=== PATIENT | male | born 1950 | race Caucasian/White ===

== ENCOUNTER → 2017-01-01 | Outpatient (CLI) | payer OTHER ==
[~2017-01-01] MED LIST: ASPEC325; ESZO1TAB16; GABA-113; INDO75CA; PEPCID COMPLETE
== END | disposition home or self-care (01) ==
LOC: C.RDSM 11:52
PROVIDERS: ATTEND Physical Medicine & Rehabilitation Sports Medicine
DX: M25.562 Pain in left knee (principal)

== ENCOUNTER → 2017-08-28 | Outpatient (CLI) | payer OTHER ==
--- NOTE | 2017-08-28 14:52 | DIAGNOSTIC IMAGING REPORT ---
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 There is no evidence for bowel obstruction. No abnormal abdominal calcifications are seen. IMPRESSION: Normal study. No change from the prior exam The above report was generated using voice recognition software. It may contain grammatical, syntax or spelling errors. Electronically signed by: Finn Salas M.D. 08/28/2017 2:51 PM Dictated Date/Time: 08/28/2017 2:50 PM
== END | disposition home or self-care (01) ==
LOC: C.RAD 14:20
PROVIDERS: ATTEND Urology
DX: N20.0 Calculus of kidney (principal)

== ENCOUNTER 2021-08-04 11:16 | Inpatient (IN) ==
[2021-08-04] MEDS ORDERED: SODIUM CHLORIDE 0.9% 1000ML 500 ML IV ONE (11:33)
--- NOTE | 2021-08-04 11:51 | Emergency Department Note ---
History of Present Illness General Chief complaint: Testicular Pain Stated complaint: BLOOD IN URINE,SWOLLEN TESTICLE,FEVER Time Seen by Provider: 08/04/21 11:24 History of Present Illness Provider Complaint: + testicle pain, + testicle swelling and + dysuria Onset (ago): day(s) 2 Duration: + constant Severity: severe Maximum Pain Intensity: 9 Current Pain Intensity: 9 Quality: + burning Relieved By: + none Exacerbated By: + urination Context: no new medication, no recent surgery, no trauma, no new sexual partner, no lifting, no indwelling catheter or no known STD exposure Associated symptoms: + fever/chills (Ulhb609.5); no chest pain, no headaches, no loss of appetite, no malaise, no nausea/vomiting, no rash, no seizure, no shortness of breath or no syncope Other Symptoms: + blood in urine and + dysuria; no discharge, no mass, no urinary retention or no incontinence Treatments Prior to Arrival: + NSAID Home Medications Medication Instructions Recorded Confirmed Type cholecalciferol (vitamin D3) 25 25 mcg PO DAILY 12/08/19 08/04/21 History mcg (1,000 unit) tablet hydroxychloroquine 200 mg tablet 200 mg PO DAILY 12/08/19 08/04/21 History lisinopril 10 mg tablet 20 mg PO DAILY 12/08/19 08/04/21 History multivitamin 1 tab PO DAILY 12/08/19 08/04/21 History rosuvastatin 20 mg tablet 20 mg PO QPM 12/08/19 08/04/21 History donepezil 5 mg tablet 5 mg PO DAILY 12/06/20 08/04/21 History gabapentin 300 mg capsule 300 mg PO BID cap 12/06/20 08/04/21 History krill oil 500 mg capsule 500 mg PO DAILY 12/06/20 08/04/21 History omeprazole 20 mg capsule,delayed 20 mg PO DAILY 12/06/20 08/04/21 History release aspirin 81 mg tablet,delayed 81 mg PO DAILY 08/04/21 08/04/21 History release (Aspirin Low Dose) doxycycline hyclate 100 mg capsule 100 mg PO DAILY 08/04/21 08/04/21 History Allergies Allergy/AdvReac Type Severity Reaction Status Date / Time Sulfa (Sulfonamide Allergy Unknown RASH;HIVES; Unverified 08/04/21 12:49 Antibiotics) SWELLING meloxicam [From Mobic] Allergy Verified 08/04/21 12:49 naproxen [From Aleve] Allergy Verified 08/04/21 12:49 Past Med/Surg History Medical History (Updated 08/04/21 @ 13:21 by Delbert Gallegos) Arthritis Cardiac disorder Heart attack High blood pressure Hyperlipidemia Kidney stones No pertinent family history Surgical History H/O foot surgery H/O heart surgery History of bladder surgery Social History Smoking Status: Never smoker marital status: Feels Safe at Home: Yes Review of Systems A total of 10 systems reviewed and were otherwise negative Physical Exam Vital Signs: Vital Signs - 24 hr 08/04/21 11:18 Temperature 37.4 C Temperature Source Temporal Artery Sc an Pulse Rate 83 Respiratory Rate 18 Respiratory Effort / Characteristics Non-Labored Respiratory Depth Normal Blood Pressure 146/76 H Blood Pressure Marta n 99 Pulse Oximetry 100 Oxygen Delivery Me thod Room Air Sepsis Recent Feve r Within 48 Hours No Sepsis New/Unexpla ined Change in Men ashanti Status No Sepsis Action Take n by Nursing No Action Required Physical Exam: Physical Exam GENERAL: He is oriented to person, place, and time. He appears well-developed and well-nourished. He does not appear distressed. HENT: Exam performed. - Head: Normocephalic and atraumatic. - Right Ear: External ear normal. No mastoid tenderness. - Left Ear: External ear normal. No mastoid tenderness. - Mouth/Throat: The oropharynx is clear and moist. No trismus in the jaw. No dental abscesses or uvula swelling. No oropharyngeal exudate or tonsillar abscesses. EYES: Conjunctivae and EOM are normal. Pupils are equal, round, and reactive to light. Right eye exhibits no discharge. Left eye exhibits no discharge. No scleral icterus. NECK: Normal range of motion. Neck supple. No JVD present. No spinous process tenderness present. No carotid bruit present. No rigidity. No tracheal deviation and normal range of motion present. No Brudzinski's sign and no Kernig's sign noted. CV: Normal rate, regular rhythm, normal heart sounds and intact distal pulses. There is no peripheral edema. Palpable radial pulses bue. PULM/CHEST: Effort normal and breath sounds normal. No respiratory distress. No stridor. He has no wheezes. He has no rales. - Chest Wall: He exhibits no tenderness. ABD: The abdomen is soft. Bowel sounds are normal. He has no distension. No mass is present. There is no tenderness. There is no rebound, no guarding, no Kaur's sign and no tenderness at McBurney's point. Rovsig negative. : Pain on palpation of left testicle. Pain on palpation of the epididymis. Cremasteric reflex present bilaterally. MUSC/SKEL: Normal range of motion. There is no peripheral edema, tenderness or deformity. LYMPH: No cervical adenopathy. NEURO: He is alert and oriented to person, place, and time. He has normal strength. No cranial nerve deficit or sensory deficit. Coordination and gait normal. GCS eye subscore is 4. GCS verbal subscore is 5. GCS motor subscore is 6. Cerebellar tests wnl. SKIN: Skin is warm and dry. He is not diaphoretic. PSYCH: He has a normal mood and affect. Behavior is normal. Judgment and thought content normal. Course Course 1124: The patient was evaluated in room B10. A complete history and physical exam was performed Cardiac monitoring: An order was placed for continuous cardiac monitoring. The monitor shows a rate of 80 with sinus rhythm 1255: Vital signs stable. Labs show leukocytosis of 26. Ultrasound shows epididymoorchitis. CT of the abdomen shows no infected stone. Patient will be [facility] with IV Cipro [facility] patient. Medical Decision Making Laboratory Data Result diagrams: 08/04/21 11:41 08/04/21 11:41 Lab Results 08/04/21 08/04/21 08/04/21 Range/Units 11:41 11:41 11:41 WBC 26.35 H (4.8-10.8) K/uL RBC 4.55 L (4.7-6.1) M/uL Hgb 16.0 (14.0-18.0) g/dL Hct 45.4 (42-52) % MCV 99.8 (80-100) fL MCH 35.2 H (25-34) pg MCHC 35.2 (32-36) g/dL RDW Std Deviation 48.5 H (36.4-46.3) fL RDW Coeff of Mitesh 13.5 (11.5-14.5) % Plt Count 231 (130-400) K/uL MPV 10.4 (7.4-10.4) fL Immature Gran % (Auto) 0.4 % Neut % (Auto) 86.6 % Lymph % (Auto) 6.0 % Angelina % (Auto) 6.8 % Eos % (Auto) 0.0 % Baso % (Auto) 0.2 % Neut # (Auto) 22.83 H (1.4-6.5) K/uL Lymph # (Auto) 1.58 (1.2-3.4) K/uL Angelina # (Auto) 1.78 H (0.11-0.59) K/uL Eos # (Auto) 0.01 (0-0.5) K/uL Baso # (Auto) 0.04 (0-0.2) K/uL Immature Gran # (Auto) 0.11 H (0.00-0.02) K/uL Sodium 136 (136-145) mmol/L Potassium 3.7 (3.5-5.1) mmol/L Chloride 101 (98-107) mmol/L Carbon Dioxide 24 (21-32) mmol/L Anion Gap 11 (3-11) BUN 19 (6-23) mg/dl Creatinine 1.03 (0.6-1.4) mg/dl Est Cr Clr Drug Dosing 73.8 ml/min Est GFR ( Amer) 85.5 ml/min Est GFR (Non-Af Amer) 73.8 ml/min BUN/Creatinine Ratio 18.4 (10-20) Glucose 105 H (70-99(Fasting)) mg/dl Calcium 10.0 (8.5-10.1) mg/dl Urine Color [place] Urine Appearance Cloudy A (Clear) Urine pH 5.5 (4.5-7.5) Ur Specific [place] 1.026 (1.000-1.030) Urine Protein 1+ H (Negative) Urine Glucose (UA) Negative (Negative) Urine Ketones Trace H (Negative) Urine Blood 3+ H (Negative) Urine Nitrite Positive A (Negative) Urine Bilirubin 1+ H (Negative) Urine Urobilinogen Negative (Negative) Ur Leukocyte Esterase 2+ H (Negative) Urine WBC (Auto) >30 H (0-5) /hpf Urine RBC (Auto) >30 H (0-4) /hpf U Hyaline Cast (Auto) 1-5 (0-5) /lpf U Epithel Cells (Auto) 0-5 (0-5) /lpf Urine Bacteria (Auto) Negative (Negative) Imaging Data Radiologist's Impression: Abdomen/Pelvis CT 08/04/21 11:33 CT abd pelvis wo con CLINICAL HISTORY: hematuria fever TECHNIQUE: Helical axial images of the abdomen and pelvis were obtained. Automated dose lowering techniques and/or adjustment according to patient size were utilized for this exam. This exam was performed without intravenous contrast. COMPARISON: None available at the time of this dictation. FINDINGS: Lower chest: No acute abnormality Liver: Hepatic steatosis is noted. Gallbladder and biliary tree: No calcified gallstones. Normal caliber wall. No intra- or extrahepatic biliary ductal dilation. Pancreas: Unremarkable, no focal lesions. Spleen: Unremarkable. Adrenals: Unremarkable. Kidneys and ureters: Nonobstructive nephrolithiasis is seen. Bladder: Somewhat under distended but unremarkable. Reproductive organs: Prostatomegaly is seen. Bowel: Diverticulosis is seen without evidence of diverticulitis. Lymph nodes Retroperitoneal: Unremarkable. Mesenteric: Unremarkable. Pelvic: Unremarkable. Peritoneum: Normal. Vessels: Atherosclerotic calcifications are seen. Abdominal wall: Unremarkable. Bones: Degenerative changes in the visualized spine. Left total hip arthroplasty is seen. IMPRESSION: 1. No acute abnormalities and in particular no evidence of urothelial mass within the limits of this noncontrast study. 2. Hepatic steatosis. ACT 112: Negative or not required by law. Electronically signed by: Jun Santoyo M.D. 08/04/2021 12:33 PM Scrotum Ultrasound 08/04/21 11:33 US scrotum/testicle CLINICAL HISTORY: L testicle pain fever hematuria TECHNIQUE: Real-time sonographic images of the scrotal contents were obtained. Comparison: None available at the time of this dictation. FINDINGS: The right testicle measures 4.6 x 2.2 x 2.9 cm. The left testicle measures 3.6 x 2.6 x 1.[address]es are uniform in echogenicity bilaterally, there is subtly increased flow on the left. No focal intratesticular lesions are identified. The left epididymis is heterogeneous with increased flow, particularly in the tail. Small bilateral hydroceles, septated on the left. No varicoceles were seen. IMPRESSION: Increased vascularity in the left epididymis and testis compatible with epididymoorchitis. Small bilateral hydroceles. ACT 112: Negative or not required by law. Electronically signed by: Jun Santoyo M.D. 08/04/2021 12:38 PM MDM Narrative Vital signs stable. Labs show leukocytosis of 26. Ultrasound shows epididymoorchitis. CT of the abdomen shows no infected stone. Patient will be treated with IV Cipro [facility] patient. Impression & Plan Acute epididymo-orchitis Discharge Plan Visit Data Chief Complaint: Testicular Pain Stated Complaint: BLOOD IN URINE,SWOLLEN TESTICLE,FEVER ED Provider: Delbert Gallegos Discharge Problem: Acute epididymo-orchitis Patient Disposition: Admitted As Inpatient Forms Stand Alone Forms: [facility] Prescriptions Prescriptions: No Action omeprazole 20 mg capsule,delayed release(DR/EC) 20 mg PO DAILY RF: 0 donepezil 5 mg tablet 5 mg PO DAILY RF: 0 krill oil 500 mg capsule 500 mg PO DAILY RF: 0 cholecalciferol (vitamin D3) 25 mcg (1,000 unit) tablet 25 mcg PO DAILY RF: 0 rosuvastatin 20 mg tablet 20 mg PO QPM RF: 0 hydroxychloroquine 200 mg tablet 200 mg PO DAILY RF: 0 lisinopril 10 mg tablet 20 mg PO DAILY RF: 0 multivitamin Tablet 1 tab PO DAILY RF: 0 gabapentin 300 mg capsule 300 mg PO BID RF: 0 doxycycline hyclate 100 mg capsule 100 mg PO DAILY RF: 0 aspirin [Aspirin Low Dose] 81 mg Tablet,Delayed Release (Dr/Ec) 81 mg PO DAILY RF: 0 Referrals Referrals: Tootie Boswell, [Primary Care Provider] -
[2021-08-04 11:57] LABS: Hematocrit (blood only) 45.4 % (42-52); Mean Corpuscular Hemoglobin 35.2 pg (25-34); Mean Corpuscular Hgb Conc 35.2 g/dL (32-36); Mean Corpuscular Volume 99.8 fL (80-100); Mean Platelet Volume 10.4 fL (7.4-10.4); Platelet Count 231 K/uL (130-400); RDW Coefficient of Variation 13.5 % (11.5-14.5); RDW Standard Deviation 48.5 fL (36.4-46.3); Red Blood Count 4.55 M/uL (4.7-6.1); White Blood Count 26.35 K/uL (4.8-10.8)
[2021-08-04 12:14] LABS: Appearance Urine Cloudy (Clear); BUN Creatinine Ratio 18.4 (10-20); Bacteria Urine Automated Negative (Negative); Bilirubin Urine 1+ (Negative); Blood Urine 3+ (Negative); Color Urine Orange; Creatinine Clr Calc Pharmacy 73.8 ml/min; Epithelial Cell Urine Auto 0-5 /lpf (0-5); Est GFR (African American) 85.5 ml/min; Est GFR (Non-African American) 73.8 ml/min; Glucose Urine UA Negative (Negative); Ketones Urine Trace (Negative); Leukocyte Esterase Urine 2+ (Negative); Nitrite Urine Positive (Negative); Potassium 3.7 mmol/L (3.5-5.1); Protein Urine 1+ (Negative); RBC Urine Automated >30 /hpf (0-4); Specific Gravity Urine 1.026 (1.000-1.030); Urobilinogen Urine Negative (Negative); WBC Urine Automated >30 /hpf (0-5); pH Urine 5.5 (4.5-7.5)
[2021-08-04 12:17] LABS: Basophils # (auto) 0.04 K/uL (0-0.2); Basophils % (auto) 0.2 %; Eosinophils # (auto) 0.01 K/uL (0-0.5); Immature Granulocytes # (auto) 0.11 K/uL (0.00-0.02); Immature Granulocytes % (auto) 0.4 %; Lymphocytes # (auto) 1.58 K/uL (1.2-3.4); Monocytes # (auto) 1.78 K/uL (0.11-0.59); Monocytes % (auto) 6.8 %; Neutrophils # (auto) 22.83 K/uL (1.4-6.5); Neutrophils % (auto) 86.6 %
--- NOTE | 2021-08-04 12:35 | CT Scan Report ---
CT abd pelvis wo con CLINICAL HISTORY: hematuria fever TECHNIQUE: Helical axial images of the abdomen and pelvis were obtained. Automated dose lowering tech niques and/or adjustment according to patient size were utilized for this exam. This exam was perfor med without intravenous contrast. COMPARISON: None available at the time of this dictation. FINDINGS: Lower chest: No acute abnormality Liver: Hepatic steatosis is noted. Gallbladder and biliary tree: No calcified gallstones. Normal caliber wall. No intra- or extrahepatic biliary ductal dilation. Pancreas: Unremarkable, no focal lesions. Spleen: Unremarkable. Adrenals: Unremarkable. Kidneys and ureters: Nonobstructive nephrolithiasis is seen. Bladder: Somewhat under distended but unremarkable. Reproductive organs: Prostatomegaly is seen. Bowel: Diverticulosis is seen without evidence of diverticulitis. Lymph nodes Retroperitoneal: Unremarkable. Mesenteric: Unremarkable. Pelvic: Unremarkable. Peritoneum: Normal. Vessels: Atherosclerotic calcifications are seen. Abdominal wall: Unremarkable. Bones: Degenerative changes in the visualized spine. Left total hip arthroplasty is seen. IMPRESSION: 1. No acute abnormalities and in particular no evidence of urothelial mass within the limits of this noncontrast study. 2. Hepatic steatosis. ACT 112: Negative or not required by law. Electronically signed by: Jun Santoyo M.D. 08/04/2021 12:33 PM
--- NOTE | 2021-08-04 12:39 | Ultrasound Report ---
US scrotum/testicle CLINICAL HISTORY: L testicle pain fever hematuria TECHNIQUE: Real-time sonographic images of the scrotal contents were obtained. Comparison: None available at the time of this dictation. FINDINGS: The right testicle measures 4.6 x 2.2 x 2.9 cm. The left testicle measures 3.6 x 2.6 x 1.[address]es are uniform in echogenicity bilaterally, there is subtly increased flow on the left. No focal in tratesticular lesions are identified. The left epididymis is heterogeneous with increased flow, parti cularly in the tail. Small bilateral hydroceles, septated on the left. No varicoceles were seen. IMPRESSION: Increased vascularity in the left epididymis and testis compatible with epididymoorchitis. Small bila teral hydroceles. ACT 112: Negative or not required by law. Electronically signed by: Jun Santoyo M.D. 08/04/2021 12:38 PM
[2021-08-04] MEDS ORDERED: CIPROFLOXACIN / D5W 400 MG/200 ML BAG IV STA (12:45)
--- NOTE | 2021-08-04 12:56 | History & Physical Report ---
Date of Service August 04, 2021 Assessment & Plan (1) Orchitis: Plan: Patient was given ciprofloxacin in emergency department this will be continued his urine culture will also be evaluated for further direction on antibiotic care Per review of up-to-date quinolones are appropriate therapy in patients who are not at risk for sexually transmitted diseases a 10-day course would be recommended (2) Coronary artery disease: Plan: Patient continues on aspirin 81, lisinopril 10, and Crestor (3) GERD (gastroesophageal reflux disease): Plan: Patient has a history of GERD he will be continued on his proton pump inhibitor (4) Rheumatoid arthritis: Plan: pt typically takes plaquenil for prevention and gabapentin long standing for pain (5) DVT prophylaxis: Plan: Pt is a full code pt takes aricept for memory loss History of Present Illness Primary Care Provider: Tootie Boswell, Patient presents with a 1 day history of testicular pain burning sensation also dysuria he has a temperature at home of 100.5 Fahrenheit white cell count of 26 thousand given the degree of leukocytosis throughout the patient be admitted for antibiotic therapy. Patient denies any other complaints. He had an ultrasound which did not show testicular torsion and a CAT scan of his abdomen pelvis which did not show any other urogenital issues. Pt did fall on ice two weeks ago, had some groin pain but no bruising, pt has no penile discharge but does have large red swollen testicle Allergies Allergy/AdvReac Type Severity Reaction Status Date / Time Sulfa (Sulfonamide Allergy Unknown RASH;HIVES; Unverified 08/04/21 12:49 Antibiotics) SWELLING meloxicam [From Mobic] Allergy Verified 08/04/21 12:49 naproxen [From Aleve] Allergy Verified 08/04/21 12:49 Home Medications Medication Instructions Recorded Confirmed Type cholecalciferol (vitamin D3) 25 25 mcg PO DAILY 12/08/19 08/04/21 History mcg (1,000 unit) tablet hydroxychloroquine 200 mg tablet 200 mg PO DAILY 12/08/19 08/04/21 History lisinopril 10 mg tablet 20 mg PO DAILY 12/08/19 08/04/21 History multivitamin 1 tab PO DAILY 12/08/19 08/04/21 History rosuvastatin 20 mg tablet 20 mg PO QPM 12/08/19 08/04/21 History donepezil 5 mg tablet 5 mg PO DAILY 12/06/20 08/04/21 History gabapentin 300 mg capsule 300 mg PO BID cap 12/06/20 08/04/21 History krill oil 500 mg capsule 500 mg PO DAILY 12/06/20 08/04/21 History omeprazole 20 mg capsule,delayed 20 mg PO DAILY 12/06/20 08/04/21 History release aspirin 81 mg tablet,delayed 81 mg PO DAILY 08/04/21 08/04/21 History release (Aspirin Low Dose) doxycycline hyclate 100 mg capsule 100 mg PO DAILY 08/04/21 08/04/21 History Past Med/Surg History Medical History (Updated 08/04/21 @ 13:14 by rEick Robbins MD) Arthritis Cardiac disorder Heart attack High blood pressure Hyperlipidemia Kidney stones No pertinent family history Surgical History H/O foot surgery H/O heart surgery History of bladder surgery Social History Smoking Status: Never smoker marital status: Feels Safe at Home: Yes Review of Systems Review of Systems: Mild distress and fatigue no headache, no visual changes no speech or swallowing issues no chest pain, pressure or palpitations no shortness of breath, cough or wheezes no abdominal pain, nausea or vomiting, diarrhea or constipation has dysuria, discolored reddened urine but no incontinence no new focal joint pain or swelling, does have RA no back pain, CVA tenderness or radicular pain no bruising, bleeding or rashes no focal signs of weakness or numbness or altered sensation no complaints of anxiety or depression.. Physical Exam Physical Exam: The patient appeared well nourished and normally developed. Vital signs as documented. Head exam is normocephalic atraumatic Neck is without JVD, thyromegaly, or carotid bruits. Lungs are clear to auscultation, no focal loss of breath sounds Cardiac exam, Rhythm is regular.. No murmurs, rubs or gallops. Abdominal exam reveals normal bowel sounds, soft non tender, no masses exam show he is circumcised, left testile is two to three times bigger than the right. tender to touch, scrotum is reddened Extremities are nonedematous and both pedal pulses are present, some enlarged hand joints Neurologic exam is alert and oriented, no focal loss of strength or sensation Skin is without bruises or rashes Psychologically is without concerns for anxiety or depression.. Results & Data Results & Data ([facility]) Vital Signs (Past 12 Hours) Vital Signs Temp Pulse Resp BP Pulse Ox 08/04/21 11:18 99.3 F 83 18 146/76 H 100 Diagnostic Findings Abdomen/Pelvis CT 08/04/21 11:33 CT abd pelvis wo con IMPRESSION: 1. No acute abnormalities and in particular no evidence of urothelial mass within the limits of this noncontrast study. 2. Hepatic steatosis. Scrotum Ultrasound 08/04/21 11:33 US scrotum/testicle The right testicle measures 4.6 x 2.2 x 2.9 cm. The left testicle measures 3.6 x 2.6 x 1.3 cm. The testes are uniform in echogenicity bilaterally, there is subtly increased flow on the left. No focal intratesticular lesions are identified. The left epididymis is heterogeneous with increased flow, particularly in the tail. Small bilateral hydroceles, septated on the left. No varicoceles were seen. IMPRESSION: Increased vascularity in the left epididymis and testis compatible with epididymoorchitis. Small bilateral hydroceles. PG Care Time/CCT Total # of Minutes Spent Total Time Spent with Patient: Total time spent is greater than 50% in coordination of care (as documented) at patient's floor/unit and/or counseling patient: Coding Level of Care Code 78160 Initial Inpt Care Lvl 2 Diagnoses Orchitis N45.2 Coronary artery disease I25.10 DVT prophylaxis Z29.9 GERD (gastroesophageal reflux disease) K21.9 Rheumatoid arthritis M06.9
[2021-08-04] MEDS ORDERED: ACETAMINOPHEN 325 MG TAB PO PRN (13:13)
[2021-08-04] MEDS ORDERED: MoRPHine SULFATE 2 MG/ML CARP IV PRN (13:13)
--- NOTE | 2021-08-04 13:42 | Communication Note ---
Date of Service: August 04, 2021 Pt was initially seen by [facility] group. However pt is part of [facility] group therefore transferred to [facility] hospitalist team. Pt is a 70 y/o M with hx of CAD s/p CABG, HTN, HLD, RA on hydroxychloroquine, L Spinal Stenosis, Dementia, BPH, GERD, JEROMY on CPAP (setting of 4) presented to the ER with 1 days hx of dysuria, L testicular swelling, pain and erythema. Dx with Epididymitis. PE: : swollen L testicle, TTP and diffuse skin erythema A/P: Epididymitis: - no sign of torsion on imaging -c/w Cipro 400mg IV BID --- can transition to oral meds on discharge --- UCx pending - recommend outpt urology follow up after discharge Dr. Vasquez
[2021-08-04] MEDS ORDERED: ONDANSETRON INJ 2 MG/ML 2 ML VIAL IV PRN (14:32)
[2021-08-04] MEDS ORDERED: ALUMINUM/MAGNESIUM SUSP 30 ML UDC PO PRN (14:32)
[2021-08-04] MEDS ORDERED: SODIUM CHLORIDE 0.9% 1000ML 1,000 ML IV SCH (15:00)
[2021-08-04] MEDS ORDERED: PHENAZOPYRIDINE HCL 200 MG TAB PO ONE (15:00)
[2021-08-04] MEDS: oxyCODONE HCL IR 5 MG TAB (IMMEDIATE RELEASE) PO PRN (19:10)
[2021-08-04] MEDS: ROSUVASTATIN CALCIUM 20 MG TAB PO SCH (21:15)
[2021-08-04] MEDS: GABAPENTIN 300 MG CAP PO SCH (21:15)
[2021-08-04] MEDS: CIPROFLOXACIN / D5W 400 MG/200 ML BAG IV SCH (23:55)
[2021-08-05] MEDS: ACETAMINOPHEN 500 MG TAB PO PRN ×3 (00:47→17:24)
[2021-08-05] MEDS: PANTOprazole 40 MG TAB PO SCH (08:41)
[2021-08-05] MEDS: CHOLECALCIFEROL 1,000 UNITS 25 MCG TAB PO SCH (08:41)
[2021-08-05] MEDS: GABAPENTIN 300 MG CAP PO SCH ×2 (08:41→20:09)
[2021-08-05] MEDS: DONEPEZIL HCL 5 MG TAB PO SCH (08:41)
[2021-08-05] MEDS: ASPIRIN 81 MG ECTAB PO SCH (08:41)
[2021-08-05] MEDS: lisinopril 20 MG TAB PO SCH (08:42)
[2021-08-05] MEDS: MULTIVITAMIN TAB PO SCH (08:42)
[2021-08-05 08:48] LABS: BUN Creatinine Ratio 16.8 (10-20); Calcium 8.5 mg/dl (8.5-10.1); Creatinine Clr Calc Pharmacy 75.3 ml/min; Est GFR (African American) 87.6 ml/min; Est GFR (Non-African American) 75.5 ml/min; Potassium 3.4 mmol/L (3.5-5.1)
[2021-08-05 09:08] LABS: Hematocrit (blood only) 39.7 % (42-52); Hemoglobin 13.8 g/dL (14.0-18.0); Mean Corpuscular Hemoglobin 34.8 pg (25-34); Mean Corpuscular Hgb Conc 34.8 g/dL (32-36); Mean Corpuscular Volume 100.3 fL (80-100); Mean Platelet Volume 10.6 fL (7.4-10.4); Platelet Count 205 K/uL (130-400); RDW Coefficient of Variation 13.7 % (11.5-14.5); RDW Standard Deviation 49.9 fL (36.4-46.3); Red Blood Count 3.96 M/uL (4.7-6.1); White Blood Count 15.63 K/uL (4.8-10.8)
[2021-08-05] MEDS: oxyCODONE HCL IR 5 MG TAB (IMMEDIATE RELEASE) PO PRN ×2 (10:38→17:22)
[2021-08-05] MEDS: CIPROFLOXACIN / D5W 400 MG/200 ML BAG IV SCH ×2 (11:06→23:07)
--- NOTE | 2021-08-05 11:26 | Hospitalist Progress Note ---
Date of Service August 05, 2021 Assessment & Plan (1) Acute epididymo-orchitis: (2) GERD (gastroesophageal reflux disease): (3) Hypokalemia: (4) Hyponatremia: (5) Essential hypertension: Plan: 70-year-old male with medical history as above presented ED 3/ with 1 day of testicular pain with dysuria. He fell on ice 2 weeks ago, had some groin pain but no bruising, open wound or discharge. In the ED, he was found to have acute epididymoorchitis with significant leukocytosis, now improving on IV ciprofloxacin 1. Acute left epididymoorchitis with scrotal cellulitis- US testes with epididymoorchitis without torsion, UA reviewed, urine culture pending. Patient is not sick or septic. Improving on IV ciprofloxacin D1/-14, continue for now, will tailor based on culture results. Pain and tenderness improving. Follow-up with urology as outpatient. 2. 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 GERD-stable, continue PPI 4. Hypokalemia- K 3.4. repleted. Recheck in a.m. 5. Hyponatremia-mild, recheck in a.m. 6. Essential hypertension- stable, continue lisinopril DVT prophyalxis: sc lovenox Disposition: Contact: Family updated over the phone Admission and Anticipated Discharge Date Admission Date: August 04, 2021 Subjective Seen and examined at bedside. Feeling better. Pain is improved. Denies any fever, chills, nausea or vomiting. Physical Exam Physical Exam: General: Lying comfortably in bed, not in distress, on room air HEENT: EOMI, HARSHIL, MMM Chest: Clear breath sounds bilaterally, no wheezes or crackles CVS: Regular rate and rhythm, normal heart sounds, no murmur Abdomen: Soft, non tender, not distended, normal bowel sounds Neuro: Awake, alert, orientedx3, conversing well, non focal Genitourinary: Scrotal cellulitis with tenderness and erythema Extremities: No cyanosis, clubbing or edema Results & Data Results & Data ([facility]) Vital Signs (Past 12 Hours) Vital Signs Temp Pulse Pulse Resp BP Pulse Ox 08/05/21 07:45 37.3 C 65 16 134/80 94 08/05/21 02:21 341 H 20 94 08/05/21 01:59 37.4 C 80 18 121/69 93 08/05/21 00:44 37.7 C H 84 18 139/70 93 Laboratory Results Short CBC 08/04/21 08/05/21 Range/Units 11:41 07:46 WBC 26.35 H 15.63 H D (4.8-10.8) K/uL Hgb 16.0 13.8 L (14.0-18.0) g/dL Hct 45.4 39.7 L (42-52) % Plt Count 231 205 (130-400) K/uL BMP 08/04/21 08/05/21 11:41 07:46 Sodium 136 132 L Potassium 3.7 3.4 L Chloride 101 102 Carbon Dioxide 24 24 BUN 19 17 Creatinine 1.03 1.01 Glucose 105 H 97 Calcium 10.0 8.5 Urine 08/04/21 Range/Units 11:41 Urine Color [place] Urine Appearance Cloudy A (Clear) Urine pH 5.5 (4.5-7.5) Ur Specific [place] 1.026 (1.000-1.030) Urine Protein 1+ H (Negative) Urine Glucose (UA) Negative (Negative) Medications Administered Current Inpatient Medications Acetaminophen (Acetaminophen 500 Mg Tab) 1,000 mg PO Q8H PRN PRN Reason: pain/fever Stop: 09/03/21 22:49 Last Admin: 08/05/21 00:47 Dose: 1,000 mg Documented by: Al Hydrox/Mg Hydrox/Simethicone (Aluminum/Magnesium Susp 30 Ml Udc) 30 ml PO Q6H PRN PRN Reason: Dyspepsia Stop: 09/03/21 14:31 Aspirin (Aspirin 81 Mg Ectab) 81 mg PO DAILY KEVIN Stop: 09/04/21 08:59 Last Admin: 08/05/21 08:41 Dose: 81 mg Documented by: Donepezil HCl (Donepezil Hcl 5 Mg Tab) 5 mg PO DAILY KEVIN Stop: 09/04/21 08:59 Last Admin: 08/05/21 08:41 Dose: 5 mg Documented by: Gabapentin (Gabapentin 300 Mg Cap) 300 mg PO BID KEVIN Stop: 09/03/21 20:59 Last Admin: 08/05/21 08:41 Dose: 300 mg Documented by: Ciprofloxacin (Cipro / D5w) 400 mg in 200 mls @ 100 mls/hr IV Q12H [facility]; Protocol Stop: 08/15/21 00:00 Last Admin: 08/05/21 11:06 Dose: 100 mls/hr Documented by: Lisinopril (Lisinopril 20 Mg Tab) 20 mg PO DAILY [facility] Stop: 09/04/21 08:59 Last Admin: 08/05/21 08:42 Dose: 20 mg Documented by: Morphine Sulfate (Morphine Sulfate 2 Mg/Ml Carp) 2 mg IV Q4 PRN PRN Reason: Pain Scale: 2,3,4,5,6 Stop: 08/18/21 13:12 Multivitamins (Multivitamin Tab) 1 tab PO QAM [facility] Stop: 09/04/21 08:59 Last Admin: 08/05/21 08:42 Dose: 1 tab Documented by: Ondansetron HCl (Ondansetron Inj 2 Mg/Ml 2 Ml Vial) 4 mg IV Q6H PRN PRN Reason: Nausea Stop: 09/03/21 14:31 Oxycodone HCl (Oxycodone Hcl Ir 5 Mg Tab (Immediate Release)) 10 mg PO Q6H PRN PRN Reason: Moderate Pain 4-6/10 Stop: 08/18/21 13:12 Last Admin: 08/05/21 10:38 Dose: 10 mg Documented by: Pantoprazole Sodium (Pantoprazole 40 Mg Tab) 40 mg PO DAILY [facility] Stop: 09/04/21 08:59 Last Admin: 08/05/21 08:41 Dose: 40 mg Documented by: Rosuvastatin Calcium (Rosuvastatin Calcium 20 Mg Tab) 20 mg PO QPM [facility] Stop: 09/03/21 20:59 Last Admin: 08/04/21 21:15 Dose: 20 mg Documented by: Vitamin D (Cholecalciferol 1,000 Units 25 Mcg Tab) 1,000 units PO DAILY [facility] Stop: 09/04/21 08:59 Last Admin: 08/05/21 08:41 Dose: 1,000 units Documented by:
[2021-08-05] MEDS ORDERED: POTASSIUM CHLORIDE CRTAB 20 MEQ TABCR PO ONE (11:45)
[2021-08-05] MEDS: ROSUVASTATIN CALCIUM 20 MG TAB PO SCH (20:09)
[2021-08-06] MEDS: ACETAMINOPHEN 500 MG TAB PO PRN (06:10)
[2021-08-06 06:44] LABS: Basophils # (auto) 0.01 K/uL (0-0.2); Basophils % (auto) 0.1 %; Eosinophils # (auto) 0.07 K/uL (0-0.5); Eosinophils % (auto) 0.7 %; Hematocrit (blood only) 40.9 % (42-52); Hemoglobin 13.9 g/dL (14.0-18.0); Immature Granulocytes # (auto) 0.03 K/uL (0.00-0.02); Immature Granulocytes % (auto) 0.3 %; Lymphocytes # (auto) 1.39 K/uL (1.2-3.4); Lymphocytes % (auto) 13.2 %; Mean Corpuscular Hemoglobin 33.8 pg (25-34); Mean Corpuscular Volume 99.5 fL (80-100); Mean Platelet Volume 10.6 fL (7.4-10.4); Monocytes # (auto) 0.82 K/uL (0.11-0.59); Monocytes % (auto) 7.8 %; Neutrophils # (auto) 8.21 K/uL (1.4-6.5); Neutrophils % (auto) 77.9 %; Platelet Count 203 K/uL (130-400); RDW Coefficient of Variation 13.1 % (11.5-14.5); RDW Standard Deviation 47.9 fL (36.4-46.3); Red Blood Count 4.11 M/uL (4.7-6.1); White Blood Count 10.53 K/uL (4.8-10.8)
[2021-08-06 06:55] LABS: BUN Creatinine Ratio 16.7 (10-20); Calcium 8.7 mg/dl (8.5-10.1); Creatinine Clr Calc Pharmacy 79.2 ml/min; Est GFR (African American) 93.1 ml/min; Est GFR (Non-African American) 80.3 ml/min; Potassium 3.5 mmol/L (3.5-5.1)
[2021-08-06] MEDS: lisinopril 20 MG TAB PO SCH (08:44)
[2021-08-06] MEDS: CHOLECALCIFEROL 1,000 UNITS 25 MCG TAB PO SCH (08:44)
[2021-08-06] MEDS: DONEPEZIL HCL 5 MG TAB PO SCH (08:44)
[2021-08-06] MEDS: MULTIVITAMIN TAB PO SCH (08:44)
[2021-08-06] MEDS: ASPIRIN 81 MG ECTAB PO SCH (08:44)
[2021-08-06] MEDS: PANTOprazole 40 MG TAB PO SCH (08:44)
[2021-08-06] MEDS: GABAPENTIN 300 MG CAP PO SCH (08:44)
[2021-08-06] MEDS: CIPROFLOXACIN / D5W 400 MG/200 ML BAG IV SCH (09:37)
--- NOTE | 2021-08-06 11:10 | Discharge Summary ---
Date of Service August 06, 2021 Admission HPI Per Admitting Provider Patient presents with a 1 day history of testicular pain burning sensation also dysuria he has a temperature at home of 100.5 Fahrenheit white cell count of 26 thousand given the degree of leukocytosis throughout the patient be admitted for antibiotic therapy. Patient denies any other complaints. He had an ultrasound which did not show testicular torsion and a CAT scan of his abdomen pelvis which did not show any other urogenital issues. Pt did fall on ice two weeks ago, had some groin pain but no bruising, pt has no penile discharge but does have large red swollen testicle Admission Exam Per Admitting Provider The patient appeared well nourished and normally developed. Vital signs as documented. Head exam is normocephalic atraumatic Neck is without JVD, thyromegaly, or carotid bruits. Lungs are clear to auscultation, no focal loss of breath sounds Cardiac exam, Rhythm is regular.. No murmurs, rubs or gallops. Abdominal exam reveals normal bowel sounds, soft non tender, no masses exam show he is circumcised, left testile is two to three times bigger than the right. tender to touch, scrotum is reddened Extremities are nonedematous and both pedal pulses are present, some enlarged hand joints Neurologic exam is alert and oriented, no focal loss of strength or sensation Skin is without bruises or rashes Psychologically is without concerns for anxiety or depression. Principal Diagnosis Acute epididymoorchitis Discharge Exam General: Sitting in chair eating breakfast, comfortable, not in distress, on room air HEENT: EOMI, HARSHIL, MMM Chest: Clear breath sounds bilaterally, no wheezes or crackles CVS: Regular rate and rhythm, normal heart sounds, no murmur Abdomen: Soft, non tender, not distended, normal bowel sounds Neuro: Awake, alert, orientedx3, conversing well, non focal Genitourinary: Scrotal cellulitis with edema, tenderness and erythema improving Extremities: No cyanosis, clubbing or edema Discharge Data Allergies Allergy/AdvReac Type Severity Reaction Status Date / Time Sulfa (Sulfonamide Allergy Unknown RASH;HIVES; Unverified 08/04/21 12:49 Antibiotics) SWELLING meloxicam [From Mobic] Allergy Verified 08/04/21 12:49 naproxen [From Aleve] Allergy Verified 08/04/21 12:49 Consultations 08/04/21 12:45 ED Decision to Admit Stat Ordered Studies 08/04/21 11:33 CT abd pelvis wo con Stat US scrotum/testicle Stat Hospital Course (1) Acute epididymo-orchitis: (2) GERD (gastroesophageal reflux disease): (3) Hypokalemia: (4) Hyponatremia: (5) Essential hypertension: 1. Acute left epididymoorchitis with scrotal cellulitis- US testes with epididymoorchitis without torsion, UA reviewed, urine culture negative. CT A/P with no acute abnormalities. Patient is not sick or septic. He is improving on IV ciprofloxacin D2, leucocytosis normalized. Pain, swelling and erythema improving. Will change to po levaquin 500 mg daily for 10 days. Follow up with uro and PCP as outpatient. 2. CAD-stable, no chest pain, continue POURER aspirin, statin 3. GERD-stable, continue PPI 4. Hypokalemia- Resolved 5. Hyponatremia- Resolved 6. Essential hypertension- stable, continue lisinopril Total Time Total Time Spent Total Time Spent (In Minutes): 36 Discharge Plan Discharge Items Patient Disposition: Home - Self-Care Reason For Visit: EPIDIDYMITIS/ORCHITIS Discharge Diagnosis: Acute eipididymoorchitis Activity: Resume your previous activity Non-emergency contact: Primary Care Provider and Urologist Call non-emergency contact if: you have any medication questions, your symptoms worsen, your pain is not controlled, you have a fever, your wound has increased redness and your wound has increased drainage Follow-up/Referrals: Tootie Boswell DO [Primary Care Provider] - (Date & Time 08/09/2021 1:40 PM Provider Madie Luna DO Department Family [facility] ) Diet: Regular Addtl Attending Provider Instructions: Continue the antibiotic levaquin once daily for 10 days starting tonight Follow up with the family doctor and urology as soon as possible Pending Studies at Discharge: No Stand-Alone Forms: My Schematic Labs, Smoking Cessation Medications and DC Order Prescriptions: New levofloxacin 500 mg tablet 500 mg PO DAILY 10 Days Qty: 10 RF: 0 Continued omeprazole 20 mg capsule,delayed release(DR/EC) 20 mg PO DAILY RF: 0 donepezil 5 mg tablet 5 mg PO DAILY RF: 0 krill oil 500 mg capsule 500 mg PO DAILY RF: 0 cholecalciferol (vitamin D3) 25 mcg (1,000 unit) tablet 25 mcg PO DAILY RF: 0 rosuvastatin 20 mg tablet 20 mg PO QPM RF: 0 hydroxychloroquine 200 mg tablet 200 mg PO DAILY RF: 0 lisinopril 10 mg tablet 20 mg PO DAILY RF: 0 multivitamin Tablet 1 tab PO DAILY RF: 0 gabapentin 300 mg capsule 300 mg PO BID RF: 0 aspirin [Aspirin Low Dose] 81 mg Tablet,Delayed Release (Dr/Ec) 81 mg PO DAILY RF: 0 Discontinued doxycycline hyclate 100 mg capsule 100 mg PO DAILY RF: 0 Discharge Orders: Discharge Order (Routine); Ordered 08/06/21 Ordered By: Harlan Dumas Admission Data Admit Date/Time: 08/04/21 13:01 Attending Provider: Harlan Dumas Admit Provider: Erick Robbins Primary Care Provider: Tootie Boswell Other Providers: Erick Robbins ; Naomi Carter
[2021-08-06] MEDS: oxyCODONE HCL IR 5 MG TAB (IMMEDIATE RELEASE) PO PRN (11:13)
== END 2021-08-06 12:56 | disposition home or self-care (01) | DRG 728 ==
LOC: ED 11:16 → 3W 13:01 → SUATTDRO 13:01 → 3W 14:11

== ENCOUNTER 2024-01-06 13:01 | Inpatient (IN) ==
--- NOTE | 2024-01-06 13:33 | Emergency Department Note ---
Impression & Plan Spinal stenosis ADMIT ED Provider Note HPI: History obtained from patient. The patient is a 73-year-old gentleman who presents the emergency department with chief complaint of lower extremity weakness. Patient states that his symptoms started after a fall 3 weeks ago. He states he was on vacation and he fell onto his right side. Patient states that when he was on his way down from the fall he twisted his back acutely to land onto his side instead of his face. Patient states he had some pain in his back and some difficulty walking since then. Patient states at times he gets some numbness and weakness in his legs from the knees down. ROS: - Per HPI Differential Diagnosis: Lumbar compression fracture, spinal stenosis, herniated lumbar disc, cauda equina syndrome, amongst other potential pathologies. *Outpatient medications and allergy history reviewed. 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 Lab work shows no leukocytosis, hemoglobin is normal, platelet count is normal, CMP does not show any evidence of any critical findings. CT imaging of the lumbar spine was obtained that does show evidence of multiple transverse process fractures from T12-L2, also degenerative changes and spinal stenosis. Patient states he has had issues with ambulatory dysfunction at home, he does not feel that he is able to go home safely to wait a month for follow-up with spinal surgery. I did therefore discuss the patient's presentation with orthopedic/spinal surgery, Dr. Lo, and he recommends obtaining MRI imaging of the lumbar spine and admission to the hospital for PT/OT consultation and he is happy to consult on the patient's case while he is here as he does state upon review of the patient's CT imaging that his spinal stenosis is severe and may require surgical intervention. I discussed inpatient admission with the patient and his at the bedside, patient states this would be his preference. I did then order MRI imaging of the lumbar spine, I discussed the patient's presentation with the on-call hospitalist, Dr. Gore, and the patient was admitted for further management and orthopedic/spinal consultation. Consultants/Discussions held with other healthcare providers: -Hospitalist, Dr. Gore -Orthopedic/spinal surgery, Dr. Lo Disposition discussion held by myself with: -Patient and patient's at the bedside Diagnosis: 1. Lower extremity weakness, acute 2. Ambulatory dysfunction, acute 3. Transverse process fractions of the thoracic and lumbar spine (T12-L2), acute, left-sided 4. Spinal stenosis, chronic Disposition: Admission Finn Cornejo DO Emergency Medicine Past Med/Surg History Problem List (Updated 01/06/24 @ 15:03 by Finn Cornejo DO) Spinal stenosis (Acute) Essential hypertension Acute epididymo-orchitis (Acute) Rheumatoid arthritis GERD (gastroesophageal reflux disease) Coronary artery disease Orchitis Kidney stones BPH without urinary obstruction Arthritis Medical History (Updated 01/06/24 @ 15:03 by Finn Cornejo DO) No pertinent family history Heart attack Hyperlipidemia High blood pressure Cardiac disorder Surgical History H/O heart surgery H/O foot surgery History of bladder surgery Social History Smoking Status: Never smoker Hx Alcohol Use: Yes Alcohol type: beer, wine and hard liquor Hx Substance Use: No Preferred Language: Japanese Communication Ability: Effective 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 Beliefs That Will Affect Care: None marital status: Current Living Situation: Spouse Feels Safe at Home: Yes Assistive Devices: None Allergies Allergies Allergy/AdvReac Type Severity Reaction Status Date / Time Sulfa (Sulfonamide Allergy Unknown RASH;HIVES; Unverified 01/08/23 09:41 Antibiotics) SWELLING meloxicam [From Mobic] Allergy Verified 01/08/23 09:41 naproxen [From Aleve] Allergy Verified 01/08/23 09:41 Home Meds Home Medications Medication Instructions Recorded Confirmed cholecalciferol (vitamin D3) 25 25 mcg PO DAILY 12/08/19 01/08/23 mcg (1,000 unit) tablet hydroxychloroquine 200 mg tablet 200 mg PO DAILY 12/08/19 01/08/23 lisinopril 10 mg tablet 20 mg PO DAILY 12/08/19 01/08/23 multivitamin 1 tab PO DAILY 12/08/19 01/08/23 rosuvastatin 20 mg tablet 20 mg PO QPM 12/08/19 01/08/23 donepezil 5 mg tablet 5 mg PO DAILY 12/06/20 01/08/23 gabapentin 300 mg capsule 300 mg PO BID 12/06/20 01/08/23 krill oil 500 mg capsule 500 mg PO DAILY 12/06/20 01/08/23 omeprazole 20 mg capsule,delayed 20 mg PO DAILY 12/06/20 01/08/23 release aspirin 81 mg tablet,delayed 81 mg PO DAILY 08/04/21 01/08/23 release (Maya Low Dose Aspirin) Previous Rx's Medication Instructions Recorded sildenafil 100 mg tablet 100 mg PO DAILY PRN sexual 01/08/23 activity #10 tabs tamsulosin 0.4 mg capsule 0.4 mg PO DAILY #90 caps 01/08/23 Results & Data (ED) Vital Signs Vital Signs - 24 hr 01/06/24 13:05 01/06/24 13:16 01/06/24 13:16 Temperature 36.6 C 36.9 C Temperature Source Temporal Artery Scan Oral Pulse Rate 73 Pulse Rate [Right Finger] 68 Pulse Rate from SpO2 Sensor Pulse Rhythm Regular Pulse Rhythm [Right Finger] Regular Pulse Strength [Bilateral Femoral] Pulse Strength [Right Finger] Normal Respiratory Rate 18 20 Respiratory Effort / Characteristics Non-Labored Non-Labored Spontaneous Respiratory Depth Normal Normal Respiratory Pattern Regular Blood Pressure 189/98 H Blood Pressure [Left Arm] 178/90 H Blood Pressure Mean 128 Blood Pressure Mean [Left Arm] 119 Blood Pressure Position Sitting Blood Pressure Position [Left Arm] Lying Pulse Oximetry 98 95 96 Oxygen Delivery Method Room Air Room Air Room Air Sepsis Recent Fever Within 48 Hours No Sepsis New/Unexplained Change in Mental Status No Sepsis Action Taken by Nursing No Action Required 01/06/24 13:16 01/06/24 13:16 01/06/24 13:29 Temperature 36.9 C 36.9 C Temperature Source Oral Pulse Rate 66 66 Pulse Rate [Right Finger] 66 Pulse Rate from SpO2 Sensor Pulse Rhythm Regular Pulse Rhythm [Right Finger] Regular Pulse Strength [Bilateral Femoral] Normal Pulse Strength [Right Finger] Normal Respiratory Rate 20 20 20 Respiratory Effort / Characteristics Non-Labored Spontaneous Respiratory Depth Normal Respiratory Pattern Regular Blood Pressure 178/90 H Blood Pressure [Left Arm] 178/90 H Blood Pressure Mean Blood Pressure Mean [Left Arm] 119 Blood Pressure Position Blood Pressure Position [Left Arm] Lying Pulse Oximetry 96 96 96 Oxygen Delivery Method Room Air Room Air Room Air Sepsis Recent Fever Within 48 Hours Sepsis New/Unexplained Change in Mental Status Sepsis Action Taken by Nursing 01/06/24 13:54 01/06/24 14:09 01/06/24 14:12 Temperature Temperature Source Pulse Rate 62 61 62 Pulse Rate [Right Finger] Pulse Rate from SpO2 Sensor 62 62 62 Pulse Rhythm Pulse Rhythm [Right Finger] Pulse Strength [Bilateral Femoral] Pulse Strength [Right Finger] Respiratory Rate 20 18 19 Respiratory Effort / Characteristics Respiratory Depth Respiratory Pattern Blood Pressure Blood Pressure [Left Arm] Blood Pressure Mean Blood Pressure Mean [Left Arm] Blood Pressure Position Blood Pressure Position [Left Arm] Pulse Oximetry 91 90 90 Oxygen Delivery Method Sepsis Recent Fever Within 48 Hours Sepsis New/Unexplained Change in Mental Status Sepsis Action Taken by Nursing 01/06/24 14:15 01/06/24 14:21 Temperature Temperature Source Pulse Rate 64 60 Pulse Rate [Right Finger] Pulse Rate from SpO2 Sensor 60 Pulse Rhythm Pulse Rhythm [Right Finger] Pulse Strength [Bilateral Femoral] Pulse Strength [Right Finger] Respiratory Rate 20 Respiratory Effort / Characteristics Respiratory Depth Respiratory Pattern Blood Pressure Blood Pressure [Left Arm] Blood Pressure Mean Blood Pressure Mean [Left Arm] Blood Pressure Position Blood Pressure Position [Left Arm] Pulse Oximetry 91 Oxygen Delivery Method Sepsis Recent Fever Within 48 Hours Sepsis New/Unexplained Change in Mental Status Sepsis Action Taken by Nursing Laboratory Data 01/06/24 13:15 01/06/24 13:15 Lab Results 01/06/24 Range/Units 13:15 WBC 8.19 (4.8-10.8) K/ul RBC 4.88 (4.70-6.10) M/uL Hgb 16.2 (14.0-18.0) g/dl Hct 47.0 (42.0-52.0) % MCV 96.3 (80.0-100.0) fL MCH 33.2 (25.0-34.0) pg MCHC 34.5 (32.0-36.0) g/dL RDW Std Deviation 44.6 (36.4-46.3) fL RDW Coeff of Mitesh 12.7 (11.5-14.5) % Plt Count 246 (130-400) K/uL MPV 10.5 (9.4-12.4) fL Immature Gran % (Auto) 0.5 % Neut % (Auto) 67.0 % Lymph % (Auto) 22.8 % [place] % (Auto) 7.7 % Eos % (Auto) 1.1 % Baso % (Auto) 0.9 % Neut # (Auto) 5.49 (1.40-6.50) K/uL Lymph # (Auto) 1.87 (1.20-3.40) K/uL [place] # (Auto) 0.63 H (0.11-0.59) K/uL Eos # (Auto) 0.09 (0.00-0.50) K/uL Baso # (Auto) 0.07 (0.00-0.20) K/uL Immature Gran # (Auto) 0.04 (0.01-0.20) K/uL Sodium 139 (136-145) mmol/L Potassium 3.9 (3.5-5.1) mmol/L Chloride 104 (98-107) mmol/L Carbon Dioxide 28 (21-32) mmol/L Anion Gap 7 (3-11) BUN 17 (6-23) mg/dl Creatinine 0.83 (0.6-1.4) mg/dl Est Cr Clr Drug Dosing 88.2 ml/min Est GFR ( Amer) 101.9 ml/min Est GFR (Non-Af Amer) 87.9 ml/min BUN/Creatinine Ratio 20.5 H (10-20) Glucose 104 H (70-99(Fasting)) mg/dl Calcium 9.9 (8.6-10.3) mg/dl Total Bilirubin 1.5 H (0.2-1.0) mg/dl AST 22 (13-39) U/L ALT 25 (7-52) U/L Alkaline Phosphatase 76 (34-104) U/L Total Protein 7.4 (6.0-8.3) gm/dl Albumin 4.7 (3.4-5.0) gm/dl Globulin 2.7 (2.5-4.0) gm/dl Albumin/Globulin Ratio 1.7 (0.9-2) Lipase 22 (11-82) U/L Administered Medications Discontinued Medications Methylprednisolone (Methylprednisolone 125 Mg/2 Ml Vial) 60 mg IV NOW STA Stop: 01/06/24 13:27 Last Admin: 01/06/24 13:39 Dose: 60 mg Documented By: CAW Imaging Data Radiologist's Impression: Lumbar Spine CT 01/06/24 13:[address] WITHOUT CONTRAST CLINICAL HISTORY: Back pain following recent fall. COMPARISON STUDY: CT of the abdomen and pelvis August 04, 2021. TECHNIQUE: Axial images of the lumbar spine were obtained without intravenous contrast. Sagittal and coronal reconstructions were viewed. Automated exposure control was utilized for the study. A dose lowering technique was utilized adhering to the principles of ALARA. FINDINGS: For purposes of numbering on this exam, the L5-S1 disc space is assigned to axial image 308 of [id number]. There is mild leftward curvature of the lumbar spine. There are acute nondisplaced fractures of the left transverse processes of T12, L1 and L2. No additional acute fractures within the lumbar spine are present. There is fusion of the L3 and L4 vertebra. Severe facet arthrosis is noted at multiple levels. The central canal and neural foramen are suboptimally assessed given CT technique. Central canal stenosis is most pronounced at the L4-L5 level. IMPRESSION: 1. Acute nondisplaced fractures of the left transverse processes of T12, L1 and L2. 2. Severe multilevel degenerative changes within the lumbar spine. ACT 112: Negative or not required by law. Electronically signed by: Donaldo Ruiz M.D. 01/06/2024 2:08 PM Discharge Plan Visit Data Chief Complaint: Trauma Stated Complaint: WEAKNESS, LEGS GO NUMB ED Provider: Finn Cornejo Discharge Problem: Spinal stenosis Forms Stand Alone Forms: My [employer] Prescriptions Prescriptions: No Action omeprazole 20 mg capsule,delayed release(DR/EC) 20 mg PO DAILY donepezil 5 mg tablet 5 mg PO DAILY krill oil 500 mg capsule 500 mg PO DAILY tamsulosin 0.4 mg capsule 0.4 mg PO DAILY Qty: 90 3RF sildenafil 100 mg tablet 100 mg PO DAILY PRN (Reason: sexual activity) Qty: 10 11RF Rx Instructions: administer 30 minutes to 4 hours before activity cholecalciferol (vitamin D3) 25 mcg (1,000 unit) tablet 25 mcg PO DAILY rosuvastatin 20 mg tablet 20 mg PO QPM hydroxychloroquine 200 mg tablet 200 mg PO DAILY lisinopril 10 mg tablet 20 mg PO DAILY multivitamin Tablet 1 tab PO DAILY gabapentin 300 mg capsule 300 mg PO BID aspirin [Maya Low Dose Aspirin] 81 mg Tablet,Delayed Release (Dr/Ec) 81 mg PO DAILY Referrals Referrals: Tootie Boswell DO [Outside Practitioners] - Discharge Problem: Spinal stenosis Qualifiers: Spinal region: lumbar Neurogenic claudication status: unspecified Qualified Code(s): M48.061 - Spinal stenosis, lumbar region without neurogenic claudication
[2024-01-06] MEDS: methylPREDNISolone 125 MG/2 ML VIAL IV STA (13:39)
[2024-01-06 13:58] LABS: Basophils # (auto) 0.07 K/uL (0.00-0.20); Basophils % (auto) 0.9 %; Eosinophils # (auto) 0.09 K/uL (0.00-0.50); Eosinophils % (auto) 1.1 %; Hemoglobin 16.2 g/dl (14.0-18.0); Immature Granulocytes # (auto) 0.04 K/uL (0.01-0.20); Immature Granulocytes % (auto) 0.5 %; Lymphocytes # (auto) 1.87 K/uL (1.20-3.40); Lymphocytes % (auto) 22.8 %; Mean Corpuscular Hemoglobin 33.2 pg (25.0-34.0); Mean Corpuscular Hgb Conc 34.5 g/dL (32.0-36.0); Mean Corpuscular Volume 96.3 fL (80.0-100.0); Mean Platelet Volume 10.5 fL (9.4-12.4); Monocytes # (auto) 0.63 K/uL (0.11-0.59); Monocytes % (auto) 7.7 %; Neutrophils # (auto) 5.49 K/uL (1.40-6.50); Platelet Count 246 K/uL (130-400); RDW Coefficient of Variation 12.7 % (11.5-14.5); RDW Standard Deviation 44.6 fL (36.4-46.3); Red Blood Count 4.88 M/uL (4.70-6.10); White Blood Count 8.19 K/ul (4.8-10.8)
--- NOTE | 2024-01-06 14:10 | CT Scan Report ---
LUMBAR SPINE CT WITHOUT CONTRAST CLINICAL HISTORY: Back pain following recent fall. COMPARISON STUDY: CT of the abdomen and pelvis August 04, 2021. TECHNIQUE: Axial images of the lumbar spine were obtained without intravenous contrast. Sagittal and coronal reconstructions were viewed. Automated exposure control was utilized for the study. A dose l owering technique was utilized adhering to the principles of ALARA. FINDINGS: For purposes of numbering on this exam, the L5-S1 disc space is assigned to axial image 308 of 389. There is mild leftward curvature of the lumbar spine. There are acute nondisplaced fractures of the left transverse processes of T12, L1 and L2. No additional acute fractures within the lumbar spine are present. There is fusion of the L3 and L4 vertebra. Severe facet arthrosis is noted at mult iple levels. The central canal and neural foramen are suboptimally assessed given CT technique. Centr al canal stenosis is most pronounced at the L4-L5 level. IMPRESSION: 1. Acute nondisplaced fractures of the left transverse processes of T12, L1 and L2. 2. Severe multilevel degenerative changes within the lumbar spine. ACT 112: Negative or not required by law. Electronically signed by: Donaldo Ruiz M.D. 01/06/2024 2:08 PM
[2024-01-06 14:14] LABS: Albumin Globulin Ratio 1.7 (0.9-2); Albumin Level 4.7 gm/dl (3.4-5.0); BUN Creatinine Ratio 20.5 (10-20); Bilirubin,Total 1.5 mg/dl (0.2-1.0); Calcium 9.9 mg/dl (8.6-10.3); Creatinine Clr Calc Pharmacy 88.2 ml/min; Est GFR (African American) 101.9 ml/min; Est GFR (Non-African American) 87.9 ml/min; Globulin 2.7 gm/dl (2.5-4.0); Potassium 3.9 mmol/L (3.5-5.1); Total Protein 7.4 gm/dl (6.0-8.3)
[2024-01-06 15:12] LABS: Appearance Urine Clear (Clear); Bilirubin Urine Negative (Negative); Blood Urine Negative (Negative); Color Urine Yellow; Glucose Urine UA Negative (Negative); Ketones Urine Negative (Negative); Leukocyte Esterase Urine Negative (Negative); Nitrite Urine Negative (Negative); Protein Urine Negative (Negative); Specific Gravity Urine 1.009 (1.000-1.030); Urobilinogen Urine Negative (Negative)
--- NOTE | 2024-01-06 15:26 | History & Physical Report ---
Date of Service January 06, 2024 Assessment & Plan (1) Spinal stenosis: Plan: Assessment: 1. Acute transverse process fractures of T12, L1 and L2 with left-sided. Orthopedic spine surgery consulted. 2. Spinal stenosis. Spine surgery consulted. MRI ordered and pending. 3. Coronary artery disease status post CABG x 3 vessels 2007. The patient does follow with outpatient cardiology. 4. Hypertension. 5. Dyslipidemia. 6. Obstructive sleep apnea. He does wear CPAP at home. He did not bring his machine with him working to get it here for this hospital stay therefore inpatient CPAP has been ordered. 7. Obesity. 8. Lower extremity paresthesias and weakness as described above. Again with a history of spinal stenosis spine surgery consulted. 9. Mild hyper bilirubinemia by lab today. 1.5. Will recheck in the morning. Plan: As described above. MRI. Consult orthopedic spine surgery. Falls precautions. Await further input pending further studies. Please refer to orders for further planning. History of Present Illness Chief Complaint: Lower extremity weakness, falls x 4, back pain Primary Care Provider: Que Foreman PA-C This is a pleasant 74-year-old male who had a mechanical fall at [employer] while golfing back on December 15, 2023. Since then he has been having some low back pain. The week he came home he had an additional fall. He saw his outpatient primary care physician who ordered x-rays and subsequently referred to Dr. Lo orthopedic spine surgery. Their appointment for outpatient evaluation by orthopedic spine surgery February 04. Yesterday the patient had an additional mechanical fall. He has been having numbness from his knees distally as well as increasing lower extremity weakness. This morning he had a additional mechanical fall at which time prompted a trip to the ER for further evaluation and treatment. In the emergency department the patient underwent CAT scanning which identified an acute left-sided T12, L1 and L2 transverse process fracture. In addition the patient has pretty significant spinal stenosis by CAT scan imaging. Consultation was obtained with orthopedic spine surgery Dr. Lo by the ER provider who is recommending MRI and inpatient admission and consultation for possible surgical decompression pending MRI imaging. Allergies Allergy/AdvReac Type Severity Reaction Status Date / Time Sulfa (Sulfonamide Allergy Intermediate RASH;HIVES; Verified 01/06/24 15:07 Antibiotics) SWELLING meloxicam [From Mobic] Allergy Unknown CAN'T Verified 01/06/24 15:07 REMEMBER naproxen [From Aleve] Allergy Unknown CAN'T Verified 01/06/24 15:07 REMEMBER Home Medications Medication Instructions Recorded Confirmed Type cholecalciferol (vitamin D3) 25 25 mcg PO DAILY 12/08/19 01/06/24 History mcg (1,000 unit) tablet hydroxychloroquine 200 mg tablet 200 mg PO DAILY 12/08/19 01/06/24 History multivitamin 1 tab PO DAILY 12/08/19 01/06/24 History rosuvastatin 20 mg tablet 20 mg PO QPM 12/08/19 01/06/24 History krill oil 500 mg capsule 500 mg PO DAILY 12/06/20 01/06/24 History omeprazole 20 mg capsule,delayed 20 mg PO DAILY 12/06/20 01/06/24 History release aspirin 81 mg tablet,delayed 81 mg PO DAILY 08/04/21 01/06/24 History release ([facility] Low Dose Aspirin) sildenafil 100 mg tablet 100 mg PO DAILY PRN sexual 01/08/23 01/06/24 Rx activity #10 tabs tamsulosin 0.4 mg capsule 0.4 mg PO DAILY #90 caps 01/08/23 01/06/24 Rx citalopram 20 mg tablet 20 mg PO DAILY 01/06/24 01/06/24 History cyclobenzaprine 10 mg tablet 10 mg PO BID PRN MUSCLE SPASMS 01/06/24 01/06/24 History gabapentin 600 mg tablet 600 mg PO BID 01/06/24 01/06/24 History indomethacin 25 mg capsule 25 mg PO BID 01/06/24 01/06/24 History lisinopril 40 mg tablet 40 mg PO DAILY 01/06/24 01/06/24 History memantine 10 mg tablet 10 mg PO BID 01/06/24 01/06/24 History Past Med/Surg History Problem List (Updated 01/06/24 @ 15:03 by Finn Cornejo DO) Spinal stenosis (Acute) Essential hypertension Acute epididymo-orchitis (Acute) Rheumatoid arthritis GERD (gastroesophageal reflux disease) Coronary artery disease Orchitis Kidney stones BPH without urinary obstruction Arthritis Medical History (Updated 01/06/24 @ 15:03 by Finn Cornejo DO) No pertinent family history Heart attack Hyperlipidemia High blood pressure Cardiac disorder Surgical History H/O heart surgery H/O foot surgery History of bladder surgery Social History Smoking Status: Never smoker Hx Alcohol Use: Yes Alcohol type: beer, wine and hard liquor Hx Substance Use: No Preferred Language: [place] Communication Ability: Effective Tool Crib Clerk Required: No Beliefs That Will Affect Care: None marital status: Current Living Situation: Spouse Feels Safe at Home: Yes Assistive Devices: None Review of Systems Review of Systems: A 10 point review of system was obtained and unless otherwise stated here or in history of present illness are negative and noncontributory to chief complaint. Physical Exam Physical Exam: In General: In general pleasant 73-year-old male who is alert and oriented x 3 at the time of my exam he is accompanied by his at 54 years at the time of my examination. HEENT: Normocephalic atraumatic pupils are equal round and reactive to light bilaterally. No scleral icterus no conjunctival injection external auditory canals are patent septum is in the midline nose is without discharge oral mucosa is pink and moist without lesion. NECK: Supple no rigidity no lymphadenopathy no thyromegaly no carotid bruits no JVD no masses. HEART: Regular rate and rhythm I do not appreciate any ectopy or rub. No murmur. Sternotomy scar noted LUNGS: Clear to auscultation bilaterally and anteriorly with no evidence of adventitious sounds/wheezes rales or rhonchi. ABDOMEN: Soft nontender, no rebound, no peritoneal signs, positive bowel sounds, no appreciable organomegaly. EXTREMITIES: Intact, no peripheral cyanosis, clubbing or edema. No pathologic reflexes, strength is 5 out of 5 in his upper extremities x 2. Lower extremities he does have some bilateral weakness with great his strength is 4 to 4+ out of 5 in his lower extremities. I did not try to ambulate the patient for my exam as he is pending MRI. NEUROLOGICAL: Other than described above, cranial nerves II through XII are grossly intact with no focal deficit elicited upon examination. No tremor. The patient does have decreased sensation to fine pinprick of the lower extremities bilaterally compared to the upper extremities. Results & Data Results & Data Vital Signs (Past 12 Hours) Vital Signs Temp Pulse Pulse Resp BP BP Pulse Ox 01/06/24 15:03 63 22 170/94 H 94 01/06/24 15:00 63 22 170/94 H 94 01/06/24 14:21 60 20 91 01/06/24 14:15 64 01/06/24 14:12 62 19 90 01/06/24 14:09 61 18 90 01/06/24 13:54 62 20 91 01/06/24 13:29 66 20 96 01/06/24 13:16 36.9 C 66 20 178/90 H 96 01/06/24 13:16 36.9 C 66 20 178/90 H 96 01/06/24 13:16 36.9 C 68 20 178/90 H 96 01/06/24 13:16 95 01/06/24 13:05 36.6 C 73 18 189/98 H 98 O2 Del Method 01/06/24 15:03 Room Air 01/06/24 15:00 Room Air 01/06/24 14:21 01/06/24 14:15 01/06/24 14:12 01/06/24 14:09 01/06/24 13:54 01/06/24 13:29 Room Air 01/06/24 13:16 Room Air 01/06/24 13:16 Room Air 01/06/24 13:16 Room Air 01/06/24 13:16 Room Air 01/06/24 13:05 Room Air Code Status & VTE Plan Code Status Full code: I personally discussed with patient at the bedside. VTE Prophylaxis Plan VTE Prophylaxis will be ordered: Yes PG Care Time/CCT Total # of Minutes Spent Total Time Spent with Patient: Total time spent is greater than 50% in coordination of care (as documented) at patient's floor/unit and/or counseling patient: Coding Level of Care Code 28451 INT INP/OBS CARE 2/55MIN Diagnoses Spinal stenosis M48.061 Neurogenic claudication status: unspecified Spinal region: lumbar (1) Spinal stenosis Neurogenic claudication status: unspecified Spinal region: lumbar Qualified Code(s): M48.061 - Spinal stenosis, lumbar region without neurogenic claudication
--- NOTE | 2024-01-06 16:08 | Magnetic Resonance Report ---
MR lumbar spine wo con CLINICAL HISTORY: LE numbness/weakness, spinal stenosis TECHNIQUE: Multiplanar sequences through the lumbar spine were obtained, without intravenous contrast . Comparison: Comparison is made to CT lumbar spine 01/06/2024 FINDINGS: Fusion of L3-L4 is seen. L1-L2: No significant abnormality. L2-L3: No significant abnormality. L3-L4: Mild bilateral facet arthropathy results in mild bilateral neural foraminal stenosis. L4-L5: Broad-based posterior disc bulge is seen with moderate to severe canal stenosis, AP diameter o f 5 mm, and severe bilateral neuroforaminal stenosis. L5-S1: Facet arthropathy and broad base posterior disc bulge results in moderate canal stenosis , AP diameter 6 mm, and severe bilateral neuroforaminal stenosis. The spinal ligaments are intact, without evidence of disruption or abnormal signal intensity. The spi nal cord is normal in signal intensity and there is no evidence of cord contusion. There is no eviden ce of an extradural, intradural, extramedullary or intramedullary lesion. Visualized soft tissues are normal. IMPRESSION: 1. Multilevel degenerative changes with up to moderate to severe canal stenosis, AP diameter 5 mm, a nd severe bilateral neuroforaminal stenosis. 2. Transverse process fractures are better seen on CT performed same day. ACT 112: Negative or not required by law. Electronically signed by: Jun Santoyo M.D. 01/06/2024 4:07 PM
[2024-01-06] MEDS: hydrALAZINE HCL 20 MG/ML VIAL IV PRN (18:20)
--- OUTSIDE RECORDS SUMMARY | 2024-01-06 20:10 | External Medical Summary | Summary of Care ---
Author Name Unknown Organization [facility] [address] [facility] [address] Phone [phone] Care Team Providers Care Agricultural Extension Agent Name Role Phone Que Foreman PA-C Primary Care Provide r Reason for Referral * Evaluate & Treat - Unlimited Visits (Within 30 days (routine)) - Pending Review Specialty Diagnoses / Procedures Referred By Khris t Referred To Contact Neuro/Ortho Surgery - Spine. / Neurological Surgery Diagnoses Congenital postural scoliosis Herniated lumbar intervertebral disc Spinal stenosis of lumbar region without neurogenic claudication Chronic bilateral low back pain with left-sided sciatica Acute left-sided low back pain with left-sided sciatica Clarisa Cormier PA-C [address] [place] [address] Referral ID Status Reason Start Date Expiration Date Visits Requested Visits Authorized [id number] Pending Review Specialty Services Required 12/26/[phone] Question Answer Referral Priority Within 30 days (routine) Where should this appointment be scheduled? External [facility] Select spine region: Back - Thoracic/Lumbar Do you have any recent complete loss of bladder or bowel function? No Reason for Visit * Reason Onset Date Comments Test Results Imaging Study 12/26/2023 Appointment 12/26/2023 Spine Surg Encounter Details Date Type Department Care Team (Late st Contact Info) Description 12/26/2023 Telephone Family Practice [address] [place] [address] Clarisa Cormier PA-C [address] [place] [id number] Test Results Imaging Study; Appointment (S... Allergies Active Allergy Reactions Criticality Noted Date Comments Latex Rash Low 09/08/2017 Meloxicam Neuro complications (Please comment) 08/05/2016 Naproxen-Esomeprazole Mg Other (Please comment) 02/21/2017 blisters Other reaction(s): Other See Comments blisters Other reaction(s): Other (Please comment) blisters Sulfa Antibiotics Hives 05/24/2020 Sertraline 08/03/2021 Sweating, dizziness, depression documented as of this encounter (statuses as of 12/26/2023) Medications Medication Sig Dispensed Refills Start Date End Date Status Krill Oil 1000 MG Oral Capsule Take 1 Capsule by mouth. Active Aspirin Buf([id number]-JoQ ) 81 MG Oral Tablet Take 81 mg by mouth. Active Cholecalciferol 25 MCG (1000 UT) Oral Tablet Take 1 Tablet by mouth. Active Hydroxychloroquine Sulfate 200 MG Oral Tablet (PLAQUENIL) Take 1 Tablet by mouth. Active Multi-Vitamin Oral Tablet Take 1 Tablet by mouth. Active Omeprazole 20 MG Oral Capsule Delayed Release (PriLOSEC) Take 1 Capsule by mouth. Active Tamsulosin HCl 0.4 MG Oral Capsule (Flomax) Take 1 Capsule by mouth in the morning. Active Rosuvastatin Calcium 20 MG Oral Tablet (Crestor)Indications: Dyslipidemia, goal LDL below 70,Hypertension goal BP (blood pressure) < 140/90,Sleep apnea, unspecified type Take 1 Tablet by mouth every night at bedtime. 90 Tablet 3 06/30/2023 Active Sildenafil Citrate 100 MG Oral Tablet 1 Tablet. 01/08/2023 Active Memantine HCl 10 MG Oral Tablet (Namenda)Indications: Amnestic MCI (mild cognitive impairment with memory loss) Take 1 Tablet by mouth in the morning and 1 Tablet before bedtime. Do not start before August 09, 2023. 180 Tablet 3 08/09/2023 Active Citalopram Hydrobromide 20 MG Oral Tablet (CeleXA) Take 1 Tablet by mouth in the morning. 90 Tablet 3 10/23/2023 Active Indomethacin 25 MG Oral Capsule (Indocin) Take 1 Capsule by mouth daily. Active Lisinopril 40 MG Oral TabletIndications:Hyp ertension goal BP (blood pressure) < 140/90 Take 1 Tablet by mouth in the morning. 90 Tablet 3 11/14/2023 Active Gabapentin 600 MG Oral Tablet (Neurontin) Take 1 Tablet by mouth in the morning and 1 Tablet before bedtime. 90 Tablet 5 12/22/2023 Active Cyclobenzaprine HCl 10 MG Oral Tablet (Flexeril) Take 1 Tablet by mouth 2 times a day as needed for Muscle spasms. 20 Tablet 1 12/22/2023 Active documented as of this encounter (statuses as of 12/26/2023) Active Problems Problem Noted Date Diagnosed Date Acute pain of left shoulder 12/22/2023 Coronary artery disease invo lving qagan tayagungin coronary artery of qagan tayagungin heart without angina pectoris 05/24/2020 Overview: Catheterization was mostly good with a small non stentable blockage of 60% in 1 artery. Multiple thyroid nodules 05/24/2020 Overview: 02/24/23:He had followed up with Dr. Soto, otolaryngology, for history of multiple thyroid nodules. He had a fine-needle biopsy in August of 2019. Everything was negative. Recommendation is to have an ultrasound in 3-5 years and he had an ultrasound done that demonstrated diffuse multinodular goiter no definitive follow-up is required. This was completed in July 2022. Hypertension goal BP (blood pressure) < 140/90 1 07/25/2019 Dyslipidemia, goal LDL below 70 05/24/2020 Obesity, Class I, BMI 30.0-34.9 (see actual BMI) 05/24/2020 Gastroesophageal reflux dise ase with esophagitis without hemorrhage 05/24/2020 Rheumatoid arthritis involvi ng multiple sites with positive rheumatoid factor 05/24/2020 History of 2019 novel coronavirus disease (COVID -19) 05/24/2020 Overview: April 29, 2020 Age-related cataract of left eye 05/24/2020 Overview: Removed April 20, 2020 Latex allergy 09/08/2017 Chronic pain of left knee 04/28/2017 Congenital postural scoliosis 2014 Herniated lumbar intervertebral disc 2014 Spinal stenosis of lumbar region 2014 Neoplasm of uncertain behavior of skin 2 Sleep apnea 12/27/2011 documented as of this encounter (statuses as of 12/26/2023) Resolved Problems Problem Noted Date Diagnosed Date Resolved Date History of 2018 novel duckworth virus disease (COVID-19) 08/03/2021 02/11/2022 Overview: April 2020 Dementia without behavioral disturbance 06/13/2021 07/11/2023 Special screening 05/24/2020 05/24/2020 Screening PSA (prostate specific antigen) 05/24/2020 05/24/2020 Memory problem 05/24/2020 02/11/2022 Trigger middle finger of right hand 05/24/2020 02/11/2022 Overview: Repaired surgically April 26, 2020 documented as of this encounter (statuses as of 12/26/2023) Immunizations Name Administration Dates Next Due COVID-19 mRNA, LNP-s, No Pre serve, 2-Dose Series (Pfizer) 11/08/2021,04/09/2021,08/22/2020,07/27 COVID-19, MRNA-LNP, 23-24, P F, 50 MCG/0.5 mL, 12 YRS AND ABOVE, IM (MODERNA-Spikevax) 09/29/2023 Covid-19, Mrna, Lnp-s, Pf, B ivalent, 30 Mcg, IM, 12 yrs and above (Pfizer) 02/21/2022 Covid-19, Mrna, Lnp-s, Pf, B ivalent, 50 Mcg, IM, 12 yrs and above (Moderna) 03/12/2023 Pneumococcal Conjugate Vacc, 13 Valent (Prevnar) 04/07/2017 Pneumococcal Polysaccharide PPV23 (Pneumovax) 03/22/2019,12/07/2014 RSV Vac., Recomb, Adjuvant, PF,0.5 Ml (Arexvy) 03/12/2023 Seasonal Influenza Virus Vac cine, Unspecified Formulation 03/03/2020,03/22/2019,02/13/2018,04/07,04/04/2016,06/13/2015,01/20/2014 ,02/15/2013,02/11/2012,04/09/2011,09/2009 Seasonal Influenza, Quadriva lent Hd (Fluzone Hd) 02/24/2023,02/11/2022,02/27/2021 Seasonal Influenza, Quadriva lent Hd, 65+ Yrs 03/03/2020 TDAP (age 10 and older)(Boostrix) 11/08/2021 TDAP, Age 7 and older, IM (Adacel) 08/13/2011 Varicella Zoster Vaccine (Adult) 02/16/2013 Zoster Vaccine Recombinant (Shingrix) 09/02/2018 documented as of this encounter Social History Tobacco Use Types Packs/Day Years Used Date Smoking Tobacco: Former Smokeless Tobacco: Never Comments:in high school Alcohol Use Standard Drinks/Week Comments Not Currently 0 (1 standard drink = 0.6 oz pur e alcohol) Utilities Answer Date Recorded Do you have trouble paying y our heating, water, or electric bill? (Adult - for ages 18 years and over) Not on file 11/18/2023 Is your family able to pay t he heat, water, or electric bill? (Household - for ages 0-17 years) Not on file 11/18/2023 Does your family have access to good internet? (Household - for ages 0-17 years) Not on file 11/18/2023 Social Connections Answer Date Recorded How often do you feel lonely or isolated from those around you? (Adult - for ages 18 years and over) Not on file 11/18/2023 Sex and Gender Information Value Date Recorded Sex Assigned at Not on file Gender Identity Not on file Sexual Orientation Not on file Job Start Date Occupation Industry Not on file Not on file Not on file documented as of this encounter Miscellaneous Notes * Addendum Note - Clarisa Cormier PA-C - 12/26/2023 11:28 AM EDTAddended by: CLARISA CORMIER on: 12/26/2023 11:28 AM Modules accepted: Orders * Telephone Encounter - Clarisa Cormier PA-C - 12/26/2023 11:28 AM EDT Referral order signed. * Addendum Note - Tahira Tripathi LPN - 12/26/2023 11:26 AM EDTAddended by: TAHIRA TRIPATHI I on: 12/26/2023 11:26 AM Modules accepted: Orders * Telephone Encounter - Tahira Tripathi LPN - 12/26/2023 11:22 AM EDT Called and went over with pt, and he states that he is still having some significant discomfort anddifficulty with walking. He would like a referral to spine specialty if you would agree. He would like to be set up with [facility] in [place]. His other ortho providers have been through there. Referral pended, please sign if appropriate. Thank you ! * Telephone Encounter - Clarisa Cormier PA-C - 12/26/2023 6:56 AM EDT Please advise that xray results were reviewed and lumbosacral spine xray reveals presence of degenerative disc disease as expected. The xray of his shoulder was normal. No changes to medical management at this time. documented in this encounter Plan of Treatment Upcoming Encounters Date Type Department Care Team (Late st Contact Info) Description 01/02/2024 9:00 AM EDT Office Visit Neurology Kev Moreno [place] [address] [facility] [place] [address] [facility] Roy [facility]NP [address] [facility] [address] 02/09/2024 1:00 PM EDT Office Visit Family Practice [address] [place] [address] Que Foreman PA-C [address] [place] [address] Scheduled Referrals Name Type Priority Associated Diagnoses Orde r Schedule SPINE SURGERY REFERRAL OP Referral Within 30 days (routine) Congenital postural scoliosis Herniated lumbar intervertebral disc Spinal stenosis of lumbar region without neurogenic claudication Chronic bilateral low back pain with left-sided sciatica Acute left-sided low back pain with left-sided sciatica Ordered: 12/26/2023 Health Maintenance Due Date Last Done Comments Depression Screening 1962 Cologuard 10/20/1996 Sigmoidoscopy 10/20/1996 Zoster Vaccines (2 of 2) 10/28/2018 09/02/2018, 01/31 Fecal Occult Blood Test 07/15/2020 07/15/2019 COVID-19 Vaccine ( season) 2023 09/29/2023, 03/12/2023, 03/12/2023, Additional history exists Influenza Vaccine (FLU shot) (#1) 2024 02/24/2023, 02/11/2022, 02/27/2021, Additional history exists GFR 11/11/2024 11/12/2023, 09/30, 07/11/2023, Additional history exists Albumin/Creatinine Ratio 02/25/2026 023, 07/17/2022, 02/11/2022 Colonoscopy 09/29/2029 09/30/2019, 09/30/2019 Colorectal Cancer Screening 09/29/2029 DTaP,Tdap,and Td Vaccines (3 - Td or Tdap) 11/09/2031 11/08/2021, 08/13/2011 Pneumococcal Vaccine: 65+ Years Completed 03/22/2019, 04/07/2017, 12/07/2014 AAA Screening Completed 07/04/2020 HPV (Gardasil) Vaccine Aged Out No lo nger eligible based on patient's age to complete this topic Hepatitis B Vaccine Aged Out No longe r eligible based on patient's age to complete this topic MENINGOCOCCAL (MENACTRA/MENVEO) Aged Out No longer eligible based on patient's age to complete this topic documented as of this encounter Medical Devices Not on filedocumented as of this encounter Visit Diagnoses Diagnosis Acute left-sided low back pain with left-sided sciatica- Primary 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
--- OUTSIDE RECORDS SUMMARY | 2024-01-06 20:10 | External Medical Summary | Summary of Care ---
Author Name Unknown Organization [facility] Address [address] [place] [address] Phone [phone] Care Team Providers Care Supervisor Cook House Name Role Phone Que Foreman PA-C Primary Care Provide r Reason for Visit * Reason Comments Follow Up Encounter Details Date Type Department Care Team (Latest Contact Info) Description 01/02/2024 9:00 AM EDT Office Visit Neurology [facility] [address] [place] [address] Kiki Roy CRNP [address] [place] [address] Amnestic MCI (mild cognitive impairment with memory loss)*; Lumbar back pain with radiculopathy affecting lower extremity Allergies Active Allergy Reactions Criticality Noted Date Comments Latex Rash Low 09/08/2017 Meloxicam Neuro complications (Please comment) 08/05/2016 Naproxen-Esomeprazole Mg Other (Please comment) 02/21/2017 blisters Other reaction(s): Other See Comments blisters Other reaction(s): Other (Please comment) blisters Sulfa Antibiotics Hives 05/24/2020 Sertraline 08/03/2021 Sweating, dizziness, depression documented as of this encounter (statuses as of 01/02/2024) Medications Medication Sig Dispensed Refills Start Date End Date Status Krill Oil 1000 MG Oral Capsule Take 1 Capsule by mouth. Active Aspirin Buf(SuRhkf-LxYxta-EjG ) 81 MG Oral Tablet Take 81 [...] as of this encounter (statuses as of 01/02/2024) Active Problems Problem Noted Date Diagnosed Date Acute pain of left shoulder 12/22/2023 Coronary artery disease invo lving duckwater coronary artery of duckwater heart without angina pectoris 05/24/2020 Overview: Catheterization [...] as of this encounter (statuses as of 01/02/2024) Resolved Problems Problem Noted Date Diagnosed Date Resolved Date History of 2019 novel duckworth virus disease (COVID-19) 08/03/2021 02/11/2022 Overview: April 2020 Dementia without behavioral disturbance 06/13/2021 07/11/2023 Special screening 05/24/2020 05/24/2020 Screening PSA (prostate specific antigen) 05/24/2020 05/24/2020 Memory problem 05/24/2020 02/11/2022 Trigger middle finger of right hand 05/24/2020 02/11/2022 Overview: Repaired surgically April 26, 2020 documented as of this encounter (statuses as of 01/02/2024) Immunizations Name Administration Dates Next Due COVID-19 [...] on file documented as of this encounter Last Filed Vital Signs Vital Sign Reading Time Taken Comments Blood Pressure 160/92 01/02/2024 8:57 AM EDT Pulse 86 01/02/2024 8:57 AM EDT Temperature 37 C (98.6 F) 01/02/2024 8:57 AM EDT Respiratory Rate 18 01/02/2024 8:57 AM EDT Oxygen Saturation 96% 01/02/2024 8:57 AM EDT Inhaled Oxygen Concentration - - Weight 98.9 kg (218 lb) 01/02/2024 8:57 AM EDT Height - - Body Mass Index 35.19 12/22/2023 8:35 AM EDT documented in this encounter Progress Notes * Kiki Roy CRNP - 01/02/2024 8:58 AM EDT Images from the original note were not included. [facility] Memory and Cognition Program Return Visit Patient: Toby Christie Visit date: 01/02/24 I last saw patient 07/18/2023 He is accompanied by his Rosalva . HISTORY OF PRESENT ILLNESS Mr. Toby Christie is a 72 year old right-handed male with 14 years of education herefor follow-up of MCI. PMH thyroid nodules, HLD, JEROMY compliant CPAP, CAD (s/ptriple bypass), HTN, GERD, scoliosis, cataract left eye, lumbar spinal stenosis. Last seen by Dr. James on 12/28/2021. Appears he was previously on donepezil 5 mg daily, which is no longer on his medication list. Reported at appointment with Dr. James that he was having trouble with STM decline that started in 2020. Forgetful of conversations, sometimes within minutes. ADLs intact. IADLs unclear: his always managed cooking housekeeping and keeping track calendaris occasionally forgets medications. Patient had neuropsych testing with Dr. 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 Pt demonstrated difficulty with learning/memory across verbal and non-verbal tasks, pattern of which raises concern for an emerging storage deficit. Based on pts advanced age, clinical history (gradual onset of memory difficulty), and performance on memory testing, etiology of pts current cognitive difficulty is suspicious for underlying Alzheimers disease pathology. Other features of the clinical picture include mildly elevated anxiety and depression, chronic pain, JEROMY (though treated with CPAP), and history of COVID-19 infection. Pt also has several cerebrovascular risk factors (HTN, CAD, JEROYM, dyslipidemia, elevated BMI) which put him at greater risk for cognitive dysfunction and recent neuroimaging revealed mild chronic white matter changes and global volume loss Per Dr. James's mild cognitive impairment, localizing mostly to parietal lobes with rapid forgetting letter fluency. He has multiple cardiovascular risk factors factors. He is at risk for developing dementia, both vascular and Alzheimer's. Other contributing factors to his cognitive impairment include history of COVID-19 2 years ago, mood disorder and possible emerging sleep disorder. He is compliant with CPAP use. MRI brain 01/12/2022 per my review showed Moderate cerebral atrophy, mostly frontal and medial temporal lobes with mild periventricular T2 hyperintensities consistent with chronic small vessel disease Medications significant for: Citalopram 20 mg daily (unsure of dosing) Cyclobenzaprine 10 mg HS PRN (this was just prescribed last week by PCP due to acute rib pain afterfall. He's only been taking it for the last week). Rosuvastatin 20 mg daily ASA 81 mg daily Cetirizine 10 mg daily Gabapentin 300 mg BID Previous Cognitive Testin07/18/2023 MoCA 12/28/2021 MoCA My plan from the last visit was: Plan Amnestic MCI (mild cognitive impairment with memory loss) Start memantine as ordered Try to stop use of cyclobenzaprine as soon as rib pain has improved as this medication is cognitively impairing Discussed lecanemab infusions. Patient and spouse states they would like to think about this Avoid cognitive impairing medications, such as benzodiazepines, antihistamines, anticholinergic (e.g.e paroxetine), muscle relaxants, medications used for bladder spasm such as oxybutynin Encouraged cognitively stimulating activities like reading, socialization and puzzles. - Memantine HCl 5 MG Oral Tablet (Namenda); Take by mouth 1 tab daily week 1, 1 tab twice daily week 2, 2 tabs in am & 1 tab in pm week 3, then 10 mg twice daily thereafter. - Memantine HCl 10 MG Oral Tablet (Namenda); Take 1 Tablet by mouth in the morning and 1 Tablet before bedtime. Do not start before August 09, 2023. Unsteady gait - PHYSICAL THERAPY REFERRAL OP Interval history: Taking memantine 10 mg BID and tolerating it well. Did do physical therapy after last appointment and was discharged because he did well. Was on vacation 3 weeks ago and he fell. Caught his toe on threshold and fell forward. States that he fell forward and landed on right knee and right shoulder. Since then he's had trouble walking, worsening low back pain and numbness into his legs, L>R. Now having more trouble walking due to thepain and left leg weakness and using a walker. Seen by PCP who ordered lumbar spine x-ray which showed progressive DDD, but no fracture. Sees Dr. Tiwari at [facility] for his chronic back pain and receives back injections. Yudy to schedule an appointment to see him for the worsening back pain. . Having numbness into bilateral legs and feet that has been chronic, but this has worsened since hisrecent fall. Prior to falling her was golfing 5 days as week. Had MRI of his lumbar spine on 11/24/2023 (prior to his fall). I do not have images of MRI to review, but radiologist interpretation showed: ED visits or hospitalizations? No New diagnosis? No Medication changes? Gabapentin increased to 600 mg BID, indomethacin 25 mg daily for back pain and started on cyclobenzaprine 10 mg BID PRN for back pain. Falls? Yes, see above. ADL and IADLs: FUNCTIONAL ASSESSMENT: From patient From caregiver/family Comments Janki iADLs Using the Telephone intact intact Shopping intact intact Food preparation intact intact Housekeeping Never did Never did Laundry Never did Never did Transportation intact intact Medication management impaired impaired Finances intact intact Cruz ADLs: Bathing intact intact Dressing intact intact Toileting intact intact Transferring (bed to chair) intact intact Continence intact intact Feeding intact intact Keeping track of calendars/appointments impaired impaired Cognition: trouble with STM. Rapid forgetting. +misplacing things Appetite and weight: good, snacks a lot Exercise: was golfing 5 days a week until recent fall and now having difficulty walking due to backpain and leg numbness. Has to ambulate with a walker. Sleep: No trouble falling or staying asleep. Compliant with cpap. Feels well rested. Takes naps during the day during the winter, but doesn't nap during the summer because he is out playing golf every day. Naps for maybe 30 minutes a day. +dream enactment +vivid dreams +RLS Mood: good. Denies depression. States he does have some anxiety about money, though he knows he doesn't really have a reason to worry about it. Psychiatric and behavior symptoms: Hallucinations: no Delusions: no Paranoia: no OBJECTIVE Medical history, surgical history, social history, allergies and medications updated . Past Medical History: Diagnosis Date Age-related cataract of left eye 05/24/2020 Removed April 20, 2020 Coronary artery disease involving duckwater coronary artery of duckwater heart without angina pectoris 05/24/2020 Catheterization was mostly good with a small non stentable blockage of 60% in 1 artery. COVID-19 virus infection 05/24/2020 April 29, 2020 Dyslipidemia, goal LDL below 70 05/24/2020 Gastroesophageal reflux disease with esophagitis without hemorrhage 05/24/2020 Hypertension goal BP (blood pressure) < 140/90 05/24/2020 Memory problem 05/24/2020 Multiple thyroid nodules 05/24/2020 Obesity, Class I, BMI 30.0-34.9 (see actual BMI) 05/24/2020 Rheumatoid arthritis (HCC) 05/24/2020 Trigger middle finger of right hand 05/24/2020 Repaired surgically April 26, 2020 Past Surgical History: Procedure Laterality Date CARPAL TUNNEL SURGERY Right 2020 CORONARY ARTERIES BYPASS, THREE 2007 MD TENDON SHEATH INCISION Left 2019 Dr. Kuhn for trigger finger. TOTAL HIP REPLACEMENT & PROSTHESIS Left 2018 [place] Social History Socioeconomic History Marital status: Spouse name: Not on file Number of children: Not on file Years of education: Not on file Highest education level: Not on file Occupational History Not on file Tobacco Use Smoking status: Former Smokeless tobacco: Never Tobacco comments: in high school Substance and Sexual Activity Alcohol use: Not Currently Drug use: Not Currently Sexual activity: Not on file Other Topics Concern Not on file Social History Narrative Not on file Social Determinants of Health Financial Resource Strain: Not on file Food Insecurity: Not on file Transportation Needs: Not on file Social Connections: Unknown (11/18/2023) Social Connections How often do you feel lonely or isolated from those around you? (Adult - for ages 18 years and over): Not on file Housing Stability: Not on file Family History Problem Relation Name Age of Onset No Known Problems Daughter Heart Disorder Mother Diabetes Mother No Known Problems Father Estranged. No history information Kidney cancer Brother Review of patient's allergies indicates: Allergen Reactions Meloxicam Neuro complications (Please comment) Naproxen-Esomeprazole Mg Other (Please comment) blisters Other reaction(s): Other See Comments blisters Other reaction(s): Other (Please comment) blisters Sulfa Antibiotics Hives Zoloft [Sertraline] Sweating, dizziness, depression Latex Rash Current Outpatient Medications Medication Sig Dispense Refill Aspirin Buf(ZeIlbf-EzCmyc-OcV) 81 MG Oral Tablet Take 81 mg by mouth. Cholecalciferol 25 MCG (1000 UT) Oral Tablet Take 1 Tablet by mouth. Citalopram Hydrobromide 20 MG Oral Tablet (CeleXA) Take 1 Tablet by mouth in the morning. 90 Tablet3 Cyclobenzaprine HCl 10 MG Oral Tablet (Flexeril) Take 1 Tablet by mouth 2 times a day as needed forMuscle spasms. 20 Tablet 1 Gabapentin 600 MG Oral Tablet (Neurontin) Take 1 Tablet by mouth in the morning and 1 Tablet beforebedtime. 90 Tablet 5 Hydroxychloroquine Sulfate 200 MG Oral Tablet (PLAQUENIL) Take 1 Tablet by mouth. Indomethacin 25 MG Oral Capsule (Indocin) Take 1 Capsule by mouth daily. Krill Oil 1000 MG Oral Capsule Take 1 Capsule by mouth. Lisinopril 40 MG Oral Tablet Take 1 Tablet by mouth in the morning. 90 Tablet 3 Memantine HCl 10 MG Oral Tablet (Namenda) Take 1 Tablet by mouth in the morning and 1 Tablet beforebedtime. Do not start before August 09, 2023. 180 Tablet 3 Multi-Vitamin Oral Tablet Take 1 Tablet by mouth. Omeprazole 20 MG Oral Capsule Delayed Release (PriLOSEC) Take 1 Capsule by mouth. Rosuvastatin Calcium 20 MG Oral Tablet (Crestor) Take 1 Tablet by mouth every night at bedtime. 90 Tablet 3 Sildenafil Citrate 100 MG Oral Tablet 1 Tablet. Tamsulosin HCl 0.4 MG Oral Capsule (Flomax) Take 1 Capsule by mouth in the morning. No current facility-administered medications for this visit. LABS: Results for orders placed or performed in visit on 07/11/23 CBC Result Value Ref Range WBC 6.23 4.00 - 10.80 K/uL RBC 4.61 4.50 - 5.25 M/uL HGB 15.8 14.0 - 16.8 g/dL HCT 47.0 40.0 - 48.4 % MCV 102.0 82.0 - 99.5 fL MCH 34.3 27.0 - 34.0 pg MCHC 33.6 32.0 - 36.0 g/dL RDW 13.1 11.5 - 15.5 % PLT 254 140 - 400 K/uL MPV 10.8 6.6 - 11.1 fL nRBCs 0 <=0 /100 WBCs Results for orders placed or performed in visit on 02/11/22 BASIC METABOLIC PANEL Result Value Ref Range BUN 17 6 - 20 mg/dL Creatinine 1.0 0.6 - 1.2 mg/dL Estimated Glomerular Filtration Rate 79 >=60 mL/min Sodium 140 135 - 146 mmol/L Potassium 4.3 3.5 - 5.1 mmol/L Chloride 102 98 - 107 mmol/L CO2 26 22 - 32 mmol/L Anion Gap 12 7 - 15 mmol/L Glucose 93 70 - 120 mg/dL Calcium 9.8 8.4 - 10.2 mg/dL Results for orders placed or performed in visit on 03/17/97 LIPOPROTEINS Result Value Ref Range HOURS FASTING 14 hours Triglycerides 369 (H) 60 - 290 mg/dL Cholesterol 194 160 - 200 mg/dL HDL Cholesterol 27 (L) 35 - 60 mg/dL Cholesterol-HDL Ratio 7.2 LDL Cholesterol 93 0 - 130 mg/dL Results for orders placed or performed in visit on 02/25/23 LIPID PANEL WITH DIRECT LDL IF TG IS HIGH Result Value Ref Range Triglycerides 135 <=174 mg/dL Cholesterol 123 <200 mg/dL HDL Cholesterol 34 (L) >39 mg/dL Non-HDL Cholesterol 89 <=159 mg/dL LDL Cholesterol 62 <=129 mg/dL Lab Results Component Value Date/Time HEMOGLOBIN A1C - [facility] 5.5 02/25/2023 07:13 AM HEMOGLOBIN A1C - [facility] 5.2 07/17/2022 09:53 AM HEMOGLOBIN A1C - [facility] 5.3 12/28/2021 10:05 AM Lab Results Component Value Date/Time TSH - [facility] 0.65 07/11/2023 11:30 AM TSH - [facility] 0.74 02/25/2023 07:13 AM TSH - [facility] 0.83 08/02/2022 10:20 AM TSH - [facility] 0.41 06/22/2020 02:25 PM TSH - [facility] 0.12 (L) 05/25/2020 07:44 AM TSH - [facility] 0.97 03/17/1997 09:50 AM TSH - [facility]IDE LAB 0.483 11/12/2023 12:00 AM ANGÉLICA DIANDRA SCREEN Date Value Ref Range Status 05/25/2020 NEGATIVE Final Hepatitis C Antibody Date Value Ref Range Status 05/25/2020 NEGATIVE NEG Final No results found for: "LYME" No results found for: "RPR" No results found for: "FTA-ABS" No results found for: "VDRL" Results for orders placed or performed in visit on 08/02/22 VITAMIN B12 Result Value Ref Range Vitamin B12 443 232 - 1,245 pg/mL Results for orders placed or performed in visit on 08/02/22 FOLIC ACID Result Value Ref Range Folic Acid >20.0 >4.5 ng/mL No results found for: "FTNC14JDR2" No results found for: "[id number]" No results found for: "[id number]" 25-Hydroxy Vitamin D (ng/mL) Date Value 02/25/2023 46 07/17/2022 52 12/28/2021 62 Vitamin D Level Interpretation deficient: <20 ng/ml insufficient: 20-30 ng/ml normal: 31-100 ng/ml IMAGING STUDIES: See above under interval history PHYSICAL EXAM Vital signs: BP 160/92 (BP Site: Right Arm, BP Position: Sitting, BP Cuff Size: Regular) | Pulse 86| Temp 37 C (98.6 F) (Tympanic) | Resp 18 | Wt 98.9 kg (218 lb) | SpO2 96% | BMI 35.19 kg/m |BSA 2.15 m General: Well nourished. Appears as stated age. No acute distress. HEENT: normocephalic, atraumatic. Oral mucosa pink and moist. Neurologic exam Mental status: awake and alert Serafin Cognitive Assessment Scores: 01/02/24 (Version 8.2) 07/18/2023 (Version 8.1) Visual/executive (/5) 4 4 Naming (/3) 3 3 Digits (/2) 2 2 Letter A (/1) 1 1 Serial 7 (/3) 3 3 Repetition (/2) 2 2 Letter fluency (/1) 1 1 Abstraction (/2) 2 1 Delayed recall - spontaneous (/5) 0 0 - Category cue 3 2 - Multiple choice cue 2 2 Orientation (/6) 6 5 Total (/30)* 24 22 * +1 if education ? 12 years Cranial Nerves: CN II- pupils are equally round and reactive to light bilaterally. Visual field intact in all quadrants bilaterally. CN III, IV, - Extra-ocular Movements Intact,no nystagmus CN V - Facial sensation intact and equal bilaterally CN VII - no facial assymetry CN VIII - Intact to normal conversation CN IX, X: Dysarthria: None CN XI- shoulder shrug intact bilaterally CN XII: tongue midline Motor: Bulk was Normal. Tremor: No resting, action or postural tremor Rapid alternating movements: intact with finger tapping, open-close fists, forearm pronation-supination and foot tapping b/l. Tone was normal in RUE, LUE, RLE, and LLE. Strength in upper extremities Lower extremities: Right Left Right Left Shoulder abduction 5/5 5/5 Hip flexion 5/5 4/5 Arm flexion 5/5 5/5 Knee flexion 5/5 5/5 Arm extension 5/5 5/5 Knee extension 5/5 5/5 Finger extension 5/5 5/5 Ankle dorsiflexion 5/5 4/5 Finger abduction 5/5 5/5 Ankle plantar flexion 5/5 5/5 Sensation: sensation normal light touch bilateral upper and lower extremities Reflexes: Right Left Biceps 1+ 1+ Triceps 1+ 1+ Brachial radialis 1+ 1+ Patellar 2+ 2+ Achilles 1+ 1+ Coordination: Finger to Nose : intact bilaterally Gait: Rise from chair: intact unsteady gait slightly shuffling, ambulates with walker ASSESSMENT & PLAN Toby Christie is a 72 year old right-handed male with 14 years of education here forfollow-up of MCI. PMH thyroid nodules, HLD, JEROMY compliant CPAP, CAD (s/ptriple bypass), HTN, GERD, scoliosis, cataract left eye, lumbar spinal stenosis. There are no diagnoses linked to this encounter. Neuropsych testing 03/2022 showed amnestic MCI with concerns for underlying AD pathology. MRI of brain 01/12/2022 per my review showed Moderate cerebral atrophy, mostly frontal and medial temporal lobes with mild periventricular T2 hyperintensities consistent with chronic small vessel disease Repeat MoCa today with points lost for chair drawing and delayed recall (benefited from cueing). ADLs are all intact. IADLs impaired for medication and calendar management. 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 He's been doing well on memantine. Will continue this as ordered. He had a fall 3 weeks ago and since then worsening low back pain and bilateral leg numbness and weakness L>R. He was seen by PCP who ordered lumbar spine x-ray which showed Progressive DDD, but noevidence of fracture. He is planning to schedule an appointment with Dr. Tiwari at [facility] for further evaluation. Gabapentin dose was increased to help with his pain. Also taking cyclobenzaprine. Encouraged to follow-up with Dr. Tiwari for his back pain and leg weakness as soon as he can be seen. Discussed with patient cyclobenzaprine and how this medication is cognitively impairing. This was only prescribed by his PCP due to acute back pain after a fall. Advised to try to stop taking this medication as soon as he's able to and only take it sparingly when needed. Had brief discussion about Lecanemab with patient and spouse. State they would like to wait on thisdue to current back problems and would like to address his back problems first. Avoid cognitive impairing medications, such as benzodiazepines, antihistamines, anticholinergic (e.g.e paroxetine), muscle relaxants, medications used for bladder spasm such as oxybutynin Encouraged cognitively stimulating activities like reading, socialization and puzzles. Follow Up: Return in about 6 months (around 07/04/2024) for Clinic Visit. | For: Clinic Visit I spent a total of 60 minutes coordinating, documenting, and providing care for this patient excluding time spent in the performance of separately billed services or time spent by another provider/QHP. ALTAGRACIA De La Fuente Nurse Practitioner Neuro[facility] [place] 01/02/24 documented in this encounter Nursing Notes * Marisol Duffy LPN - 01/02/2024 8:54 AM EDT Patient verified identity by spelling of last name and date. Chief Complaint Patient presents with Follow Up documented in this encounter Plan of Treatment Upcoming Encounters Date Type Department Care Team (Late st Contact Info) Description 02/09/2024 1:00 PM EDT Office Visit [facility] [address] [place] [address] Que Foreman PA-C [address] [place] [address] 07/09/2024 9:00 AM EST Office Visit Neurology [facility] [address] [place] [address] Kiki Roy CRNP [address] [place] [address] Health Maintenance Due Date Last Done Comments [...] as of this encounter Visit Diagnoses Diagnosis Amnestic MCI (mild cognitive impairment with memory loss)- Primary Mild cognitive impairment, so stated Lumbar back pain with radiculopathy affecting lower extremity documented in this encounter Care Teams Supervisor Cook House Relationship Specialty Start Date End Date Que Foreman PA-C [address] [facility] [place] [address] PCP - General Physician Poker Manager 07/11/23 documented as of this encounter
--- OUTSIDE RECORDS SUMMARY | 2024-01-06 20:10 | External Medical Summary | Summary of Care ---
Author Name Unknown Organization [facility] Address [address] [facility] [address] Phone [phone] Care Team Providers Care Lubricating Specialist Name Role Phone Que Foreman PA-C Primary [...] pain with left-sided sciatica Clarisa Cormier PA-C [address] [place] [address] Referral ID Status Reason Start Date Expiration Date Visits Requested Visits Authorized [id number] Pending Review Specialty Services Required 12/26/2023 999 999 Question Answer Referral Priority Within 30 days (routine) Where should this appointment be scheduled? External - [facility] Select spine region: Back - Thoracic/Lumbar Do you have any recent complete loss of bladder or bowel function? No Reason for Visit * Reason Onset Date Comments Test Results Imaging Study 12/26/2023 Encounter Details Date Type Department Care Team (Late st Contact Info) Description 12/26/2023 Telephone Family Practice [address] [place] [address] Clarisa Cormier PA-C [address] [place] [address] Test Results Imaging Study Allergies Active Allergy Reactions Criticality Noted Date [...] Take 1 Capsule by mouth. Active Aspirin Buf(ClRstt-SoVnsa-GuX ) 81 MG Oral Tablet Take 81 [...] shoulder 12/22/2023 Coronary artery disease invo lving [place] coronary artery of [place] heart without angina pectoris 05/24/2020 Overview: Catheterization [...] Influenza Virus Vac cine, Unspecified Formulation 03/03/2020,03/22/2019,02/13/2018,04/07,04/04/2016,06/13/2015,01/20/2014 ,02/15/2013,02/11/2012,04/09/2011,10/0 09/2009 Seasonal Influenza, Quadriva lent Hd (Fluzone Hd) [...] be set up with [facility] in [place]. His other ortho providers have been through [...] 01/02/2024 9:00 AM EDT Office Visit [facility] [place] [address] [facility] [address] Kiki Roy CRNP [address] [facility] [address] 02/09/2024 1:00 PM EDT Office Visit Family Practice [address] [place] [address] Que Foreman PA-C [address] [facility] [place] [address] Scheduled Referrals Name Type Priority Associated Diagnoses [...] sciatica documented in this encounter Care Teams Lubricating Specialist Relationship Specialty Start Date End Date Que Foreman PA-C [address] [facility] [place] [address] PCP - General Physician Binding Cutter Synthetic Cloth 07/11/23 documented as of this encounter
--- OUTSIDE RECORDS SUMMARY | 2024-01-06 20:10 | External Medical Summary | Summary of Care ---
Author Name Unknown Organization [facility] Address [address] [facility] [address] Phone [phone] Care Team Providers Care Brick Setter Name Role Phone Que Foreman PA-C Primary [...] pain with left-sided sciatica Clarisa Cormier PA-C [address] [place] [address] Referral ID Status Reason Start Date Expiration Date Visits Requested Visits Authorized [id number] Pending Review Specialty Services Required 12/26/2023 999 [...] 12/26/2023 Telephone Family Practice [address] [place] [address] Clarisa Cormier PA-C [address] [place] [address] Test Results Imaging Study; Appointment (S... Allergies Active Allergy Reactions Criticality Noted Date Comments Latex Rash Low 09/08/2017 Meloxicam Neuro complications (Please comment) 08/05/2016 Naproxen-Esomeprazole Mg Other (Please comment) 02/21/2017 blisters Other reaction(s): Other See Comments blisters Other reaction(s): Other (Please comment) blisters Sulfa Antibiotics Hives 05/24/2020 Sertraline 08/03/2021 Sweating, dizziness, depression documented as of this encounter (statuses as of 01/01/2024) Medications Medication Sig Dispensed Refills Start Date End Date Status Krill Oil 1000 MG Oral Capsule Take 1 Capsule by mouth. Active Aspirin Buf(HgZwfg-OiYnmr-GeA ) 81 MG Oral Tablet Take 81 [...] as of this encounter (statuses as of 01/01/2024) Active Problems Problem Noted Date Diagnosed Date Acute pain of left shoulder 12/22/2023 Coronary artery disease invo lving [place] coronary artery of [place] heart without angina pectoris 05/24/2020 Overview: Catheterization [...] as of this encounter (statuses as of 01/01/2024) Resolved Problems Problem Noted Date Diagnosed Date [...] as of this encounter (statuses as of 01/01/2024) Immunizations Name Administration Dates Next Due COVID-19 [...] Influenza Virus Vac cine, Unspecified Formulation 03/03/2020,03/22/2019,02/13/2018,04/07,04/04/2016,06/13/2015,01/20/2014 ,02/15/2013,02/11/2012,04/09/2011,/09/2009 Seasonal Influenza, Quadriva lent Hd (Fluzone Hd) [...] as of this encounter Miscellaneous Notes * Telephone Encounter - Radha Sam OSA - 01/01/2024 3:05 PM EDT Patient Rosalva herbert stated 's office has not received fax with referral. Stated patient's feet is getting worst and want to get this taken care of as soon as possible Dr. Lo's office * Telephone Encounter - Kathy Durand OSA - 12/26/2023 1:20 PM EDT Spine surg-info faxed to [facility]Dr. Lo. They will contact pt directly with appt information. * Addendum Note - Clarisa Cormier PA-C - 12/26/2023 11:28 AM EDTAddended by: CLARISA CORMIER on: 12/26/2023 11:28 AM Modules accepted: Orders * Telephone Encounter - Clarisa Cormier PA-C - 12/26/2023 11:28 AM EDT Referral order signed. * Addendum Note - Tahira Delacruz LPN - 12/26/2023 11:26 AM EDTAddended by: TAHIRA DELACRUZ I on: 12/26/2023 11:26 AM Modules accepted: Orders * Telephone Encounter - Tahira Delacruz LPN - 12/26/2023 11:22 AM EDT Called and went over with pt, and he states that he is still having some significant discomfort anddifficulty with walking. He would like a referral to spine specialty if you would agree. He would like to be set up with [facility] in [place]. His other ortho providers have been through [...] 01/02/2024 9:00 AM EDT Office Visit Neu[facility] [place] [address] [facility] [address] Kiki Roy CRNP [address] [place] [address] 02/09/2024 1:00 PM EDT Office Visit Family Practice [place] [address] [place] [address] Que Foreman PA-C [address] [place] [address] Scheduled Referrals Name Type Priority Associated Diagnoses [...] sciatica documented in this encounter Care Teams Brick Setter Relationship Specialty Start Date End Date Que Foreman PA-C [address] [facility] [place] [address] PCP - General Physician Director Of Public Relations 07/11/23 documented as of this encounter
--- OUTSIDE RECORDS SUMMARY | 2024-01-06 20:10 | External Medical Summary | Summary of Care ---
Author Name Unknown Organization [facility] Address [address] [facility] [address] Phone [phone] Care Team Providers Care Pharmacy Grad Intern Name Role Phone Que Foreman PA-C Primary [...] pain with left-sided sciatica Clarisa Cormier PA-C [address] [place] [address] Referral ID Status Reason Start Date Expiration Date Visits Requested Visits Authorized [id number] Pending Review Specialty Services Required 12/26/2023 999 999 Question Answer Referral Priority Within 30 days (routine) Where should this appointment be scheduled? External - [facility] Select spine region: Back - Thoracic/Lumbar Do you have any recent complete loss of bladder or bowel function? No Reason for Visit * Reason Onset Date Comments Test Results Imaging Study 12/26/2023 Encounter Details Date Type Department Care Team (Late st Contact Info) Description 12/26/2023 Telephone Family Practice [address] [place] [address] Clarisa Cormier PA-C [address] [place] [address] Test Results Imaging Study Allergies Active Allergy [...] Take 1 Capsule by mouth. Active Aspirin Buf(QwEqkw-HlBbgg-GiQ ) 81 MG Oral Tablet Take 81 [...] shoulder 12/22/2023 Coronary artery disease invo lving [place] coronary artery of [place] heart without angina pectoris 05/24/2020 Overview: Catheterization [...] accepted: Orders * Telephone Encounter - Clarisa Cromier PA-C - 12/26/2023 11:28 AM EDT Referral [...] be set up with [facility] in [place]. His other ortho providers have been through [...] 01/02/2024 9:00 AM EDT Office Visit Neurology [facility] [place] [address] [facility] [address] Kiki Roy CRNP [address] [facility] [place] [address] 02/09/2024 1:00 PM EDT Office Visit Family Practice [address] [place] [address] Que Foreman PA-C [address] [facility] [place] [address] Scheduled Referrals Name Type Priority Associated Diagnoses [...] sciatica documented in this encounter Care Teams Pharmacy Grad Intern Relationship Specialty Start Date End Date Que Foreman PA-C [address] [facility] [place] [address] PCP - General Physician Plate Setter 07/11/23 documented as of this encounter
--- OUTSIDE RECORDS SUMMARY | 2024-01-06 20:10 | External Medical Summary | Summary of Care ---
Author Name Unknown Organization [facility] Address [address] [facility] [place] [address] Phone [phone] Care Team Providers Care Laborer Carpentry Dock Name Role Phone Que Foreman PA-C Primary Care Provide r Reason for Visit * Reason Onset Date Comments Test Results Imaging Study 12/26/2023 Encounter Details Date Type Department Care Team (Late st Contact Info) Description 12/26/2023 Telephone Family Practice [facility] [place] [address] [facility] [place] [address] Sergey Robledo PA-C [address] [facility] [place] [address] Test Results Imaging Study Allergies Active Allergy [...] Take 1 Capsule by mouth. Active Aspirin Buf(DvCnvp-EkZfyg-RrM ) 81 MG Oral Tablet Take 81 [...] shoulder 12/22/2023 Coronary artery disease invo lving [place] coronary artery of [place] heart without angina pectoris 05/24/2020 Overview: Catheterization [...] mRNA, LNP-s, No Pre serve, 2-Dose Series (SunPods) 11/08/2021,04/09/2021,08/22/2020,07/27 COVID-19, MRNA-LNP, 23-24, P F, 51 [...] encounter Miscellaneous Notes * Addendum Note - Tahira Tripathi LPN [...] be set up with [facility] in [place]. His other ortho providers have been through there. Referral pended, please sign if appropriate. Thank you ! * Telephone Encounter - Sergey Robledo PA-C - 12/26/2023 6:56 AM EDT Please [...] AM EDT Office Visit Neurology [facility] [place] [address] [place] [address] Kiki Roy CRNP [address] [facility] [address] 02/09/2024 1:00 PM EDT [place] [facility] [place] [address] [place] [address] Que Foreman PA-C [address] [place] [address] Health Maintenance Due Date Last Done Comments [...] sciatica documented in this encounter Care Teams Laborer Carpentry Dock Relationship Specialty Start Date End Date Que Foreman PA-C [address] [facility] [place] [address] PCP - General Physician Roll Press Operator 07/11/23 documented as of this encounter
--- OUTSIDE RECORDS SUMMARY | 2024-01-06 20:10 | External Medical Summary | Summary of Care ---
Author Name Unknown Organization [facility] Address [address] [facility] [place] [address] Phone [phone] Care Team Providers Care Physical Chemist Name Role Phone Que Foreman PA-C Primary Care Provide r Reason for Visit * Reason Comments Acute Encounter Details Date Type Department Care Team (Late st Contact Info) Description 12/22/2023 8:40 AM EDT Office Visit Family [facility] [address]ada Reveles [address] [place] [address] Sergey Robledo PA-C [address] [facility] [place] [address] Chronic bilateral low back pain with left-sided sciatica*; Acute pain of right shoulder Allergies Active Allergy Reactions Criticality Noted Date Comments Latex Rash Low 09/08/2017 Meloxicam Neuro complications (Please comment) 08/05/2016 Naproxen-Esomeprazole Mg Other (Please comment) 02/21/2017 blisters Other reaction(s): Other See Comments blisters Other reaction(s): Other (Please comment) blisters Sulfa Antibiotics Hives 05/24/2020 Sertraline 08/03/2021 Sweating, dizziness, depression documented as of this encounter (statuses as of 12/23/2023) Medications Medication Sig Dispensed Refills Start Date End Date Status Krill Oil 1000 MG Oral Capsule Take 1 Capsule by mouth. Active Aspirin Buf(CaCarb-MgCarb- MgO) 81 MG Oral Tablet Take 81 mg [...] Active Rosuvastatin Calcium 20 MG Oral Tablet (Crestor)Indicatio ns:Dyslipidemia, goal LDL below 70,Hypertension goal BP (blood pressure) < 140/90,Sleep apnea, unspecified type Take 1 Tablet by mouth every night at bedtime. 90 Tablet 3 06/30/2023 Active Sildenafil Citrate 100 MG Oral Tablet 1 Tablet. 01/08/2023 Active Memantine HCl 10 MG Oral Tablet (Namenda)Indicatio ns:Amnestic MCI (mild cognitive impairment with memory loss) [...] mouth daily. Active Lisinopril 40 MG Oral TabletIndications: Hypertension goal BP (blood pressure) < 140/90 Take [...] Muscle spasms. 20 Tablet 1 12/22/2023 Active Gabapentin 300 MG Oral Capsule (Neurontin) Take 1 Capsule by mouth in the morning and 1 Capsule before bedtime. 06/13/2021 12/22/2023 Discontinued (Medication/ Dose Changed) Cyclobenzaprine HCl 10 MG Oral Tablet (Flexeril)Indicati ons:Spinal stenosis of lumbar region without neurogenic claudication,Acute left-sided low back pain with left-sided sciatica Take 1 Tablet by mouth at bedtime as needed for Muscle spasms. 30 Tablet 2 11/14/2023 12/22/2023 Discontinued (Patient preference/d iscontinuati on) predniSONE 10 MG Oral Tablet (Deltasone)Indicat ions:Spinal stenosis of lumbar region without neurogenic claudication,Acute left-sided low back pain with left-sided sciatica Take 5 tabs for 2 days, 4 tabs for 2 days, 3 tabs for 2 days, 2 tabs for 2 days 1 tab for 2 days 30 Tablet 11/14/2023 12/22/2023 Discontinued (Patient preference/d iscontinuati on) documented as of this encounter (statuses as of 12/23/2023) Active Problems Problem Noted Date Diagnosed Date Acute pain of left shoulder 12/22/2023 Coronary artery disease invo lving [place] coronary artery of [place] heart without angina pectoris 05/24/2020 Overview: Catheterization [...] as of this encounter (statuses as of 12/23/2023) Resolved Problems Problem Noted Date Diagnosed Date [...] as of this encounter (statuses as of 12/23/2023) Immunizations Name Administration Dates Next Due COVID-19 [...] Date Smoking Tobacco: Former Smokeless Tobacco: Never Tobacco Cessation:Counseling Given: Not Answered Comments:in high school Alcohol Use Standard Drinks/Week [...] Sign Reading Time Taken Comments Blood Pressure 140/60 12/22/2023 8:35 AM EDT Pulse 72 12/22/2023 8:35 AM EDT Temperature 36.9 C (98.5 F) 12/22/2023 8:35 AM ED T Respiratory Rate 18 12/22/2023 8:35 AM EDT Oxygen Saturation - - Inhaled Oxygen Concentration - - Weight 97.5 kg (215 lb) 12/22/2023 8:35 AM EDT Height 167.6 cm (5' 6") 12/22/2023 8:35 AM EDT Body Mass Index 34.7 12/22/2023 8:35 AM EDT documented in this encounter Progress Notes * Sergey Robledo PA-C - 12/22/2023 9:04 AM EDT Images from the original note were not included. History of Present Illness Toby Christie is a 73 year old male that presents for Acute Patient is a 73 year old male who presents today for acute visit s/p fall. [place]. He subsequently landed on his right shoulder and lower back. He states that since that time, he has been feeling weaker than his baseline. He is also experiencing increase in numbness/tingling and electric shocklike pains down bilateral lower extremities. Hedenies loss of bowel/bladder control. He is also experiencing pain in the right shoulder with cracking/popping. No evidence of decreased ROM. He has significant history of DDD. Recent MRI reveals diffuse degenerative changes throughout the lumbosacral spine. He follows with pain management and has epidural steroid injections every 3-4 months. He was evaluated by neurosurgery in the past who stated that he could be a candidate for back surgery in the future if ADLs were affected and sx worsened. He is currently prescribed gabapentin, flexeril PRN, and indomethacin for pain management. Physical Exam Vitals: 12/22/23 0835 Temp: 36.9 C (98.5 F) Pulse: 72 Resp: 18 BP: 140/60 BMI: 34.72 Assessment and Plan Chronic bilateral low back pain with left-sided sciatica (Primary) - XR L SPINE AP AND LATERAL Acute pain of right shoulder Other orders - Gabapentin 600 MG Oral Tablet (Neurontin); Take 1 Tablet by mouth in the morning and 1 Tablet before bedtime. - Cyclobenzaprine HCl 10 MG Oral Tablet (Flexeril); Take 1 Tablet by mouth 2 times a day as needed for Muscle spasms. - XR SHOULDER, 2 OR MORE VIEWS Patient education given. Home exercises. Warm compresses. Will uptitrate gabapentin to 600mg twice daily. Increase flexeril to 10mg twice daily PRN muscle spams. Xray lumbosacral spine and right shoulder xrays to evaluate further. Handicapped ray form completed due to ambulatory dysfunction concerns. Keep previously scheduled appointment. Follow Up: Return for Keep previous appointment. | For: Keep previous appointment Wrap-Up Follow Up: Return for Keep previous appointment. | For: Keep previous appointment Time: I spent a total of 20-29 minutes (exact time 25 mins) on the date of service in preparation, delivery, and documentation of the care provided to Toby Christie excluding any time spent in the performance of separately billed services. documented in this encounter Nursing Notes * Eloise Nicole LPN - 12/22/2023 8:37 AM EDT Ground level fall 1 week ago. Poor balance now. Right shoulder, left lower back pain documented in this encounter Plan of Treatment Upcoming Encounters Date Type Department Care Team (Late st Contact Info) Description 01/02/2024 9:00 AM EDT Office Visit Neurology [facility] [address] [place] [address] Kiki Roy CRNP [address] [place] [address] 02/09/2024 1:00 PM EDT Office Visit Family Practice [address] [place] [address] Que Foreman PA-C [address] [place] [place] [address] Scheduled Orders Name Type Priority Associated Diagnoses Orde r Schedule XR SHOULDER, 2 OR MORE VIEWS Medical Imaging Routine Ordered: 024 XR L SPINE AP AND LATERAL Medical Imaging Routine Chronic bilateral low back pain with left-sided sciatica Ordered: 12/22/2023 Health Maintenance Due Date Last Done Comments [...] as of this encounter Visit Diagnoses Diagnosis Chronic bilateral low back pain with left-sided sciatica- Primary Acute pain of right shoulder documented in this encounter Care Teams Physical Chemist Relationship Specialty Start Date End Date Que Foreman PA-C [address] [facility] [place] [address] PCP - General Physician Copy Reader 07/11/23 documented as of this encounter
--- OUTSIDE RECORDS SUMMARY | 2024-01-06 20:10 | External Medical Summary | Summary of Care ---
Author Name Unknown Organization [facility] [address] [facility] [address] Phone [phone] Care Team Providers Care Lead Inspector Name Role Phone Que Foreman PA-C Primary [...] pain with left-sided sciatica Clarisa Cormier PA-C [address] [place] [address] Referral ID Status Reason Start Date Expiration Date Visits Requested Visits Authorized [id number] Pending Review Specialty Services Required 12/26/2023 999 [...] 12/26/2023 Telephone Family Practice [address] [place] [address] Clarisa Cormier PA-C [address] [place] [address] Test Results Imaging Study; Appointment (S... Allergies [...] Take 1 Capsule by mouth. Active Aspirin Buf(SuNplw-ZbPszp-CrN ) 81 MG Oral Tablet Take 81 [...] shoulder 12/22/2023 Coronary artery disease invo lving [place] coronary artery of [place] heart without angina pectoris 05/24/2020 Overview: Catheterization [...] be set up with [facility] in [place]. His other ortho providers have been through [...] 1:00 PM EDT Office Visit Family Practice [place] [address]ada [address]es [address] [place] [address] Que Foreman PA-C [address] [facility] [place] [address] 07/09/2024 9:00 AM EST Office Visit Neurology [facility] [address] [place] [address] Kiki Roy CRNP [address] [place] [address] Scheduled Referrals Name Type Priority Associated Diagnoses [...] sciatica documented in this encounter Care Teams Lead Inspector Relationship Specialty Start Date End Date Que Foreman PA-C [address] [facility] [place] [address] PCP - General Physician Bright Cutter 07/11/23 documented as of this encounter
--- OUTSIDE RECORDS SUMMARY | 2024-01-06 20:10 | External Medical Summary | Summary of Care ---
Author Name Unknown Organization [facility] Address [address] [facility] [address] Phone [phone] Care Team Providers Care Braddisher Name Role Phone Que Foreman PA-C Primary [...] pain with left-sided sciatica Clarisa Cormier PA-C [address] [place] [address] Referral ID Status Reason Start Date Expiration Date Visits Requested Visits Authorized [id number] Pending Review Specialty Services Required 12/26/2023 999 [...] 12/26/2023 Telephone Family Practice [address] [place] [address] Clarisa Cormier PA-C [address] [place] [address] Test Results Imaging Study; Appointment (S... Allergies [...] Take 1 Capsule by mouth. Active Aspirin Buf(QaNmta-UwWgpc-GmL ) 81 MG Oral Tablet Take 81 [...] shoulder 12/22/2023 Coronary artery disease invo lving [place] coronary artery of [place] heart without angina pectoris 05/24/2020 Overview: Catheterization [...] encounter Miscellaneous Notes * Telephone Encounter - Kendra Santacruz CCMA - 01/02/2024 9:52 AM EDT Re faxed the referral over to 's office at fax [phone]. * Telephone Encounter - Radha Sam OSA - 01/01/2024 3:05 PM EDT Patient Rosalva called stated 's office has not received fax with referral. Stated patient's feet is getting worst and want to get this taken care of as soon as possible Dr. Lo's office * Telephone Encounter - Kathy Durand OSA - 12/26/2023 1:20 PM EDT Spine surg-info faxed to [facility]/Dr. Lo. They will contact pt directly with [...] be set up with [facility] in [place]. His other ortho providers have been through [...] 1:00 PM EDT Office Visit Family Practice [place] Ghada Reveles [address] [place] [address] Que Foreman PA-C [address] [place] [address] 07/09/2024 9:00 AM EST Office Visit Neurology [facility] [address] [place] [address] Kiki Roy CRNP [address] [place] [address] Scheduled Referrals Name Type Priority Associated Diagnoses [...] Occult Blood Test 07/15/2020 07/15/2019 COVID-19 Vaccine (8 - 2023-24 season) 2023 09/29/2023, 03/12/2023, 03/12/2023, Additional history [...] sciatica documented in this encounter Care Teams Braddisher Relationship Specialty Start Date End Date Que Foreman PA-C [address] [facility] [place] [address] PCP - General Physician Assembler Show Motor 07/11/23 documented as of this encounter
--- OUTSIDE RECORDS SUMMARY | 2024-01-06 20:10 | External Medical Summary | Summary of Care ---
Author Name Unknown Organization [facility] Address [address] [address] Phone [phone] Care Team Providers Care Photograph Mounter Name Role Phone Que Foreman PA-C Primary Care Provide r Reason for Visit * Reason Onset Date Comments Test Results Imaging Study 12/26/2023 Encounter Details Date Type Department Care Team (Late st Contact Info) Description 12/26/2023 Telephone Family Practice [facility], [place] [address] [facility] [place] [address] Sergey Robledo PA-C [address] [facility] [place] [address] Test Results Imaging Study [...] Take 1 Capsule by mouth. Active Aspirin Buf(VqYryv-HrJhym-UxQ ) 81 MG Oral Tablet Take 81 [...] shoulder 12/22/2023 Coronary artery disease invo lving [place] coronary artery of [place] heart without angina pectoris 05/24/2020 Overview: Catheterization [...] mRNA, LNP-s, No Pre serve, 2-Dose Series ([employer]) 11/08/2021,04/09/2021,08/22/2020,07/27 COVID-19, MRNA-LNP, 23-24, P F, 51 [...] encounter Miscellaneous Notes * Telephone Encounter - Sergey Robledo PA-C [...] 01/02/2024 9:00 AM EDT Office Visit Neurology [facility] [address] [place] [address] Kiki Roy CRNP [address] [place] [address] 02/09/2024 1:00 PM EDT Office Visit Family Practice [address] [place] [address] [address] Que Foreman PA-C [address] [place] [address] Health Maintenance Due Date Last Done Comments [...] Not on filedocumented as of this encounter Care Teams Photograph Mounter Relationship Specialty Start Date End Date Que Foreman PA-C [address] [facility] [place] [address] PCP - General Physician Language And Literature Division Chair 07/11/23 documented as of this encounter
--- OUTSIDE RECORDS SUMMARY | 2024-01-06 20:10 | External Medical Summary | Summary of Care ---
Author Name Unknown Organization [facility] Address [address] [address] Phone [phone] Care Team Providers Care Telegraph Repeater Mechanic Name Role Phone Que Foreman PA-C Primary [...] pain with left-sided sciatica Clarisa Cormier PA-C [address] [place] [address] Referral ID Status Reason Start Date Expiration Date Visits Requested Visits Authorized [id number] Pending Review Specialty Services Required 12/26/2023 999 999 Question Answer Referral Priority Within 30 days (routine) Where should this appointment be scheduled? External - [facility] Select spine region: Back - Thoracic/Lumbar Do you have any recent complete loss of bladder or bowel function? No Reason for Visit * Reason Onset Date Comments Test Results Imaging Study 12/26/2023 Encounter Details Date Type Department Care Team (Late st Contact Info) Description 12/26/2023 Telephone Family Practice [address] [place] [address] Clarisa Cormier PA-C [address] [place] [address] Test Results Imaging Study Allergies Active Allergy [...] Take 1 Capsule by mouth. Active Aspirin Buf(DvBqwi-WbDhlf-SeJ ) 81 MG Oral Tablet Take 81 [...] shoulder 12/22/2023 Coronary artery disease invo lving [place] coronary artery of ruby heart without angina pectoris 05/24/2020 Overview: Catheterization [...] be set up with [facility] in [place]. His other ortho providers have been through [...] 01/02/2024 9:00 AM EDT Office Visit Neu[facility] [place] [facility] [address] [facility] [address] Kiki Roy CRNP [address] [facility] [address] 02/09/2024 1:00 PM EDT Office Visit Family Practice [address] [place] [address] Que Foreman PA-C [address] [facility] [place] [address] Scheduled Referrals Name Type Priority Associated Diagnoses [...] sciatica documented in this encounter Care Teams Telegraph Repeater Mechanic Relationship Specialty Start Date End Date Que Foreman PA-C [address] [facility] [place] [address] PCP - General Physician Tandem Mill Roller 07/11/23 documented as of this encounter
--- OUTSIDE RECORDS SUMMARY | 2024-01-06 20:10 | External Medical Summary | Summary of Care ---
Author Name Unknown Organization [facility] Address [address] [facility] [address] Phone [phone] Care Team Providers Care Commissioning Editor Name Role Phone Que Foreman PA-C Primary Care Provide r Reason for Visit * Reason Onset Date Comments Order Request 12/22/2023 Shoulder xray Encounter Details Date Type Department Care Team (Late st Contact Info) Description 12/22/2023 Telephone Family Practice [facility], [place] [address] [facility] [place] [address] Sergey Robledo PA-C [address] [facility] [place] [address] Order Request (Shoulder xray) Allergies Active Allergy Reactions Criticality Noted Date Comments Latex Rash Low 09/08/2017 Meloxicam Neuro complications (Please comment) 08/05/2016 Naproxen-Esomeprazole Mg Other (Please comment) 02/21/2017 blisters Other reaction(s): Other See Comments blisters Other reaction(s): Other (Please comment) blisters Sulfa Antibiotics Hives 05/24/2020 Sertraline 08/03/2021 Sweating, dizziness, depression documented as of this encounter (statuses as of 12/22/2023) Medications Medication Sig Dispensed Refills Start Date End Date Status Krill Oil 1000 MG Oral Capsule Take 1 Capsule by mouth. Active Aspirin Buf(GpWqla-CrUlxo-UnB ) 81 MG Oral Tablet Take 81 [...] as of this encounter (statuses as of 12/22/2023) Active Problems Problem Noted Date Diagnosed Date Acute pain of left shoulder 12/22/2023 Coronary artery disease invo lving [place] coronary artery of [place] heart without angina pectoris 05/24/2020 Overview: Catheterization [...] as of this encounter (statuses as of 12/22/2023) Resolved Problems Problem Noted Date Diagnosed Date [...] as of this encounter (statuses as of 12/22/2023) Immunizations Name Administration Dates Next Due COVID-19 [...] encounter Miscellaneous Notes * Telephone Encounter - Eloise Nicole LPN - 12/22/2023 9:43 AM EDT corrected * Telephone Encounter - Carol Linder OSA - 12/22/2023 9:32 AM EDT Pt is at [facility] for xray. R shoulder xray dx is for l shoulder pain. Please correct dx. documented in this encounter Plan of Treatment Upcoming Encounters Date Type Department Care Team (Late st Contact Info) Description 01/02/2024 9:00 AM EDT Office Visit Neurology [facility] [address] [facility] [place] [address] Kiki Roy CRNP [address] [place] [address] 02/09/2024 1:00 PM EDT Office Visit Family Practice [address] [place] [address] Que Foreman PA-C [address] [place] [address] Scheduled Orders Name Type Priority Associated Diagnoses Orde r Schedule XR SHOULDER, 2 OR MORE VIEWS Medical Imaging Routine Right shoulder pain Ordered: 12/22/2023 Health Maintenance Due Date Last [...] as of this encounter Visit Diagnoses Diagnosis Right shoulder pain- Primary Pain in joint, shoulder region documented in this encounter Care Teams Commissioning Editor Relationship Specialty Start Date End Date Que Foreman PA-C [address] [facility] [place] [address] PCP - General Physician Software Applications Specialist 07/11/23 documented as of this encounter
--- OUTSIDE RECORDS SUMMARY | 2024-01-06 20:10 | External Medical Summary | Summary of Care ---
Author Name Unknown Organization [facility] Address [address] [facility] [address] Phone [phone] Care Team Providers Care Tire Room Supervisor Name Role Phone Que Foreman PA-C Primary [...] pain with left-sided sciatica Clarisa Cormier PA-C [address] [place] [address] Referral ID Status Reason Start Date Expiration Date Visits Requested Visits Authorized [id number] Pending Review Specialty Services Required 12/26/2023 999 [...] 12/26/2023 Telephone Family Practice [address] [place] [address] Clarisa Cormier PA-C [address] [place] [address] Test Results Imaging Study; Appointment (S... Allergies [...] Take 1 Capsule by mouth. Active Aspirin Buf(PqVtck-PlAvmu-QvP ) 81 MG Oral Tablet Take 81 [...] shoulder 12/22/2023 Coronary artery disease invo lving [place] coronary artery of [place] heart without angina pectoris 05/24/2020 Overview: Catheterization [...] encounter Miscellaneous Notes * Telephone Encounter - Kathy Durand OSA [...] be set up with [facility] in [place]. His other ortho providers have been through [...] AM EDT Office Visit Neurology [facility] [place] 200 [place] [address] Kiki Roy CRNP [address] [place] [address] 02/09/2024 1:00 PM EDT Office Visit Family Practice [address] [place] [address] [place] [address] Que Foreman PA-C [address] [place] [address] Scheduled Referrals Name Type Priority Associated Diagnoses [...] sciatica documented in this encounter Care Teams Tire Room Supervisor Relationship Specialty Start Date End Date Que Foreman PA-C [address] [facility] [place] [address] PCP - General Physician Gear Machinist 07/11/23 documented as of this encounter
--- OUTSIDE RECORDS SUMMARY | 2024-01-06 20:10 | External Medical Summary | Summary of Care ---
Author Name Unknown Organization [facility] Address [address] [facility] [place] [address] Phone [phone] Care Team Providers Care Remelt Furnace Expediter Name Role Phone Que Foreman PA-C Primary Care Provide r Reason for Visit * Reason Comments Acute Encounter Details Date Type Department Care Team (Late st Contact Info) Description 12/22/2023 8:40 AM EDT Office Visit Family [facility] [address] [place] [address] Sergey Robledo PA-C [address] [facility] [place] [address] Chronic bilateral low [...] shoulder 12/22/2023 Coronary artery disease invo lving [place] coronary artery of [place] heart without angina pectoris 05/24/2020 Overview: Catheterization [...] 01/02/2024 9:00 AM EDT Office Visit Neurology [facility] [address] [place] [address] Kiki Roy CRNP [address] [place] [address] 02/09/2024 1:00 PM EDT Office Visit Family Practice [address] [place] [address] Que Foreman PA-C [address] [place] [address] [place] [address] Scheduled Orders Name Type Priority Associated Diagnoses [...] shoulder documented in this encounter Care Teams Remelt Furnace Expediter Relationship Specialty Start Date End Date Que Foreman PA-C [address] [facility] [place] [address] PCP - General Physician Adjustment Supervisor 07/11/23 documented as of this encounter
--- OUTSIDE RECORDS SUMMARY | 2024-01-06 20:11 | External Medical Summary | Summary of Care ---
Author Name Unknown Organization [facility] Address [address] [facility] [place] [address] Phone [phone] Care Team Providers Care Supervisor Roving Department Name Role Phone Que Foreman PA-C Primary Care Provide r Encounter Details Date Type Department Care Team (Late st Contact Info) Description 11/26/2023 Result Scan Unspecified Department <No scans attached> Allergies Active Allergy Reactions Criticality Noted Date Comments Latex Rash Low 09/08/2017 Meloxicam Neuro complications (Please comment) 08/05/2016 Naproxen-Esomeprazole Mg Other (Please comment) 02/21/2017 blisters Other reaction(s): Other See Comments blisters Other reaction(s): Other (Please comment) blisters Sulfa Antibiotics Hives 05/24/2020 Sertraline 08/03/2021 Sweating, dizziness, depression documented as of this encounter (statuses as of 12/03/2023) Medications Medication Sig Dispensed Refills Start Date End Date Status Krill Oil 1000 MG Oral Capsule Take 1 Capsule by mouth. Active Aspirin Buf(KuEsti-NlQmvt-WvE ) 81 MG Oral Tablet Take 81 mg by mouth. Active Cholecalciferol 25 MCG (1000 UT) Oral Tablet Take 1 Tablet by mouth. Active Hydroxychloroquine Sulfate 200 MG Oral Tablet (PLAQUENIL) Take 1 Tablet by mouth. Active Multi-Vitamin Oral Tablet Take 1 Tablet by mouth. Active Omeprazole 20 MG Oral Capsule Delayed Release (PriLOSEC) Take 1 Capsule by mouth. Active Gabapentin 300 MG Oral Capsule (Neurontin) Take 1 Capsule by mouth in the morning and 1 Capsule before bedtime. 06/13/2021 Active Tamsulosin HCl 0.4 MG Oral Capsule [...] Take 1 Capsule by mouth daily. Active Cyclobenzaprine HCl 10 MG Oral Tablet (Flexeril)Indications :Spinal stenosis of lumbar region without neurogenic claudication,Acute left-sided low back pain with left-sided sciatica Take 1 Tablet by mouth at bedtime as needed for Muscle spasms. 30 Tablet 2 11/14/2023 Active predniSONE 10 MG Oral Tablet (Deltasone)Indication s:Spinal stenosis of lumbar region without neurogenic claudication,Acute left-sided low back pain with left-sided sciatica Take 5 tabs for 2 days, 4 tabs for 2 days, 3 tabs for 2 days, 2 tabs for 2 days 1 tab for 2 days 30 Tablet 11/14/2023 Active Lisinopril 40 MG Oral TabletIndications:Hyp ertension goal BP (blood pressure) < 140/90 Take 1 Tablet by mouth in the morning. 90 Tablet 3 11/14/2023 Active documented as of this encounter (statuses as of 12/03/2023) Active Problems Problem Noted Date Diagnosed Date Coronary artery disease invo lving [place] coronary artery of [place] heart without angina pectoris 05/24/2020 Overview: Catheterization [...] as of this encounter (statuses as of 12/03/2023) Resolved Problems Problem Noted Date Diagnosed Date [...] as of this encounter (statuses as of 12/03/2023) Immunizations Name Administration Dates Next Due COVID-19 [...] on file documented as of this encounter Plan of Treatment Upcoming Encounters Date Type Department Care Team (Late st Contact Info) Description 01/02/2024 9:00 AM EDT Office Visit Neurology [facility] [address] [place] [address] Kiki Roy CRNP [address] [place] [address] 02/09/2024 1:00 PM EDT Office Visit Family Practice [place] [address] [place], [place] [address] Que Foreman PA-C [address] [place] [address] Health Maintenance Due Date Last Done Comments Depression Screening 1962 Cologuard 10/20/1996 Sigmoidoscopy 10/20/1996 Zoster Vaccines (2 of 2) 10/28/2018 09/02/2018, 01/31 Fecal Occult Blood Test 07/15/2020 07/15/2019 COVID-19 Vaccine ( season) 2023 09/29/2023, 03/12/2023, 03/12/2023, Additional history exists Influenza Vaccine (FLU shot) (#1) 2024 02/24/2023, 02/11/2022, 02/27/2021, Additional history exists GFR 11/11/2024 11/12/2023, 02/2024, 02/25/2023, Additional history exists Albumin/Creatinine Ratio 02/25/2026 023, [...] Not on filedocumented as of this encounter Procedures Procedure Name Priority Date/Time Associated Diagnosis Comments RADIOLOGY SCANNED RESULT 11/26/2023 documented in this encounter Results * RADIOLOGY SCANNED RESULT (11/26/2023) 11/26/2023 No Physician Data Unknown DIAGNOSTIC RAD IOLOGY SERVICES documented in this encounter Care Teams Supervisor Roving Department Relationship Specialty Start Date End Date Que Foreman PA-C [facility] [place] [address] PCP - General Physician Java Sdet 07/11/23 documented as of this encounter
--- OUTSIDE RECORDS SUMMARY | 2024-01-06 20:11 | External Medical Summary | Summary of Care ---
Author Name Unknown Organization [facility] Address [address] [facility] [address] Phone [phone] Care Team Providers Care Soliciting Freight Agent Name Role Phone Que Foreman PA-C Primary Care Provide r Encounter Details Date Type Department Care Team (Late st Contact Info) Description 07/13/2023 Telephone Family Practice [facility] [place] [address] [facility] [place] [address] Que Foreman PA-C [address] [facility] [place] [address] Allergies Active Allergy Reactions Criticality Noted Date Comments Latex Rash Low 09/08/2017 Meloxicam Neuro complications (Please comment) 08/05/2016 Naproxen-Esomeprazole Mg Other (Please comment) 02/21/2017 blisters Other reaction(s): Other See Comments blisters Other reaction(s): Other (Please comment) blisters Sulfa Antibiotics Hives 05/24/2020 Sertraline 08/03/2021 Sweating, dizziness, depression documented as of this encounter (statuses as of 07/21/2023) Medications Medication Sig Dispensed Refills Start Date End Date Status Krill Oil 1000 MG Oral Capsule Take 1 Capsule by mouth. 0 Active Aspirin Buf(CaCarb-MgCarb- MgO) 81 MG Oral Tablet Take 81 mg by mouth. 0 Active Cholecalciferol 25 MCG (1000 UT) Oral Tablet Take 1 Tablet by mouth. 0 Active Hydroxychloroquine Sulfate 200 MG Oral Tablet (PLAQUENIL) Take 1 Tablet by mouth. 0 Active Multi-Vitamin Oral Tablet Take 1 Tablet by mouth. 0 Active Omeprazole 20 MG Oral Capsule Delayed Release (PriLOSEC) Take 1 Capsule by mouth. 0 Active Gabapentin 300 MG Oral Capsule (Neurontin) Take 1 Capsule by mouth in the morning and 1 Capsule before bedtime. 0 06/13/2021 Active Tamsulosin HCl 0.4 MG Oral Capsule (Flomax) Take 1 Capsule by mouth in the morning. 0 Active Citalopram Hydrobromide 20 MG Oral Tablet (CeleXA) Take 1 Tablet by mouth in the morning. 90 Tablet 3 09/18/2022 Active Additional Information Patient taking differently:20 mg Oral Daily(AM),Pt list states 10mg daily, Reported on 07/18/2023 Lisinopril 20 MG Oral Tablet (Prinivil)Indicati ons:Dyslipidemia, goal LDL below 70,Hypertension goal BP (blood pressure) < 140/90,Sleep apnea, unspecified type TAKE 1 TABLET BY MOUTH IN THE MORNING 90 Tablet 1 01/24/2023 Active Rosuvastatin Calcium 20 MG Oral Tablet (Crestor)Indicatio ns:Dyslipidemia, goal LDL below 70,Hypertension goal BP (blood pressure) < 140/90,Sleep apnea, unspecified type Take 1 Tablet by mouth every night at bedtime. 90 Tablet 3 06/30/2023 Active Sildenafil Citrate 100 MG Oral Tablet 1 Tablet. 0 01/08/2023 Active Cyclobenzaprine HCl 10 MG Oral Tablet (Flexeril)Indicati ons:Fall down embankment (hill), initial encounter,Right shoulder injury, initial encounter,Rib pain on right side,Injury of left knee, initial encounter Take 1 Tablet by mouth at bedtime as needed for Muscle spasms. 30 Tablet 2 07/11/2023 Active LORazepam 1 MG Oral Tablet (Ativan) Take by mouth 1 Tablet every 20 minutes as needed for Anxiety. Take 20 minutes before MRI. If ineffective, take a second tablet. 2 Tablet 0 12/28/2021 4 Discontinue d(Medicatio n List Clean Up) Cetirizine HCl 10 MG Oral Tablet (ZyrTEC) Take 1 Tablet by mouth. In the morning. 0 04/08/2023 4 Discontinue d(Medicatio n List Clean Up) methylPREDNISolone 4 MG Oral Tablet Therapy Pack (Medrol Dosepack)Indicatio ns:Fall down embankment (hill), initial encounter,Right shoulder injury, initial encounter,Rib pain on right side,Injury of left knee, initial encounter follow package directions 21 Tablet 0 07/11/2023 4 Discontinue d(End of Procedure) documented as of this encounter (statuses as of 07/21/2023) Active Problems Problem Noted Date Diagnosed Date Coronary artery disease invo lving [place] coronary artery of [place] heart without angina pectoris 05/24/2020 Overview: Catheterization [...] as of this encounter (statuses as of 07/21/2023) Resolved Problems Problem Noted Date Diagnosed Date [...] as of this encounter (statuses as of 07/21/2023) Immunizations Name Administration Dates Next Due COVID-19 mRNA, LNP-s, No Pre serve, 2-Dose Series ([employer]izer) 11/08/2021,04/09/2021,08/22/2020,07/27 Covid-19, Mrna, Lnp-s, Pf, B ivalent, 30 [...] 03/03/2020 TDAP (age 10 and older)(Boostrix) 11/08/2021 TDAP (age 11 and older)(Adacel) 08/13/2011 Varicella Zoster Vaccine (Adult) 02/16/2013 Zoster Vaccine Recombinant (Shingrix) 09/02/2018 documented as of this encounter Social History Tobacco Use Types Packs/Day Years Used Date Smoking Tobacco: Former Smokeless Tobacco: Never Comments:in high school Alcohol Use Standard Drinks/Week Comments Not Currently 0 (1 standard drink = 0.6 oz pur e alcohol) Sex and Gender Information Value Date Recorded Sex Assigned at Not on file Gender Identity Not on file Sexual Orientation Not on file Job Start Date Occupation Industry Not on file Not on file Not on file documented as of this encounter Miscellaneous Notes * Telephone Encounter - Que Foreman PA-C - 07/21/2023 12:59 AM EST The chest, ribs, and shoulder x-ray were fine without any acute abnormalities. The knee x-ray showed at least moderate osteoarthritis, but otherwise no acute injury. * Telephone Encounter - Darlyn Petit LPN - 07/16/2023 2:23 PM EST Pt stopped in office and asking for x ray results * Telephone Encounter - Rhonda Paulson LPN - 07/14/2023 12:00 PM EST Patient made aware and verbalized understanding of information given. Please advise on imaging * Telephone Encounter - Que Foreman PA-C - 07/13/2023 9:59 PM EST Lab work normal. No acute changes. documented in this encounter Plan of Treatment Upcoming Encounters Date Type Department Care Team (Late st Contact Info) Description 01/02/2024 9:00 AM EDT Office Visit Neurology [facility] More[facility] [place] [address] [place] [address] Kiki Roy CRNP [address] [place] [address] 02/09/2024 1:00 PM EDT Office Visit Family Practice [address], [place] [address] [place] [address] Que Foreman PA-C [address] [place] [address] Health Maintenance Due Date Last Done Comments Depression Screening 1962 Cologuard 10/20/1996 Sigmoidoscopy 10/20/1996 Zoster Vaccines (2 of 2) 10/28/2018 09/02/2018, 01/31 Fecal Occult Blood Test 07/15/2020 07/15/2019 COVID-19 Vaccine ( season) 2023 03/12/2023, 02/21/2022, 11/08/2021, Additional history exists GFR 07/11/2024 07/11/2023, 02/01, 11/08/2022, Additional history exists Albumin/Creatinine Ratio 02/25/2026 023, 07/17/2022, 02/11/2022 Colonoscopy 09/29/2029 09/30/2019, 09/30/2019 Colorectal Cancer Screening 09/29/2029 DTaP,Tdap,and Td Vaccines (3 - Td or Tdap) 11/09/2031 11/08/2021, 08/13/2011 Pneumococcal Vaccine: 65+ Years Completed 03/22/2019, 04/07/2017, 12/07/2014 AAA Screening Completed 07/04/2020 Influenza Vaccine (FLU shot) Completed , 02/11/2022, 02/27/2021, Additional history exists GARDASIL-HPV IMMUNIZATION SERIES Aged Out No longer eligible based on patient's age to complete this topic Hepatitis B Aged Out No longer eligi ble based on patient's age to complete this topic MENINGOCOCCAL (MENACTRA/MENVEO) Aged Out No longer eligible based on patient's age to complete this topic documented as of this encounter Medical Devices Not on filedocumented as of this encounter Care Teams Soliciting Freight Agent Relationship Specialty Start Date End Date Que Foreman PA-C [facility] [place] [id number] PCP - General Physician Manufacturing Applications Engineer 07/11/23 documented as of this encounter
--- OUTSIDE RECORDS SUMMARY | 2024-01-06 20:11 | External Medical Summary | Summary of Care ---
Author Name Unknown Organization [facility] Address [address] [facility] [place] [address] Phone [phone] Care Team Providers Care Professor Of Forestry Name Role Phone Que Foreman PA-C Primary Care Provide r Encounter Details Date Type Department Care Team (Late st Contact Info) Description 07/13/[address] [facility] [place] [address] [facility] [place] [address] Que Foreman PA-C [address] [facility] [place] [address] Allergies Active Allergy Reactions [...] Diagnosed Date Coronary artery disease invo lving [place] coronary artery of [place] heart without angina pectoris 05/24/2020 Overview: Catheterization [...] encounter Miscellaneous Notes * Telephone Encounter - Rhonda Paulson LPN - 07/21/2023 12:44 PM EST Patient made aware and verbalized understanding of information given. * Telephone Encounter - Que Foreman PA-C [...] AM EDT [facility] [place] [address] [facility] [address] Kiki Roy CRNP [address] [place] [address] 02/09/2024 1:00 PM EDT Office Visit Family Practice [address], [place] [address] [place] [address] Que Foreman PA-C [address] [facility] [place] [address] Health Maintenance Due Date Last Done Comments [...] filedocumented as of this encounter Care Teams Professor Of Forestry Relationship Specialty Start Date End Date Que Foreman PA-C [address] [facility] [place] [address] PCP - General Physician Cartoonist Special Effects 07/11/23 documented as of this encounter
--- OUTSIDE RECORDS SUMMARY | 2024-01-06 20:11 | External Medical Summary | Summary of Care ---
Author Name Unknown Organization [facility] Address [address] [facility] [place] [address] Phone [phone] Care Team Providers Care Payroll Technician Name Role Phone Que Foreman PA-C Primary Care Provide r Encounter Details Date Type Department Care Team (Late st Contact Info) Description 10/10/2023 Result Scan Unspecified Department <No scans attached> Allergies Active Allergy Reactions Criticality Noted Date Comments Latex Rash Low 09/08/2017 Meloxicam Neuro complications (Please comment) 08/05/2016 Naproxen-Esomeprazole Mg Other (Please comment) 02/21/2017 blisters Other reaction(s): Other See Comments blisters Other reaction(s): Other (Please comment) blisters Sulfa Antibiotics Hives 05/24/2020 Sertraline 08/03/2021 Sweating, dizziness, depression documented as of this encounter (statuses as of 12/11/2023) Medications Medication Sig Dispensed Refills Start Date End Date Status Krill Oil 1000 MG Oral Capsule Take 1 Capsule by mouth. Active Aspirin Buf(PvSjyx-GtTlua-QaK ) 81 MG Oral Tablet Take 81 [...] 09, 2023. 180 Tablet 3 08/09/2023 Active documented as of this encounter (statuses as of 12/11/2023) Active Problems Problem Noted Date Diagnosed Date Coronary artery disease invo lving [place] coronary artery of [place] heart without angina pectoris 05/24/2020 Overview: Catheterization [...] as of this encounter (statuses as of 12/11/2023) Resolved Problems Problem Noted Date Diagnosed Date [...] as of this encounter (statuses as of 12/11/2023) Immunizations Name Administration Dates Next Due COVID-19 [...] 01/02/2024 9:00 AM EDT Office Visit Neurology [place] [place] [address] [facility] [place] [address] Kiki Roy CRNP [address] [facility] [address] 02/09/2024 1:00 PM EDT Office Visit Family Practice [address] [place] [address] Que Foreman PA-C [address] [place] [address] [address] Health Maintenance Due Date Last Done Comments [...] Procedure Name Priority Date/Time Associated Diagnosis Comments OUTSIDE LAB RESULTS 10/10/2023 OUTSIDE LAB RESULTS 10/10/2023 documented in this encounter Results * OUTSIDE LAB RESULTS (10/10/2023) 10/10/2023 No Physician Data Unknown LABORATORY * OUTSIDE LAB RESULTS (10/10/2023) 10/10/2023 No Physician Data Unknown LABORATORY documented in this encounter Care Teams Payroll Technician Relationship Specialty Start Date End Date Que Foreman PA-C [address] [facility] [place] [address] PCP - General Physician Electromedical Service Engineer 07/11/23 documented as of this encounter
--- OUTSIDE RECORDS SUMMARY | 2024-01-06 20:11 | External Medical Summary | Summary of Care ---
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 In the study this wasdetermined mostly through a type of brain scan called an amyloid PET scan that is not usually paid for by insurance, but can also be determined through a spinal tap. There are emerging blood based biomarkers for amyloid but it is not determined at this time whether and how much they are reimbursed by insurance. There is a Patient Registry called the [facility]zheim[facility] Network for Treatment and Diagnostics (ALZ-NET) which is a voluntary provider-enrolled patient registry that collects information on treatments for Alzheimers disease, including lecanemab. The FDA Accelerated Approval was granted on June 07, 2022 and the computer networking instructor adjunct announced that thewholesale cost would be $26,500 per year. The treatment involves a 1 hour long infusion of 10 mg/kgof lecanemab every 2 weeks for 18 months. Patients are required to have had a MRI of the brain within 1 year of starting treatment, and repeat MRI of the brain before the 5th, 7th, and 14th infusionsof lecanemab (before about the 6th week, 10th week, and 24th week of infusions). On December 05, 2022 the FDA granted lecanemab full traditional FDA approval. They added a black box warning for a frequent side effect, Amyloid Related Imaging Abnormalities or ARIA as well as a requirement for genetic testing of the most common risk for Alzheimer's disease, apolipoprotein epsilon (ApoE) that prescribing providers are required to middle school guidance counselor about in regards to risk of Alzheimer's disease and how the ApoE ?4 allele can increase risk for ARIA (see below for more details). The Center of Medicare and Medicaid Services ([facility]) at that time announced that providers who submitted information through an online registry [facility] provided would have the patients considered as enrolled in a clinical study for collection of ADAM evidence and would thus count for coverage. Depending on the type of insurance, there may be a substantial out of pocket expense still for some patients. For example, for a patient with only traditional Medicare coverage this treatment is expected to fallunder Part A coverage which would cover 80% of the cost, leaving 20% the responsibility of the patient (20% of $26,500 would be $5,300 per year, and for the total 1.5 years of treatment about $7,950). There is an [employer] Patient Support website that can help patients determine their potential costs for lecanemab as well as see if they would qualify for patient assistance from [employer] which can be found at: https://www.[employer].com/hcp/leqembi There are opportunities for people with commercial (non-Medicare) insurance to potentially get somefinancial support. Information for providers and patients regarding CMS statement on broader Medicare coverage for lecanemab can be found at: https://www.[facility].gov/newsroom/press-releases/statement-broader-medicare-coverage- dekzkwc-kesoadbki-btvdgltsa-yru-xfjydyuewbo-rzzaegzj The CMS ADAM registry can be found at: https://qualitynet.[facility].gov/tvplkiyylu-vyo-suqzfrhy Patients must be able and willing to have serial MRIs of the Brain, the first prior to starting lecanemab, with follow up MRI of the Brain prior to the 5th, 7th, and 14th lecanemab infusions. The FDA prescribing information for lecanemab as of December 05, 2022 can be found at: https://www.accessdata.fda.gov/drugsatfda_docs/label/2022/653122g562zzk.pdf SAFETY SUMMARY: Lecanemab may cause Amyloid Related Imaging Abnormalities or ARIA. ARIA most commonly presents as a temporary swelling in areas of the brain that usually resolves over time. Some people may also have small spots of bleeding in or on the surface of the brain. Most people with swelling in areasof the brain do not experience symptoms, however, some people may experience symptoms such as headache, confusion, dizziness, vision changes, nausea, aphasia, weakness, or seizure. Notify your healthcare provider if these symptoms occur. Events of intracerebral hemorrhage greater than 1 cm in diameter have been reported infrequently in patients taking lecanemab, and use of antithrombotic or thromb olytic medications while taking lecanemab may increase the risk of bleeding in the brain. Patients will need MRI scans to monitor for ARIA. Although ARIA can occur in any patient treated with lecanemab, there is an increased risk in patients who are ApoE ?4 homozygotes (have two copies of the ApoE ?4 form of the gene), but there is genetic testing available to determine ApoE ?4 genotype. There isalso a potential risk of infusion-related reactions, which can include flu-like symptoms, nausea, vomiting, and changes in blood pressure, the majority of which occur with the first infusion. SAFETY IN DETAIL: Deaths occurred in 0.7% of the participants in the lecanemab group and 0.8% of those in the placebogroup of the main study. No deaths were considered by the investigators to be related to lecanemab or occurred with ARIA. Serious adverse events occurred in 14.0% of the participants in the lecanemabgroup and 11.3% of those in the placebo group. The most commonly reported serious adverse events were infusion-related reactions (in 1.2% of the participants in the lecanemab group and 0 participantsin the placebo group), ARIA-E (in 0.8% and 0, respectively), atrial fibrillation (in 0.7% and 0.3%), syncope AKA fainting (in 0.7% and 0.1%), and angina pectoris AKA chest pain (in 0.7% and 0). The overall incidence of adverse events was similar in the two groups. Adverse events leading to discontinuation occurred in 6.9% of the participants in the lecanemab group and 2.9% of those in the placebogroup. The most common adverse events (affecting >10% of the participants) in the lecanemab group were infusion- related reactions (26.4% with lecanemab and 7.4% with placebo); ARIA with bleeding (ARIA-H; 17.3% with lecanemab and 9.0% with placebo); ARIA without bleeding (ARIA-E 12.6% with lecanemab and 1.7% with placebo); headache (11.1% with lecanemab and 8.1% with placebo); and falls (10.4% with lecanemab and 9.6% with placebo). Infusion-related reactions were largely mild to moderate and o ccurred with the first dose (75%). A total of 56% of the participants did not take preventative medications (i.e., nonsteroidal antiinflammatory drugs, antihistamines, or glucocorticoids) for infusion-related reactions. Of those who took preventative medications for subsequent doses, 63% did not have additional reactions. Events of ARIA-E with lecanemab were mostly mild to moderate (91%) in appearance on MRI images of the brain. These events were mostly asymptomatic (78%), occurred during the first 3 months of the treatment period (71%), and resolved within 4 months after detection (81%). A total of 2.8% of the participants in the lecanemab group had symptomatic ARIA-E; commonly reported symptoms were headache, visual disturbance, and confusion. The incidence of isolated ARIA-H (i.e., ARIA-H in participants who did not also have ARIA-E) was 8.9% in the lecanemab group and 7.8% in the placebo group. The incidence of isolated symptomatic ARIA-H was 0.7% in the lecanemab group and 0.2% in the placebo group. The most common symptom associated with isolated symptomatic ARIA-H was dizziness. Macrohemorrhage occurred in 5 of 898 participants (0.6%) in the lecanemab group and 1 of 897 participants (0.1%) in the placebo group. ARIA-H that occurred with ARIA-E tended to occur early (within 6 months). Isolated ARIA-H occurred throughout the trial. ARIA-E and ARIA-H were less common amongApoE ?4 noncarriers than among carriers, with higher frequency among ApoE ?4 homozygotes than amongApoE ?4 heterozygotes. The Apolipoprotein Epsilon gene, abbreviated as ApoE, is a risk factor for developing Alzheimersdisease. It does not tell if a person has Alzheimers disease, nor does it mean that someone is destined to have Alzheimers disease, only what this risk factor is, and maybe a bit about how a person might respond to some of the treatments designed for Alzheimers disease. The ApoE gene comesin three different types, 2, 3, & 4, and everyone has two copies of this gene. In terms of risk, 2 is protective, 3 is average risk, and 4 is increased risk. A 2/3 genotype is less likely to haveAlzheimers disease during their life, and if so, usually later in life. The 3/3 genotype is the m ost common in the population, and is at average risk from Alzheimers disease. The 3/4 genotype is at increased risk for Alzheimers disease, and at an earlier age. The 4/4 genotype is at the greatest risk for Alzheimers disease, also at an earlier age. In the 2/4 genotype the risk and protective gene cancel each other out. This is why knowing the genotype of one person does not tell the risk to their relatives. Study Reference: Carloz Alfonso M.D., Randy Arambula, Ph.D., Hans Ponce M.D., et al. Lecanemab in Early Alzheimers Disease. N Engl J Med June 06, 2022; 388:9-21. There was one case report of a lecanemab participant who was administered tPA for an acute stroke who had serious bleeding complications and . At this time it is recommended by [facility] and [employer] that patients and families be made aware of this potential and that this information be providedwhen advising patients on lecanemab of the risks and benefits of tPA during an acute stroke. The following is used by neuroradiology for grading of ARIA severity: As of March 2023, [employer] patients are required to be in a clinical trial or registry for consideration of coverage. [facility] [employer] will have a registry for [facility] patients that collects the same data as requested in the CMS registry. The CMS registry identification number for Medicare patients was [id number] but on March 24, 2023 [facility] registry identification number of [id number] was designated and this second number willlikely be the one to use for billing claims going forward. I spent a total of 90 minutes coordinating, documenting, and providing care for this patient excluding time spent in the performance of separately billed services or time spent by another provider/QHP. ALTAGRACIA De La Fuente Nurse Practitioner Neuroscience [facility] 07/18/2023 Attending attestation: I have reviewed the advanced practitioner's documentation on the date of service referenced in note, and I agree with, and take responsibility for the plan of care. Giacomo James DO 07/26/2023 documented in this encounter Nursing Notes * Mechelle Rahman LPN - 07/18/2023 8:57 AM EST Patient verified identity by spelling of last name and date. Return visit Memory issues documented in this encounter Plan of Treatment Upcoming Encounters Date Type Department Care Team (Late st Contact Info) Description 01/02/2024 9:00 AM EDT Office Visit Neurology [facility] [address] [place] [address] Kiki Roy CRNP [address] [place] [address] 02/09/2024 1:00 PM EDT Office Visit Family Practice [address] [place] [address] Que Foreman PA-C [address] [place] [address] Scheduled Referrals Name Type Priority Associated Diagnoses Orde r Schedule PHYSICAL THERAPY REFERRAL OP Referral Within 10 days (routine) Unsteady gait Ordered: 07/18/2023 Health Maintenance Due Date Last Done Comments [...] loss)- Primary Mild cognitive impairment, so stated Unsteady gait Abnormality of gait documented in this encounter Care Teams Pipe Changer Relationship Specialty Start Date End Date Que Foreman PA-C [facility] [facility] [place] [address] PCP - General Physician Fish And Wildlife Warden 07/11/23 documented as of this encounter
--- OUTSIDE RECORDS SUMMARY | 2024-01-06 20:11 | External Medical Summary | Summary of Care ---
Author Name Unknown Organization [facility] Address [address] [facility] [place] [address] Phone [phone] Care Team Providers Care Buffing Wheel Operator Name Role Phone Que Foreman PA-C Primary Care Provide r Encounter Details Date Type Department Care Team (Late st Contact Info) Description 11/26/2023 Orders Only Family Practice [facility], [address] [facility] [place] [address] Que Foreman PA-C [address] [facility] [place] [address] Spinal stenosis of lumbar region without neurogenic claudication; Acute left-sided low back pain with left-sided sciatica Allergies Active Allergy Reactions Criticality Noted Date Comments Latex Rash Low 09/08/2017 Meloxicam Neuro complications (Please comment) 08/05/2016 Naproxen-Esomeprazole Mg Other (Please comment) 02/21/2017 blisters Other reaction(s): Other See Comments blisters Other reaction(s): Other (Please comment) blisters Sulfa Antibiotics Hives 05/24/2020 Sertraline 08/03/2021 Sweating, dizziness, depression documented as of this encounter (statuses as of 11/26/2023) Medications Medication Sig Dispensed Refills Start Date End Date Status Krill Oil 1000 MG Oral Capsule Take 1 Capsule by mouth. Active Aspirin Buf(WoVfxc-JiJvms-LwO ) 81 MG Oral Tablet Take 81 [...] as of this encounter (statuses as of 11/26/2023) Active Problems Problem Noted Date Diagnosed Date Coronary artery disease invo lving [place] coronary artery of [place] heart without angina pectoris 05/24/2020 Overview: Catheterization [...] as of this encounter (statuses as of 11/26/2023) Resolved Problems Problem Noted Date Diagnosed Date [...] as of this encounter (statuses as of 11/26/2023) Immunizations Name Administration Dates Next Due COVID-19 [...] 01/02/2024 9:00 AM EDT Office Visit Neurology [facility] [address] [place] [address] Kiki Roy CRNP [address] [place] [address] 02/09/2024 1:00 PM EDT Office Visit Family Practice [address] [place] [address] Que Foreman PA-C [address] [place] [address] Health Maintenance Due Date Last Done Comments Depression Screening 1962 Cologuard 10/20/1996 Sigmoidoscopy 10/20/1996 Zoster Vaccines (2 of 2) 10/28/2018 09/02/2018, 01/31 Fecal Occult Blood Test 07/15/2020 07/15/2019 COVID-19 Vaccine ( season) 2023 09/29/2023, 03/12/2023, 03/12/2023, Additional history exists GFR 11/11/2024 11/12/2023, 020 02/2024, 02/25/2023, Additional history exists Albumin/Creatinine Ratio [...] Procedure Name Priority Date/Time Associated Diagnosis Comments MRI L SPINE WO CONTRAST Routine 11/24/2023 Spinal stenosis of lumbar region without neurogenic claudication Acute left-sided low back pain with left-sided sciatica documented in this encounter Results * MRI L SPINE WO CONTRAST (11/24/2023) Anatomical Region Laterality Modality Vertebra, Lspine Other 11/24/2023 Que Foreman PA-C RAD MRI-MRA documented in this encounter Visit Diagnoses Diagnosis Spinal stenosis of lumbar region without neurogenic claudication Spinal stenosis, lumbar region, without neurogenic claudication Acute left-sided low back pain with left-sided sciatica documented in this encounter Care Teams Buffing Wheel Operator Relationship Specialty Start Date End Date Que Foreman PA-C [address] [place] [address] [place] [address] PCP - General Physician Burn Center Nurse 07/11/23 documented as of this encounter
--- OUTSIDE RECORDS SUMMARY | 2024-01-06 20:11 | External Medical Summary | Summary of Care ---
Author Name Unknown Organization [facility] Address [address] [place] [address] Phone [phone] Care Team Providers Care Moss Picker Name Role Phone Que Foreman PA-C Primary Care Provide r Reason for Visit * Reason Onset Date Comments Medication Refill 10/14/2023 Encounter Details Date Type Department Care Team (Late st Contact Info) Description 10/14/2023 Refill Neurology [facility] [address] [place] [address] Kiki Roy CRNP [address] [place] [address] Allergies Active Allergy Reactions Criticality Noted Date Comments Latex Rash Low 09/08/2017 Meloxicam Neuro complications (Please comment) 08/05/2016 Naproxen-Esomeprazole Mg Other (Please comment) 02/21/2017 blisters Other reaction(s): Other See Comments blisters Other reaction(s): Other (Please comment) blisters Sulfa Antibiotics Hives 05/24/2020 Sertraline 08/03/2021 Sweating, dizziness, depression documented as of this encounter (statuses as of 10/23/2023) Medications Medication Sig Dispensed Refills Start Date [...] Capsule by mouth in the morning. Active Lisinopril 20 MG Oral Tablet (Prinivil)Indicati ons:Dyslipidemia, [...] MG Oral Tablet 1 Tablet. 01/08/2023 Active Cyclobenzaprine HCl 10 MG Oral Tablet (Flexeril)Indicati ons:Fall down embankment (hill), initial encounter,Right shoulder injury, initial encounter,Rib pain on right side,Injury of left knee, initial encounter Take 1 Tablet by mouth at bedtime as needed for Muscle spasms. 30 Tablet 2 07/11/2023 Active Memantine HCl 10 MG Oral Tablet (Namenda)Indicatio ns:Amnestic MCI (mild cognitive impairment with memory loss) Take 1 Tablet by mouth in the morning and 1 Tablet before bedtime. Do not start before August 09, 2023. 180 Tablet 3 08/09/2023 Active Citalopram Hydrobromide 20 MG Oral Tablet (CeleXA) Take 1 Tablet by mouth in the morning. 90 Tablet 3 10/23/2023 Active Citalopram Hydrobromide 20 MG Oral Tablet (CeleXA) Take 1 Tablet by mouth in the morning. 90 Tablet 3 09/18/2022 10/14/2023 Discontinued (Refill) documented as of this encounter (statuses as of 10/23/2023) Active Problems Problem Noted Date Diagnosed Date Coronary artery disease invo lving [place] coronary artery of [place] heart without angina pectoris 05/24/2020 Overview: Catheterization [...] as of this encounter (statuses as of 10/23/2023) Resolved Problems Problem Noted Date Diagnosed Date [...] as of this encounter (statuses as of 10/23/2023) Immunizations Name Administration Dates Next Due COVID-19 [...] encounter Miscellaneous Notes * Telephone Encounter - Kiki Roy CRNP - 10/23/2023 11:55 AM EDTSigned Prescriptions: Disp Refills Citalopram Hydrobromide 20 MG Oral Tablet *90 Tab*3 Sig: Take 1 Tablet by mouth in the morning.Authorizing Provider: KIKI ROY * Telephone Encounter - Poonam Edgar bottom sprayer - 2023 11:09 AM EDT Pharmacy calling to check on status of rx. [facility] 2023,11:09 AM * Telephone Encounter - Lori Ayala RPh - 10/20/2023 8:29 AM EDTPending Prescriptions: Disp Refills Citalopram Hydrobromide 20 MG Oral Tablet *90 Tab*3 Sig: Take 1 Tablet by mouth in the morning. * Telephone Encounter - Lori Ayala RPh - 10/20/2023 8:28 AM EDT Previously prescribed by Dr James. Please approve if appropriate to continue. Verified dispensing history at pharmacy that pt has been on 20mg/daily. Thanks, Lori Ayala PharmD Clinical Pharmacist [facility] [phone] 10/20/2023, 8:29 AM * Telephone Encounter - Fernando Michaud [facility] - 10/15/2023 2:04 PM EDTPending Prescriptions: Disp Refills Citalopram Hydrobromide 20 MG Oral Tablet *90 Tab*3 Sig: Take 1 Tablet by mouth in the morning. * Telephone Encounter - Audra Harper PHARM Tech - 10/14/2023 2:16 PM EDT Did you pend patient's preferred pharmacy and medication before forwarding?yes Pharmacy: [facility] [address] [place] [address] Pending Prescriptions: Disp Refills Citalopram Hydrobromide 20 MG Oral Tablet*90 Tab*3 Sig: Take 1 Tablet by mouth in the morning. Last Visit: 07/11/2023 (in office), Visit date not found (telemedicine) Next Visit: 02/09/2024 If no future appointments scheduled, and last appointment is greater than a year ago, please schedule patient for a follow-up appointment Last date the medication was ordered: 09/18/2022 Is this request for a controlled substance?No Urine Drug Screen:No results found for this or any previous visit. Patient Phone Numbers [facility] [phone] Labs: Lab Results Component Value Date/Time CREAT 0.9 07/11/2023 11:30 AM CREAT 0.90 11/08/2022 12:00 AM CREAT 1.1 05/25/2020 07:44 AM POTASSIUM 4.2 07/11/2023 11:30 AM POTASSIUM 4.5 05/25/2020 07:44 AM TSH 0.65 07/11/2023 11:30 AM TSH 0.41 06/22/2020 02:25 PM LDLCALC 62 02/25/2023 07:13 AM LDLCALC 93 03/17/1997 09:50 AM LDLDIRECT 67 08/02/2022 10:20 AM LDLDIRECT 64 05/25/2020 07:44 AM ALT 34 07/11/2023 11:30 AM ALT 29 05/25/2020 07:44 AM HGBA1C 5.5 02/25/2023 07:13 AM documented in this encounter Plan of Treatment Upcoming Encounters Date Type Department Care Team (Late st Contact Info) Description 01/02/2024 9:00 AM EDT Office Visit Neurology [facility] [address] [facility] [place] [place] [address] Kiki Roy CRNP [address] [place] [address] 02/09/2024 1:00 PM EDT Office Visit Family Practice [address] [place] [address] Que Foreman PA-C [address] [place] [address] Health Maintenance Due Date Last Done Comments Depression Screening 1962 Cologuard 10/20/1996 Sigmoidoscopy 10/20/1996 Zoster Vaccines (2 of 2) 10/28/2018 09/02/2018, 01/31 Fecal Occult Blood Test 07/15/2020 07/15/2019 COVID-19 Vaccine ( season) 2023 09/29/2023, 03/12/2023, 02/21/2022, Additional history exists GFR 07/11/2024 07/11/2023, 02/01, [...] filedocumented as of this encounter Care Teams Moss Picker Relationship Specialty Start Date End Date Que Foreman PA-C [address] [facility] [place] [address] PCP - General Physician Workforce Development Assistant 07/11/23 documented as of this encounter
--- OUTSIDE RECORDS SUMMARY | 2024-01-06 20:11 | External Medical Summary | Summary of Care ---
Author Name Unknown Organization [facility] Address [address] [facility] [address] Phone [phone] Care Team Providers Care Bander Name Role Phone Que Foreman PA-C Primary Care Provide r Reason for Visit * Reason Onset Date Comments Appointment 11/14/2023 Precert rec'd/MR I Encounter Details Date Type Department Care Team (Late st Contact Info) Description [facility] [address] [place] [address] Que Foreman PA-C [address] [facility] [place] [address] Appointment (Precert rec'd/MRI) Allergies Active Allergy Reactions Criticality Noted Date Comments Latex Rash Low 09/08/2017 Meloxicam Neuro complications (Please comment) 08/05/2016 Naproxen-Esomeprazole Mg Other (Please comment) 02/21/2017 blisters Other reaction(s): Other See Comments blisters Other reaction(s): Other (Please comment) blisters Sulfa Antibiotics Hives 05/24/2020 Sertraline 08/03/2021 Sweating, dizziness, depression documented as of this encounter (statuses as of 11/17/2023) Medications Medication Sig Dispensed Refills Start Date End Date Status Krill Oil 1000 MG Oral Capsule Take 1 Capsule by mouth. Active Aspirin Buf(FgTbxv-NbWjgw-XyS ) 81 MG Oral Tablet Take 81 [...] as of this encounter (statuses as of 11/17/2023) Active Problems Problem Noted Date Diagnosed Date Coronary artery disease invo lving [place] coronary artery of [place] heart without angina pectoris 05/24/2020 Overview: Catheterization [...] as of this encounter (statuses as of 11/17/2023) Resolved Problems Problem Noted Date Diagnosed Date [...] as of this encounter (statuses as of 11/17/2023) Immunizations Name Administration Dates Next Due COVID-19 [...] Telephone Encounter - Kathy Durand OSA - 11/17/2023 2:15 PM EDT Spoke with patient and his . MRI goran'd at [facility] [place] (open) on Friday, 11/23 at 4:30pm. MRI order faxed. * Telephone Encounter - Kathy Durand OSA - 11/14/2023 10:13 AM EDT Precert notified to check on auth prior to scheduling MRI at [facility] [place]. * Telephone Encounter - Carol Linder OSA - 11/14/2023 9:49 AM EDT Please assist in scheduling MRI at [address] in [place]. Pt prefers it not be on a Friday, if possible. documented in this encounter Plan of Treatment Upcoming Encounters Date Type Department Care Team (Late st Contact Info) Description 01/02/2024 9:00 AM EDT Office Visit [facility]rology [facility] [address] [place] [address] Kiki Roy CRNP [address] [place] [address] 02/09/2024 1:00 PM EDT Office Visit Family Practice [address] [place] [address] Que Foreman PA-C [address] [place] [address] Health Maintenance Due Date Last Done Comments Depression Screening 1962 Cologuard 10/20/1996 Sigmoidoscopy 10/20/1996 Zoster Vaccines (2 of 2) 10/28/2018 09/02/2018, 01/31 Fecal Occult Blood Test 07/15/2020 07/15/2019 COVID-19 Vaccine ( season) 2023 09/29/2023, 03/12/2023, 03/12/2023, Additional history exists GFR 11/11/2024 11/12/2023, 02/2024, [...] filedocumented as of this encounter Care Teams Bander Relationship Specialty Start Date End Date Que Foreman PA-C [address] [place] [address] PCP - General Physician Drywall Application Supervisor 07/11/23 documented as of this encounter
--- OUTSIDE RECORDS SUMMARY | 2024-01-06 20:11 | External Medical Summary | Summary of Care ---
Author Name Unknown Organization [facility] Address [address] [place] [address] Phone [phone] Care Team Providers Care Reservations Agent Name Role Phone Que Foreman PA-C Primary Care Provide r Reason for Visit * Reason Onset Date Comments Encounter Created in Error 10/17/2023 Encounter Details Date Type Department Care Team (Late st Contact Info) Description 10/17/[address] [facility] [address] [place] [address] Giacomo James, DO [address] [place] [address] Allergies Active Allergy Reactions Criticality Noted Date Comments Latex Rash Low 09/08/2017 Meloxicam Neuro complications (Please comment) 08/05/2016 Naproxen-Esomeprazole Mg Other (Please comment) 02/21/2017 blisters Other reaction(s): Other See Comments blisters Other reaction(s): Other (Please comment) blisters Sulfa Antibiotics Hives 05/24/2020 Sertraline 08/03/2021 Sweating, dizziness, depression documented as of this encounter (statuses as of 10/17/2023) Medications Medication Sig Dispensed Refills Start Date End Date Status Krill Oil 1000 MG Oral Capsule Take 1 Capsule by mouth. 0 Active Aspirin Buf(CkErij-AlAhll-C gO) 81 MG Oral Tablet Take 81 mg [...] on 07/18/2023 Lisinopril 20 MG Oral Tablet (Prinivil)Indicatio ns:Dyslipidemia, goal LDL below 70,Hypertension goal BP (blood pressure) < 140/90,Sleep apnea, unspecified type TAKE 1 TABLET BY MOUTH IN THE MORNING 90 Tablet 1 01/24/2023 Active Rosuvastatin Calcium 20 MG Oral Tablet (Crestor)Indication s:Dyslipidemia, goal LDL below 70,Hypertension goal BP (blood pressure) < 140/90,Sleep apnea, unspecified type Take 1 Tablet by mouth every night at bedtime. 90 Tablet 3 06/30/2023 Active Sildenafil Citrate 100 MG Oral Tablet 1 Tablet. 0 01/08/2023 Active Cyclobenzaprine HCl 10 MG Oral Tablet (Flexeril)Indicatio ns:Fall down embankment (hill), initial encounter,Right shoulder injury, initial encounter,Rib pain on right side,Injury of left knee, initial encounter Take 1 Tablet by mouth at bedtime as needed for Muscle spasms. 30 Tablet 2 07/11/2023 Active Memantine HCl 10 MG Oral Tablet (Namenda)Indication s:Amnestic MCI (mild cognitive impairment with memory loss) Take 1 Tablet by mouth in the morning and 1 Tablet before bedtime. Do not start before August 09, 2023. 180 Tablet 3 08/09/2023 Active documented as of this encounter (statuses as of 10/17/2023) Active Problems Problem Noted Date Diagnosed Date Coronary artery disease invo lving viejas coronary artery of viejas heart without angina pectoris 05/24/2020 Overview: Catheterization 11/f420 was mostly good with a small non [...] as of this encounter (statuses as of 10/17/2023) Resolved Problems Problem Noted Date Diagnosed Date [...] as of this encounter (statuses as of 10/17/2023) Immunizations Name Administration Dates Next Due COVID-19 [...] AM EDT Office Visit Neurology Kev Moreno [place] [address] [facility], [place] [address] Kiki Roy CRNP [address] [facility] [address] 02/09/2024 1:00 PM EDT Office Visit Family Practice [place] Ghada Reveles [address] [place] [address] Que Foreman PA-C [address] [place] [address] Health Maintenance Due Date Last Done Comments Depression Screening 1962 Cologuard 10/20/1996 Sigmoidoscopy 10/20/1996 Zoster Vaccines (2 of 2) 10/28/2018 09/02/2018, 01/31 Fecal Occult Blood Test 07/15/2020 07/15/2019 GFR 07/11/2024 07/11/2023, 02/01, 11/08/2022, Additional history exists Albumin/Creatinine Ratio 02/25/2026 023, 07/17/2022, 02/11/2022 Colonoscopy 09/29/2029 09/30/2019, 09/30/2019 Colorectal Cancer Screening 09/29/2029 DTaP,Tdap,and Td Vaccines (3 - Td or Tdap) 11/09/2031 11/08/2021, 08/13/2011 Pneumococcal Vaccine: 65+ Years Completed 03/22/2019, 04/07/2017, 12/07/2014 AAA Screening Completed 07/04/2020 Influenza Vaccine (FLU shot) Completed , 02/11/2022, 02/27/2021, Additional history exists COVID-19 Vaccine Completed 09/29/2023, 04/2023, 02/21/2022, Additional history exists GARDASIL-HPV IMMUNIZATION SERIES Aged [...] filedocumented as of this encounter Care Teams Reservations Agent Relationship Specialty Start Date End Date Que Foreman PA-C [facility] [place] [place] [address] PCP - General Physician Coder 07/11/23 documented as of this encounter
--- OUTSIDE RECORDS SUMMARY | 2024-01-06 20:11 | External Medical Summary | Summary of Care ---
Author Name Unknown Organization [facility] Address [address] [facility] [address] Phone [phone] Care Team Providers Care Pe Electrical Engineer Name Role Phone Que Foreman PA-C Primary Care Provide r Encounter Details Date Type Department Care Team (Late st Contact Info) Description 12/11/[address] [facility] [place] [address] [facility] [place] [address] Que Foreman PA-C [address] [facility] [place] [address] Allergies Active Allergy Reactions [...] Take 1 Capsule by mouth. Active Aspirin Buf(RdHcbm-ZdRvka-FvU ) 81 MG Oral Tablet Take 81 [...] Diagnosed Date Coronary artery disease invo lving [place] coronary artery of [place] heart without angina pectoris 05/24/2020 Overview: Catheterization [...] 01/02/2024 9:00 AM EDT Office Visit Neurology [facility] [address] [place] [address] Kiki Roy CRNP [address] [place] [address] 02/09/2024 1:00 PM EDT Office Visit Family Practice [place] Ghada Reveles [address] [place] [address] Que Foreman PA-C [address] [place] [address] Health Maintenance Due Date Last Done Comments [...] Procedure Name Priority Date/Time Associated Diagnosis Comments CHEMISTRY-OUTSIDE Routine 10/10/2023 documented in this encounter Results * CHEMISTRY-OUTSIDE (10/10/2023) Not all results display below - see scan for full detail OUTSIDE LAB (SEE SCANNED REPORT) Comment:UNKNOWN LAB-CHEM 4 P NEEL,CBC CREATININE-OUTSID E LAB 0.90 0.66 - 1.25 MG/DL OUTSIDE LAB (SEE SCANNED REPORT) EGFR-OUTSIDE LAB 83.2 60 ML/MIN OUT SIDE LAB (SEE SCANNED REPORT) POTASSIUM-OUTSIDE LAB OUTSIDE LAB (SEE SCANNED REPORT) GLUCOSE-OUTSIDE LAB OUTSIDE LAB (SEE SCANNED REPORT) HOURS FASTING OUTSID E LAB (SEE SCANNED REPORT) TRIGLYCERIDES-OUT SIDE LAB OUTSIDE LAB (SEE SCANNED REPORT) CHOLESTEROL-OUTSI DE LAB OUTSIDE LAB (SEE SCANNED REPORT) HDL-OUTSIDE LAB OUTS NILO LAB (SEE SCANNED REPORT) CHOL/HDL RATIO-OUTSIDE LAB OUTSIDE LA B (SEE SCANNED REPORT) LDL (CALCULATED)-OUTS NILO LAB OUTSIDE LAB (SEE SCANNED REPORT) LDL (DIRECT MEASURE)-OUTSIDE LAB OUTSIDE LAB (SEE SCANNED REPORT) HEMOGLOBIN, M1Z-XDZUFBO LAB OUTSIDE LAB (SEE SCANNED REPORT) PHOSPHORUS-OUTSID E LAB OUTSIDE LAB (SEE SCANNED REPORT) PTH-OUTSIDE LAB OUTS NILO LAB (SEE SCANNED REPORT) MICROALBUMIN RATIO-OUTSIDE LAB OUTSIDE LA B (SEE SCANNED REPORT) PROTEIN, UA-OUTSIDE LAB OUTSIDE LAB (SEE SCANNED REPORT) HGB 15.2 12 - 18 G/DL OUTSIDE LAB (SEE SCANNED REPORT) 10/10/2023 Ady Kaur DO LABORATORY OUTSIDE LAB (SEE SCANNED REPORT) documented in this encounter Care Teams Pe Electrical Engineer Relationship Specialty Start Date End Date Que Foreman PA-C [address] [facility] [place] [phone] PCP - General Physician Assembler Clip On Sunglasses 07/11/23 documented as of this encounter
--- OUTSIDE RECORDS SUMMARY | 2024-01-06 20:11 | External Medical Summary | Summary of Care ---
Author Name Unknown Organization [facility] Address [address] [facility] [address] Phone [phone] Care Team Providers Care Painter Touch Up Name Role Phone Que Foreman PA-C Primary Care Provide r Reason for Visit * Reason Onset Date Comments Test Results 12/02/2023 [facility] 12/01 Encounter Details Date Type Department Care Team (Late st Contact Info) Description 12/02/[address] [facility] [address] [facility] [place] [address] Que Foreman PA-C [address] [facility] [place] [address] Test Results ([facility] 12/01) Allergies Active Allergy Reactions Criticality Noted Date Comments Latex Rash Low 09/08/2017 Meloxicam Neuro complications (Please comment) 08/05/2016 Naproxen-Esomeprazole Mg Other (Please comment) 02/21/2017 blisters Other reaction(s): Other See Comments blisters Other reaction(s): Other (Please comment) blisters Sulfa Antibiotics Hives 05/24/2020 Sertraline 08/03/2021 Sweating, dizziness, depression documented as of this encounter (statuses as of 12/02/2023) Medications Medication Sig Dispensed Refills Start Date End Date Status Krill Oil 1000 MG Oral Capsule Take 1 Capsule by mouth. Active Aspirin Buf(GsNcwn-TzVayy-HeK ) 81 MG Oral Tablet Take 81 [...] as of this encounter (statuses as of 12/02/2023) Active Problems Problem Noted Date Diagnosed Date Coronary artery disease invo lving algaaciq coronary artery of algaaciq heart without angina pectoris 05/24/2020 Overview: Catheterization [...] as of this encounter (statuses as of 12/02/2023) Resolved Problems Problem Noted Date Diagnosed Date [...] as of this encounter (statuses as of 12/02/2023) Immunizations Name Administration Dates Next Due COVID-19 [...] encounter Miscellaneous Notes * Telephone Encounter - Savanna Odom LPN - 12/02/2023 2:42 PM EDT Patient aware and conveyed verbal understanding. He will continue to see Pain Management No need for the referral to see NeuroSurgery at this time * Telephone Encounter - Rhonda Paulson LPN - 12/02/2023 11:44 AM EDT Left voicemail for patient to return call to nurse triage. * Telephone Encounter - Que Foreman PA-C - 12/02/2023 10:48 AM EDT MRI of lumbar spine reviewed - he has extensive degenerative changes throughout the whole of the lumbosacral spine particularly in the distal levels, all of which appears similar in appearance to hislast MRI. He has been following with pain management (Dr. Franklin), however his pain has been morepersistent and resistant to treatment lately. He has seen Neurosurgery (Dr. Cheung) in the past, although it has been quite a few years. The purpose of this MRI was to help determine if he needed re-evaluate by Neurosurgery again. Overall it does not appear drastically different. I do not mind sending him back to Dr. Cheung for re-evaluation if he has requesting such a referral. documented in this encounter Plan of Treatment Upcoming Encounters Date Type Department Care Team (Late st Contact Info) Description 01/02/2024 9:00 AM EDT Office Visit [facility] [place] [address] [facility] [address] Kiki Roy, TREE PRUNER [address] [place] [address] 02/09/2024 1:00 PM EDT Office Visit Family Practice [place] Ghada Reveles [address] [place] [address] Que Foreman PA-C [address] [facility] [place] [address] Health Maintenance Due Date Last Done Comments Depression Screening 1962 Cologuard 10/20/1996 Sigmoidoscopy 10/20/1996 Zoster Vaccines (2 of 2) 10/28/2018 09/02/2018, 01/31 Fecal Occult Blood Test 07/15/2020 07/15/2019 COVID-19 Vaccine ( season) 2023 09/29/2023, 03/12/2023, 03/12/2023, Additional history exists Influenza Vaccine (FLU shot) (#1) 2024 02/24/2023, 02/11/2022, 02/27/2021, Additional history exists GFR 11/11/2024 11/12/2023, 02/0 02/2024, 02/25/2023, Additional history exists Albumin/Creatinine Ratio 02/25/2026 023, 07/17/2022, 02/11/2022 Colonoscopy 09/29/2029 09/30/2019, 09/30/2019 Colorectal Cancer Screening 09/29/2029 DTaP,Tdap,and Td Vaccines (3 - Td or Tdap) 11/09/2031 11/08/2021, 08/13/2011 Pneumococcal Vaccine: 65+ Years Completed 03/22/2019, 04/07/2017, 12/07/2014 AAA Screening Completed 07/04/2020 GARDASIL-HPV IMMUNIZATION SERIES Aged Out No longer eligible based on patient's age to complete this topic Hepatitis B Aged Out No longer eligi ble based on patient's age to complete this topic MENINGOCOCCAL (MENACTRA/MENVEO) Aged Out No longer eligible based on patient's age to complete this topic documented as of this encounter Medical Devices Not on filedocumented as of this encounter Care Teams Painter Touch Up Relationship Specialty Start Date End Date Que Foreman PA-C [address] [facility] [place] [address] PCP - General Physician Irish Moss Gatherer 07/11/23 documented as of this encounter
--- OUTSIDE RECORDS SUMMARY | 2024-01-06 20:11 | External Medical Summary | Summary of Care ---
Author Name Unknown Organization [facility] Address [address] [place] [address] Phone [phone] Care Team Providers Care Parcel Carrier Name Role Phone Que Foreman PA-C Primary Care Provide r Reason for Referral * Evaluate & Treat - Unlimited Visits (Within 10 days (routine)) - Authorized Specialty Diagnoses / Procedures Referred By Khris sharp Referred To Contact Physical Therapy / Physical Medicine And Rehab Diagnoses Unsteady gait Kiki Roy CRNP [address] [place] [address] Referral ID Status Reason Start Date Expiration Date Visits Requested Visits Authorized [id number] Authorized Specialty Services Required 07/18/2023 999 999 [...] behavioral disturbance (HCC) Tootie Boswell, DO [address] [place] [address] Referral ID Status Reason Start Date Expiration Date Visits Requested Visits Authorized [id number] Authorized Specialty Services Required 02/24/2023 999 999 Encounter Details Date Type Department Care Team (Late st Contact Info) Description 07/18/2023 9:20 AM EST Office Visit Neurology [facility] [address] [place] [address] Kiki Roy CRNP [address] [place] [address] Amnestic MCI (mild cognitive impairment with memory [...] as of this encounter (statuses as of 07/25/2023) Medications Medication Sig Dispensed Refills Start Date [...] as of this encounter (statuses as of 07/25/2023) Active Problems Problem Noted Date Diagnosed Date Coronary artery disease invo lving os[place] coronary artery of os[place] heart without angina pectoris 05/24/2020 Overview: Catheterization [...] as of this encounter (statuses as of 07/25/2023) Resolved Problems Problem Noted Date Diagnosed Date [...] as of this encounter (statuses as of 07/25/2023) Immunizations Name Administration Dates Next Due COVID-19 [...] granted on June 07, 2022 and the autos disassembler announced that thewholesale cost would be $26,500 [...] (ApoE) that prescribing providers are required to nurses' association counselor about in regards to risk of Alzheimer's disease and how the ApoE ?4 allele can increase risk for ARIA (see below for more details). The Center of Medicare and Medicaid Services ([facility]) at that time announced that providers [...] of treatment about $7,950). There is an [facility] Patient Support website that can help patients determine their potential costs for lecanemab as well as see if they would qualify for patient assistance from [facility] which can be found at: https://www.Go800.com/hcp/leqembi There are opportunities for people with commercial (non-Medicare) insurance to potentially get somefinancial support. Information for providers and patients regarding CMS statement on broader Medicare coverage for lecanemab can be found at: https://www.[facility].gov/newsroom/press-releases/statement-broader-medicare-coverage- esbpoke-jjtlbekgg-eiwjxzysn-wrg-nbzyrxzldyt-iaumcymv The [facility] ADAM registry can be found at: https://qualitynet.[facility].gov/wfplwdhaih-uvg-qhrflgdm Patients must be able and willing to have serial MRIs of the Brain, the first prior to starting lecanemab, with follow up MRI of the Brain prior to the 5th, 7th, and 14th lecanemab infusions. The FDA prescribing information for lecanemab as of December 05, 2022 can be found at: https://www.accessdata.fda.gov/drugsatfda_docs/label/2022/947934t094cae.pdf SAFETY SUMMARY: Lecanemab may cause Amyloid Related [...] At this time it is recommended by [facility] and [facility] that patients and families be made aware of this potential and that this information be providedwhen advising patients on lecanemab of the risks and benefits of tPA during an acute stroke. The following is used by neuroradiology for grading of ARIA severity: As of March 2023, [employer] patients are required to be in a clinical trial or registry for consideration of coverage. [facility] will have a registry for [facility] patients that collects the same data as requested in the CMS registry. The CMS registry identification number for Medicare patients was [id number] but on March 24, 2023 apermanent CMS registry identification number of [id number] was designated and this second number willlikely be the one to use for billing claims going forward. documented in this encounter Nursing Notes * Mechelle Rahman LPN - 07/18/2023 8:57 AM EST Patient verified identity by spelling of last name and date. Return visit Memory issues documented in this encounter Plan of Treatment Upcoming Encounters Date Type Department Care Team (Late st Contact Info) Description 01/02/2024 9:00 AM EDT Office Visit Neurology [facility] Tiffanie [place] [address] [facility] [place] [address] Kiki Roy CRNP [address] [facility] [place] [address] 02/09/2024 1:00 PM EDT Office Visit Family Practice [address], [place] [address] [place] [address] Que Foreman PA-C [address] [place] [place] [address] Scheduled Referrals Name Type Priority Associated Diagnoses [...] gait documented in this encounter Care Teams Parcel Carrier Relationship Specialty Start Date End Date Que Foreman PA-C [address] [facility] [place] [address] PCP - General Physician Agricultural Equipment Salesperson 07/11/23 documented as of this encounter
--- OUTSIDE RECORDS SUMMARY | 2024-01-06 20:11 | External Medical Summary | Summary of Care ---
Author Name Unknown Organization [facility] [address] [facility] [address] Phone [phone] Care Team Providers Care Ball Thread Machine Tender Name Role Phone Que Foreman PA-C Primary Care Provide r Reason for Visit * Reason Onset Date Comments Test Results 12/02/2023 [facility] 12/01 Encounter Details Date Type Department Care Team (Late st Contact Info) Description 12/02/2023 [facility] [place] [facility] [address] [place] [address] Que Foreman PA-C [address] [place] [address] Test Results ([facility] 12/01) Allergies Active Allergy Reactions [...] Take 1 Capsule by mouth. Active Aspirin Buf(GxSvxg-SxKdlj-UpG ) 81 MG Oral Tablet Take 81 [...] Diagnosed Date Coronary artery disease invo lving [place] coronary [...] AM EDT Office Visit Neurology Kev [place] [address] [facility] [place] [address] Kiki Roy CRNP [address] [place] [facility] [place] [address] 02/09/2024 1:00 PM EDT Office Visit Family Practice [address] [place] [address] [place] [address] Que Foreman PA-C [address] [place] [address] Health Maintenance Due Date Last Done Comments [...] filedocumented as of this encounter Care Teams Ball Thread Machine Tender Relationship Specialty Start Date End Date Que Foreman PA-C [address] [place] [address] PCP - General Physician Office Executive 07/11/23 documented as of this encounter
--- OUTSIDE RECORDS SUMMARY | 2024-01-06 20:11 | External Medical Summary | Summary of Care ---
Author Name Unknown Organization [facility] Address [address] [place] [address] Phone [phone] Care Team Providers Care Early Years Teacher Name Role Phone Que Foreman PA-C Primary Care Provide r Encounter Details Date Type Department Care Team (Late st Contact Info) Description 12/02/2023 Telephone Family Practice [facility] [place] [address] [facility] [place] [address] Que Foreman PA-C 0[address] [facility] [place] [address] Allergies Active Allergy Reactions [...] Take 1 Capsule by mouth. Active Aspirin Buf(TxQrhz-PbJxuy-MvD ) 81 MG Oral Tablet Take 81 [...] Diagnosed Date Coronary artery disease invo lving [place] coronary artery of [place] heart without angina pectoris 05/24/2020 Overview: Catheterization [...] AM EDT Office Visit Neurology Kev Moreno [place] [address] [place] [address] Kiki Roy CRNP [address] [place] [address] 02/09/2024 1:00 PM EDT [facility] [place] [facility] [address] [address] [place] [address] Que Foreman PA-C [address] [place] [address] Health Maintenance Due Date Last Done Comments Depression Screening 1962 Cologuard 10/20/1996 Sigmoidoscopy 10/20/1996 Zoster Vaccines (2 of 2) 10/28/2018 09/02/2018, 01/31 Fecal Occult Blood Test 07/15/2020 07/15/2019 COVID-19 Vaccine (2022- season) 2023 09/29/2023, 03/12/2023, 03/12/2023, Additional history [...] filedocumented as of this encounter Care Teams Early Years Teacher Relationship Specialty Start Date End Date Que Foreman PA-C [address] [facility] [place] [address] PCP - General Physician Salvage Mechanic 07/11/23 documented as of this encounter
--- OUTSIDE RECORDS SUMMARY | 2024-01-06 20:11 | External Medical Summary | Summary of Care ---
Author Name Unknown Organization [facility] Address [address] [facility] [place] [address] Phone [phone] Care Team Providers Care Automotive Parts Counter Person Name Role Phone Que Foreman PA-C Primary Care Provide r Encounter Details Date Type Department Care Team (Late st Contact Info) Description 12/01/2023 Result Scan Unspecified Department <No scans attached> [...] Take 1 Capsule by mouth. Active Aspirin Buf(RbGcym-FmMyqe-SaZ ) 81 MG Oral Tablet Take 81 [...] Diagnosed Date Coronary artery disease invo lving [place] coronary artery of [place] heart without angina pectoris 05/24/2020 Overview: [...] 9:00 AM EDT Office Visit Neurology [facility] [place] [address] [place] [address] Kiki Roy CRNP [address] [place] [address] 02/09/2024 1:00 PM EDT Office Visit Family Practice [place] [address] [address] [place], [place] [id number] Que Foreman PA-C [address] [place] [address] Health Maintenance Due Date Last Done [...] Procedure Name Priority Date/Time Associated Diagnosis Comments ECHOCARDIOLOGY SCANNED RESULT 12/01/2023 documented in this encounter Results * ECHOCARDIOLOGY SCANNED RESULT (12/01/2023) 12/01/2023 No Physician Data Unknown ECHOCARDIOLOGY documented in this encounter Care Teams Automotive Parts Counter Person Relationship Specialty Start Date End Date Que Foreman PA-C [address] [facility] [place] [address] PCP - General Physician Farm Operations Manager 07/11/23 documented as of this encounter
--- OUTSIDE RECORDS SUMMARY | 2024-01-06 20:11 | External Medical Summary | Summary of Care ---
Author Name Unknown Organization [facility] Address [address] [facility] [place] [address] Phone [phone] Care Team Providers Care Peel Oven Tender Name Role Phone Que Foreman PA-C Primary Care Provide r Encounter Details Date Type Department Care Team (Late st Contact Info) Description 11/10/2023 Result Scan Unspecified Department <No scans attached> Allergies Active Allergy Reactions Criticality Noted Date Comments Latex Rash Low 09/08/2017 Meloxicam Neuro complications (Please comment) 08/05/2016 Naproxen-Esomeprazole Mg Other (Please comment) 02/21/2017 blisters Other reaction(s): Other See Comments blisters Other reaction(s): Other (Please comment) blisters Sulfa Antibiotics Hives 05/24/2020 Sertraline 08/03/2021 Sweating, dizziness, depression documented as of this encounter (statuses as of 11/13/2023) Medications Medication Sig Dispensed Refills Start Date End Date Status Krill Oil 1000 MG Oral Capsule Take 1 Capsule by mouth. Active Aspirin Buf(KlMkqr-XwQctp-LcP ) 81 MG Oral Tablet Take 81 [...] morning. Active Lisinopril 20 MG Oral Tablet (Prinivil)Indications :Dyslipidemia, goal LDL below 70,Hypertension goal BP (blood [...] Cyclobenzaprine HCl 10 MG Oral Tablet (Flexeril)Indications :Fall down embankment (hill), initial encounter,Right shoulder injury, [...] the morning. 90 Tablet 3 10/23/2023 Active documented as of this encounter (statuses as of 11/13/2023) Active Problems Problem Noted Date Diagnosed Date Coronary artery disease invo lving [place] coronary artery of [place] heart without angina pectoris 05/24/2020 Overview: Catheterization [...] as of this encounter (statuses as of 11/13/2023) Resolved Problems Problem Noted Date Diagnosed Date [...] as of this encounter (statuses as of 11/13/2023) Immunizations Name Administration Dates Next Due COVID-19 mRNA, LNP-s, No Pre serve, 2-Dose Series ([email or web address]) 11/08/2021,04/09/2021,08/22/2020,07/27 COVID-19, MRNA-LNP, 23-24, P F, 51 [...] AM EDT Office Visit Neurology Kev Moreno [place] [address] [place] [address] Kiki Roy CRNP [address] [facility] [address] 02/09/2024 1:00 PM EDT Office Visit Family Practice [address] [place] [address] Que Foreman PA-C [address] [place] [address] Health Maintenance Due Date Last Done Comments [...] Date/Time Associated Diagnosis Comments RADIOLOGY SCANNED RESULT 11/10/2023 documented in this encounter Results * RADIOLOGY SCANNED RESULT (11/10/2023) 11/10/2023 No Physician Data Unknown DIAGNOSTIC RAD IOLOGY SERVICES documented in this encounter Care Teams Peel Oven Tender Relationship Specialty Start Date End Date Que Foreman PA-C [address] [facility] [place] [address] PCP - General Physician Wire Insulator 07/11/23 documented as of this encounter
--- OUTSIDE RECORDS SUMMARY | 2024-01-06 20:11 | External Medical Summary | Summary of Care ---
Author Name Unknown Organization [facility] Address [address] [facility] [place] [address] Phone [phone] Care Team Providers Care Medical Information Officer Name Role Phone Que Foreman PA-C Primary Care Provide r Reason for Visit * Reason Comments Acute Encounter Details Date Type Department Care Team (Late st Contact Info) Description 12/22/2023 8:40 AM EDT Office Visit Family [facility] Ghada Revel[address] [place] [address] Sergey Robledo PA-C 10[address] [facility] [place] [address] Chronic bilateral low [...] shoulder 12/22/2023 Coronary artery disease invo lving [place] coronary artery of [place] heart without angina pectoris 05/24/2020 Overview: Catheterization [...] 8:35 AM EDT documented in this encounter Nursing Notes * Eloise Nicole LPN - 12/22/2023 8:37 AM EDT Ground level fall 1 week ago. Poor balance now. Right shoulder, left lower back pain documented in this encounter Plan of Treatment Upcoming Encounters Date Type Department Care Team (Late st Contact Info) Description 01/02/2024 9:00 AM EDT Office Visit Neurology [facility] [place] [address] [place] [facility] [place] [address] Kiki Roy CRNP [address] [place] [address] 02/09/2024 1:00 PM EDT Office Visit [facility] [place] [address] [place] [address] Que Foreman PA-C [address] [place] [address] Scheduled Orders Name Type [...] shoulder documented in this encounter Care Teams Medical Information Officer Relationship Specialty Start Date End Date Que Foreman PA-C [address] [facility] [place] [address] PCP - General Physician Db2 Developer 07/11/23 documented as of this encounter
--- OUTSIDE RECORDS SUMMARY | 2024-01-06 20:12 | External Medical Summary | Summary of Care ---
Author Name Unknown Organization [facility] Address [address] [facility] [place] [address] Phone [phone] Care Team Providers Care Professor Of Chemistry Name Role Phone Que Foreman PA-C Primary Care Provide r Encounter Details Date Type Department Care Team (Late st Contact Info) Description 07/13/2023 Telephone Family Practice [facility] [place] [address] [facility] [place] [address] Que Foreman PA-C [address] [facility] [place] [address] Allergies Active Allergy Reactions Criticality Noted Date Comments Latex Rash Low 09/08/2017 Meloxicam Neuro complications (Please comment) 08/05/2016 Naproxen-Esomeprazole Mg Other (Please comment) 02/21/2017 blisters Other reaction(s): Other See Comments blisters Other reaction(s): Other (Please comment) blisters Sulfa Antibiotics Hives 05/24/2020 Sertraline 08/03/2021 Sweating, dizziness, depression documented as of this encounter (statuses as of 07/13/2023) Medications Medication Sig Dispensed Refills Start Date End Date Status Krill Oil 1000 MG Oral Capsule Take 1 Capsule by mouth. 0 Active Aspirin Buf(KzSqli-IzXqux-Sr O) 81 MG Oral Tablet Take 81 mg [...] by mouth in the morning. 0 Active LORazepam 1 MG Oral Tablet (Ativan) Take by mouth 1 Tablet every 20 minutes as needed for Anxiety. Take 20 minutes before MRI. If ineffective, take a second tablet. 2 Tablet 0 12/28/2021 Active Citalopram Hydrobromide 20 MG Oral Tablet (CeleXA) Take 1 Tablet by mouth in the morning. 90 Tablet 3 09/18/2022 Active Lisinopril 20 MG Oral Tablet (Prinivil)Indication s:Dyslipidemia, goal LDL below 70,Hypertension goal BP (blood pressure) < 140/90,Sleep apnea, unspecified type TAKE 1 TABLET BY MOUTH IN THE MORNING 90 Tablet 1 01/24/2023 Active Rosuvastatin Calcium 20 MG Oral Tablet (Crestor)Indications :Dyslipidemia, goal LDL below 70,Hypertension goal BP (blood pressure) < 140/90,Sleep apnea, unspecified type Take 1 Tablet by mouth every night at bedtime. 90 Tablet 3 06/30/2023 Active Cetirizine HCl 10 MG Oral Tablet (ZyrTEC) Take 1 Tablet by mouth. In the morning. 0 04/08/2023 Active Sildenafil Citrate 100 MG Oral Tablet 1 Tablet. 0 01/08/2023 Active methylPREDNISolone 4 MG Oral Tablet Therapy Pack (Medrol Dosepack)Indications :Fall down embankment (hill), initial encounter,Right shoulder injury, initial encounter,Rib pain on right side,Injury of left knee, initial encounter follow package directions 21 Tablet 0 07/11/2023 Active Cyclobenzaprine HCl 10 MG Oral Tablet (Flexeril)Indication s:Fall down embankment (hill), initial encounter,Right shoulder injury, initial encounter,Rib pain on right side,Injury of left knee, initial encounter Take 1 Tablet by mouth at bedtime as needed for Muscle spasms. 30 Tablet 2 07/11/2023 Active documented as of this encounter (statuses as of 07/13/2023) Active Problems Problem Noted Date Diagnosed Date Coronary artery disease invo lving [place] coronary artery of [place] heart without angina pectoris 05/24/2020 Overview: Catheterization [...] dise ase with esophagitis without hemorrhage 05/24/2020 History of 2019 novel coronavirus disease [...] as of this encounter (statuses as of 07/13/2023) Resolved Problems Problem Noted Date Diagnosed Date Resolved Date History of 2019 novel duck[place] virus disease (COVID-19) 08/03/2021 02/11/2022 Overview: April 2020 Dementia without behavioral disturbance 06/13/2021 07/11/2023 Special screening 05/24/2020 05/24/2020 Screening PSA (prostate specific antigen) 05/24/2020 05/24/2020 Rheumatoid arthritis 05/24/2020 024 Memory problem 05/24/2020 02/11/2022 Trigger middle finger of right hand 05/24/2020 02/11/2022 Overview: Repaired surgically April 26, 2020 documented as of this encounter (statuses as of 07/13/2023) Immunizations Name Administration Dates Next Due COVID-19 [...] 07/18/2023 9:20 AM EST Office Visit Neurology [facility] [address] [place] [address] Kiki Roy CRNP [address] [place] [address] 02/09/2024 1:00 PM EDT Office Visit Family Practice [place] [address]ada [address] [place] [address] Que Foreman PA-C [address] [place] [address] Health Maintenance Due Date Last Done Comments Depression Screening 1962 Cologuard 10/20/1996 Sigmoidoscopy 10/20/1996 Hepatitis B (1 of 3 - Risk 3-dose series) 2011 Zoster Vaccines (2 of 2) 10/28/2018 09/02/2018, [...] of this encounter Care Teams Professor Of Chemistry Relationship Specialty Start Date End Date Que Foreman PA-C [facility] [facility] [place] [address] PCP - General Physician Autocad Designer 07/11/23 documented as of this encounter
--- OUTSIDE RECORDS SUMMARY | 2024-01-06 20:12 | External Medical Summary | Summary of Care ---
Author Name Unknown Organization [facility] Address [address] [place] [facility] [place] [address] Phone [phone] Care Team Providers Care Color Control Supervisor Name Role Phone Que Foreman PA-C Primary Care Provide r Reason for Visit * Reason Comments Outpatient Testing Encounter Details Date Type Department Care Team (Late st Contact Info) Description 07/11/2023 12:00 PM EST [facility] [address] [facility] [place] [address] [facility] [address] [facility] [place] [id number] Hypertension goal BP (blood pressure) < 140/90; Dyslipidemia, goal LDL below 70; Coronary artery disease involving [place] coronary artery of [place] heart without angina pectoris; Multiple thyroid nodules; Dementia without behavioral disturbance (HCC); BPH with obstruction/lower urinary tract symptoms Allergies Active Allergy Reactions Criticality Noted Date Comments Latex Rash Low 09/08/2017 Meloxicam Neuro complications (Please comment) 08/05/2016 Naproxen-Esomeprazole Mg Other (Please comment) 02/21/2017 blisters Other reaction(s): Other See Comments blisters Other reaction(s): Other (Please comment) blisters Sulfa Antibiotics Hives 05/24/2020 Sertraline 08/03/2021 Sweating, dizziness, depression documented as of this encounter (statuses as of 07/11/2023) Medications Medication Sig Dispensed Refills Start Date End Date Status Krill Oil 1000 MG Oral Capsule Take 1 Capsule by mouth. 0 Active Aspirin Buf(BjTycf-NvWglu-Oh O) 81 MG Oral Tablet Take 81 [...] as of this encounter (statuses as of 07/11/2023) Active Problems Problem Noted Date Diagnosed Date Coronary artery disease invo lving [place] coronary artery of [place] heart without angina pectoris 05/24/2020 Overview: Catheterization [...] as of this encounter (statuses as of 07/11/2023) Resolved Problems Problem Noted Date Diagnosed Date [...] as of this encounter (statuses as of 07/11/2023) Immunizations Name Administration Dates Next Due COVID-19 [...] 07/18/2023 9:20 AM EST Office Visit Neurology Kev Moreno [place] [address] [place] [address] Kiki Roy CRNP [address] [place] [address] 02/09/2024 1:00 PM EDT Office Visit Family Practice [place] Ghada Reveles [address] [place] [address] Que Foreman PA-C [address] [place] [address] Pending Results Name Type Priority Associated Diagnoses Date /Time COMPREHENSIVE METABOLIC PANEL Lab Routine Hypertension goal BP (blood pressure) < 140/90 Dyslipidemia, goal LDL below 70 Coronary artery disease involving [place] coronary artery of [place] heart without angina pectoris Multiple thyroid nodules Dementia without behavioral disturbance (HCC) BPH with obstruction/lower urinary tract symptoms 07/11/2023 11:30 AM EST TSH WITH FREE T4 IF INDICATED Lab Routine Hypertension goal BP (blood pressure) < 140/90 Dyslipidemia, goal LDL below 70 Coronary artery disease involving [place] coronary artery of [place] heart without angina pectoris Multiple thyroid nodules Dementia without behavioral disturbance (HCC) BPH with obstruction/lower urinary tract symptoms 07/11/2023 11:30 AM EST CBC WITH WBC DIFFERENTIAL Lab Routine Hypertension goal BP (blood pressure) < 140/90 Dyslipidemia, goal LDL below 70 Coronary artery disease involving [place] coronary artery of [place] heart without angina pectoris Multiple thyroid nodules Dementia without behavioral disturbance (HCC) BPH with obstruction/lower urinary tract symptoms 07/11/2023 11:30 AM EST PSA Lab Routine Hypertension goal BP (blood pressure) < 140/90 Dyslipidemia, goal LDL below 70 Coronary artery disease involving [place] coronary artery of [place] heart without angina pectoris Multiple thyroid nodules Dementia without behavioral disturbance (HCC) BPH with obstruction/lower urinary tract symptoms 07/11/2023 11:30 AM EST CBC Lab Routine Hypertension goal BP (blood pressure) < 140/90 Dyslipidemia, goal LDL below 70 Coronary artery disease involving [place] coronary artery of [place] heart without angina pectoris Multiple thyroid nodules Dementia without behavioral disturbance (HCC) BPH with obstruction/lower urinary tract symptoms 07/11/2023 11:30 AM EST DIFFERENTIAL, AUTOMATED Lab Routine Hypertension goal BP (blood pressure) < 140/90 Dyslipidemia, goal LDL below 70 Coronary artery disease involving [place] coronary artery of [place] heart without angina pectoris Multiple thyroid nodules Dementia without behavioral disturbance (HCC) BPH with obstruction/lower urinary tract symptoms 07/11/2023 11:30 AM EST Health Maintenance Due Date Last Done Comments Depression Screening 1962 Cologuard 10/20/1996 Sigmoidoscopy 10/20/1996 Hepatitis B (1 of 3 - Risk 3-dose series) 2011 Zoster Vaccines (2 of 2) 10/28/2018 09/02/2018, 01/31 Fecal Occult Blood Test 07/15/2020 07/15/2019 COVID-19 Vaccine ( season) 2023 03/12/2023, 02/21/2022, 11/08/2021, Additional history exists GFR 02/26/2024 02/25/2023, 06/01/2023, 08/02/2022, Additional history exists Albumin/Creatinine Ratio 02/25/2026 023, [...] as of this encounter Visit Diagnoses Diagnosis Hypertension goal BP (blood pressure) < 140/90 Unspecified essential hypertension Dyslipidemia, goal LDL below 70 Other and unspecified hyperlipidemia Coronary artery disease involving [place] coronary artery of [place] heart without angina pectoris Multiple thyroid nodules Nontoxic multinodular goiter Dementia without behavioral disturbance (HCC) Dementia, unspecified, without behavioral disturbance BPH with obstruction/lower urinary tract symptoms Hypertrophy of prostate with urinary obstruction and other lower urinary tract symptoms (LUTS) documented in this encounter Care Teams Color Control Supervisor Relationship Specialty Start Date End Date Que Foreman PA-C [facility] [place] [address] PCP - General Physician Hand Picker 07/11/23 documented as of this encounter
--- OUTSIDE RECORDS SUMMARY | 2024-01-06 20:12 | External Medical Summary | Summary of Care ---
Author Name Unknown Organization [facility] Address [address] [facility] [place] [address] Phone [phone] Care Team Providers Care Demolitionist Name Role Phone Que Foreman PA-C Primary Care Provide r Encounter Details Date Type Department Care Team (Late st Contact Info) Description 07/13/2023 Telephone Family Practice [facility] [place] [address] [facility] [place] [address] Que Foreman PA-C 9[address] [facility] [place] [address] Allergies Active Allergy Reactions Criticality Noted Date Comments Latex Rash Low 09/08/2017 Meloxicam Neuro complications (Please comment) 08/05/2016 Naproxen-Esomeprazole Mg Other (Please comment) 02/21/2017 blisters Other reaction(s): Other See Comments blisters Other reaction(s): Other (Please comment) blisters Sulfa Antibiotics Hives 05/24/2020 Sertraline 08/03/2021 Sweating, dizziness, depression documented as of this encounter (statuses as of 07/14/2023) Medications Medication Sig Dispensed Refills Start Date End Date Status Krill Oil 1000 MG Oral Capsule Take 1 Capsule by mouth. 0 Active Aspirin Buf(AyUkuf-IdVvwo-Ap O) 81 MG Oral Tablet Take 81 [...] as of this encounter (statuses as of 07/14/2023) Active Problems Problem Noted Date Diagnosed Date Coronary artery disease invo lving [place] coronary artery of [place] heart without angina pectoris 05/24/2020 Overview: Catheterization [...] as of this encounter (statuses as of 07/14/2023) Resolved Problems Problem Noted Date Diagnosed Date [...] as of this encounter (statuses as of 07/14/2023) Immunizations Name Administration Dates Next Due COVID-19 [...] 07/18/2023 9:20 AM EST Office Visit Neurology [facility] [address] [place] [address] Kiki Roy CRNP [address] [place] [address] 02/09/2024 1:00 PM EDT Office Visit Family Practice [place] Ghada Reveles [address] [place] [address] Que Foreman PA-C [address] [facility] [place] [address] Health Maintenance Due Date Last Done Comments [...] filedocumented as of this encounter Care Teams Demolitionist Relationship Specialty Start Date End Date Que Foreman PA-C [address] [facility] [place] [address] PCP - General Physician Photo Print Specialist 07/11/23 documented as of this encounter
--- OUTSIDE RECORDS SUMMARY | 2024-01-06 20:12 | External Medical Summary ---
Author Name Unknown Address Unknown Organization [id number]:[facility] [place] [address] [facility] [place] [address] Laboratory Report Ordering Provider Test Date Status BRIAN RICE 07/11/2023 11:30:03 Final Observation Date Value Abnormality Reference (Units ) Status BUN 07/11/2023 11:30:03 12 6-20 (mg/dL) Final Creatinine 07/11/2023 11:30:03 0.9 0.6-1.2 (mg/dL) Final Glomerular filtration rate/1.73 sq M.predicted [Volume Rate/Area] in Serum, Plasma or Blood by Creatinine-based formula (CKD-EPI) 07/11/2023 11:30:03 >90 >=60 (mL/min) Final eGFR is calculated based on the CKD-EPI 2020 equation SODIUM 07/11/2023 11:30:03 141 135-146 (m mol/L) Final Potassium 07/11/2023 11:30:03 4.2 3.5-5.1 (m mol/L) Final Cl 07/11/2023 11:30:03 104 98-107 (mm ol/L) Final CO2 07/11/2023 11:30:03 25 22-32 (mmo l/L) Final Anion gap 07/11/2023 11:30:03 12 7-15 (mmol /L) Final Glucose 07/11/2023 11:30:03 104 70-120 (mg /dL) Final Albumin 07/11/2023 11:30:03 4.6 3.8-5.0 (g /dL) Final AST (Aspartate aminotransferase) 07/11/2023 11:30:03 26 10-50 (U/L) Fin al Alk Phos 07/11/2023 11:30:03 80 35-130 (U/ L) Final Bilirubin, Total 07/11/2023 11:30:03 1.4 Above high no rmal <=1.2 (mg/dL) Final Calcium 07/11/2023 11:30:03 9.5 8.4-10.2 ( mg/dL) Final Protein 07/11/2023 11:30:03 6.6 6.0-8.3 (g /dL) Final ALT (Alanine aminotransferase) 07/11/2023 11:30:03 34 10-50 (U/L) Olegario polk Performing Location [facility] [place] [address] [facility] [address]
--- OUTSIDE RECORDS SUMMARY | 2024-01-06 20:12 | External Medical Summary | Summary of Care ---
Author Name Unknown Organization [facility] Address [address] [address] [address] Phone [phone] Care Team Providers Care Airframe Technical Officer Name Role Phone Que Foreman PA-C Primary Care Provide r Reason for Visit * Reason Comments Routine Exam Reports had fall whi le golfing yesterday, fell on right side and scrapped left knee, still having right sided rip pain as well as pain with rotation of right shoulder. Encounter Details Date Type Department Care Team (Late st Contact Info) Description 07/11/2023 11:20 AM EST Office Visit Family Practice [place] [address]ada [address] [place] [address] Que Foreman PA-C [address] [facility] [place] [address] Fall down embankment ([place]), initial encounter*; Right shoulder injury, initial encounter; Rib pain on right side; Injury of left knee, initial encounter; Hypertension goal BP (blood pressure) < 140/90; Dyslipidemia, goal LDL below 70; Coronary artery disease involving [place] coronary artery of [place] heart without angina pectoris; Gastroesophageal reflux disease with esophagitis without hemorrhage; Multiple thyroid nodules; Dementia without behavioral disturbance (HCC); Generalized osteoarthritis; Spinal stenosis of lumbar region without neurogenic claudication; BPH with obstruction/lower urinary tract symptoms Allergies Active Allergy Reactions Criticality Noted Date Comments Latex Rash Low 09/08/2017 Meloxicam Neuro complications (Please comment) 08/05/2016 Naproxen-Esomeprazole Mg Other (Please comment) 02/21/2017 blisters Other reaction(s): Other See Comments blisters Other reaction(s): Other (Please comment) blisters Sulfa Antibiotics Hives 05/24/2020 Sertraline 08/03/2021 Sweating, dizziness, depression documented as of this encounter (statuses as of 07/18/2023) Medications Medication Sig Dispensed Refills Start Date [...] as of this encounter (statuses as of 07/18/2023) Active Problems Problem Noted Date Diagnosed Date Coronary artery disease invo lving [place] coronary artery of [place] heart without angina pectoris 05/24/2020 Overview: Catheterization [...] as of this encounter (statuses as of 07/18/2023) Resolved Problems Problem Noted Date Diagnosed Date [...] as of this encounter (statuses as of 07/18/2023) Immunizations Name Administration Dates Next Due COVID-19 [...] Sign Reading Time Taken Comments Blood Pressure 132/62 07/11/2023 10:45 AM EST Pulse 58 07/11/2023 10:45 AM EST Temperature 37.1 C (98.7 F) 07/11/2023 1 0:45 AM EST Respiratory Rate 18 07/11/2023 10:4 5 AM EST Oxygen Saturation 95% 07/11/2023 10: 45 AM EST Inhaled Oxygen Concentration - - Weight 99.2 kg (218 lb 12.8 oz) 024 10:45 AM EST Height 167.6 cm (5' 6") 07/11/2023 10:4 5 AM EST Body Mass Index 35.32 07/11/2023 10:45 AM EST documented in this encounter Progress Notes * Que Foreman PA-C - 07/11/2023 10:56 AM EST Images from the original note were not included. History of Present Illness Toby Christie is a 72 year old male that presents for routine visit. Most recent lab work from 01/2023 reviewed - LDL 62; A1c 5.5; otherwise CBC, CMP, TSH, vitamin-D all within normal limits. Fell yesterday while golfing. States he stopped out of golf cart onto a downslopping hill, but missed his step, landing on LEFT knee and RIGHT shoulder/arm. Majority of pain is RIGHT shoulder/ribs. RIGHT knee pain is mild. Follows with ortho for history of primary osteoarthritis of both knees, and osteoarthritis in general. Received injections in 05/2023. Follow up with scheduled for 4 months. He is also followed by pain management, Dr. Coker for history of spinal stenosis, last visit 04/2023. Had injection at this visit. MRI from 03/2021 showed severe stenosis in L4-L5, unchanged. He has also been evaluated by Neurosurgery, Dr. Cheung, who recommended medical management. Follows with Urology for history of BPH. Appears last visit was 12/2022. Continues on Flomax. He is status post CABG x3 in 2007. He continues to follow with Cardiology, Dr. Douglas. Last visit 05/2021. He continues on lisinopril and Crestor. He denies any chest pain, shortness breath, or lowerextremity edema. Blood pressure remained stable. They treat his lipids. Follows with GI for history of GERD. Continues on omeprazole with success. History of benign-appearing liver cyst confirmed by MRI. - last colonoscopy 2019. Follows with ENT, Dr. Soto, for history of multiple thyroid nodules. He did have fine-needle biopsies in 08/2019 which was negative. Follow up ultrasound in 07/2022 was stable. He continues on Aricept for memory loss. He had an evaluation by Neurology in 11/2021. F/u scheduledfor 07/18/23. He underwent neuropsych testing in 03/2022. Etiology for patient's cognitive difficulty suspicious for underlying Alzheimer's disease. Continues on Aricept 5 mg (he could not tolerate the 10 mg dose due to significant diarrhea). Also history of depression and anxiety, continues to do well on Celexa. Denies suicidality. Continues to follow with dermatology for actinic keratosis. Last visit 06/2023. Patient Active Problem List Diagnosis Code Coronary artery disease involving [place] coronary artery of [place] heart without angina pectoris I25.10 Multiple thyroid nodules E04.2 Hypertension goal BP (blood pressure) < 140/90 I10 Dyslipidemia, goal LDL below 70 E78.5 Obesity, Class I, BMI 30.0-34.9 (see actual BMI) E66.9 Gastroesophageal reflux disease with esophagitis without hemorrhage K21.00 Rheumatoid arthritis involving multiple sites with positive rheumatoid factor (HCC) M05.79 History of 2019 novel coronavirus disease (COVID-19) Z86.16 Age-related cataract of left eye H25.9 Congenital postural scoliosis 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 Herniated lumbar intervertebral disc M51.26 Latex allergy Z91.040 Neoplasm of uncertain behavior of skin D48.5 Sleep apnea G47.30 Spinal stenosis of lumbar region M48.061 Chronic pain of left knee M25.562, G89.29 Review of patient's allergies indicates: Allergen Reactions Meloxicam Neuro complications (Please comment) Naproxen-Esomeprazole Mg Other (Please comment) blisters Other reaction(s): Other See Comments blisters Other reaction(s): Other (Please comment) blisters Sulfa Antibiotics Hives Zoloft [Sertraline] Sweating, dizziness, depression Latex Rash Current Outpatient Medications Medication Sig Dispense Refill Krill Oil 1000 MG Oral Capsule Take 1 Capsule by mouth. Aspirin Buf(WoBwfv-WqHsaf-LkG) 81 MG Oral Tablet Take 81 mg by mouth. Cholecalciferol 25 MCG (1000 UT) Oral Tablet Take 1 Tablet by mouth. Hydroxychloroquine Sulfate 200 MG Oral Tablet (PLAQUENIL) Take 1 Tablet by mouth. Multi-Vitamin Oral Tablet Take 1 Tablet by mouth. Omeprazole 20 MG Oral Capsule Delayed Release (PriLOSEC) Take 1 Capsule by mouth. Gabapentin 300 MG Oral Capsule (Neurontin) Take 1 Capsule by mouth in the morning and 1 Capsule before bedtime. Tamsulosin HCl 0.4 MG Oral Capsule (Flomax) Take 1 Capsule by mouth in the morning. Citalopram Hydrobromide 20 MG Oral Tablet (CeleXA) Take 1 Tablet by mouth in the morning. (Patient taking differently: Take 1 Tablet by mouth in the morning. Pt list states 10mg daily.) 90 Tablet 3 Lisinopril 20 MG Oral Tablet (Prinivil) TAKE 1 TABLET BY MOUTH IN THE MORNING 90 Tablet 1 Rosuvastatin Calcium 20 MG Oral Tablet (Crestor) Take 1 Tablet by mouth every night at bedtime. 90 Tablet 3 Sildenafil Citrate 100 MG Oral Tablet 1 Tablet. Cyclobenzaprine HCl 10 MG Oral Tablet (Flexeril) Take 1 Tablet by mouth at bedtime as needed for Muscle spasms. 30 Tablet 2 Memantine HCl 5 MG Oral Tablet (Namenda) Take by mouth 1 tab daily week 1, 1 tab twice daily week 2, 2 tabs in am & 1 tab in pm week 3, then 10 mg twice daily thereafter. 42 Tablet 0 [START ON 08/09/2023] Memantine HCl 10 MG Oral Tablet (Namenda) Take 1 Tablet by mouth in the morningand 1 Tablet before bedtime. Do not start before August 09, 2023. 180 Tablet 3 No current facility-administered medications for this visit. Past Medical History: Diagnosis Date Age-related cataract of left eye 05/24/2020 Removed April 20, 2020 Coronary artery disease involving [place] coronary artery of [place] heart without angina pectoris 05/24/2020 Catheterization was [...] Right 2020 CORONARY ARTERIES BYPASS, THREE 2007 AR TENDON SHEATH INCISION Left [address] Dr. Kuhn for trigger finger. TOTAL HIP REPLACEMENT & PROSTHESIS Left 2017 Marisa Family History Problem Relation Age of Onset No Known Problems Daughter Heart Disorder Mother Diabetes Mother No Known Problems Father Estranged. No history information Kidney cancer Brother Family Status Relation Status Son Alive Colton Alive Mo Fa Bro Alive Social History Socioeconomic History Marital status: Tobacco Use Smoking status: Former Smokeless tobacco: Never Tobacco comments: in high school Substance and Sexual Activity Alcohol use: Not Currently Drug use: Not Currently Review of Systems Constitutional: Negative. Negative for chills and fever. HENT: Negative. Eyes: Negative. Respiratory: Negative. Negative for shortness of breath. Cardiovascular: Negative. Negative for chest pain, palpitations and leg swelling. Gastrointestinal: Negative. Negative for abdominal pain, blood in stool, constipation, diarrhea, nausea and vomiting. Endocrine: Negative. Genitourinary: Negative. Negative for difficulty urinating and dysuria. Musculoskeletal: Positive for arthralgias, back pain and myalgias. Skin: Negative. Negative for rash. Allergic/Immunologic: Negative. Neurological: Negative. Negative for syncope and light-headedness. Hematological: Negative. Psychiatric/Behavioral: Negative. Negative for dysphoric mood. The patient is not nervous/anxious. All other systems reviewed and are negative. Physical Exam BP 132/62 | Pulse 58 | Temp 37.1 C (98.7 F) | Resp 18 | Ht 1.676 m (5' 6") | Wt 99.2 kg (218 lb12.8 oz) | SpO2 95% | BMI 35.32 kg/m | BSA 2.15 m Physical Exam Vitals and nursing note reviewed. Constitutional: Appearance: Normal appearance. He is obese. HENT: Head: Normocephalic and atraumatic. Right Ear: Tympanic membrane, ear canal and external ear normal. Left Ear: Tympanic membrane, ear canal and external ear normal. Nose: Nose normal. Mouth/Throat: Mouth: Mucous membranes are moist. Pharynx: Oropharynx is clear. Eyes: Extraocular Movements: Extraocular movements intact. Conjunctiva/sclera: Conjunctivae normal. Pupils: Pupils are equal, round, and reactive to light. Cardiovascular: Rate and Rhythm: Normal rate and regular rhythm. Pulses: Normal pulses. Heart sounds: Normal heart sounds. Pulmonary: Effort: Pulmonary effort is normal. Breath sounds: Normal breath sounds. No wheezing, rhonchi or rales. Abdominal: General: Abdomen is flat. Bowel sounds are normal. Palpations: Abdomen is soft. Tenderness: There is no abdominal tenderness. There is no guarding or rebound. Musculoskeletal: General: Normal range of motion. Cervical back: Normal range of motion and neck supple. Right lower leg: No edema. Left lower leg: No edema. Comments: Right shoulder normal to inspection; mild-moderate tenderness to palpation along the lateral aspect as well as the ribs; normal to inspection without apparent bruising or other abnormality;range of motion moderately limited especially with lateral abduction; supraspinatus positive; otherspecial test negative Left knee with mild edema, but otherwise no erythema/effusion; full range of motion without significant pain; minimal tenderness to palpation of the knee Skin: General: Skin is warm. Neurological: General: No focal deficit present. Mental Status: He is alert and oriented to person, place, and time. Psychiatric: Mood and Affect: Mood normal. Behavior: Behavior normal. Thought Content: Thought content normal. Judgment: Judgment normal. I have reviewed most recent labs BMP results Recent Labs Units 07/11/23 1130 02/25/23 0713 11/08/22 0000 08/02/22 1020 SODIUM - [facility] mmol/L 141 144 -- 140 POTASSIUM - [facility] mmol/L 4.2 4.3 -- 4.2 CHLORIDE - [facility] mmol/L 104 104 -- 101 CO2 - [facility] mmol/L 25 26 -- 29 CREATININE - [facility] mg/dL 0.9 1.0 -- 1.0 CREATININE-OUTSIDE LAB MG/DL -- -- 0.90 -- BUN - [facility] mg/dL 12 17 -- 17 Lipid panel results Recent Labs Units 02/25/23 0713 08/02/22 1020 07/17/22 0953 CHOLESTEROL - [facility] mg/dL 123 121 123 LDL CHOLESTEROL (CALCULATED) - [facility] mg/dL 62 -- 61 HDL CHOLESTEROL - [facility] mg/dL 34* 32* 38* TRIGLYCERIDES - [facility] mg/dL 135 219* 119 CBC results Recent Labs Units 07/11/23 1130 02/25/23 0713 11/08/22 0000 08/02/22 1020 WBC AUTO - [facility] K/uL 6.23 9.03 -- 6.46 HGB - [facility] g/dL 15.8 14.8 -- 15.3 HEMOGLOBIN-OUTSIDE LAB G/DL -- -- 14.9 -- HCT - [facility] % 47.0 47.1 -- 46.8 PLATELET AUTO - [facility] K/uL 254 281 -- 248 HbA1c results Recent Labs Units 02/25/23 0713 07/17/22 0953 12/28/21 1005 HEMOGLOBIN A1C - [facility] % 5.5 5.2 5.3 TSH results Recent Labs Units 07/11/23 1130 02/25/23 0713 08/02/22 1020 TSH - [facility] uIU/mL 0.65 0.74 0.83 Vitamin D results Recent Labs Units 02/25/23 0713 07/17/22 0953 12/28/21 1005 25-HYDROXY VITAMIN D - [facility] ng/mL 46 52 62 Hepatic panel results Recent Labs Units 07/11/23 1130 02/25/23 0713 11/21/22 0854 PROTEIN - [facility] g/dL 6.6 6.5 6.5 BILIRUBIN, TOTAL - [facility] mg/dL 1.4* 1.2 1.1 ALKALINE PHOSPHATASE - [facility] U/L 80 77 66 AST - [facility] U/L 26 18 18 ALT - [facility] U/L 34 23 30 Protein/cr ratio results No results for input(s): "PROCRRATIO" in the last 80852 hours. Assessment and Plan Fall down embankment (hill), initial encounter Update x-rays and treat with cyclobenzaprine to help with sleep. - XR SHOULDER, 2 OR MORE VIEWS - XR RIBS UNILATERAL W/PA CHEST MINIMUM 3 VIEWS - XR CHEST 2 VIEWS - XR KNEE 4 OR MORE VIEWS - Cyclobenzaprine HCl 10 MG Oral Tablet (Flexeril); Take 1 Tablet by mouth at bedtime as needed forMuscle spasms. Right shoulder injury, initial encounter - XR SHOULDER, 2 OR MORE VIEWS - XR RIBS UNILATERAL W/PA CHEST MINIMUM 3 VIEWS - XR CHEST 2 VIEWS - Cyclobenzaprine HCl 10 MG Oral Tablet (Flexeril); Take 1 Tablet by mouth at bedtime as needed forMuscle spasms. Rib pain on right side - XR SHOULDER, 2 OR MORE VIEWS - XR RIBS UNILATERAL W/PA CHEST MINIMUM 3 VIEWS - XR CHEST 2 VIEWS - Cyclobenzaprine HCl 10 MG Oral Tablet (Flexeril); Take 1 Tablet by mouth at bedtime as needed forMuscle spasms. Injury of left knee, initial encounter - XR KNEE 4 OR MORE VIEWS - Cyclobenzaprine HCl 10 MG Oral Tablet (Flexeril); Take 1 Tablet by mouth at bedtime as needed forMuscle spasms. Hypertension goal BP (blood pressure) < 140/90 Currently well-controlled. - COMPREHENSIVE METABOLIC PANEL; Future - TSH WITH FREE T4 IF INDICATED; Future - CBC WITH WBC DIFFERENTIAL; Future - PSA; Future Dyslipidemia, goal LDL below 70 Continue to follow with Cardiology who manages this. - COMPREHENSIVE METABOLIC PANEL; Future - TSH WITH FREE T4 IF INDICATED; Future - CBC WITH WBC DIFFERENTIAL; Future - PSA; Future Coronary artery disease involving [place] coronary artery of [place] heart without angina pectoris Currently denies any significant change in cardiac symptoms. Follow with Cardiology. - COMPREHENSIVE METABOLIC PANEL; Future - TSH WITH FREE T4 IF INDICATED; Future - CBC WITH WBC DIFFERENTIAL; Future - PSA; Future Gastroesophageal reflux disease with esophagitis without hemorrhage Currently asymptomatic. Multiple thyroid nodules Follows with ENT. - COMPREHENSIVE METABOLIC PANEL; Future - TSH WITH FREE T4 IF INDICATED; Future - CBC WITH WBC DIFFERENTIAL; Future - PSA; Future Dementia without behavioral disturbance (HCC) Continue current medical therapy. - COMPREHENSIVE METABOLIC PANEL; Future - TSH WITH FREE T4 IF INDICATED; Future - CBC WITH WBC DIFFERENTIAL; Future - PSA; Future Generalized osteoarthritis Spinal stenosis of lumbar region without neurogenic claudication Continue to follow with pain management. BPH with obstruction/lower urinary tract symptoms Doing well on Flomax. - COMPREHENSIVE METABOLIC PANEL; Future - TSH WITH FREE T4 IF INDICATED; Future - CBC WITH WBC DIFFERENTIAL; Future - PSA; Future Wrap-Up Follow Up: Return in about 6 months (around 01/09/2024), or if symptoms worsen or fail to improve, for Return with AP. | For: Return with AP Time: I spent a total of 30-39 minutes (exact time 30 mins) on the date of service in preparation, delivery, and documentation of the care provided to Toby Christie excluding any time spent in the performance of separately billed services. documented in this encounter Nursing Notes * Darlyn Petit LPN - 07/11/2023 10:46 AM EST Chief Complaint Patient presents with Routine Exam Reports had fall while golfing yesterday, fell on right side and scrapped left knee, still having right sided rip pain as well as pain with rotation of right shoulder. documented in this encounter Miscellaneous Notes * Pt Handout (on AVS) - Que Foreman PA-C - 07/11/2023 11:08 AM EST Images from the original note were not included. [id number] Taking Your Blood Pressure Blood pressure is the force of blood against the artery wall as it moves from the heart through theblood vessels. You can take your own blood pressure reading using a digital monitor. Take your readings the same each time, using the same arm. Take readings as often as your healthcare provider advises. About blood pressure monitors Blood pressure monitors are designed for certain ages and cases. You can find monitors for older adults, for women, and for children. Make sure the one you choose is the right one for your age and situation. Experts advise an automatic cuff monitor that fits on your upper arm (bicep). The cuff should fit your arm size. A cuff that?s too large or too small won't give an accurate reading. Measure around your upper arm to find your size. Monitors that attach to your finger or wrist are not as accurate as monitors for your upper arm. Ask your healthcare provider for help in choosing a monitor. Bring your monitor to your next provider visit if you need help in using it the correct way. The steps below are general instructions for using an automatic digital monitor. Step 1. Relax Take your blood pressure at the same time every day, such as in the morning or evening. Or take it at the time your healthcare provider advises. Wait at least 30 minutes after smoking, eating, or exercising. Don't drink coffee, tea, soda, orother caffeinated drinks before checking your blood pressure. Use the restroom beforehand. Sit comfortably at a table with both feet on the floor. Don't cross your legs or feet. Place themonitor near you. Rest for at least 5 minutes before you begin. Make sure there are no distractions. This includesTV, cell phones, and other electronics. Wait to have conversations with others until after you measure you blood pressure. Step 2. Wrap the cuff Place your arm on the table, palm up. Your arm should be at the level of your heart. Wrap the cuff around your upper arm, just above your elbow. It?s best done on bare skin, not over clothing. Most cuffs will show you where the blood vessel in the middle of the arm at the inner side of the elbow(the brachial artery) should line up with the cuff. Look in your monitor's instruction booklet for an illustration. You can also bring your cuff to your healthcare provider and have them show you howto correctly place the cuff. Step 3. Inflate the cuff Push the button that starts the pump. The cuff will tighten, then loosen. The numbers will change. When they stop changing, your blood pressure reading will appear. Take 2 or 3 readings 1 minute apart, or as advised by your provider. Step 4. Write down the results of each reading Write down your blood pressure numbers for each reading. Note the date and time. Keep your results in 1 place, such as a notebook. Even if your monitor has a built-in memory, keep a hard copy of the readings. Remove the cuff from your arm. Turn off the machine. Bring your blood pressure records with you to each provider visit. If you start a new blood pressure medicine, note the day you started the new medicine. Also notethe day if you change the dose of your medicine. Measure your blood pressure before your take your medicine. This information goes on your blood pressure recording sheet. This will help your providercheck how well the medicine changes are working. Ask your provider what numbers mean that you should call them. Also ask what numbers mean that you should get help right away. Last Reviewed Date: 05/02/202119999597-9269 [employer]. All rights reserved. This information is not intended as a substitute for professional medical care. Always follow your healthcare professional's instructions. documented in this encounter Plan of Treatment Upcoming Encounters Date Type Department Care Team (Late st Contact Info) Description 01/02/2024 9:00 AM EDT Office Visit Neurology Kev Moreno [place] [address] [place] [address] Kiki Roy CRNP [address] [facility] [place] [address] 02/09/2024 1:00 PM EDT Office Visit Family Practice [address] [place] [address] [address] Que Foreman PA-C [address] [facility] [place] [address] Health Maintenance Due Date Last Done Comments [...] Procedure Name Priority Date/Time Associated Diagnosis Comments XR CHEST 2 VIEWS Routine 07/11/2023 Fall down embankment ([place]), initial encounter Right shoulder injury, initial encounter Rib pain on right side XR KNEE 4 OR MORE VIEWS Routine 07/11/2023 Fall down embankment ([place]), initial encounter Injury of left knee, initial encounter XR SHOULDER, 2 OR MORE VIEWS Routine 07/11/2023 Fall down embankment ([place]), initial encounter Right shoulder injury, initial encounter Rib pain on right side XR RIBS UNILATERAL W/PA CHEST MINIMUM 3 VIEWS Routine 07/11/2023 Fall down embankment ([place]), initial encounter Right shoulder injury, initial encounter Rib pain on right side documented in this encounter Results * PSA (07/11/2023 11:30 AM EST) PSA 0.88 <4.10 ng/mL 07/12/2023 4:39 AM EST [facility] Blood Venous blood specimen / Unknown Venipuncture / Unknown 07/11/2023 11:30 AM EST 07/11/2023 11:30 AM EST Que Foreman PA-C LAB BLOOD ORD ERABLES Performing Organization Address City/[facility]/ZIP Co de Phone Number [facility] [address] [place] [address] * TSH WITH FREE T4 IF INDICATED (07/11/2023 11:30 AM EST) Pathologist [facility] TSH 0.65 0.27 - 4.20 uIU/mL 07/12/2023 5:38 AM EST [facility] Blood Venous blood specimen / Unknown Venipuncture / Unknown 07/11/2023 11:30 AM EST 07/11/2023 11:30 AM EST Que Foreman PA-C LAB BLOOD ORD ERABLES [facility] [address] [place] [address] * (ABNORMAL) COMPREHENSIVE METABOLIC PANEL (07/11/2023 11:30 AM EST) Pathologist [facility] BUN 12 6 - 20 mg/dL 07/12/2023 5:08 AM EST [facility] Creatinine 0.9 0.6 - 1.2 mg/dL 07/12/2023 5:08 AM EST [facility] Estimated Glomerular Filtration Rate >90 >=60 mL/min 07/12/2023 5:08 AM EST [facility] Comment:eGFR is calculated b ased on the CKD-EPI 2020 equation Sodium 141 135 - 146 mmol/L 07/12/2023 5:08 AM EST [facility] Potassium 4.2 3.5 - 5.1 mmol/L 07/12/2023 5:08 AM EST [facility] Chloride 104 98 - 107 mmol/L 07/12/2023 5:08 AM EST [facility] CO2 25 22 - 32 mmol/L 07/12/2023 5:08 AM EST [facility] Anion Gap 12 7 - 15 mmol/L 07/12/2023 5:08 AM EST [facility] Glucose 104 70 - 120 mg/dL 07/12/2023 5:08 AM EST [facility] Albumin 4.6 3.8 - 5.0 g/dL 07/12/2023 5:08 AM EST [facility] AST 26 10 - 50 U/L 07/12/2023 5:08 AM EST [facility] Alkaline Phosphatase 80 35 - 130 U/L 07/12/2023 5:08 AM EST [facility] Bilirubin, Total 1.4(H) <=1.2 mg/dL 07/12/2023 5:08 AM EST [facility] Calcium 9.5 8.4 - 10.2 mg/dL 07/12/2023 5:08 AM EST [facility] Protein 6.6 6.0 - 8.3 g/dL 07/12/2023 5:08 AM EST [facility] ALT 34 10 - 50 U/L 07/12/2023 5:08 AM EST [facility] Blood Venous blood specimen / Unknown Venipuncture / Unknown 07/11/2023 11:30 AM EST 07/11/2023 11:30 AM EST Que Foreman PA-C LAB BLOOD ORD ERABLES [facility] [address] [facility] [place] [address] * XR KNEE 4 OR MORE VIEWS (07/11/2023) Anatomical Region Laterality Modality Knee, Lower Extremity Other 07/11/2023 Que Foreman PA-C RADIOLOGY ([facility]) * XR CHEST 2 VIEWS (07/11/2023) Anatomical Region Laterality Modality Chest Other 07/11/2023 Que Foreman PA-C RADIOLOGY ([facility]) * XR RIBS UNILATERAL W/PA CHEST MINIMUM 3 VIEWS (07/11/2023) Anatomical Region Laterality Modality Chest Other 07/11/2023 Que Foreman PA-C RADIOLOGY ([facility]) * XR SHOULDER, 2 OR MORE VIEWS (07/11/2023) Anatomical Region Laterality Modality Upper Extremity, Shoulder Other 07/11/2023 Que Foreman PA-C RADIOLOGY ([facility]) documented in this encounter Visit Diagnoses Diagnosis Fall down embankment (hill), initial encounter- Primary Right shoulder injury, initial encounter Rib pain on right side Chest pain, unspecified Injury of left knee, initial encounter Hypertension goal BP (blood pressure) < 140/90 Unspecified essential hypertension Dyslipidemia, goal LDL below 70 Other and unspecified hyperlipidemia Coronary artery disease involving [place] coronary artery of [place] heart without angina pectoris Gastroesophageal reflux disease with esophagitis without hemorrhage Multiple thyroid nodules Nontoxic multinodular goiter Dementia without behavioral disturbance (HCC) Dementia, unspecified, without behavioral disturbance Generalized osteoarthritis Generalized osteoarthrosis, unspecified site Spinal stenosis of lumbar region without neurogenic claudication Spinal stenosis, lumbar region, without neurogenic claudication BPH with obstruction/lower urinary tract symptoms Hypertrophy of prostate with urinary obstruction and other lower urinary tract symptoms (LUTS) documented in this encounter Care Teams Airframe Technical Officer Relationship Specialty Start Date End Date Que Foreman PA-C [address] [facility] [place] [address] PCP - General Physician Cad Manager 07/11/23 documented as of this encounter
--- OUTSIDE RECORDS SUMMARY | 2024-01-06 20:12 | External Medical Summary | Summary of Care ---
Author Name Unknown Organization [facility] Address [address] [address] Phone [phone] Care Team Providers Care Explosive Operator Supervisor Name Role Phone Que Foreman PA-C Primary Care Provide r Encounter Details Date Type Department Care Team (Late st Contact Info) Description 07/13/[address] [facility] [place] [address] [facility] [place] [address] Que Foreman PA-C [address] [facility] [place] [address] Allergies Active Allergy Reactions Criticality Noted Date Comments Latex Rash Low 09/08/2017 Meloxicam Neuro complications (Please comment) 08/05/2016 Naproxen-Esomeprazole Mg Other (Please comment) 02/21/2017 blisters Other reaction(s): Other See Comments blisters Other reaction(s): Other (Please comment) blisters Sulfa Antibiotics Hives 05/24/2020 Sertraline 08/03/2021 Sweating, dizziness, depression documented as of this encounter (statuses as of 07/16/2023) Medications Medication Sig Dispensed Refills Start Date End Date Status Krill Oil 1000 MG Oral Capsule Take 1 Capsule by mouth. 0 Active Aspirin Buf(NzNwwd-KpKgqt-So O) 81 MG Oral Tablet Take 81 [...] as of this encounter (statuses as of 07/16/2023) Active Problems Problem Noted Date Diagnosed Date Coronary artery disease invo lving three affiliated coronary artery of three affiliated heart without angina pectoris 05/24/2020 Overview: Catheterization [...] as of this encounter (statuses as of 07/16/2023) Resolved Problems Problem Noted Date Diagnosed Date [...] as of this encounter (statuses as of 07/16/2023) Immunizations Name Administration Dates Next Due COVID-19 [...] encounter Miscellaneous Notes * Telephone Encounter - Darlyn Petit LPN [...] 07/18/2023 9:20 AM EST Office Visit Neurology [facility] [address] [place] [address] Kiki Roy, DOCTOR OF RADIOLOGY [address] [place] [address] 02/09/2024 1:00 PM EDT Office Visit [facility] [address] [place] [address] Que Foreman PA-C [address] [place] [address] Health Maintenance Due Date Last Done Comments [...] filedocumented as of this encounter Care Teams Explosive Operator Supervisor Relationship Specialty Start Date End Date Que Foreman PA-C [address] [facility] [place] [address] PCP - General Physician Pv Design Engineer 07/11/23 documented as of this encounter
--- OUTSIDE RECORDS SUMMARY | 2024-01-06 20:12 | External Medical Summary ---
Author Name Unknown Address Unknown Organization [id number]:LABORATORY [facility] [place], [place] - [facility] [address] [facility] [address] Laboratory Report Ordering Provider Test Date Status BRIAN RICE 07/11/2023 11:30:03 Final Observation Date Value Abnormality Reference (Units ) Status WBC, Total 07/11/2023 11:30:03 6.23 4.00-10.80 (K/uL) Final RBC 07/11/2023 11:30:03 4.61 4.50-5.25 (M/uL) Final Hemoglobin 07/11/2023 11:30:03 15.8 14.0-16.8 (g/dL) Final HCT 07/11/2023 11:30:03 47.0 40.0-48.4 (%) Final MCV 07/11/2023 11:30:03 102.0 82.0-99.5 (fL) Final MCH 07/11/2023 11:30:03 34.3 27.0-34.0 (pg) Final MCHC 07/11/2023 11:30:03 33.6 32.0-36.0 (g/dL) Final RDW 07/11/2023 11:30:03 13.1 11.5-15.5 (%) Final Platelets 07/11/2023 11:30:03 254 140-400 (K/uL) Final MPV 07/11/2023 11:30:03 10.8 6.6-11.1 (fL) Final Nucleated erythrocytes/100 leukocytes [Ratio] in Blood by Automated count 07/11/2023 11:30:03 0 <=0 (/100 WBCs) Final Performing Location LABORATORY [facility] [place], [place] - [address] [place] [address]
--- OUTSIDE RECORDS SUMMARY | 2024-01-06 20:12 | External Medical Summary ---
Author Name Unknown Address Unknown Organization [id number]:LABORATORY [facility] [place] - [address] [facility] [place] [address] Laboratory Report Ordering Provider Test Date Status BRIAN RICE 07/11/2023 11:30:03 Final Observation Date Value Abnormality Reference (Units ) Status SYNC LEUKOCYTES IN BLOOD BY AUTOMATED COUNT 07/11/2023 11:30:03 6.23 4.00-10.80 (K/uL) Final Segs 07/11/2023 11:30:03 62.5 40.0-75.0 (%) Final Lymphs % 07/11/2023 11:30:03 27.6 18.0-42.0 (%) Final Monos 07/11/2023 11:30:03 6.6 1.0-11.0 (%) Final Eosinophils 07/11/2023 11:30:03 1.8 0.0-6.0 (%) Final Basos 07/11/2023 11:30:03 1.0 0.0-2.0 (%) Final Immature Granulocyte, Percent 07/11/2023 11:30:03 0.5 0.0-2.0 (%) Final Absolute Segs 07/11/2023 11:30:03 3.90 1.80-7.70 (K/uL) Final Lymphs, absolute 07/11/2023 11:30:03 1.72 1.00-4.80 (K/ul) Final Monos, Abs 07/11/2023 11:30:03 0.41 0.00-1.10 (K/uL) Final Eos, Abs 07/11/2023 11:30:03 0.11 0.00-0.70 (K/uL) Final Basos, Abs 07/11/2023 11:30:03 0.06 0.00-0.20 (K/uL) Final Immature Granulocytes, Number 07/11/2023 11:30:03 0.03 0.00-0.20 (K/uL) Final Performing Location LABORATORY [facility] [place] - [facility] [address] [facility] [address]
--- OUTSIDE RECORDS SUMMARY | 2024-01-06 20:12 | External Medical Summary ---
Author Name Unknown Address Unknown Organization K01:LABORATORY [facility] [place] - [address] [place] [address] Laboratory Report Ordering Provider Test Date Status BRIAN RICE 07/11/2023 11:30:03 Final Observation Date Value Abnormality Reference (Units ) Status TSH 07/11/2023 11:30:03 0.65 0.27-4.20 (uIU/mL) Final Performing Location LABORATORY [facility] [place] - [address] [place] [address]
[2024-01-06] MEDS: MEMANTINE HCL 10 MG TAB PO SCH (20:23)
[2024-01-06] MEDS: ROSUVASTATIN CALCIUM 20 MG TAB PO SCH (20:23)
[2024-01-06] MEDS: GABAPENTIN 600 MG TAB PO SCH (20:24)
[2024-01-07] MEDS: ACETAMINOPHEN 325 MG TAB PO PRN (02:15)
[2024-01-07 06:05] LABS: Basophils # (auto) 0.02 K/uL (0.00-0.20); Basophils % (auto) 0.1 %; Eosinophils # (auto) 0.07 K/uL (0.00-0.50); Eosinophils % (auto) 0.5 %; Hemoglobin 15.3 g/dl (14.0-18.0); Immature Granulocytes # (auto) 0.08 K/uL (0.01-0.20); Immature Granulocytes % (auto) 0.5 %; Lymphocytes # (auto) 1.47 K/uL (1.20-3.40); Lymphocytes % (auto) 9.7 %; Mean Corpuscular Hemoglobin 33.5 pg (25.0-34.0); Mean Corpuscular Hgb Conc 34.8 g/dL (32.0-36.0); Mean Corpuscular Volume 96.3 fL (80.0-100.0); Mean Platelet Volume 10.5 fL (9.4-12.4); Monocytes # (auto) 0.64 K/uL (0.11-0.59); Monocytes % (auto) 4.2 %; Neutrophils # (auto) 12.84 K/uL (1.40-6.50); Platelet Count 269 K/uL (130-400); RDW Coefficient of Variation 12.4 % (11.5-14.5); RDW Standard Deviation 44.1 fL (36.4-46.3); Red Blood Count 4.57 M/uL (4.70-6.10); White Blood Count 15.12 K/ul (4.8-10.8)
[2024-01-07 06:15] LABS: Albumin Level 4.5 gm/dl (3.4-5.0); BUN Creatinine Ratio 24.7 (10-20); Bilirubin,Total 1.7 mg/dl (0.2-1.0); Chol HDL Ratio 3.5 (0-5); Creatinine Clr Calc Pharmacy 75.5 ml/min; Est GFR (Non-African American) 77.7 ml/min; Globulin 2.3 gm/dl (2.5-4.0); Magnesium 1.9 mg/dl (1.7-2.4); Potassium 4.3 mmol/L (3.5-5.1); Total Protein 6.8 gm/dl (6.0-8.3)
[2024-01-07 06:24] LABS: Prothrombin Time 11.1 Seconds (9.0-12.0)
[2024-01-07 06:29] LABS: Thyroid Stimulating Hormone 0.299 uIu/ml (0.300-4.500)
[2024-01-07 07:03] LABS: T4 Free Thyroxine 0.74 ng/dl (0.61-1.60)
[2024-01-07] MEDS: CITALOPRAM 20 MG TAB PO SCH (08:18)
[2024-01-07] MEDS: TAMSULOSIN HCL 0.4 MG CAP PO SCH (08:18)
[2024-01-07] MEDS: lisinopril 40 MG TAB PO SCH (08:18)
[2024-01-07] MEDS: PANTOprazole 40 MG TAB PO SCH (08:18)
[2024-01-07] MEDS: HYDROXYCHLOROQUINE SULFATE 200 MG TAB PO SCH (08:18)
--- NOTE | 2024-01-07 11:26 | Orthopedic Consultation ---
Date of Consultation January 07, 2024 Assessment & Plan (1) Neurogenic claudication due to lumbar spinal stenosis: Assessment lumbar spinal stenosis with neurogenic claudication. Plan patient had an MRI performed yesterday at [facility] of the lumbar spine. Demonstrates severe spinal stenosis with bilateral neuroforaminal disease L4-L5 L5-S1. There is autofusion at L3-L4. There is marked facet hypertrophy at L4- L5 with facet cyst and. L5-S1 demonstrates marked facet hypertrophy with severe subarticular stenosis and facet cyst noted. And long discussion with patient and his reviewing his MRI findings and clinical course. At this point he is unable to walk very concerned about his falls and would like to consider surgical invention. He has exhausted nonoperative care. It would require a lumbar decompression and aggressive facetectomies and foraminotomies L4-L5 L5- S1. This would necessitate lumbar stabilization by way of fusion. Risk benefits pros cons alternatives were in detail. Risk include but not limited to anesthesia blindness to process nerve damage but not requiring transfusion infection requiring reoperation benzathine marked improvement of the neurogenic claudication. At this time we will plan for surgery this week when she is medically cleared. History of Present Illness Reason for Consultation: Bilateral leg pain and weakness Attending Physician: Francesco Evans History of Present Illness This a very pleasant 73-year-old male who presents yesterday with a marked decline in status. He had a fall approximately 2 weeks ago but since that time his had further decline with bilateral leg pain and weakness. He is fallen 3 times since symptoms. Describes profound weakness left greater than right lower extremity. He has a history of undergoing lumbar epidural injections for many years that provided some relief. He does have known lumbar spinal stenosis. Hi s fall did manifest in fractures and transverse processes but this is not his major concern. Denies any loss of bowel or bladder control. He describes dense numbness to bilateral feet. He states that he is unable to stand and ambulate any distance to maintain activities of daily living. Allergies Allergy/AdvReac Type Severity Reaction Status Date / Time Sulfa (Sulfonamide Allergy Intermediate RASH;HIVES; Verified 01/06/24 15:07 Antibiotics) SWELLING meloxicam [From Mobic] Allergy Unknown CAN'T Verified 01/06/24 15:07 REMEMBER naproxen [From Aleve] Allergy Unknown CAN'T Verified 01/06/24 15:07 REMEMBER Home Medications Medication Instructions Recorded Confirmed Type cholecalciferol (vitamin D3) 25 25 mcg PO DAILY 12/08/19 01/06/24 History mcg (1,000 unit) tablet hydroxychloroquine 200 mg tablet 200 mg PO DAILY 12/08/19 01/06/24 History multivitamin 1 tab PO DAILY 12/08/19 01/06/24 History rosuvastatin 20 mg tablet 20 mg PO QPM 12/08/19 01/06/24 History krill oil 500 mg capsule 500 mg PO DAILY 12/06/20 01/06/24 History omeprazole 20 mg capsule,delayed 20 mg PO DAILY 12/06/20 01/06/24 History release aspirin 81 mg tablet,delayed 81 mg PO DAILY 08/04/21 01/06/24 History release ([facility] Low Dose Aspirin) sildenafil 100 mg tablet 100 mg PO DAILY PRN sexual 01/08/23 01/06/24 Rx activity #10 tabs tamsulosin 0.4 mg capsule 0.4 mg PO DAILY #90 caps 01/08/23 01/06/24 Rx citalopram 20 mg tablet 20 mg PO DAILY 01/06/24 01/06/24 History cyclobenzaprine 10 mg tablet 10 mg PO BID PRN MUSCLE SPASMS 01/06/24 01/06/24 History gabapentin 600 mg tablet 600 mg PO BID 01/06/24 01/06/24 History indomethacin 25 mg capsule 25 mg PO BID 01/06/24 01/06/24 History lisinopril 40 mg tablet 40 mg PO DAILY 01/06/24 01/06/24 History memantine 10 mg tablet 10 mg PO BID 01/06/24 01/06/24 History Patient History Medical History (Updated 01/07/24 @ 11:25 by Andrzej Lo DO) No pertinent family history Heart attack Hyperlipidemia High blood pressure Cardiac disorder Surgical History H/O heart surgery H/O foot surgery History of bladder surgery Social History Smoking Status: Former smoker Hx Alcohol Use: No Hx Substance Use: No Preferred Language: Algerian Communication Ability: Effective Tube Fitter Required: No Beliefs That Will Affect Care: None marital status: Current Living Situation: Spouse Feels Safe at Home: Yes Assistive Devices: Cane and Walker Physical Exam Physical Exam: On exam the patient is in bed. His is in the bedside chair. He is reasonable 4/5 plantarflexion dorsiflexion right quadriceps with a 3+ left quadriceps. Sensory is diminished bilateral extremities. Results & Data Vital Signs (Past 12 Hours) Vital Signs Temp Pulse Resp BP Pulse Ox O2 Del Method 01/07/24 08:20 Room Air 01/07/24 07:15 36.7 C 65 16 179/86 H 94 Room Air
--- NOTE | 2024-01-07 15:35 | Electrocardiogram Report ---
Test Reason : Blood Pressure : */* mmHG Vent. Rate : 66 BPM Atrial Rate : 66 BPM P-R Int : 204 ms QRS Dur : 90 ms QT Int : 400 ms P-R-T Axes : 27 94 -19 degrees QTcB Int : 419 ms Normal sinus rhythm Rightward axis Incomplete right bundle branch block Abnormal ECG Confirmed by Carloz Monet ([id number]) on 01/07/2024 3:35:32 PM Referred By: REFERRED SELF Confirmed By: Carloz Monet
--- NOTE | 2024-01-07 20:39 | Hospitalist Progress Note ---
Date of Service January 07, 2024 Assessment & Plan (1) Spinal stenosis: Plan: Assessment: 1. Acute transverse process fractures of T12, L1 and L2 with left-sided. Orthopedic spine surgery consulted. Risk of myocardial infarction or cardiac arrest, intraoperatively or up to 30 days post op is 0.1-0.2% Patient does not require further workup prior to surgery. 2. Spinal stenosis. Spine surgery consulted. SUrgery for Friday. 3. Coronary artery disease status post CABG x 3 vessels 2007. The patient does follow with outpatient cardiology. 4. Hypertension. 5. Dyslipidemia. 6. Obstructive sleep apnea. He does wear CPAP at home. He did not bring his machine with him working to get it here for this hospital stay therefore inpatient CPAP has been ordered. 7. Obesity. 8. Lower extremity paresthesias and weakness as described above. Again with a history of spinal stenosis spine surgery consulted. 9. Mild hyper bilirubinemia by lab today. 1.5 up to 1.7 Will recheck in the morning. Admission and Anticipated Discharge Date Admission Date: January 06, 2024 Subjective 73 yo male reports no new symptoms Review of Systems Review of Systems: All systems reviewed & are unremarkable except as noted in HPI & below Physical Exam Physical Exam: In General: In general pleasant 73-year-old male who is alert and oriented x 3 HEENT: Normocephalic atraumatic pupils are equal round and reactive to light bilaterally. NECK: Supple no rigidity no lymphadenopathy no thyromegaly no carotid bruits no JVD no masses. HEART: Regular rate and rhythm LUNGS: Clear to auscultation bilaterally ABDOMEN: Soft nontender, no rebound, no peritoneal signs, positive bowel sounds, no appreciable organomegaly. EXTREMITIES: Intact, no peripheral cyanosis, clubbing or edema. Results & Data Results & Data Vital Signs (Past 12 Hours) Vital Signs Temp Pulse Resp BP BP Pulse Ox O2 Del Method 01/07/24 20:17 36.4 C L 73 20 186/84 H 97 Room Air 01/07/24 18:59 171/75 H 01/07/24 14:36 36.6 C 65 16 186/73 H 95 Room Air PG Care Time/CCT Total # of Minutes Spent Total Time Spent with Patient: Total time spent is greater than 50% in coordination of care (as documented) at patient's floor/unit and/or counseling patient: Coding Level of Care Code 02332 SUB INP/OBS CARE MIN Diagnoses Spinal stenosis M48.061 Neurogenic claudication status: unspecified Spinal region: lumbar (1) Spinal stenosis Neurogenic claudication status: unspecified Spinal region: lumbar Qualified Code(s): M48.061 - Spinal stenosis, lumbar region without neurogenic claudication
[2024-01-08 07:42] LABS: Hematocrit (blood only) 44.3 % (42.0-52.0); Hemoglobin 15.4 g/dl (14.0-18.0); Mean Corpuscular Hemoglobin 33.8 pg (25.0-34.0); Mean Corpuscular Hgb Conc 34.8 g/dL (32.0-36.0); Mean Corpuscular Volume 97.1 fL (80.0-100.0); Mean Platelet Volume 10.3 fL (9.4-12.4); Platelet Count 250 K/uL (130-400); RDW Coefficient of Variation 13.2 % (11.5-14.5); RDW Standard Deviation 46.7 fL (36.4-46.3); Red Blood Count 4.56 M/uL (4.70-6.10); White Blood Count 9.13 K/ul (4.8-10.8)
[2024-01-08 08:09] LABS: BUN Creatinine Ratio 31.3 (10-20); Calcium 9.7 mg/dl (8.6-10.3); Est GFR (African American) 87.8 ml/min; Est GFR (Non-African American) 75.8 ml/min
--- NOTE | 2024-01-08 08:23 | Orthopedic Progress Note ---
Date of Service January 08, 2024 Assessment & Plan (1) Neurogenic claudication due to lumbar spinal stenosis: Plan: I again reviewed with the patient his surgical plan. He required lumbar decompression and fusion L4-S1. Will be made n.p.o. after midnight. Admission and Anticipated Discharge Date Admission Date: January 06, 2024 Subjective Patient continues to have back and bilateral leg pain and weakness Physical Exam Physical Exam: Patient is currently bed he has reasonable strength testing extremities. Is comfortable at rest. Results & Data Vital Signs (Past 12 Hours) Vital Signs Temp Pulse Pulse Resp BP BP Pulse Ox 01/08/24 07:15 36.5 C 73 16 158/80 H 94 01/08/24 03:41 85 16 98 01/08/24 00:12 163/79 H 01/07/24 21:20 89 18 97 O2 Del Method FiO2 01/08/24 07:15 Room Air 01/08/24 03:41 21 01/08/24 00:12 01/07/24 21:20
[2024-01-08 08:34] LABS: Albumin Level 4.4 gm/dl (3.4-5.0); Bilirubin Direct 0.2 mg/dl (0-0.2); Bilirubin,Total 1.7 mg/dl (0.2-1.0); Total Protein 6.9 gm/dl (6.0-8.3)
--- NOTE | 2024-01-08 22:42 | Hospitalist Progress Note ---
Date of Service January 08, 2024 Assessment & Plan (1) Spinal stenosis: Plan: Assessment: 1. Acute transverse process fractures of T12, L1 and L2 with left-sided. Orthopedic spine surgery consulted. Risk of myocardial infarction or cardiac arrest, intraoperatively or up to 30 days post op is 0.1-0.2% Patient does not require further workup prior to surgery. Patient will have surgery on 01/08 2. Spinal stenosis. Spine surgery consulted. SUrgery for Friday. 3. Coronary artery disease status post CABG x 3 vessels 2007. The patient does follow with outpatient cardiology. 4. Hypertension. 5. Dyslipidemia. 6. Obstructive sleep apnea. He does wear CPAP at home. He did not bring his machine with him working to get it here for this hospital stay therefore inpatient CPAP has been ordered. 7. Obesity. 8. Lower extremity paresthesias and weakness as described above. Again with a history of spinal stenosis spine surgery consulted. 9. Mild hyper bilirubinemia by lab today. 1.5 up to 1.7 Direct bilirrubin is normal. No concern for liver pathology. may proceed with surgery. Admission and Anticipated Discharge Date Admission Date: January 06, 2024 Subjective 73 yo male reports no new symptoms. Review of Systems Review of Systems: All systems reviewed & are unremarkable except as noted in HPI & below Physical Exam Physical Exam: In General: In general pleasant 73-year-old male who is alert and oriented x 3 HEENT: Normocephalic atraumatic pupils are equal round and reactive to light bilaterally. NECK: Supple no rigidity no lymphadenopathy no thyromegaly no carotid bruits no JVD no masses. HEART: Regular rate and rhythm LUNGS: Clear to auscultation bilaterally ABDOMEN: Soft nontender, no rebound, no peritoneal signs, positive bowel sounds, no appreciable organomegaly. EXTREMITIES: Intact, no peripheral cyanosis, clubbing or edema. Results & Data Results & Data Vital Signs (Past 12 Hours) Vital Signs Temp Pulse Pulse Resp BP Pulse Ox O2 Del Method 01/08/24 21:49 36.7 C 66 14 166/81 H 95 Room Air 01/08/24 20:32 88 20 97 01/08/24 14:51 36.6 C 66 16 165/86 H 94 Room Air PG Care Time/CCT Total # of Minutes Spent Total Time Spent with Patient: Total time spent is greater than 50% in coordination of care (as documented) at patient's floor/unit and/or counseling patient: Coding Level of Care Code 63750 SUB INP/OBS CARE MIN Diagnoses Spinal stenosis M48.061 Neurogenic claudication status: unspecified Spinal region: lumbar (1) Spinal stenosis Neurogenic claudication status: unspecified Spinal region: lumbar Qualified Code(s): M48.061 - Spinal stenosis, lumbar region without neurogenic claudication
[2024-01-09] MEDS ORDERED: MELATONIN 3 MG TAB PO PRN (00:23)
[2024-01-09 07:30] LABS: Hematocrit (blood only) 47.2 % (42.0-52.0); Hemoglobin 16.2 g/dl (14.0-18.0); Mean Corpuscular Hemoglobin 33.5 pg (25.0-34.0); Mean Corpuscular Hgb Conc 34.3 g/dL (32.0-36.0); Mean Corpuscular Volume 97.5 fL (80.0-100.0); Mean Platelet Volume 10.3 fL (9.4-12.4); Platelet Count 280 K/uL (130-400); RDW Coefficient of Variation 12.9 % (11.5-14.5); RDW Standard Deviation 46.2 fL (36.4-46.3); Red Blood Count 4.84 M/uL (4.70-6.10); White Blood Count 9.42 K/ul (4.8-10.8)
[2024-01-09 07:48] LABS: Calcium 9.9 mg/dl (8.6-10.3); Creatinine Clr Calc Pharmacy 70.4 ml/min; Est GFR (African American) 82.7 ml/min; Est GFR (Non-African American) 71.4 ml/min; Potassium 4.1 mmol/L (3.5-5.1)
[2024-01-09] MEDS ORDERED: MIDAZOLAM HCL 1 MG/ML 2ML VIAL ONE (11:55)
[2024-01-09] MEDS ORDERED: ONDANSETRON INJ 2 MG/ML 2 ML VIAL ONE (11:55)
[2024-01-09] MEDS ORDERED: PROPOFOL IV EMULSION 10 MG/ML 20 ML VIAL IV ONE (11:55)
[2024-01-09] MEDS ORDERED: LIDOCAINE 2% 2 ML VIAL/AMP(20MG/ML) INFIL ONE (11:55)
[2024-01-09] MEDS ORDERED: DEXAMETHASONE SOD INJ 4 MG/ML VIAL ONE (11:55)
[2024-01-09] MEDS ORDERED: fentaNYL citrate PF 100 MCG/2 ML VIAL ONE ×2 (11:56→16:35)
[2024-01-09] MEDS ORDERED: LARYING-O-JET KIT (LTA) ONE (12:01)
[2024-01-09] MEDS ORDERED: ROCURONIUM BROMIDE 10 MG/ML 5 ML VIAL IV ONE ×3 (12:01→15:33)
[2024-01-09] MEDS: LACTATED RINGER'S 1,000 ML IV SCH ×2 (12:28→18:01)
--- NOTE | 2024-01-09 13:01 | History & Physical Bridge Note ---
Date of Service January 09, 2024 History & Physical Bridge Note I have examined the patient, reviewed the History & Physical and in the interval since the performance of the History & Physical I have noted the following changes of clinical significance: no changes noted Lumbar decompression and fusion L4-L5 L5-S1
[2024-01-09] MEDS ORDERED: DROPERIDOL 5 MG/2 ML VIAL IV PRN (13:11)
[2024-01-09] MEDS ORDERED: ATROPINE SULFATE 0.1 MG/ML 10ML SYR IV PRN (13:11)
[2024-01-09] MEDS ORDERED: HYDROmorphone INJ 2 MG/ML SYR/VIAL IV PRN (13:11)
[2024-01-09] MEDS ORDERED: ePHEDrine sulfate 50 MG/ML AMP IV PRN (13:11)
--- NOTE | 2024-01-09 13:11 | Anesthesiology Consultation ---
Date of Service January 09, 2024 Assessment & Plan ASA ASA3 Proposed Anesthesia Anesthesia Type: General Risk / Benefits Reviewed With: PT / POA / Parent / Guardian, Accepts Plan and Informed Consent Obtained History Surgery Operation Date: 01/09/24 12:15 Proposed Procedures p L4-S1 Decompression and Fusion, Spinal Cord Monitoring - Andrzej Lo DO Height/Weight Height: 5 ft 6 in Weight: 98.1 kg Allergies Allergy/AdvReac Type Severity Reaction Status Date / Time Sulfa (Sulfonamide Allergy Intermediate RASH;HIVES; Verified 01/06/24 15:07 Antibiotics) SWELLING meloxicam [From Mobic] Allergy Unknown CAN'T Verified 01/06/24 15:07 REMEMBER naproxen [From Aleve] Allergy Unknown CAN'T Verified 01/06/24 15:07 REMEMBER Medications Home Medications Medication Instructions Recorded Confirmed Last Taken cholecalciferol (vitamin D3) 25 25 mcg PO DAILY 12/08/19 01/06/24 01/06/24 mcg (1,000 unit) tablet hydroxychloroquine 200 mg tablet 200 mg PO DAILY 12/08/19 01/06/24 01/06/24 multivitamin 1 tab PO DAILY 12/08/19 01/06/24 01/06/24 rosuvastatin 20 mg tablet 20 mg PO QPM 12/08/19 01/06/24 01/05/24 krill oil 500 mg capsule 500 mg PO DAILY 12/06/20 01/06/24 01/06/24 omeprazole 20 mg capsule,delayed 20 mg PO DAILY 12/06/20 01/06/24 01/06/24 release aspirin 81 mg tablet,delayed 81 mg PO DAILY 08/04/21 01/06/24 01/06/24 release (Maya Low Dose Aspirin) sildenafil 100 mg tablet 100 mg PO DAILY PRN sexual 01/08/23 01/06/24 Unknown activity #10 tabs tamsulosin 0.4 mg capsule 0.4 mg PO DAILY #90 caps 01/08/23 01/06/24 01/06/24 citalopram 20 mg tablet 20 mg PO DAILY 01/06/24 01/06/24 01/06/24 cyclobenzaprine 10 mg tablet 10 mg PO BID PRN MUSCLE SPASMS 01/06/24 01/06/24 Unknown gabapentin 600 mg tablet 600 mg PO BID 01/06/24 01/06/2401/05/24 08:00 indomethacin 25 mg capsule 25 mg PO BID 01/06/24 01/06/24 01/06/24 08:00 lisinopril 40 mg tablet 40 mg PO DAILY 01/06/24 01/06/24 01/06/24 memantine 10 mg tablet 10 mg PO BID 01/06/24 01/06/24 01/06/24 08:00 Active Medications Generic Name Dose Route Start Last Admin Trade Name Lucrecia PRN Reason Stop Dose Admin Acetaminophen 650 mg 01/06/24 15:01 01/08/24 09:15 Acetaminophen 325 Mg Tab PO 02/05/24 15:00 650 mg Q4H PRN Administration pain/fever Citalopram Hydrobromide 20 mg 01/07/24 09:00 01/09/24 09:04 Citalopram 20 Mg Tab PO 02/06/24 08:59 20 mg DAILY KEVIN Administration Gabapentin 600 mg 01/06/24 21:00 01/09/24 09:03 Gabapentin 600 Mg Tab PO 02/05/24 20:59 600 mg BID KEVIN Administration Hydralazine HCl 10 mg 01/06/24 17:46 01/07/24 15:14 Hydralazine Hcl 20 Mg/Ml Vial IV 02/05/24 17:45 10 mg Q8H PRN Administration sbp>185 or dbp>95 Hydroxychloroquine Sulfate 200 mg 01/07/24 09:00 01/09/24 09:04 Hydroxychloroquine Sulfate 200 Mg Tab PO 02/06/24 08:59 200 mg DAILY KEVIN Administration Lactated Ringer's 1,000 mls @ 15 mls/hr 01/09/24 12:30 01/09/24 12:28 Lr IV 02/08/24 12:29 15 mls/hr .Q24H KEVIN Administration Lisinopril 40 mg 01/07/24 09:00 01/09/24 09:04 Lisinopril 40 Mg Tab PO 02/06/24 08:59 40 mg DAILY KEVIN Administration Memantine 10 mg 01/06/24 21:00 01/09/24 09:04 Memantine Hcl 10 Mg Tab PO 02/05/24 20:59 10 mg BID KEVIN Administration Pantoprazole Sodium 40 mg 01/07/24 09:00 01/09/24 09:04 Pantoprazole 40 Mg Tab PO 02/06/24 08:59 40 mg DAILY KEVIN Administration Rosuvastatin Calcium 20 mg 01/06/24 21:00 01/08/24 20:18 Rosuvastatin Calcium 20 Mg Tab PO 02/05/24 20:59 20 mg QPM KEVIN Administration Tamsulosin HCl 0.4 mg 01/07/24 09:00 01/09/24 09:04 Tamsulosin Hcl 0.4 Mg Cap PO 02/06/24 08:59 0.4 mg DAILY KEVIN Administration NPO Date Last Intake of Fluids: 01/08/24 Time Last Intake of Fluids: 22:00 Last Intake of Fluids Comment: sip at 0900 with pill Date Last Intake of Solids: 01/08/24 Time Last Intake of Solids: 17:00 Past Medical History Medical History (Updated 01/07/24 @ 11:25 by Andrzej Lo DO) No pertinent family history Heart attack Hyperlipidemia High blood pressure Cardiac disorder Exercise / Class Metabolic Activity II 4-5 Yardwork/Stairs/Walk up hill Past Surgical History Surgical History H/O heart surgery H/O foot surgery History of bladder surgery Past Anesthesia History No Hx of Anesthesia Complications and No Family Hx of Anesthesia Complications History of PONV No Hx of PONV and No Hx of Motion Sickness Social History Smoking Status: Former smoker Hx Alcohol Use: No Alcohol type: beer, wine and hard liquor alcohol intake frequency: holidays/special occasions only Hx Substance Use: No Physical Exam Vital Signs Last Vital Signs Temp 36.8 C 01/09/24 12:23 Pulse 70 01/09/24 12:23 Resp 20 01/09/24 12:23 BP 150/97 H 01/09/24 12:23 Pulse Ox 94 01/09/24 12:23 O2 Del Method Room Air 01/09/24 12:23 FiO2 21 01/08/24 03:41 Constitutional no acute distress ENMT Mouth: + dentition abnormality and + dentures (upper edentulous; lower multiple missing teeth - none loose ) Thyromental Distance: > or= 3.5 Finger Breadths Mallampati Class: II Neck normal visual inspection Respiratory normal respiratory effort; no respiratory distress Auscultation: lungs clear to auscultation bilaterally Cardiovascular Rate/Rhythm: regular rate and regular rhythm Heart Sounds: no murmur Musculoskeletal Spine: normal cervical ROM Psychiatric Orientation: alert and oriented x 3 Testing Laboratory Results 01/09/24 06:50 01/09/24 06:50 PT 11.1 Seconds (9.0-12.0) 01/07/24 05:40 INR 1.0 (0.9-1.1) 01/07/24 05:40 Urine Color Yellow 01/06/24 15:00 Urine Appearance Clear (Clear) 01/06/24 15:00 Urine pH 6.0 (4.5-7.5) 01/06/24 15:00 Ur Specific [place] 1.009 (1.000-1.030) 01/06/24 15:00 Urine Protein Negative (Negative) 01/06/24 15:00 Urine Glucose (UA) Negative (Negative) 01/06/24 15:00 Urine Ketones Negative (Negative) 01/06/24 15:00 Urine Nitrite Negative (Negative) 01/06/24 15:00 Ur Leukocyte Esterase Negative (Negative) 01/06/24 15:00 Blood Type O Positive 01/08/24 14:47 Antibody Screen NEGATIVE 01/08/24 14:47 Day of Procedure Evaluation. Date of Surgery January 09, 2024 Height/Weight Height: 5 ft 6 in Weight: 98.1 kg Vital Signs Last Vital Signs Temp 36.8 C 01/09/24 12:23 Pulse 70 01/09/24 12:23 Resp 20 01/09/24 12:23 BP 150/97 H 01/09/24 12:23 Pulse Ox 94 01/09/24 12:23 O2 Del Method Room Air 01/09/24 12:23 FiO2 21 01/08/24 03:41 Allergies Allergy/AdvReac Type Severity Reaction Status Date / Time Sulfa (Sulfonamide Allergy Intermediate RASH;HIVES; Verified 01/06/24 15:07 Antibiotics) SWELLING meloxicam [From Mobic] Allergy Unknown CAN'T Verified 01/06/24 15:07 REMEMBER naproxen [From Aleve] Allergy Unknown CAN'T Verified 01/06/24 15:07 REMEMBER Medications Home Medications Medication Instructions Recorded Confirmed Last Taken cholecalciferol (vitamin D3) 25 25 mcg PO DAILY 12/08/19 01/06/24 01/06/24 mcg (1,000 unit) tablet hydroxychloroquine 200 mg tablet 200 mg PO DAILY 12/08/19 01/06/24 01/06/24 multivitamin 1 tab PO DAILY 12/08/19 01/06/24 01/06/24 rosuvastatin 20 mg tablet 20 mg PO QPM 12/08/19 01/06/24 01/05/24 krill oil 500 mg capsule 500 mg PO DAILY 12/06/20 01/06/24 01/06/24 omeprazole 20 mg capsule,delayed 20 mg PO DAILY 12/06/20 01/06/24 01/06/24 release aspirin 81 mg tablet,delayed 81 mg PO DAILY 08/04/21 01/06/24 01/06/24 release (Maya Low Dose Aspirin) sildenafil 100 mg tablet 100 mg PO DAILY PRN sexual 01/08/23 01/06/24 Unknown activity #10 tabs tamsulosin 0.4 mg capsule 0.4 mg PO DAILY #90 caps 01/08/23 01/06/24 01/06/24 citalopram 20 mg tablet 20 mg PO DAILY 01/06/24 01/06/24 01/06/24 cyclobenzaprine 10 mg tablet 10 mg PO BID PRN MUSCLE SPASMS 01/06/24 01/06/24 Unknown gabapentin 600 mg tablet 600 mg PO BID 01/06/24 01/06/24 01/06/24 08:00 indomethacin 25 mg capsule 25 mg PO BID 01/06/24 01/06/24 01/06/24 08:00 lisinopril 40 mg tablet 40 mg PO DAILY 01/06/24 01/06/24 01/06/24 memantine 10 mg tablet 10 mg PO BID 01/06/24 01/06/24 01/06/24 08:00 Active Medications Generic Name Dose Route Start Last Admin Trade Name Chetan PRN Reason Stop Dose Admin Acetaminophen 650 mg 01/06/24 15:01 01/08/24 09:15 Acetaminophen 325 Mg Tab PO 02/05/24 15:00 650 mg Q4H PRN Administration pain/fever Citalopram Hydrobromide 20 mg 01/07/24 09:00 01/09/24 09:04 Citalopram 20 Mg Tab PO 02/06/24 08:59 20 mg DAILY KEVIN Administration Gabapentin 600 mg 01/06/24 21:00 01/09/24 09:03 Gabapentin 600 Mg Tab PO 02/05/24 20:59 600 mg BID KEVIN Administration Hydralazine HCl 10 mg 01/06/24 17:46 01/07/24 15:14 Hydralazine Hcl 20 Mg/Ml Vial IV 02/05/24 17:45 10 mg Q8H PRN Administration sbp>185 or dbp>95 Hydroxychloroquine Sulfate 200 mg 01/07/24 09:00 01/09/24 09:04 Hydroxychloroquine Sulfate 200 Mg Tab PO 02/06/24 08:59 200 mg DAILY KEVIN Administration Lactated Ringer's 1,000 mls @ 15 mls/hr 01/09/24 12:30 01/09/24 12:28 Lr IV 02/08/24 12:29 15 mls/hr .Q24H KEVIN Administration Lisinopril 40 mg 01/07/24 09:00 01/09/24 09:04 Lisinopril 40 Mg Tab PO 02/06/24 08:59 40 mg DAILY KEVIN Administration Memantine 10 mg 01/06/24 21:00 01/09/24 09:04 Memantine Hcl 10 Mg Tab PO 02/05/24 20:59 10 mg BID KEVIN Administration Pantoprazole Sodium 40 mg 01/07/24 09:00 01/09/24 09:04 Pantoprazole 40 Mg Tab PO 02/06/24 08:59 40 mg DAILY KEVIN Administration Rosuvastatin Calcium 20 mg 01/06/24 21:00 01/08/24 20:18 Rosuvastatin Calcium 20 Mg Tab PO 02/05/24 20:59 20 mg QPM KEVIN Administration Tamsulosin HCl 0.4 mg 01/07/24 09:00 01/09/24 09:04 Tamsulosin Hcl 0.4 Mg Cap PO 02/06/24 08:59 0.4 mg DAILY KEVIN Administration Past Anesthesia History No Hx of Anesthesia Complications and No Family Hx of Anesthesia Complications History of PONV No Hx of PONV and No Hx of Motion Sickness NPO Date Last Intake of Fluids: 01/08/24 Time Last Intake of Fluids: 22:00 Last Intake of Fluids Comment: sip at 0900 with pill Date Last Intake of Solids: 01/08/24 Time Last Intake of Solids: 17:00 Home Medications Home Medications Medication Instructions Recorded Confirmed Last Taken cholecalciferol (vitamin D3) 25 25 mcg PO DAILY 12/08/19 01/06/24 01/06/24 mcg (1,000 unit) tablet hydroxychloroquine 200 mg tablet 200 mg PO DAILY 12/08/19 01/06/24 01/06/24 multivitamin 1 tab PO DAILY 12/08/19 01/06/24 01/06/24 rosuvastatin 20 mg tablet 20 mg PO QPM 12/08/19 01/06/24 01/05/24 krill oil 500 mg capsule 500 mg PO DAILY 12/06/20 01/06/24 01/06/24 omeprazole 20 mg capsule,delayed 20 mg PO DAILY 12/06/20 01/06/24 01/06/24 release aspirin 81 mg tablet,delayed 81 mg PO DAILY 08/04/21 01/06/24 01/06/24 release (Maya Low Dose Aspirin) sildenafil 100 mg tablet 100 mg PO DAILY PRN sexual 01/08/23 01/06/24 Unknown activity #10 tabs tamsulosin 0.4 mg capsule 0.4 mg PO DAILY #90 caps 01/08/23 01/06/24 01/06/24 citalopram 20 mg tablet 20 mg PO DAILY 01/06/24 01/06/24 01/06/24 cyclobenzaprine 10 mg tablet 10 mg PO BID PRN MUSCLE SPASMS 01/06/24 01/06/24 Unknown gabapentin 600 mg tablet 600 mg PO BID 01/06/24 01/06/24 01/06/24 08:00 indomethacin 25 mg capsule 25 mg PO BID 01/06/24 01/06/24 01/06/24 08:00 lisinopril 40 mg tablet 40 mg PO DAILY 01/06/24 01/06/24 01/06/24 memantine 10 mg tablet 10 mg PO BID 01/06/24 01/06/24 01/06/24 08:00 Active Medications Generic Name Dose Route Start Last Admin Trade Name Freq PRN Reason Stop Dose Admin Acetaminophen 650 mg 01/06/24 15:01 01/08/24 09:15 Acetaminophen 325 Mg Tab PO 02/05/24 15:00 650 mg Q4H PRN Administration pain/fever Citalopram Hydrobromide 20 mg 01/07/24 09:00 01/09/24 09:04 Citalopram 20 Mg Tab PO 02/06/24 08:59 20 mg DAILY KEVIN Administration Gabapentin 600 mg 01/06/24 21:00 01/09/24 09:03 Gabapentin 600 Mg Tab PO 02/05/24 20:59 600 mg BID KEVIN Administration Hydralazine HCl 10 mg 01/06/24 17:46 01/07/24 15:14 Hydralazine Hcl 20 Mg/Ml Vial IV 02/05/24 17:45 10 mg Q8H PRN Administration sbp>185 or dbp>95 Hydroxychloroquine Sulfate 200 mg 01/07/24 09:00 01/09/24 09:04 Hydroxychloroquine Sulfate 200 Mg Tab PO 02/06/24 08:59 200 mg DAILY KEVIN Administration Lactated Ringer's 1,000 mls @ 15 mls/hr 01/09/24 12:30 01/09/24 12:28 Lr IV 02/08/24 12:29 15 mls/hr .Q24H KEVIN Administration Lisinopril 40 mg 01/07/24 09:00 01/09/24 09:04 Lisinopril 40 Mg Tab PO 02/06/24 08:59 40 mg DAILY KEVIN Administration Memantine 10 mg 01/06/24 21:00 01/09/24 09:04 Memantine Hcl 10 Mg Tab PO 02/05/24 20:59 10 mg BID KEVIN Administration Pantoprazole Sodium 40 mg 01/07/24 09:00 01/09/24 09:04 Pantoprazole 40 Mg Tab PO 02/06/24 08:59 40 mg DAILY KEVIN Administration Rosuvastatin Calcium 20 mg 01/06/24 21:00 01/08/24 20:18 Rosuvastatin Calcium 20 Mg Tab PO 02/05/24 20:59 20 mg QPM KEVIN Administration Tamsulosin HCl 0.4 mg 01/07/24 09:00 01/09/24 09:04 Tamsulosin Hcl 0.4 Mg Cap PO 02/06/24 08:59 0.4 mg DAILY KEVIN Administration Exercise / Class Metabolic Activity Metabolic Activity: II 4-5 Yardwork/Stairs/Walk up hill Physical Exam Constitutional: no acute distress Mouth: + dentition abnormality and + dentures (upper edentulous; lower multiple missing teeth - none loose ) Thyromental Distance: > or= 3.5 Finger Breadths Mallampati Class: II Neck: + visual inspection normal Respiratory: + respiratory effort normal and + clear to auscultation bilaterally; no respiratory distress Cardiovascular: + regular rate and + regular rhythm; no murmur Musculoskeletal: no limited cervical ROM Psychiatric: + alert and + oriented x 3 ASA ASA3 Proposed Anesthesia Proposed Anesthesia: General Risk / Benefits Reviewed With: PT / POA / Parent / Guardian, Accepts Plan and Informed Consent Obtained
[2024-01-09] MEDS: ceFAZolin 2000MG 2,000 MG/15 ML SYR IV ONE (13:33)
[2024-01-09] MEDS: BUPIVACAINE/EPINEPHRINE 0.25% 1:200,000 30 ML VIAL ONE (14:16)
[2024-01-09] MEDS: ceFAZolin 330 MG/ML 1 GM VIAL ONE (14:17)
[2024-01-09] MEDS ORDERED: SODIUM CHLORIDE 0.9% PF INJ 10 ML VIAL ONE (14:20)
[2024-01-09] MEDS ORDERED: VASOPRESSIN 20 UNIT/ML VIAL ONE (14:20)
[2024-01-09] MEDS ORDERED: ALBUMIN HUMAN 5% 12.5 GM/250 ML VIAL IV ONE ×2 (14:32→14:33)
[2024-01-09] MEDS ORDERED: PHENYLEPHRINE 100MCG/ML 10ML SYR IV ONE (14:44)
[2024-01-09] MEDS ORDERED: SUGAMMADEX SODIUM 200 MG/2 ML VIAL IV ONE (15:33)
[2024-01-09] MEDS: FLOSEAL HEMOSTATIC MATRIX 10ML TOP ONE (16:13)
--- NOTE | 2024-01-09 16:25 | Operative Report ---
Post Operative Report Pre & Post Diagnosis Operation Date: 01/09/24 12:15 Pre-Op Diagnosis: Lumbar spinal stenosis with neurogenic claudication Post-Op Diagnosis: Same stenosis I identified the patient and participated in the time-out.: Yes Procedure Operation Date: 01/09/24 12:15 Actual Procedures #1 lumbar decompression with bilateral medial facetectomies and foraminotomies L3-L4 L4-L5 L5-S1. #2 posterior spinal fusion L4-S1. #3 placement posterior instrumentation L4-S1. #4 interbody fusion L for L5 L5-S1. #5 placement of Spira 16 x 26 mm at L4-5 and 15 x 26 mm x 2 at L5-S1. #6 placement locally harvested morselized autograft in the posterior lateral gutters. #7 placement infuse collagen sponge combined with Koros bone graft in the posterior lateral gutters and Morpheus interbody space. #8 placement of versa wrap on the exposed dura. Surgeon Andrzej Lo, DO Forming Tube Selector Regis Ivy Estimated Blood Loss 250 Findings See Below The patient is 5 foot 6 weighing over 90 kg with a BMI in excess of 34. Patient's body habitus did contribute to significant technical difficulty with positioning exposure and the procedure itself and at least 50% increased operative time. Specimens None Indications This is a 73-year-old male who presents above his diagnosis after presenting with significant bilateral leg weakness is here for surgical intervention. Description of Procedure Patient was met with identified informed consent obtained. Patient was then taken to the operative suite underwent ablation placed in a prone position on the Goldy table on top of the Boni frame. All bony prominences well-padded eyes inspected to ensure no external pressure placed upon the. This point the lumbar spine was prepped and draped in normal sterile fashion. Sharp dissection with the assistance of Bovie cautery was performed down to and exposing the lamina transverse processes of L4-L5 and the sacral ala bilaterally. From caudal cephalad fashion complete laminectomy of L5 was performed including bilateral medial facetectomies and foraminotomies addressing severe spinal stenosis. Then performed a complete laminectomy of L4 with bilateral medial facetectomies and foraminotomies and lastly partial laminectomy of L3 with bilateral medial facetectomies addressing severe spinal stenosis at all levels. Pedicle screws were then placed in L4-L5 and S1 levels bilaterally with assistance of fluoroscopy and appropriate size lynette placed. By way of a transforaminal approach on the right I discectomy of L5-S1 was performed endplates corrected to subcortical bleeding bone and a 15 x 26 mm Spira cage filled with Morpheus bone graft tapped in position. Then proceeded to the left transforaminal region at L5-S1. Discectomy performed endplates guided to subcortical bleeding bone and a second 15 x 26 mm Spira cage filled with Morph eus tapped in position. Then proceeded L4-L5 by way of transforaminal approach and a left complete discectomy was performed endplates guided to subcortical mean bone and a 16 x 26 mm Spira cage filled with Morpheus bone graft tapped in position. The rods then compressed locked into final position bilaterally. The transverse processes of L4-5 the sacral ala burred to subcortical bleeding bone. Infuse collagen sponge combined with Koros bone graft and local autograft placed in the posterior gutters. 15 round YISSEL drain inserted. Versa wrap was placed on the exposed dura. Incision was then closed with 1 Vicryl fascia 2-0 Vicryl subcutaneously and 4 Monocryl for fascial closure. Steri-Strips and sterile dressing placed. Patient waken taken PACU stable condition. Please note spinal cord monitoring was utilized at the procedure no changes noted. Maxine Ivy was present at the entire surgery involved the patient positioning complex portion of the surgery and final skin closure. I attest to the content of the Intraoperative Record and any orders documented therein. Any exceptions are noted below.
--- NOTE | 2024-01-09 16:34 | Fluoroscopy Report ---
FL lumbar spine 2-3V CLINICAL HISTORY: L4-S1 DECOMPRESSION AND FUSION COMPARISON STUDY: Lumbar spine MRI January 06, 2024. FLUOROSCOPY TIME: 27 seconds. Ka, r: 21.90 mGy FLUOROSCOPIC IMAGES: 2 FINDINGS: Fluoroscopy was provided during L4-L5 and L5-S1 discectomy with interbody spacer placement. Posterior decompression is noted with bilateral pedicle screw fusion extending from L4 through S1. T he hardware is intact. IMPRESSION: Fluoroscopy provided during L4-S1 decompression and fusion. ACT 112: Negative or not required by law. Electronically signed by: Donaldo Ruiz M.D. 01/09/2024 4:33 PM
--- NOTE | 2024-01-09 17:02 | Anesthesiology Progress Note ---
Date of Service January 09, 2024 Anesthesia Post Procedure Vital Signs Vital Signs: Temp Pulse Pulse Resp BP BP Pulse Ox 01/09/24 12:23 36.8 C 70 20 150/97 H 94 01/09/24 07:08 36.4 C L 69 16 138/75 96 01/09/24 03:10 14 97 01/08/24 23:35 26 H 96 01/08/24 21:49 36.7 C 66 14 166/81 H 95 01/08/24 20:32 88 20 97 O2 Del Method 01/09/24 12:23 Room Air 01/09/24 07:08 Room Air 01/09/24 03:10 01/08/24 23:35 01/08/24 21:49 Room Air 01/08/24 20:32 Pain Intensity Lower Back: Pain Intensity: 3 Right Shoulder: Pain Intensity: 3 Transfer of Care Handoff Completed per policy Notes Mental Status: alert / awake / arousable and participated in evaluation Patient Amnestic to Procedure: Yes Nausea / Vomiting: adequately controlled Pain: adequately controlled Airway Patency, RR, SpO2: stable & adequate BP & HR: stable & adequate Hydration State: stable & adequate Anesthetic Complications: no major complications apparent
[2024-01-09] MEDS ORDERED: METOCLOPRAMIDE HCL INJ 5 MG/ML 2 ML VIAL IV PRN (17:50)
[2024-01-09] MEDS ORDERED: ALUMINUM/MAGNESIUM SUSP 30 ML UDC PO PRN (17:50)
[2024-01-09] MEDS ORDERED: ONDANSETRON 4 MG OD TAB PO PRN (17:50)
[2024-01-09] MEDS ORDERED: SOD PHOSPHATE/SOD BIPHOSPHATE ENEMA 132 ML BTL PR PRN (17:50)
[2024-01-09] MEDS ORDERED: LORazepam 0.5 MG TAB PO PRN (17:50)
[2024-01-09] MEDS ORDERED: PROMETHAZINE 12.5 MG/50.5 ML BAG IV PRN (17:50)
[2024-01-09] MEDS ORDERED: FAMOTIDINE 20 MG TAB PO PRN (17:50)
[2024-01-09] MEDS ORDERED: LORazepam 0.5 MG in SYRINGE 0.25 ML IV PRN (17:50)
[2024-01-09] MEDS ORDERED: ONDANSETRON INJ 2 MG/ML 2 ML VIAL IV PRN (17:50)
[2024-01-09] MEDS ORDERED: ACETAMINOPHEN 1,000 MG/100 ML VIAL IV PRN (17:50)
[2024-01-09] MEDS ORDERED: HYDROmorphone INJ 0.5 MG/0.5 ML SYR IV PRN (17:50)
[2024-01-09] MEDS ORDERED: diphenhydrAMINE Capsule 25 MG CAP PO PRN (17:50)
[2024-01-09] MEDS ORDERED: NALOXONE HCL 0.4 MG/1 ML VIAL/CARP IV PRN (17:50)
[2024-01-09] MEDS ORDERED: DO NOT ADMINISTER FLU VACCINE PRN (17:50)
[2024-01-09] MEDS ORDERED: hydrOXYzine HCl 25 MG TAB PO PRN (17:50)
[2024-01-09] MEDS ORDERED: DO NOT ADMINISTER PNEUMOCOCCAL VACCINE PRN (17:50)
[2024-01-09] MEDS: DOCUSATE SODIUM/SENNA 50/8.6MG TAB PO SCH (20:32)
[2024-01-09] MEDS: ceFAZolin 2000MG 2,000 MG/15 ML SYR IV SCH (20:33)
--- NOTE | 2024-01-09 22:05 | Hospitalist Progress Note ---
Date of Service January 09, 2024 Assessment & Plan (1) Spinal stenosis: Plan: Assessment: 1. Acute transverse process fractures of T12, L1 and L2 with left-sided. Orthopedic spine surgery consulted. Risk of myocardial infarction or cardiac arrest, intraoperatively or up to 30 days post op is 0.1-0.2% Patient does not require further workup prior to surgery. Patient tolerated his procedure on 01/08 will monitor vitals and labs. 2. Spinal stenosis. Spine surgery consulted. 3. Coronary artery disease status post CABG x 3 vessels 2007. The patient does follow with outpatient cardiology. 4. Hypertension. 5. Dyslipidemia. 6. Obstructive sleep apnea. He does wear CPAP at home. He did not bring his machine with him working to get it here for this hospital stay therefore inpatient CPAP has been ordered. 7. Obesity. 8. Lower extremity paresthesias and weakness as described above. Again with a history of spinal stenosis spine surgery consulted. 9. Mild hyper bilirubinemia by lab today. 1.5 up to 1.7 Direct bilirrubin is normal. No concern for liver pathology. may proceed with surgery. Admission and Anticipated Discharge Date Admission Date: January 06, 2024 Subjective Patient reports no new symptoms. Review of Systems Review of Systems: All systems reviewed & are unremarkable except as noted in HPI & below Physical Exam Physical Exam: In General: In general pleasant 73-year-old male who is alert and oriented x 3 HEENT: Normocephalic atraumatic pupils are equal round and reactive to light bilaterally. NECK: Supple no rigidity no lymphadenopathy no thyromegaly no carotid bruits no JVD no masses. HEART: Regular rate and rhythm LUNGS: Clear to auscultation bilaterally ABDOMEN: Soft nontender, no rebound, no peritoneal signs, positive bowel sounds, no appreciable organomegaly. EXTREMITIES: Intact, no peripheral cyanosis, clubbing or edema. Results & Data Results & Data Vital Signs (Past 12 Hours) Vital Signs Temp Pulse Pulse Resp BP Pulse Ox O2 Del Method 01/09/24 21:19 36.6 C 86 16 160/82 H 94 Nasal Cannula 01/09/24 19:47 36.5 C 88 16 162/81 H 97 Nasal Cannula 01/09/24 18:46 88 16 157/90 H 92 Nasal Cannula 01/09/24 18:17 36.6 C 85 16 160/78 H 92 Nasal Cannula 01/09/24 17:54 36.5 C 82 20 151/78 H 92 Nasal Cannula 01/09/24 17:25 79 16 149/74 H 92 Nasal Cannula 01/09/24 17:15 37.6 C H 77 18 150/77 H 95 Nasal Cannula 01/09/24 17:05 77 19 141/74 H 93 Oxymask 01/09/24 16:55 75 20 127/71 95 Oxymask 01/09/24 16:46 36.5 C 75 18 132/75 93 Oxymask 01/09/24 12:23 36.8 C 70 20 150/97 H 94 Room Air O2 Flow Rate 01/09/24 21:19 3 01/09/24 19:47 3 01/09/24 18:46 3 01/09/24 18:17 2 01/09/24 17:54 2 01/09/24 17:25 3 01/09/24 17:15 2 01/09/24 17:05 5 01/09/24 16:55 10 01/09/24 16:46 10 01/09/24 12:23 PG Care Time/CCT Total # of Minutes Spent Total Time Spent with Patient: Total time spent is greater than 50% in coordination of care (as documented) at patient's floor/unit and/or counseling patient: Coding Level of Care Code 89355 SUB INP/OBS CARE 2MIN Diagnoses Spinal stenosis M48.061 Neurogenic claudication status: unspecified Spinal region: lumbar (1) Spinal stenosis Neurogenic claudication status: unspecified Spinal region: lumbar Qualified Code(s): M48.061 - Spinal stenosis, lumbar region without neurogenic claudication
[2024-01-10] MEDS: POLYETHYLENE (MIRALAX) 17 GM PACK PO SCH (05:14)
[2024-01-10 07:24] LABS: Basophils # (auto) 0.01 K/uL (0.00-0.20); Basophils % (auto) 0.1 %; Hematocrit (blood only) 37.3 % (42.0-52.0); Hemoglobin 12.5 g/dl (14.0-18.0); Immature Granulocytes # (auto) 0.08 K/uL (0.01-0.20); Immature Granulocytes % (auto) 0.6 %; Lymphocytes # (auto) 1.19 K/uL (1.20-3.40); Lymphocytes % (auto) 8.3 %; Mean Corpuscular Hemoglobin 33.4 pg (25.0-34.0); Mean Corpuscular Hgb Conc 33.5 g/dL (32.0-36.0); Mean Corpuscular Volume 99.7 fL (80.0-100.0); Mean Platelet Volume 10.4 fL (9.4-12.4); Monocytes # (auto) 0.61 K/uL (0.11-0.59); Monocytes % (auto) 4.3 %; Neutrophils # (auto) 12.39 K/uL (1.40-6.50); Neutrophils % (auto) 86.7 %; Platelet Count 237 K/uL (130-400); RDW Coefficient of Variation 12.8 % (11.5-14.5); RDW Standard Deviation 46.4 fL (36.4-46.3); Red Blood Count 3.74 M/uL (4.70-6.10); White Blood Count 14.28 K/ul (4.8-10.8)
[2024-01-10 07:40] LABS: BUN Creatinine Ratio 21.5 (10-20); Creatinine Clr Calc Pharmacy 78.7 ml/min; Est GFR (African American) 94.7 ml/min; Est GFR (Non-African American) 81.7 ml/min; Potassium 3.9 mmol/L (3.5-5.1)
[2024-01-10] MEDS: dexAMETHasone 6 MG in SYRINGE 0 ML IV SCH (08:17)
--- NOTE | 2024-01-10 09:44 | Orthopedic Progress Note ---
Date of Service January 10, 2024 Assessment & Plan (1) Neurogenic claudication due to lumbar spinal stenosis: Plan: At this time initiate physical therapy monitor his YISSEL output hopefully discharge home the next few days. Admission and Anticipated Discharge Date Admission Date: January 06, 2024 Subjective Back pain is controlled leg symptoms improved Physical Exam Physical Exam: Patient is currently in bed. Is comfortable. Discussed when to testing. Results & Data Vital Signs (Past 12 Hours) Vital Signs Temp Pulse Pulse Resp BP Pulse Ox O2 Del Method 01/10/24 07:14 36.6 C 73 16 163/77 H 94 Room Air 01/10/24 03:29 36.4 C L 72 18 143/79 H 95 Room Air 01/10/24 02:48 84 13 95 01/09/24 23:18 36.4 C L 89 16 144/81 H 92 Room Air 01/09/24 22:20 85 20 94 Queries Orthopedic Spine Obesity: Yes
[2024-01-10] MEDS: oxyCODONE HCL IR 5 MG TAB (IMMEDIATE RELEASE) PO PRN (10:16)
[2024-01-10] MEDS: ACETAMINOPHEN 500 MG TAB PO PRN (14:12)
--- NOTE | 2024-01-10 23:00 | Hospitalist Progress Note ---
Date of Service January 10, 2024 Assessment & Plan (1) Spinal stenosis: Plan: Assessment: 1. Acute transverse process fractures of T12, L1 and L2 with left-sided. Orthopedic spine surgery consulted. S/P: lumbar decompression with bilateral medial facetectomies and foraminotomies L3-L4 L4-L5 L5-S1. #2 posterior spinal fusion L4-S1. #3 placement posterior instrumentation L4-S1. #4 interbody fusion L for L5 L5-S1. #5 placement of Spira 16 x 26 mm at L4-5 and 15 x 26 mm x 2 at L5-S1. #6 placement locally harvested morselized autograft in the posterior lateral gutters. #7 placement infuse collagen sponge combined with Koros bone graft in the posterior lateral gutters and Morpheus interbody space. #8 placement of versa wrap on the exposed dura. 2. Spinal stenosis. Spine surgery consulted. 3. Coronary artery disease status post CABG x 3 vessels 2007. The patient does follow with outpatient cardiology. 4. Hypertension. 5. Dyslipidemia. 6. Obstructive sleep apnea. He does wear CPAP at home. He did not bring his machine with him working to get it here for this hospital stay therefore inpatient CPAP has been ordered. 7. Obesity. 8. Lower extremity paresthesias and weakness as described above. Again with a history of spinal stenosis spine surgery consulted. 9. Mild hyper bilirubinemia by lab today. 1.5 up to 1.7 Direct bilirrubin is normal. No concern for liver pathology. Admission and Anticipated Discharge Date Admission Date: January 06, 2024 Subjective 73 yo male reports no new symptoms. Review of Systems Review of Systems: All systems reviewed & are unremarkable except as noted in HPI & below Physical Exam Physical Exam: In General: In general pleasant 73-year-old male who is alert and oriented x 3 HEENT: Normocephalic atraumatic pupils are equal round and reactive to light bilaterally. NECK: Supple no rigidity no lymphadenopathy no thyromegaly no carotid bruits no JVD no masses. HEART: Regular rate and rhythm LUNGS: Clear to auscultation bilaterally ABDOMEN: Soft nontender, no rebound, no peritoneal signs, positive bowel sounds, no appreciable organomegaly. EXTREMITIES: Intact, no peripheral cyanosis, clubbing or edema. Results & Data Results & Data Vital Signs (Past 12 Hours) Vital Signs Temp Pulse Pulse Resp BP Pulse Ox O2 Del Method 01/10/24 22:35 70 20 96 01/10/24 20:04 36.8 C 70 19 153/72 H 95 Room Air 01/10/24 14:56 36.6 C 83 16 127/56 L 93 Room Air FiO2 01/10/24 22:35 21 01/10/24 20:04 01/10/24 14:56 PG Care Time/CCT Total # of Minutes Spent Total Time Spent with Patient: Total time spent is greater than 50% in coordination of care (as documented) at patient's floor/unit and/or counseling patient: Coding Level of Care Code 46330 SUB INP/OBS CARE MIN Diagnoses Spinal stenosis M48.061 Neurogenic claudication status: unspecified Spinal region: lumbar (1) Spinal stenosis Neurogenic claudication status: unspecified Spinal region: lumbar Qualified Code(s): M48.061 - Spinal stenosis, lumbar region without neurogenic claudication
[2024-01-11] MEDS: HYDROmorphone INJ 1 MG/ML SYRINGE IV PRN (03:10)
[2024-01-11 06:13] LABS: Hematocrit (blood only) 37.5 % (42.0-52.0); Hemoglobin 12.6 g/dl (14.0-18.0); Mean Corpuscular Hemoglobin 33.8 pg (25.0-34.0); Mean Corpuscular Hgb Conc 33.6 g/dL (32.0-36.0); Mean Corpuscular Volume 100.5 fL (80.0-100.0); Mean Platelet Volume 10.3 fL (9.4-12.4); Platelet Count 223 K/uL (130-400); RDW Coefficient of Variation 13.1 % (11.5-14.5); RDW Standard Deviation 48.3 fL (36.4-46.3); Red Blood Count 3.73 M/uL (4.70-6.10); White Blood Count 14.89 K/ul (4.8-10.8)
[2024-01-11 06:31] LABS: BUN Creatinine Ratio 25.6 (10-20); Calcium 9.1 mg/dl (8.6-10.3); Creatinine Clr Calc Pharmacy 89.3 ml/min; Est GFR (African American) 102.4 ml/min; Est GFR (Non-African American) 88.3 ml/min; Potassium 3.8 mmol/L (3.5-5.1)
[2024-01-11] MEDS: traMADol HCL 50 MG TABLET PO PRN (08:37)
--- NOTE | 2024-01-11 11:37 | Orthopedic Progress Note ---
Date of Service January 11, 2024 Assessment & Plan (1) Neurogenic claudication due to lumbar spinal stenosis: Plan: This time continue OT PT and consider rehab placement. Monitor his YISSEL output. Admission and Anticipated Discharge Date Admission Date: January 06, 2024 Subjective Back pain controlled leg symptoms improving Physical Exam Physical Exam: Patient is in the chair at bedside. Discussed when to testing. Results & Data Vital Signs (Past 12 Hours) Vital Signs Temp Pulse Pulse Resp BP Pulse Ox O2 Del Method 01/11/24 09:07 Room Air 01/11/24 07:30 36.7 C 74 16 140/65 95 Room Air 01/11/24 03:00 76 21 97 FiO2 01/11/24 09:07 01/11/24 07:30 01/11/24 03:00 21 Queries Orthopedic Spine Obesity: Yes
[2024-01-11] MEDS: MAGNESIUM HYDROXIDE SUSP 30 ML UDC PO PRN (13:39)
[2024-01-11] MEDS: bisacodyL 10 MG SUPP PR PRN (19:59)
--- NOTE | 2024-01-11 21:08 | Hospitalist Progress Note ---
Date of Service January 11, 2024 Assessment & Plan (1) Spinal stenosis: Plan: Assessment: 1. Acute transverse process fractures of T12, L1 and L2 with left-sided. Orthopedic spine surgery consulted. S/P: lumbar decompression with bilateral medial facetectomies and foraminotomies L3-L4 L4-L5 L5-S1. #2 posterior spinal fusion L4-S1. #3 placement posterior instrumentation L4-S1. #4 interbody fusion L for L5 L5-S1. #5 placement of Spira 16 x 26 mm at L4-5 and 15 x 26 mm x 2 at L5-S1. #6 placement locally harvested morselized autograft in the posterior lateral gutters. #7 placement infuse collagen sponge combined with Koros bone graft in the posterior lateral gutters and Morpheus interbody space. #8 placement of versa wrap on the exposed dura. Hemoglobin has been stable. 2. Spinal stenosis. Spine surgery consulted. 3. Coronary artery disease status post CABG x 3 vessels 2007. The patient does follow with outpatient cardiology. 4. Hypertension. 5. Dyslipidemia. 6. Obstructive sleep apnea. He does wear CPAP at home. He did not bring his machine with him working to get it here for this hospital stay therefore inpatient CPAP has been ordered. 7. Obesity. 8. Lower extremity paresthesias and weakness as described above. Again with a history of spinal stenosis spine surgery consulted. 9. Mild hyper bilirubinemia by lab today. 1.5 up to 1.7 Direct bilirrubin is normal. No concern for liver pathology. Admission and Anticipated Discharge Date Admission Date: January 06, 2024 Subjective 73 yo male feeling well. He has no new symptoms. Pain appears controlled. Review of Systems Review of Systems: All systems reviewed & are unremarkable except as noted in HPI & below Physical Exam Physical Exam: In General: In general pleasant 73-year-old male who is alert and oriented x 3 HEENT: Normocephalic atraumatic pupils are equal round and reactive to light bilaterally. NECK: Supple no rigidity no lymphadenopathy no thyromegaly no carotid bruits no JVD no masses. HEART: Regular rate and rhythm LUNGS: Clear to auscultation bilaterally ABDOMEN: Soft nontender, no rebound, no peritoneal signs, positive bowel sounds, no appreciable organomegaly. EXTREMITIES: Intact, no peripheral cyanosis, clubbing or edema. YISSEL drain still will small amount of blood. Results & Data Results & Data Vital Signs (Past 12 Hours) Vital Signs Temp Pulse Resp BP Pulse Ox O2 Del Method 01/11/24 14:19 36.8 C 72 16 148/68 H 96 Room Air PG Care Time/CCT Total # of Minutes Spent Total Time Spent with Patient: Total time spent is greater than 50% in coordination of care (as documented) at patient's floor/unit and/or counseling patient: Coding Level of Care Code 87145 SUB INP/OBS CARE 2/35MIN Diagnoses Spinal stenosis M48.061 Neurogenic claudication status: unspecified Spinal region: lumbar (1) Spinal stenosis Neurogenic claudication status: unspecified Spinal region: lumbar Qualified Code(s): M48.061 - Spinal stenosis, lumbar region without neurogenic claudication
--- NOTE | 2024-01-12 09:06 | Hospitalist Progress Note ---
Date of Service January 12, 2024 Assessment & Plan (1) Spinal stenosis: Plan: 1. Acute transverse process fractures of T12, L1 and L2 with left-sided. Spinal stenosis. Orthopedic spine surgery consulted. S/P: 01/09/24 lumbar decompression with bilateral medial facetectomies and foraminotomies L3-L4 L4-L5 L5-S1. posterior spinal fusion L4-S1. Pt has some acute blood loss anemia but Hemoglobin has been stable in 12 gm range . Coronary artery disease status post CABG x 3 vessels 2007. The patient does follow with outpatient cardiology. Obstructive sleep apnea. He does wear CPAP at home. He did not bring his machine with him working to get it here for this hospital stay therefore inpatient CPAP has been ordered. Obesity. Mild hyper bilirubinemia by lab 01/07 1.5 up to 1.7 Direct bilirrubin is normal. Plan Pt plan to return home still with YISSEL drain in place Admission and Anticipated Discharge Date Admission Date: January 06, 2024 Subjective pt seen family at bedside, states is walking but a bit wobbly looking for short term rehab Physical Exam Physical Exam: alert and awake non labored breathing Results & Data Results & Data Vital Signs (Past 12 Hours) Vital Signs Temp Pulse Pulse Pulse Resp BP Pulse Ox 01/12/24 08:00 01/12/24 07:22 98.2 F 70 19 177/72 H 94 01/12/24 03:27 23 01/11/24 23:03 76 23 96 01/11/24 21:35 98.2 F 73 18 187/76 H 98 O2 Del Method FiO2 01/12/24 08:00 Room Air 01/12/24 07:22 Room Air 01/12/24 03:27 21 01/11/24 23:03 21 01/11/24 21:35 Room Air PG Care Time/CCT Total # of Minutes Spent Total Time Spent with Patient: Total time spent is greater than 50% in coordination of care (as documented) at patient's floor/unit and/or counseling patient: Coding Level of Care Code 15011 SUB INP/OBS CARE 2/35MIN Diagnoses Spinal stenosis M48.061 Neurogenic claudication status: unspecified Spinal region: lumbar (1) Spinal stenosis Neurogenic claudication status: unspecified Spinal region: lumbar Qualified Code(s): M48.061 - Spinal stenosis, lumbar region without neurogenic claudication
--- NOTE | 2024-01-12 10:27 | Orthopedic Progress Note ---
Date of Service January 12, 2024 Assessment & Plan (1) Neurogenic claudication due to lumbar spinal stenosis: Plan: Patient is progressing with physical therapy. Will well however consider rehab placement if possible. Admission and Anticipated Discharge Date Admission Date: January 06, 2024 Subjective Patient's back pain is controlled. Leg pain is improving. Ambulation is improving. Physical Exam Physical Exam: On exam the patient is in bed at this time. He is comfortable. Discussed when to testing. Results & Data Vital Signs (Past 12 Hours) Vital Signs Temp Pulse Pulse Resp BP Pulse Ox O2 Del Method 01/12/24 08:00 Room Air 01/12/24 07:22 36.8 C 70 19 177/72 H 94 Room Air 01/12/24 03:27 23 01/11/24 23:03 76 23 96 FiO2 01/12/24 08:00 01/12/24 07:22 01/12/24 03:27 21 01/11/24 23:03 21 Queries Orthopedic Spine Obesity: Yes
[2024-01-12 22:31] VITALS: O2SAT 94
[2024-01-13 07:25] VITALS: BP 167/82; RESP 18; TEMP 98.1
--- NOTE | 2024-01-13 08:13 | Orthopedic Progress Note ---
Date of Service January 13, 2024 Assessment & Plan (1) Neurogenic claudication due to lumbar spinal stenosis: Plan: At this time continue physical therapy. Plan for discharge to rehab today. Admission and Anticipated Discharge Date Admission Date: January 06, 2024 Subjective Back pain controlled leg symptoms improving Physical Exam Physical Exam: Patient is comfortable. Is for strength testing. Results & Data Vital Signs (Past 12 Hours) Vital Signs Temp Pulse Pulse Resp BP Pulse Ox O2 Del Method 01/13/24 07:00 36.7 C 61 18 167/82 H 94 Room Air 01/13/24 03:08 22 01/12/24 23:20 177/84 H 01/12/24 22:29 36.8 C 69 19 183/84 H 94 Room Air 01/12/24 22:11 67 23 96 Queries Orthopedic Spine Obesity: Yes
[2024-01-13 09:59] VITALS: PULSE 73
--- NOTE | 2024-01-13 16:43 | Discharge Summary ---
Discharge Summary Date of Service January 13, 2024 Principal Dx & Hospital Course #1 = Principal Diagnosis (1) Spinal stenosis: 1. Acute transverse process fractures of T12, L1 and L2 with left-sided. Spinal stenosis. Orthopedic spine surgery consulted. S/P: 01/09/24 lumbar decompression with bilateral medial facetectomies and foraminotomies L3-L4 L4-L5 L5-S1. posterior spinal fusion L4-S1. Pt has some acute blood loss anemia but Hemoglobin has been stable in 12 gm range. Coronary artery disease status post CABG x 3 vessels 2007. The patient does follow with outpatient cardiology. Obstructive sleep apnea. He does wear CPAP at home. He did not bring his machine with him working to get it here for this hospital stay therefore inpatient CPAP has been ordered. Obesity. Mild hyper bilirubinemia by lab 01/07 1.5 up to 1.7 Direct bilirrubin is normal. Plan pt to have rehab after discharge Notes For Next Care Provider pt needs to have follow up with Dr Lo. otherwise look to have bowel regimen to prevent consitipation Admission HPI Per Admitting Provider This is a pleasant 74-year-old male who had a mechanical fall at [place] while golfing back on December 15, 2023. Since then he has been having some low back pain. The week he came home he had an additional fall. He saw his outpatient primary care physician who ordered x-rays and subsequently referred to Dr. Lo orthopedic spine surgery. Their appointment for outpatient evaluation by orthopedic spine surgery February 04. Yesterday the patient had an additional mechanical fall. He has been having numbness from his knees distally as well as increasing lower extremity weakness. This morning he had a additional mechanical fall at which time prompted a trip to the ER for further evaluation and treatment. In the emergency department the patient underwent CAT scanning which identified an acute left-sided T12, L1 and L2 transverse process fracture. In addition the patient has pretty significant spinal stenosis by CAT scan imaging. Consultation was obtained with orthopedic spine surgery Dr. Lo by the ER provider who is recommending MRI and inpatient admission and consultation for possible surgical decompression pending MRI imaging. Discharge Exam awake and alert wound is C/D/i cardiac is regular lungs are clear abd is soft and non tender Updated Medication List Medication Instructions Recorded Confirmed Type cholecalciferol (vitamin D3) 25 25 mcg PO DAILY 12/08/19 01/06/24 History mcg (1,000 unit) tablet hydroxychloroquine 200 mg tablet 200 mg PO DAILY 12/08/19 01/06/24 History multivitamin 1 tab PO DAILY 12/08/19 01/06/24 History rosuvastatin 20 mg tablet 20 mg PO QPM 12/08/19 01/06/24 History krill oil 500 mg capsule 500 mg PO DAILY 12/06/20 01/06/24 History omeprazole 20 mg capsule,delayed 20 mg PO DAILY 12/06/20 01/06/24 History release aspirin 81 mg tablet,delayed 81 mg PO DAILY 08/04/21 01/06/24 History release ([facility] Low Dose Aspirin) sildenafil 100 mg tablet 100 mg PO DAILY PRN sexual 01/08/23 01/06/24 Rx activity #10 tabs tamsulosin 0.4 mg capsule 0.4 mg PO DAILY #90 caps 01/08/23 01/06/24 Rx citalopram 20 mg tablet 20 mg PO DAILY 01/06/24 01/06/24 History cyclobenzaprine 10 mg tablet 10 mg PO BID PRN MUSCLE SPASMS 01/06/24 01/06/24 History gabapentin 600 mg tablet 600 mg PO BID 01/06/24 01/06/24 History indomethacin 25 mg capsule 25 mg PO BID 01/06/24 01/06/24 History lisinopril 40 mg tablet 40 mg PO DAILY 01/06/24 01/06/24 History memantine 10 mg tablet 10 mg PO BID 01/06/24 01/06/24 History oxycodone 5 mg tablet 5 mg PO Q6H PRN pain #30 tabs 01/10/24 Rx tramadol 50 mg tablet 50 mg PO Q6H PRN pain, moderate 01/10/24 Rx #30 tabs oxycodone 5 mg tablet 5 mg PO Q8H PRN pain #20 tabs 01/13/24 Rx tramadol 50 mg tablet 50 mg PO TID PRN pain #20 tabs 01/13/24 Rx Hospital Stay Data Consultations 01/06/24 14:48 ED Decision to Admit Stat 01/06/24 14:49 Consult Orthopedic Surgery Routine Procedures Performed Operation Date: 01/09/24 12:15 Actual Procedures p L4-S1 Decompression and Fusion, Spinal Cord Monitoring(Not Applicable) - Andrzej Lo DO Diagnostic Imagining Performed 01/06/24 13:25 CT lumbar spine wo con Stat 01/06/24 14:46 MRI Lumbar Spine [MR lumbar spine wo con] Stat 01/09/24 12:15 FL lumbar spine 2-3V Routine Pending Results Patient Have Any Pending Studies at Discharge: No Discharge Instructions Given to Patient (Per Discharging Provider) ACTIVITY RECOMMENDATIONS: SELF CARE INSTRUCTIONS AFTER THORACIC/LUMBAR FUSIONS 1. You may walk to your tolerance. It is good exercise for your legs and back. Expect some back and intermittent leg aches and pains. 2. You may perform "counter-top" level activities (make a sandwich, jerardo with a project, etc.). 3. No bending or lifting of more than 10 pounds or back twisting of any nature (roll like a log when turning in bed). 4. You may ride in a car for 20-30 minutes at a time. No driving until after your first visit with your doctor. 5. Frequent changes of position and restricting sitting to 30 minutes at a time will help limit the amount of back spasms and stiffness you may experience. 6. You may discontinue the use of ambulatory aids (cane, crutches, etc.) once your strength and confidence allow. 7. You may supervisor belt and link assembly the shower and let water strike your incision when you arrive home at least once daily. Do not take a tub bath, sit in a hot tub or go into a swimming pool until after your first recheck in the office. SPECIAL CARE INSTRUCTIONS: VERY IMPORTANT TO READ AND REVIEW A. Your surgical incision has been closed with a cosmetic suture under the skin that will dissolve in about 6 weeks. In 14 days, you can use a pair of clean scissors and cut the suture that is left outside of the skin at the ends of your incision. 1. The small skin tapes can be removed 7 days after surgery if they have not fallen off by that point. 2. You may keep the wound open to air as much as possible to promote healing after post-op day number 5 unless told otherwise by your doctor. 3. If you think the wound looks like it is becoming infected (redness or worsening drainage) and/or you are experiencing fever, chill or worsening back pain and muscle spasms, contact the office so that we may evaluate you as soon as possible. B. Complications are uncommon, but please contact us if you have any signs or symptoms of: 1. wound infection (fever higher than 102.5 degrees F, redness, separation of wound, drainage, or increasing pain from the incision) 2. blood clots in legs (pain, swelling, redness and warmth in legs) 3. urinary tract infection (fever higher than 102.5 degrees F, burning upon urination or increased frequency of urination) 4. nerve problems (inability to walk on your toes or heels, numbness, loss of bowel or bladder control) 5. any other symptoms that concern you C. Please call the office at if you have any concerns or questions about your operation or recovery. D. No smoking! Smoking drastically decreases the chance of a solid fusion. E. Do not take any anti-inflammatory medications (Indocin, Advil, Motrin, Aspirin, Naprosyn, etc.) as these may inhibit the chance of a solid fusion. Tylenol is okay to take for pain. MANAGING PAIN AFTER SPINAL SURGERY 1. Narcotic medication is intended for short-term use and will be provided for surgical pain. Surgical pain usually lasts for a period of 4-6 weeks. Narcotic medication includes Percocet, Vicodin, Darvocet, Tylenol #3 or Lortab. 2. Longer-term pain is more appropriately treated with non-narcotic medication such as Tylenol ES. 3. Muscle spasm is not appropriately treated with narcotics. Muscle relaxers such as Soma, Flexeril or Skelaxin can be used along with Tylenol ES. 4. Remember that we all live with some "aches and pains". This is not unusual or uncommon after an injury or as we get older. a. Back pain is expected and may include muscle spasms for 4 to 6 weeks after surgery. The pain should gradually improve. If the pain worsens for no apparent reason, please contact the office. b. Intermittent leg pain may also be experienced and should not be concerned about unless it worsens for no apparent reason. If so, please contact the office. 5. We will provide appropriate medication within the normal guidelines of their prescribed use. We will also be very cautious and aware of potential abuse and extended duration of patients' medication needs. a. Pain medications are for your comfort and to assist with sleep and rest so that the tissue can heal. They are not provided in order to return to normal activity and should not be used through the day. To do so or worsening pain at night can result from ongoing tissue damage and development of tolerance to the prescribed medicine. 6. Please allow 2-3 days to process refills. Prescriptions will not be mailed but must be picked up at the office. FOLLOW UP VISIT: Keep your scheduled follow-up appointment. Any questions, please call the office at . Total Time Total Time Spent Total Time Spent (In Minutes): greater than 30 minutes were required to complete this summary Coding Level of Care Code 68343 INP/OBS DISCH >30 MIN Diagnoses Spinal stenosis M48.061 Neurogenic claudication status: unspecified Spinal region: lumbar
== END 2024-01-13 12:25 | DRG 454 ==
LOC: ED 13:01 → SUATTDRO 15:01 → 3N 15:01
DX: Z95.1 Presence of aortocoronary bypass graft; Z99.89 Dependence on other enabling machines and devices; M48.062 Spinal stenosis, lumbar region with neurogenic claudication; R29.6 Repeated falls; I25.10 Atherosclerotic heart disease of native coronary artery without angina pectoris; Z88.8 Allergy status to other drugs, medicaments and biological substances; Z88.2 Allergy status to sulfonamides; Z87.891 Personal history of nicotine dependence; Z68.34 Body mass index [BMI] 34.0-34.9, adult; S22.089A Unspecified fracture of T11-T12 vertebra, initial encounter for closed fracture; Z88.6 Allergy status to analgesic agent; E78.5 Hyperlipidemia, unspecified; E66.9 Obesity, unspecified; S32.019A Unspecified fracture of first lumbar vertebra, initial encounter for closed fracture; W18.30XA Fall on same level, unspecified, initial encounter; I10 Essential (primary) hypertension; Z79.899 Other long term (current) drug therapy; Z79.82 Long term (current) use of aspirin; D62 Acute posthemorrhagic anemia; I25.2 Old myocardial infarction; G47.33 Obstructive sleep apnea (adult) (pediatric); S32.028A Other fracture of second lumbar vertebra, initial encounter for closed fracture

== ENCOUNTER 2024-05-23 12:53 | Inpatient (IN) ==
--- NOTE | 2024-05-23 13:52 | Emergency Department Note ---
Impression & Plan Spinal stenosis, thoracic, Lumbar spinal stenosis ED Provider Note NAME: VERONICA AUSTIN AGE: 73 SEX: M : 1950 ARRIVES VIA: Walk-In INFORMANT: Patient, ED PROVIDER(S): Eldon Calle DO CHIEF COMPLAINT: Back pain HPI: The patient is a 73-year-old male who has a history of spinal stenosis who presented to the emergency department at the request of his primary orthopedic spinal specialist. The patient has been going through preop and is scheduled for surgery tomorrow. The patient did not have a ready bed and was told to come to the emergency department by registration. The patient states he has radiation of pain to both legs. He has been compliant with his outpatient medications otherwise. He is scheduled for surgery now on his thoracic spine. ROS: See above HPI for pertinent positives & negatives. A total of 10 systems reviewed and were otherwise negative. PAST MEDICAL HISTORY: See Below PAST SURGICAL HISTORY: See Below FAMILY HISTORY: See Below SOCIAL HISTORY: See Below HOME MEDICATIONS: See Below ALLERGIES: See Below VITALS: See Below PHYSICAL EXAMINATION: GENERAL: Patient is awake alert in no acute distress patient is resting comfortably and showing no signs of anxiety EYES: The conjunctivae are clear. The pupils are round and reactive. EARS, NOSE, MOUTH AND THROAT: The nose is without any evidence of any deformity. NECK: The neck is nontender and supple. RESPIRATORY: Normal respiratory effort is noted there is no evidence of wheezing rhonchi or rales CARDIOVASCULAR: Regular rate and rhythm noted there no murmurs rubs or gallops normal S1 normal S2. GASTROINTESTINAL: The abdomen is soft. Abdomen is nontender. MUSCULOSKELETAL/EXTREMITIES: There is no evidence of gross deformity full range of motion is noted in the hips and shoulders. SKIN: There is no obvious evidence of any rash. There are no petechiae, pallor or cyanosis noted. NEUROLOGIC: Patient is awake alert and oriented x3. MEDICAL DECISION MAKING: The patient is a 73-year-old male who has a history of lumbar and thoracic spinal stenosis who presented to the emergency department at the request of his orthopedic surgeon. The patient was felt to be a candidate for inpatient management as well as surgical management. The patient is to be admitted by his spinal surgeon. I discussed the patient's presentation with his spinal surgeon. He will put orders into the computer and the patient is scheduled for the OR tomorrow. The patient was agreeable with the plan. Triage Nursing notes reviewed. Prior medical records reviewed Vital Signs: reviewed and remarkable for hypertension. Differential diagnosis: Musculoskeletal, disc herniation, fracture, metastatic disease, cord compression, discitis, sciatica, cauda equina, infection, aortic disease, renal colic, gastrointestinal, as well as other pathologies. ER treatment provided: See below Diagnostics interpreted by me: ECG: none Consultation(s): I discussed the patient's case with Dr. Lo who is the patient's orthopedic spinal specialist. Past Med/Surg History Problem List (Updated 05/23/24 @ 14:31 by Eldon Calle DO) Lumbar spinal stenosis (Acute) Spinal stenosis, thoracic (Acute) Neurogenic claudication due to lumbar spinal stenosis Spinal stenosis (Acute) Essential hypertension Acute epididymo-orchitis (Acute) Rheumatoid arthritis GERD (gastroesophageal reflux disease) Coronary artery disease Orchitis Kidney stones BPH without urinary obstruction Arthritis Medical History (Updated 05/23/24 @ 14:31 by Eldon Calle DO) No pertinent family history Heart attack Hyperlipidemia High blood pressure Cardiac disorder Surgical History H/O heart surgery H/O foot surgery History of bladder surgery Social History Smoking Status: Former smoker Tobacco Type: Cigarettes Hx Alcohol Use: No Hx Substance Use: No Preferred Language: Tajik Communication Ability: Effective 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 Beliefs That Will Affect Care: None marital status: Current Living Situation: Spouse Feels Safe at Home: Yes Assistive Devices: Cane and Walker Allergies Allergies Allergy/AdvReac Type Severity Reaction Status Date / Time Sulfa (Sulfonamide Allergy Intermediate RASH;HIVES; Verified 02/06/24 15:04 Antibiotics) SWELLING meloxicam [From Mobic] Allergy Unknown CAN'T Verified 02/06/24 15:04 REMEMBER naproxen [From Aleve] Allergy Unknown CAN'T Verified 02/06/24 15:04 REMEMBER Home Meds Home Medications Medication Instructions Recorded Confirmed cholecalciferol (vitamin D3) 25 25 mcg PO DAILY 12/08/19 02/06/24 mcg (1,000 unit) tablet hydroxychloroquine 200 mg tablet 200 mg PO DAILY 12/08/19 02/06/24 multivitamin 1 tab PO DAILY 12/08/19 02/06/24 rosuvastatin 20 mg tablet 20 mg PO QPM 12/08/19 02/06/24 krill oil 500 mg capsule 500 mg PO DAILY 12/06/20 02/06/24 omeprazole 20 mg capsule,delayed 20 mg PO DAILY 12/06/20 02/06/24 release aspirin 81 mg tablet,delayed 81 mg PO DAILY 08/04/21 02/06/24 release (Maya Low Dose Aspirin) citalopram 20 mg tablet 20 mg PO DAILY 01/06/24 02/06/24 cyclobenzaprine 10 mg tablet 10 mg PO BID PRN MUSCLE SPASMS 01/06/24 02/06/24 gabapentin 600 mg tablet 600 mg PO BID 01/06/24 02/06/24 indomethacin 25 mg capsule 25 mg PO BID 01/06/24 02/06/24 lisinopril 40 mg tablet 40 mg PO DAILY 01/06/24 02/06/24 memantine 10 mg tablet 10 mg PO BID 01/06/24 02/06/24 Previous Rx's Medication Instructions Recorded sildenafil 100 mg tablet 100 mg PO DAILY PRN sexual 01/08/23 activity #10 tabs oxycodone 5 mg tablet 5 mg PO Q6H PRN pain #30 tabs 01/10/24 tramadol 50 mg tablet 50 mg PO Q6H PRN pain, moderate 01/10/24 #30 tabs oxycodone 5 mg tablet 5 mg PO Q8H PRN pain #20 tabs 01/13/24 tramadol 50 mg tablet 50 mg PO TID PRN pain #20 tabs 01/13/24 tamsulosin 0.4 mg capsule See Rx Instructions .Route 03/16/24 .COMPLEX #90 caps Results & Data (ED) Vital Signs Vital Signs - 24 hr 05/23/24 12:54 Temperature 36.5 C Temperature Source Temporal Artery Scan Pulse Rate 55 L Respiratory Rate 20 Blood Pressure 206/77 H Blood Pressure Mean 120 Pulse Oximetry 94 Oxygen Delivery Method Room Air Sepsis Recent Fever Within 48 Hours No Sepsis New/Unexplained Change in Mental Status N/A Sepsis Action Taken by Nursing No Action Required Home Medications Current Medication List: was personally reviewed by me Discharge Plan Visit Data Chief Complaint: Referred by Doctor Stated Complaint: DIRECT ADMIT, SURGERY TOMORROW ED Provider: Luc,Eldon R Discharge Problem: Spinal stenosis, thoracic, Lumbar spinal stenosis Patient Disposition: Being Evaluated by Surgeon Forms Stand Alone Forms: My [facility] [place] Go Vocab Prescriptions Prescriptions: No Action tamsulosin 0.4 mg capsule See Rx Instructions .ROUTE .COMPLEX Qty: 90 3RF Dose Instruction: Take 1 capsule by mouth once daily Rx Instructions: Take 1 capsule by mouth once daily omeprazole 20 mg capsule,delayed release(DR/EC) 20 mg PO DAILY krill oil 500 mg capsule 500 mg PO DAILY sildenafil 100 mg tablet 100 mg PO DAILY PRN (Reason: sexual activity) Qty: 10 11RF Rx Instructions: administer 30 minutes to 4 hours before activity cholecalciferol (vitamin D3) 25 mcg (1,000 unit) tablet 25 mcg PO DAILY rosuvastatin 20 mg tablet 20 mg PO QPM hydroxychloroquine 200 mg tablet 200 mg PO DAILY multivitamin Tablet 1 tab PO DAILY aspirin [Maya Low Dose Aspirin] 81 mg Tablet,Delayed Release (Dr/Ec) 81 mg PO DAILY cyclobenzaprine 10 mg tablet 10 mg PO BID PRN (Reason: MUSCLE SPASMS) gabapentin 600 mg tablet 600 mg PO BID citalopram 20 mg tablet 20 mg PO DAILY indomethacin 25 mg capsule 25 mg PO BID lisinopril 40 mg tablet 40 mg PO DAILY memantine 10 mg tablet 10 mg PO BID tramadol 50 mg tablet 50 mg PO Q6H PRN (Reason: pain, moderate) Qty: 30 0RF oxycodone 5 mg tablet 5 mg PO Q6H PRN (Reason: pain) Qty: 30 0RF oxycodone 5 mg tablet 5 mg PO Q8H PRN (Reason: pain) Qty: 20 0RF tramadol 50 mg tablet 50 mg PO TID PRN (Reason: pain) Qty: 20 0RF Referrals Referrals: Que Foreman PA-C [Primary Care Provider] - Discharge Problem: Lumbar spinal stenosis Qualifiers: Neurogenic claudication status: unspecified Qualified Code(s): M48.061 - Spinal stenosis, lumbar region without neurogenic claudication
[2024-05-23] MEDS ORDERED: ONDANSETRON INJ 2 MG/ML 2 ML VIAL IV PRN (15:17)
[2024-05-23] MEDS ORDERED: HYDROmorphone INJ 0.5 MG/0.5 ML SYR IV PRN (15:17)
[2024-05-23] MEDS ORDERED: ACETAMINOPHEN 1,000 MG/100 ML VIAL IV PRN (15:17)
[2024-05-23] MEDS ORDERED: NALOXONE HCL 0.4 MG/1 ML VIAL/CARP IV PRN (15:17)
[2024-05-23] MEDS ORDERED: HYDROmorphone INJ 1 MG/ML SYRINGE IV PRN (15:17)
[2024-05-23] MEDS ORDERED: METOCLOPRAMIDE HCL INJ 5 MG/ML 2 ML VIAL IV PRN (15:17)
[2024-05-23] MEDS ORDERED: ONDANSETRON 4 MG OD TAB PO PRN (15:17)
[2024-05-23] MEDS ORDERED: PROMETHAZINE 12.5 MG/50.5 ML BAG IV PRN (15:17)
[2024-05-23] MEDS ORDERED: LORazepam 2 MG/1 ML VIAL IV PRN (15:17)
[2024-05-23] MEDS ORDERED: LORazepam 0.5 MG TAB PO PRN (15:17)
[2024-05-23 15:39] LABS: Basophils # (auto) 0.08 K/uL (0.00-0.20); Basophils % (auto) 1.1 %; Eosinophils # (auto) 0.14 K/uL (0.00-0.50); Eosinophils % (auto) 1.9 %; Immature Granulocytes # (auto) 0.03 K/uL (0.01-0.20); Immature Granulocytes % (auto) 0.4 %; Lymphocytes # (auto) 1.77 K/uL (1.20-3.40); Lymphocytes % (auto) 24.1 %; Mean Corpuscular Hemoglobin 30.4 pg (25.0-34.0); Mean Corpuscular Hgb Conc 33.3 g/dL (32.0-36.0); Mean Corpuscular Volume 91.1 fL (80.0-100.0); Mean Platelet Volume 10.9 fL (9.4-12.4); Monocytes # (auto) 0.63 K/uL (0.11-0.59); Monocytes % (auto) 8.6 %; Neutrophils # (auto) 4.69 K/uL (1.40-6.50); Neutrophils % (auto) 63.9 %; Platelet Count 228 K/uL (130-400); RDW Coefficient of Variation 13.6 % (11.5-14.5); RDW Standard Deviation 45.4 fL (36.4-46.3); Red Blood Count 4.28 M/uL (4.70-6.10); White Blood Count 7.34 K/ul (4.8-10.8)
[2024-05-23 15:45] LABS: Albumin Level 4.3 gm/dl (3.4-5.0); BUN Creatinine Ratio 24.1 (10-20); Calcium 9.3 mg/dl (8.6-10.3); Creatinine Clr Calc Pharmacy 93.4 ml/min; Globulin 2.2 gm/dl (2.5-4.0); Total Protein 6.5 gm/dl (6.0-8.3)
--- NOTE | 2024-05-23 16:03 | Hospitalist Consultation ---
Date of Consultation May 23, 2024 Assessment & Plan (1) Neurogenic claudication due to lumbar spinal stenosis: (2) Spinal stenosis, thoracic: (3) Lumbar spinal stenosis: (4) Spinal stenosis: reported he has 2 series of MRI of his spine recently by the Ortho spine surgeon which showed spinal stenosis/DDD in the upper back and neck Unfortunately, I do not have access to the imaging Based on history and information provided, patient has cervicothoracic and lumbar radiculopathy Planned for surgery tomorrow Keep NPO after midnight Hold off pharmacological DVT prophylaxis for now Get EKG I reviewed his TTE from 12/2023 which noted mild conc LVH, EF 55-60%, trace to mild MR, trace to mild TR, grade I diastolic dysfunction (5) Essential hypertension: Blood pressure is currently poorly controlled Patient seems to think some anxiety may be contributing as he stated they were told he was not on schedule for OR earlier prior to admission I reassured him that since Dr Lo admitted him, he has plans for OR for him Patient's home med reconciled with Continue home lisinopril Give one time amlodipine 5mg and monitor (6) GERD (gastroesophageal reflux disease): Continue home omeprazole (7) Rheumatoid arthritis: Stable Continue hydroxychloroquine (8) JEROMY (obstructive sleep apnea): CPAP HS Needs incentive spirometry and close monitoring post op (9) History of CAD (coronary artery disease): Continue aspirin and atorvastatin Code status: Full DVT ppx: Hold off pharmacological DVT ppx for now I spent a total of 55 minutes coordinating, documenting and providing care for this patient excluding time spent in performance of separately billed services History of Present Illness Reason for Consultation: Medical Management Requesting Physician: Andrzej Lo DO Attending Physician: Andrzej Lo DO History of Present Illness 74-year-old man with history JEROMY on CPAP, CAD status post CABG, rheumatoid arthritis, mild cognitive impairment who is admitted by Ortho spine surgery for spinal surgery tomorrow. Patient had lumbar decompression/fusion surgery L3-S1 in January 2024. Reports that since surgery, he has been having weakness and poor coordination in the left lower extremity and also he developed increasing paresthesia in both upper extremities, worse on the left described as burning sensation and someti mes numbness in the hands Also reports some numbness legs. Currently denies any fever, chills. Has any chest pain, shortness of breath or nausea activity. He and his reports he is active with his walker and still getting physical therapy since his last surgery Denies any other complaints on ROS reported Ortho spine surgeon informed them he will need surgery in his upper spine and in a few weeks another in his cervical spine Allergies Allergy/AdvReac Type Severity Reaction Status Date / Time Sulfa (Sulfonamide Allergy Intermediate RASH;HIVES; Verified 02/06/24 15:04 Antibiotics) SWELLING meloxicam [From Mobic] Allergy Unknown CAN'T Verified 02/06/24 15:04 REMEMBER naproxen [From Aleve] Allergy Unknown CAN'T Verified 02/06/24 15:04 REMEMBER Home Medications Medication Instructions Recorded Confirmed Type cholecalciferol (vitamin D3) 25 25 mcg PO DAILY 12/08/19 05/23/24 History mcg (1,000 unit) tablet hydroxychloroquine 200 mg tablet 200 mg PO DAILY 12/08/19 05/23/24 History multivitamin 1 tab PO QPM 12/08/19 05/23/24 History rosuvastatin 20 mg tablet 20 mg PO QPM 12/08/19 05/23/24 History krill oil 500 mg capsule 500 mg PO QPM 12/06/20 05/23/24 History omeprazole 20 mg capsule,delayed 20 mg PO DAILY 12/06/20 05/23/24 History release aspirin 81 mg tablet,delayed 81 mg PO DAILY 08/04/21 05/23/24 History release (Maya Low Dose Aspirin) citalopram 20 mg tablet 20 mg PO DAILY 01/06/24 05/23/24 History gabapentin 600 mg tablet 600 mg PO BID 01/06/24 05/23/24 History lisinopril 40 mg tablet 40 mg PO DAILY 01/06/24 05/23/24 History memantine 10 mg tablet 10 mg PO BID 01/06/24 05/23/24 History tamsulosin 0.4 mg capsule 0.4 mg PO QAM 05/23/24 05/23/24 History Patient History Medical History (Updated 05/23/24 @ 16:20 by Fidelina Saenz MD) No pertinent family history Heart attack Hyperlipidemia High blood pressure Cardiac disorder Surgical History H/O heart surgery H/O foot surgery History of bladder surgery Social History Smoking Status: Former smoker Tobacco Type: Cigarettes Hx Alcohol Use: No Hx Substance Use: No Preferred Language: Belizean Communication Ability: Effective 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 Beliefs That Will Affect Care: None marital status: Current Living Situation: Spouse Feels Safe at Home: Yes Assistive Devices: Cane and Walker Review of Systems Review of Systems: All systems reviewed & are unremarkable except as noted in HPI & below Physical Exam Constitutional: + well hydrated and + obese; no acute di stress Eyes: PERRL, conjunctivae normal, anicteric sclerae ENMT: external ear and nose normal, oropharynx normal Respiratory: normal respiratory effort, lungs clear to auscultation Cardiovascular: Rate/Rhythm: regular rate and regular rhythm Gastrointestinal (Abdomen): normal bowel sounds, soft, nontender, no hepatosplenomegaly Musculoskeletal: No pedal edema Neurologic: PERRL, EOMI, accommodation nl, no face palsy, no dysarthria Power in LLE slightly lower than RLE Psychiatric: A+Ox3, euthymic affect Results & Data Results & Data Vital Signs (Past 12 Hours) Vital Signs Temp Pulse Pulse Resp BP BP Pulse Ox 05/23/24 15:18 36.5 C 60 16 203/83 H 96 05/23/24 14:54 62 16 162/75 H 92 05/23/24 12:54 36.5 C 55 L 20 206/77 H 94 O2 Del Method 05/23/24 15:18 Room Air 05/23/24 14:54 Room Air 05/23/24 12:54 Room Air Laboratory Results Laboratory Results - last 24 hr 05/23/24 15:03 WBC 7.34 RBC 4.28 L Hgb 13.0 L Hct 39.0 L MCV 91.1 MCH 30.4 MCHC 33.3 RDW Std Deviation 45.4 RDW Coeff of Mitesh 13.6 Plt Count 228 MPV 10.9 Immature Gran % (Auto) 0.4 Neut % (Auto) 63.9 Lymph % (Auto) 24.1 [place] % (Auto) 8.6 Eos % (Auto) 1.9 Baso % (Auto) 1.1 Neut # (Auto) 4.69 Lymph # (Auto) 1.77 [place] # (Auto) 0.63 H Eos # (Auto) 0.14 Baso # (Auto) 0.08 Immature Gran # (Auto) 0.03 Sodium 140 Potassium 4.0 Chloride 107 Carbon Dioxide 26 Anion Gap 7 BUN 20 Creatinine 0.83 Est Cr Clr Drug Dosing 93.4 eGFR 92.99 BUN/Creatinine Ratio 24.1 H Glucose 88 Calcium 9.3 Total Bilirubin 1.0 AST 18 ALT 18 Alkaline Phosphatase 82 Total Protein 6.5 Albumin 4.3 Globulin 2.2 L Albumin/Globulin Ratio 2.0 (3) Lumbar spinal stenosis Neurogenic claudication status: unspecified Qualified Code(s): M48.061 - Spinal stenosis, lumbar region without neurogenic claudication (4) Spinal stenosis Neurogenic claudication status: unspecified Spinal region: lumbar Qualified Code(s): M48.061 - Spinal stenosis, lumbar region without neurogenic claudication
[2024-05-23] MEDS: amLODIPine BESYLATE 5 MG TAB PO ONE (16:22)
[2024-05-23] MEDS: ACETAMINOPHEN 500 MG TAB PO PRN (17:23)
[2024-05-23] MEDS: GABAPENTIN 600 MG TAB PO SCH (20:19)
[2024-05-23] MEDS: MEMANTINE HCL 10 MG TAB PO SCH (20:19)
[2024-05-23] MEDS: ROSUVASTATIN CALCIUM 20 MG TAB PO SCH (20:19)
[2024-05-24] MEDS: lisinopril 40 MG TAB PO SCH (07:14)
[2024-05-24] MEDS: traMADol HCL 50 MG TABLET PO PRN (08:13)
[2024-05-24] MEDS: CITALOPRAM 20 MG TAB PO SCH (08:15)
[2024-05-24] MEDS: PANTOprazole 40 MG TAB PO SCH (08:15)
--- NOTE | 2024-05-24 09:22 | History & Physical Report ---
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 Subsequently recommending urgent decompression and fusion T2-T4 Admission and Anticipated Discharge Date Admission Date: May 23, 2024 History of Present Illness Chief Complaint: Ambulatory difficulty Primary Care Provider: Que Foreman PA-C This is a 73-year-old male presents with more decline in status. He is having marked difficulty with balance ambulation and bilateral leg weakness. Imaging of the thoracic spine demonstrating severe spinal stenosis with myelopathy. [place] Allergies Allergy/AdvReac Type Severity Reaction Status Date / Time Sulfa (Sulfonamide Allergy Intermediate RASH;HIVES; Verified 02/06/24 15:04 Antibiotics) SWELLING meloxicam [From Mobic] Allergy Unknown CAN'T Verified 02/06/24 15:04 REMEMBER naproxen [From Aleve] Allergy Unknown CAN'T Verified 02/06/24 15:04 REMEMBER Home Medications Medication Instructions Recorded Confirmed Type cholecalciferol (vitamin D3) 25 25 mcg PO DAILY 12/08/19 05/23/24 History mcg (1,000 unit) tablet hydroxychloroquine 200 mg tablet 200 mg PO DAILY 12/08/19 05/23/24 History multivitamin 1 tab PO QPM 12/08/19 05/23/24 History rosuvastatin 20 mg tablet 20 mg PO QPM 12/08/19 05/23/24 History krill oil 500 mg capsule 500 mg PO QPM 12/06/20 05/23/24 History omeprazole 20 mg capsule,delayed 20 mg PO DAILY 12/06/20 05/23/24 History release aspirin 81 mg tablet,delayed 81 mg PO DAILY 08/04/21 05/23/24 History release (Maya Low Dose Aspirin) citalopram 20 mg tablet 20 mg PO DAILY 01/06/24 05/23/24 History gabapentin 600 mg tablet 600 mg PO BID 01/06/24 05/23/24 History lisinopril 40 mg tablet 40 mg PO DAILY 01/06/24 05/23/24 History memantine 10 mg tablet 10 mg PO BID 01/06/24 05/23/24 History tamsulosin 0.4 mg capsule 0.4 mg PO QAM 05/23/24 05/23/24 History Past Med/Surg History Problem List (Updated 05/24/24 @ 09:21 by Andrzej Lo DO) Myelopathy 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 stenosis of thoracic region JEROMY (obstructive sleep apnea) History of CAD (coronary artery disease) Lumbar spinal stenosis (Acute) Spinal stenosis, thoracic (Acute) Neurogenic claudication due to lumbar spinal stenosis Spinal stenosis (Acute) Essential hypertension Acute epididymo-orchitis (Acute) Rheumatoid arthritis GERD (gastroesophageal reflux disease) Coronary artery disease Orchitis Kidney stones BPH without urinary obstruction Arthritis Medical History (Updated 05/24/24 @ 09:21 by Andrzej Lo DO) No pertinent family history Heart attack Hyperlipidemia High blood pressure Cardiac disorder Surgical History H/O heart surgery H/O foot surgery History of bladder surgery Social History Smoking Status: Never smoker Tobacco Type: Cigarettes Second Hand Exposure: No; Do You Dip or Chew Tobacco: No; Tobacco Cessation Education Requested by Patient: No Hx Alcohol Use: No Hx Substance Use: No Preferred Language: Maltese Communication Ability: Effective 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 He cannot stand and ambulate without assistance. He has gross decline in balance. Sensory is diminished to lower extremities. Brisk reflexes. Results & Data Results & Data Vital Signs (Past 12 Hours) Vital Signs Temp Pulse Pulse Resp BP Pulse Ox O2 Del Method 05/24/24 08:10 177/82 H 05/24/24 07:10 Room Air 05/24/24 07:05 36.5 C 53 L 17 190/87 H 94 Room Air 05/24/24 03:04 58 L 22 96 05/23/24 23:10 56 L 22 96 FiO2 05/24/24 08:10 05/24/24 07:10 05/24/24 07:05 05/24/24 03:04 21 05/23/24 23:10 21 Code Status & VTE Plan VTE Prophylaxis Plan VTE Prophylaxis will be ordered: Yes
[2024-05-24] MEDS ORDERED: MIDAZOLAM HCL 1 MG/ML 2ML VIAL ONE (10:28)
[2024-05-24] MEDS ORDERED: ROCURONIUM BROMIDE 10 MG/ML 5 ML VIAL IV ONE (10:28)
[2024-05-24] MEDS ORDERED: DEXAMETHASONE SOD INJ 4 MG/ML VIAL ONE (10:28)
[2024-05-24] MEDS ORDERED: ONDANSETRON INJ 2 MG/ML 2 ML VIAL ONE (10:28)
[2024-05-24] MEDS ORDERED: LIDOCAINE 2% 2 ML VIAL/AMP(20MG/ML) INFIL ONE (10:28)
[2024-05-24] MEDS ORDERED: GLYCOPYRROLATE 0.2 MG/ML VIAL ONE (10:28)
[2024-05-24] MEDS ORDERED: KETAMINE HCL 10MG/ML SYR ONE (10:28)
[2024-05-24] MEDS ORDERED: PROPOFOL IV EMULSION 10 MG/ML 20 ML VIAL IV ONE (10:28)
[2024-05-24] MEDS ORDERED: HYDROmorphone INJ 2 MG/ML SYR/VIAL ONE (10:29)
--- NOTE | 2024-05-24 11:26 | Electrocardiogram Report ---
Test Reason : Blood Pressure : */* mmHG Vent. Rate : 56 BPM Atrial Rate : 56 BPM P-R Int : 222 ms QRS Dur : 88 ms QT Int : 466 ms P-R-T Axes : 71 -11 61 degrees QTcB Int : 449 ms Sinus bradycardia with 1st degree A-V block possible Inferior infarct (cited on or before 20-May-2024) Abnormal ECG When compared with ECG of 20-May-2024 11:04, No significant change was found Confirmed by Carloz Monet ([id number]) on 05/24/2024 11:25:49 AM Referred By: REFERRED SELF Confirmed By: Carloz Monet
[2024-05-24] MEDS ORDERED: ATROPINE SULFATE 0.1 MG/ML 10ML SYR IV PRN ×2 (11:40→12:21)
[2024-05-24] MEDS ORDERED: ONDANSETRON INJ 2 MG/ML 2 ML VIAL IV PRN ×3 (11:40→16:17)
[2024-05-24] MEDS ORDERED: ePHEDrine sulfate 50 MG/ML AMP IV PRN ×2 (11:40→12:21)
--- NOTE | 2024-05-24 11:40 | Anesthesiology Consultation ---
Date of Service May 24, 2024 Assessment & Plan Chart Review Chart Review: Acceptable Risk for Surgery and Patient NOT seen in Pre Admission Testing Consults Requested none History Surgery Operation Date: 05/24/24 13:05 Proposed Procedures p T2-T4 Decompression and Fusion, Spinal Cord Monitoring - Andrzej Lo DO Height/Weight Height: 5 ft 8 in Weight: 103.8 kg Allergies Allergy/AdvReac Type Severity Reaction Status Date / Time Sulfa (Sulfonamide Allergy Intermediate RASH;HIVES; Verified 02/06/24 15:04 Antibiotics) SWELLING meloxicam [From Mobic] Allergy Unknown CAN'T Verified 02/06/24 15:04 REMEMBER naproxen [From Aleve] Allergy Unknown CAN'T Verified 02/06/24 15:04 REMEMBER Medications Home Medications Medication Instructions Recorded Confirmed Last Taken cholecalciferol (vitamin D3) 25 25 mcg PO DAILY 12/08/19 05/23/24 05/23/24 mcg (1,000 unit) tablet hydroxychloroquine 200 mg tablet 200 mg PO DAILY 12/08/19 05/23/24 05/23/24 multivitamin 1 tab PO QPM 12/08/19 05/23/24 05/22/24 rosuvastatin 20 mg tablet 20 mg PO QPM 12/08/19 05/23/24 05/22/24 krill oil 500 mg capsule 500 mg PO QPM 12/06/20 05/23/24 05/22/24 omeprazole 20 mg capsule,delayed 20 mg PO DAILY 12/06/20 05/23/24 05/23/24 release aspirin 81 mg tablet,delayed 81 mg PO DAILY 08/04/21 05/23/24 05/23/24 release (Maya Low Dose Aspirin) citalopram 20 mg tablet 20 mg PO DAILY 01/06/24 05/23/24 05/23/24 gabapentin 600 mg tablet 600 mg PO BID 01/06/24 05/23/24 05/23/24 lisinopril 40 mg tablet 40 mg PO DAILY 01/06/24 05/23/24 05/23/24 memantine 10 mg tablet 10 mg PO BID 01/06/24 05/23/24 05/23/24 tamsulosin 0.4 mg capsule 0.4 mg PO QAM 05/23/24 05/23/24 05/23/24 Active Medications Generic Name Dose Route Start Last Admin Trade Name Lucrecia PRN Reason Stop Dose Admin Acetaminophen 1,000 mg 05/23/24 15:17 05/24/24 07:15 Acetaminophen 500 Mg Tab PO 06/22/24 15:16 1,000 mg Q8H PRN Administration MILD Pain Scale 1,2,3 & Pre PT Citalopram Hydrobromide 20 mg 05/24/24 09:00 05/24/24 08:15 Citalopram 20 Mg Tab PO 06/23/24 08:59 20 mg DAILY KEVIN Administration Gabapentin 600 mg 05/23/24 21:00 05/24/24 08:15 Gabapentin 600 Mg Tab PO 06/22/24 20:59 600 mg BID KEVIN Administration Lisinopril 40 mg 05/24/24 09:00 05/24/24 07:14 Lisinopril 40 Mg Tab PO 06/23/24 08:59 40 mg DAILY KEVIN Administration Memantine 10 mg 05/23/24 21:00 05/24/24 08:15 Memantine Hcl 10 Mg Tab PO 06/22/24 20:59 10 mg BID KEVIN Administration Pantoprazole Sodium 40 mg 05/24/24 09:00 05/24/24 08:15 Pantoprazole 40 Mg Tab PO 06/23/24 08:59 40 mg DAILY KEVIN Administration Rosuvastatin Calcium 20 mg 05/23/24 21:00 05/23/24 20:19 Rosuvastatin Calcium 20 Mg Tab PO 06/22/24 20:59 20 mg QPM KEVIN Administration Tramadol HCl 50 - 100 mg 05/23/24 15:17 05/24/24 08:13 Tramadol Hcl 50 Mg Tablet PO 06/22/24 15:16 50 mg Q4H PRN Administration Moderate-Severe pain & Pre PT Past Medical History Medical History (Updated 05/24/24 @ 09:21 by Andrzej Lo DO) No pertinent family history Heart attack Hyperlipidemia High blood pressure Cardiac disorder Past Surgical History Surgical History H/O heart surgery H/O foot surgery History of bladder surgery Social History Smoking Status: Never smoker Do You Dip or Chew Tobacco: No Hx Alcohol Use: No Alcohol type: beer, wine and hard liquor alcohol intake frequency: holidays/special occasions only Hx Substance Use: No Physical Exam Vital Signs Last Vital Signs Temp 36.5 C 05/24/24 07:05 Pulse 53 L 05/24/24 07:05 Resp 17 05/24/24 07:05 BP 175/79 H 05/24/24 10:25 Pulse Ox 94 05/24/24 07:05 O2 Del Method Room Air 05/24/24 07:10 FiO2 21 05/24/24 03:04 Testing Laboratory Results 05/23/24 15:03 05/23/24 15:03
[2024-05-24] MEDS ORDERED: hydrALAZINE HCL 20 MG/ML VIAL IV PRN (12:02)
[2024-05-24] MEDS ORDERED: fentaNYL citrate PF 100 MCG/2 ML VIAL IV PRN (12:21)
--- NOTE | 2024-05-24 12:21 | History & Physical Bridge Note ---
Date of Service May 24, 2024 History & Physical Bridge Note I have examined the patient, reviewed the History & Physical and in the interval since the performance of the History & Physical I have noted the following changes of clinical significance: no changes noted T2-T4 decompression possible fusion
[2024-05-24] MEDS: ceFAZolin 3000MG 3,000 MG/72.5 ML BAG IV SCH (12:50)
[2024-05-24] MEDS ORDERED: ePHEDrine sulfate 50 MG/5 ML SYR ONE (12:56)
[2024-05-24] MEDS: BUPIVACAINE/EPINEPHRINE 0.25% 1:200,000 30 ML VIAL ONE (13:33)
[2024-05-24] MEDS: ceFAZolin 330 MG/ML 1 GM VIAL ONE (13:33)
[2024-05-24] MEDS ORDERED: SUGAMMADEX SODIUM 200 MG/2 ML VIAL IV ONE (13:38)
[2024-05-24] MEDS: FLOSEAL HEMOSTATIC MATRIX 10ML TOP ONE (14:11)
--- NOTE | 2024-05-24 14:42 | Operative Report ---
Post Operative Report Pre & Post Diagnosis Operation Date: 05/24/24 13:05 Pre-Op Diagnosis: Myelopathy Concurrent with and Due to Spinal Stenosis of Thoracic region T2-T4 Post-Op Diagnosis: Myelopathy Concurrent with and Due to Spinal Stenosis of Thoracic region T2-T4 I identified the patient and participated in the time-out.: Yes Procedure Operation Date: 05/24/24 13:05 Actual Procedures #1 thoracic decompression bilateral medial facetectomies T2-T3 T3-T4. #2 posterior spinal fusion T2 T4. #3 placed posterior instrumentation lateral bone. T2-T3-T4. #4 placement posterior bone graft infuse collagen sponge bath Koros in the posterior gutters T2-T4. #5 placement of locally harvested morselized autograft posterior gutters. Surgeon Andrzej Lo, DO Social Science Professor None Estimated Blood Loss 50 Findings See Below This patient is 5 foot 8 weighing over 103 kg with a BMI in excess of 34. Patient's body was did contribute to significant technical difficulty with positioning exposure and the procedure itself at least 50% increased operative time. Specimens None Complications This is a 73-year-old male presents my office with marked evidence of myelopathy. Imaging demonstrates evidence of severe thoracic spinal stenosis and myomalacia. Subsequent is here for urgent decompression fusion. Description of Procedure Patient was met with identified informed sent obtained. Patient was then taken to the operative suite underwent intubation placed in a prone position the Goldy table with on the chest pad and hip bolsters. All bony promises well- padded levels. Eyes were inspected to ensure no external precipice upon them. The thoracic spine was then prepped and draped no sterile fashion. With the assistance of fluoroscopy notified the T2-T4 levels. Sharp dissection with assistance of Bovie cautery performed down to and exposing the lamina transverse processes of T2-T3 T4 bilaterally. For caudal to cephalad fashion complete laminectomy of T4 and T3 was performed including bilateral medial facetectomies and foraminotomies addressing severe spinal stenosis. Pedicle screws were then placed in T2-T3-T4 bilaterally with assistance of fluoroscopy and proper size lynette placed and locked in position. The transverse processes of T2-T3-T4 were then burred to subcortical bleeding bone. Infuse collagen sponge, with Koros and local autograft placed in the posterior lateral gutters. 15 round YISSEL drain inserted. The incision was then closed with 1 Vicryl the fascia 2-0 Vicryl subcutaneously and 4 Monocryl for final skin closure. I attest to the content of the Intraoperative Record and any orders documented therein. Any exceptions are noted below.
--- NOTE | 2024-05-24 15:01 | Anesthesiology Progress Note ---
Date of Service May 24, 2024 Anesthesia Post Procedure Vital Signs Vital Signs: Temp Pulse Pulse Pulse Resp BP Pulse Ox 05/24/24 14:55 72 18 165/79 H 92 05/24/24 14:44 36 C L 70 18 172/81 H 94 05/24/24 11:38 36.9 C 56 L 18 193/78 H 94 05/24/24 10:25 175/79 H 05/24/24 08:10 177/82 H 05/24/24 07:10 05/24/24 07:05 36.5 C 53 L 17 190/87 H 94 05/24/24 03:04 58 L 22 96 05/23/24 23:10 56 L 22 96 05/23/24 20:20 05/23/24 19:19 36.6 C 53 L 14 169/78 H 94 05/23/24 18:39 161/67 H 05/23/24 17:19 193/73 H 05/23/24 15:18 36.5 C 60 16 203/83 H 96 05/23/24 15:05 O2 Del Method O2 Flow Rate FiO2 05/24/24 14:55 Oxymask 10 05/24/24 14:44 Oxymask 10 05/24/24 11:38 Room Air 05/24/24 10:25 05/24/24 08:10 05/24/24 07:10 Room Air 05/24/24 07:05 Room Air 05/24/24 03:04 21 05/23/24 23:10 21 05/23/24 20:20 Room Air 05/23/24 19:19 Room Air 05/23/24 18:39 05/23/24 17:19 05/23/24 15:18 Room Air 05/23/24 15:05 Room Air Transfer of Care Handoff Completed per policy Notes Mental Status: alert / awake / arousable Patient Amnestic to Procedure: Yes Nausea / Vomiting: adequately controlled Pain: adequately controlled Airway Patency, RR, SpO2: stable & adequate BP & HR: stable & adequate Hydration State: stable & adequate Anesthetic Complications: no major complications apparent and Pt Satisfied with anesthetic care
[2024-05-24] MEDS: fentaNYL citrate PF 100 MCG/2 ML VIAL IV PRN (15:02)
--- NOTE | 2024-05-24 15:03 | Hospitalist Progress Note ---
Date of Service May 24, 2024 Assessment & Plan (1) Myelopathy 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 stenosis of thoracic region: Plan Pt is a 74yoM with PMHx significant for history JEROMY on CPAP, CAD status post CABG, rheumatoid arthritis, mild cognitive impairment who was admitted by Ortho spine surgery for spinal surgery tomorrow. Patient had lumbar decompression/fusion surgery L3-S1 in January 2024. Neurogenic claudication due to lumbar spinal stenosis: Spinal stenosis, thoracic: Lumbar spinal stenosis: Spinal stenosis: s/p urgent decompression and fusion T2-T4 on 05/24 Post op day# 0 EBL#50ml Pain management per ortho Wound management per ortho PT/OT as appropriate DVT prophylaxis per ortho Incentive spirometry Monitor H&H for acute blood loss anemia; Pre-op Hgb: 13.0 Essential hypertension Blood pressure is currently poorly controlled Patient's home med reconciled with Continue home lisinopril Give one time amlodipine 5mg and monitor GERD (gastroesophageal reflux disease): Continue home omeprazole Rheumatoid arthritis: Stable Continue hydroxychloroquine JEROMY (obstructive sleep apnea): CPAP HS Needs incentive spirometry and close monitoring post op History of CAD (coronary artery disease): Continue aspirin and atorvastatin Code status: Full DVT ppx: per ortho Admission and Anticipated Discharge Date Admission Date: May 23, 2024 Subjective pt was seen post-op with lots of family at bedside Denied acute concerns except for some neck pain Denied chest pain, SOB, palps, N/V Review of Systems Review of Systems: All systems reviewed & are unremarkable except as noted in Subjective Physical Exam Physical Exam: General: Alert, oriented. No acute distress Psych: Appropriate mood and affect Neuro: difficulty with movements HEENT: NC/AT CV: RRR Resp: Breath sounds clear bilaterally, no increased effort of breathing Abdomen: nontender Extremities:teds on lower extremities bilaterally. Results & Data Results & Data Vital Signs (Past 12 Hours) Vital Signs Temp Pulse Pulse Pulse Resp BP Pulse Ox 05/24/24 14:55 72 18 165/79 H 92 05/24/24 14:44 36 C L 70 18 172/81 H 94 05/24/24 11:38 36.9 C 56 L 18 193/78 H 94 05/24/24 10:25 175/79 H 05/24/24 08:10 177/82 H 05/24/24 07:10 05/24/24 07:05 36.5 C 53 L 17 190/87 H 94 05/24/24 03:04 58 L 22 96 O2 Del Method O2 Flow Rate FiO2 05/24/24 14:55 Oxymask 10 05/24/24 14:44 Oxymask 10 05/24/24 11:38 Room Air 05/24/24 10:25 05/24/24 08:10 05/24/24 07:10 Room Air 05/24/24 07:05 Room Air 05/24/24 03:04 21 Diagnostic Findings Thoracic Spine X-Ray 05/24/24 07:02 FL thoracic spine 2V CLINICAL HISTORY: T2-T4 DECOMPRESSION/FUSION COMPARISON STUDY: None. FLUOROSCOPY TIME: 45 seconds. Ka,r: 30.07 mGy FLUOROSCOPIC IMAGES: 2 FINDINGS: Exact localization is difficult given partial visualization of the thoracic spine. 3 level decompression and fusion is noted, likely at the T2, T3 and T4 levels. There are interconnecting rods. There are no unexpected radiopaque foreign bodies. IMPRESSION: Fluoroscopy provided during thoracic spine decompression and fusion, as described above. ACT 112: Negative or not required by law. Electronically signed by: Donaldo Ruiz M.D. 05/24/2024 3:10 PM
--- NOTE | 2024-05-24 15:11 | Fluoroscopy Report ---
FL thoracic spine 2V CLINICAL HISTORY: T2-T4 DECOMPRESSION/FUSION COMPARISON STUDY: None. FLUOROSCOPY TIME: 45 seconds. Ka,r: 30.07 mGy FLUOROSCOPIC IMAGES: 2 FINDINGS: Exact localization is difficult given partial visualization of the thoracic spine. 3 level decompression and fusion is noted, likely at the T2, T3 and T4 levels. There are interconnecting rods . There are no unexpected radiopaque foreign bodies. IMPRESSION: Fluoroscopy provided during thoracic spine decompression and fusion, as described above. ACT 112: Negative or not required by law. Electronically signed by: Donaldo Ruiz M.D. 05/24/2024 3:10 PM
[2024-05-24] MEDS: HYDROmorphone INJ 2 MG/ML SYR/VIAL ONE (15:31)
[2024-05-24] MEDS ORDERED: HYDROmorphone INJ 0.5 MG/0.5 ML SYR IV PRN (15:45)
[2024-05-24] MEDS ORDERED: MAGNESIUM HYDROXIDE SUSP 30 ML UDC PO PRN (16:17)
[2024-05-24] MEDS ORDERED: hydrOXYzine HCl 25 MG TAB PO PRN (16:17)
[2024-05-24] MEDS ORDERED: METOCLOPRAMIDE HCL INJ 5 MG/ML 2 ML VIAL IV PRN (16:17)
[2024-05-24] MEDS ORDERED: bisacodyL 10 MG SUPP PR PRN (16:17)
[2024-05-24] MEDS ORDERED: SOD PHOSPHATE/SOD BIPHOSPHATE ENEMA 132 ML BTL PR PRN (16:17)
[2024-05-24] MEDS ORDERED: FAMOTIDINE 20 MG TAB PO PRN (16:17)
[2024-05-24] MEDS ORDERED: ACETAMINOPHEN 1,000 MG/100 ML VIAL IV PRN (16:17)
[2024-05-24] MEDS ORDERED: ONDANSETRON 4 MG OD TAB PO PRN (16:17)
[2024-05-24] MEDS ORDERED: NALOXONE HCL 0.4 MG/1 ML VIAL/CARP IV PRN (16:17)
[2024-05-24] MEDS ORDERED: DO NOT ADMINISTER PNEUMOCOCCAL VACCINE PRN (16:17)
[2024-05-24] MEDS ORDERED: LORazepam 2 MG/1 ML VIAL IV PRN (16:17)
[2024-05-24] MEDS ORDERED: DO NOT ADMINISTER FLU VACCINE PRN (16:17)
[2024-05-24] MEDS ORDERED: ALUMINUM/MAGNESIUM SUSP 30 ML UDC PO PRN (16:17)
[2024-05-24] MEDS ORDERED: PROMETHAZINE 12.5 MG/50.5 ML BAG IV PRN (16:17)
[2024-05-24] MEDS: dexAMETHasone 6 MG in SYRINGE 0 ML IV SCH (17:00)
[2024-05-24] MEDS: oxyCODONE HCL IR 5 MG TAB (IMMEDIATE RELEASE) PO PRN (18:24)
[2024-05-24] MEDS: ceFAZolin 2000MG 2,000 MG/15 ML SYR IV SCH (19:38)
[2024-05-24] MEDS: DOCUSATE SODIUM/SENNA 50/8.6MG TAB PO SCH (20:16)
[2024-05-24] MEDS: LORazepam 0.5 MG TAB PO PRN (23:47)
[2024-05-25] MEDS: POLYETHYLENE (MIRALAX) 17 GM PACK PO SCH (06:14)
[2024-05-25 08:22] LABS: Hematocrit (blood only) 38.4 % (42.0-52.0); Hemoglobin 12.6 g/dl (14.0-18.0); Mean Corpuscular Hemoglobin 30.1 pg (25.0-34.0); Mean Corpuscular Hgb Conc 32.8 g/dL (32.0-36.0); Mean Corpuscular Volume 91.6 fL (80.0-100.0); Mean Platelet Volume 10.9 fL (9.4-12.4); Platelet Count 256 K/uL (130-400); RDW Standard Deviation 47.2 fL (36.4-46.3); Red Blood Count 4.19 M/uL (4.70-6.10); White Blood Count 17.17 K/ul (4.8-10.8)
[2024-05-25 08:23] LABS: BUN Creatinine Ratio 21.2 (10-20); Calcium 9.5 mg/dl (8.6-10.3); Creatinine Clr Calc Pharmacy 78.8 ml/min
[2024-05-25] MEDS: TAMSULOSIN HCL 0.4 MG CAP PO SCH (08:28)
--- NOTE | 2024-05-25 08:54 | Orthopedic Progress Note ---
Date of Service May 25, 2024 Assessment & Plan (1) Myelopathy 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 stenosis of thoracic region: Plan: At this point we will initiate physical therapy occupational therapy assess his progress. He may be a candidate for rehab. Admission and Anticipated Discharge Date Admission Date: May 23, 2024 Subjective Back pain is controlled. Leg symptoms improved. Physical Exam Physical Exam: On exam I had the patient's stand for me at the bedside. He is able to do so with more control. Still limited with gait. Overall marked improvement in leg function. Results & Data Vital Signs (Past 12 Hours) Vital Signs Temp Pulse Pulse Pulse Resp BP Pulse Ox 05/25/24 07:00 36.6 C 74 18 174/71 H 96 05/25/24 03:00 36.9 C 74 18 153/88 H 95 05/24/24 23:00 36.8 C 74 18 154/88 H 94 05/24/24 21:00 62 19 96 O2 Del Method O2 Flow Rate 05/25/24 07:00 Nasal Cannula 3 05/25/24 03:00 Nasal Cannula 3 05/24/24 23:00 Nasal Cannula 3 05/24/24 21:00 Queries Orthopedic Spine Obesity: Yes
[2024-05-25 09:04] LABS: Basophils # (auto) 0.01 K/uL (0.00-0.20); Basophils % (auto) 0.1 %; Immature Granulocytes # (auto) 0.08 K/uL (0.01-0.20); Immature Granulocytes % (auto) 0.5 %; Lymphocytes # (auto) 0.83 K/uL (1.20-3.40); Lymphocytes % (auto) 4.8 %; Monocytes # (auto) 0.39 K/uL (0.11-0.59); Monocytes % (auto) 2.3 %; Neutrophils # (auto) 15.86 K/uL (1.40-6.50); Neutrophils % (auto) 92.3 %
--- NOTE | 2024-05-25 16:06 | Hospitalist Progress Note ---
Date of Service May 25, 2024 Assessment & Plan (1) Myelopathy 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 stenosis of thoracic region: Plan Pt is a 74yoM with PMHx significant for history JEROMY on CPAP, CAD status post CABG, rheumatoid arthritis, mild cognitive impairment who was admitted by Ortho spine surgery for spinal surgery tomorrow. Patient had lumbar decompression/fusion surgery L3-S1 in January 2024. Neurogenic claudication due to lumbar spinal stenosis: Spinal stenosis, thoracic: Lumbar spinal stenosis: Spinal stenosis: s/p urgent decompression and fusion T2-T4 on 05/24 Pain management per ortho Wound management per ortho PT/OT as appropriate DVT prophylaxis per ortho Incentive spirometry Minimal back pain without any radiation and has been getting physical therapy Remains otherwise medically stable and will depend on primary when he can be discharged in a day or 2 Essential hypertension Blood pressure is currently poorly controlled Patient's home med reconciled with Continue home lisinopril Give one time amlodipine 5mg and monitor Blood pressure remains elevated at 181/77 and will continue with amlodipine 5 mg daily Monitor blood pressure GERD (gastroesophageal reflux disease): Continue home omeprazole Rheumatoid arthritis: Stable Continue hydroxychloroquine JEROMY (obstructive sleep apnea): CPAP HS Needs incentive spirometry and close monitoring post op History of CAD (coronary artery disease): Continue aspirin and atorvastatin Code status: Full DVT ppx: per ortho Admission and Anticipated Discharge Date Admission Date: May 23, 2024 Subjective 05/25/2024 Patient was seen and examined in medical floor He is status post T2-T4 decompression and fusion Has been feeling much better without any significant back pain and does not have any numbness to no tingling in the extremities Participating in physical therapy Review of Systems Review of Systems: All systems reviewed and are unremarkable except as noted below Physical Exam Physical Exam: Sitting on a chair without any acute distress Constitutional: well developed, well nourished, + ill appearing and + obese Eyes: PERRL, conjunctivae normal, anicteric sclerae ENMT: external ear and nose normal, oropharynx normal Neck: trachea midline, no thyromegaly Respiratory: no respiratory distress Auscultation: lungs clear to auscultation bilaterally Cardiovascular: Rate/Rhythm: regular rate and regular rhythm; not tachycardic Heart Sounds: normal S1 and normal S2; no murmur Extremities: no edema Gastrointestinal (Abdomen): Inspection/Auscultation: normal bowel sounds; abdomen not distended Percussion/Palpation: abdomen soft; abdomen nontender Musculoskeletal: lower thoracic pain and tenderness without radiation Neurologic: normal touch/pain/proprioception and moves all extremities; no focal motor deficits Psychiatric: A+Ox3, euthymic affect Lymphatic: no cervical or axillary lymphadenopathy Results & Data Results & Data Vital Signs (Past 12 Hours) Vital Signs Temp Pulse Pulse Resp BP Pulse Ox O2 Del Method 05/25/24 14:32 36.7 C 72 18 181/77 H 92 Room Air 05/25/24 10:22 70 18 162/71 H 93 Room Air 05/25/24 07:00 36.6 C 74 18 174/71 H 96 Nasal Cannula O2 Flow Rate 05/25/24 14:32 05/25/24 10:22 05/25/24 07:00 3 Laboratory Results Short CBC 05/25/24 Range/Units 07:17 WBC 17.17 H (4.8-10.8) K/ul Hgb 12.6 L (14.0-18.0) g/dl Hct 38.4 L (42.0-52.0) % Plt Count 256 (130-400) K/uL BMP 05/25/24 07:17 Sodium 138 Potassium 4.0 Chloride 103 Carbon Dioxide 29 BUN 21 Creatinine 0.99 Glucose 131 H Calcium 9.5 Medications Administered Current Inpatient Medications Acetaminophen (Acetaminophen 500 Mg Tab) 1,000 mg PO Q8H PRN PRN Reason: MILD Pain Scale 1,2,3 & Pre PT Stop: 06/22/24 15:16 Last Admin: 05/24/24 07:15 Dose: 1,000 mg Acetaminophen (Acetaminophen 500 Mg Tab) 1,000 mg PO Q8H PRN PRN Reason: MILD Pain Scale 1,2,3 & Pre PT Stop: 06/23/24 16:16 Al Hydrox/Mg Hydrox/Simethicone (Aluminum/Magnesium Susp 30 Ml Udc) 30 ml PO Q6H PRN PRN Reason: Dyspepsia Stop: 06/23/24 16:16 Bisacodyl (Bisacodyl 10 Mg Supp) 10 mg NJ DAILY PRN PRN Reason: Constipation Stop: 06/23/24 16:16 Citalopram Hydrobromide (Citalopram 20 Mg Tab) 20 mg PO DAILY KEVIN Stop: 06/23/24 08:59 Last Admin: 05/25/24 10:19 Dose: 20 mg Diphenhydramine HCl (Diphenhydramine Capsule 25 Mg Cap) 25 mg PO Q6H PRN PRN Reason: Allergic Rhinitis/Insomnia Stop: 06/23/24 16:16 Famotidine (Famotidine 20 Mg Tab) 20 mg PO Q12H PRN PRN Reason: Dyspepsia Stop: 06/23/24 16:16 Gabapentin (Gabapentin 600 Mg Tab) 600 mg PO BID [facility] Stop: 06/22/24 20:59 Last Admin: 05/25/24 10:19 Dose: 600 mg Hydralazine HCl (Hydralazine Hcl 20 Mg/Ml Vial) 5 mg IV Q8H PRN PRN Reason: SBP>180 Stop: 06/23/24 12:14 Hydroxyzine HCl (Hydroxyzine Hcl 25 Mg Tab) 25 mg PO Q8H PRN PRN Reason: Anxiety Stop: 06/23/24 16:16 Acetaminophen (Ofirmev) 1,000 mg in 100 mls @ 400 mls/hr IV Q8H PRN PRN Reason: Pain Rating 1-3 & Pre PT Stop: 05/25/24 16:18 Promethazine HCl (Phenergan) 12.5 mg in 50.5 mls @ 202 mls/hr IV Q6H PRN PRN Reason: Nausea And Vomiting Stop: 06/23/24 16:16 Influenza Virus Vaccine Quadrival (Do Not Administer Flu Vaccine) 1 each N/A PRN PRN PRN Reason: Notification Stop: 06/23/24 16:16 Lisinopril (Lisinopril 40 Mg Tab) 40 mg PO DAILY [facility] Stop: 06/23/24 08:59 Last Admin: 05/25/24 10:19 Dose: 40 mg Lorazepam (Lorazepam 0.5 Mg Tab) 0.5 mg PO Q8H PRN PRN Reason: Sedation/Anxiety Stop: 06/23/24 16:16 Last Admin: 05/24/24 23:47 Dose: 0.5 mg Lorazepam (Lorazepam 2 Mg/1 Ml Vial) 0.5 mg IV Q8H PRN PRN Reason: Sedation/Anxiety Stop: 06/23/24 16:16 Magnesium Hydroxide (Magnesium Hydroxide Susp 30 Ml Udc) 30 ml PO Q24H PRN PRN Reason: Constipation Stop: 06/23/24 16:16 Memantine (Memantine Hcl 10 Mg Tab) 10 mg PO BID [facility] Stop: 06/22/24 20:59 Last Admin: 05/25/24 10:19 Dose: 10 mg Metoclopramide HCl (Metoclopramide Hcl Inj 5 Mg/Ml 2 Ml Vial) 10 mg IV Q6H PRN PRN Reason: Nausea &/or Vomiting Stop: 06/23/24 16:16 Naloxone HCl (Naloxone Hcl 0.4 Mg/1 Ml Vial/Carp) 0.1 mg IV Q5M PRN PRN Reason: Oversedation/Resp depression Stop: 06/23/24 16:16 Ondansetron HCl (Ondansetron Inj 2 Mg/Ml 2 Ml Vial) 4 mg IV Q6H PRN PRN Reason: Nausea &/or Vomiting Stop: 06/23/24 16:16 Ondansetron HCl (Ondansetron 4 Mg Od Tab) 4 mg PO Q6H PRN PRN Reason: Nausea Stop: 06/23/24 16:16 Oxycodone HCl (Oxycodone Hcl Ir 5 Mg Tab (Immediate Release)) 5 - 10 mg PO Q4H PRN PRN Reason: mod to severe pain Stop: 06/06/24 15:16 Last Admin: 05/25/24 12:33 Dose: 10 mg Pantoprazole Sodium (Pantoprazole 40 Mg Tab) 40 mg PO DAILY [facility] Stop: 06/23/24 08:59 Last Admin: 05/25/24 10:18 Dose: 40 mg Pneumococcal Polyvalent Vaccine (Do Not Administer Pneumococcal Vaccine) 1 each N/A PRN PRN PRN Reason: Notification Stop: 06/23/24 16:16 Polyethylene Glycol (Polyethylene (Miralax) 17 Gm Pack) 17 gm PO Q6 [facility] Stop: 06/24/24 05:59 Last Admin: 05/25/24 11:43 Dose: 17 gm Rosuvastatin Calcium (Rosuvastatin Calcium 20 Mg Tab) 20 mg PO QPM [facility] Stop: 06/22/24 20:59 Last Admin: 05/24/24 20:15 Dose: 20 mg Senna/Docusate Sodium (Docusate Sodium/Senna 50/8.6mg Tab) 2 tab PO HS [facility] Stop: 06/23/24 20:59 Last Admin: 05/24/24 20:16 Dose: 2 tab Sodium Biphosphate/Sodium Phosphate (Sod Phosphate/Sod Biphosphate Enema 132 Ml Btl) 132 ml NJ ONE PRN PRN Reason: Constipation Stop: 06/23/24 16:16 Tamsulosin HCl (Tamsulosin Hcl 0.4 Mg Cap) 0.4 mg PO QAM [facility] Stop: 06/24/24 08:59 Last Admin: 05/25/24 08:28 Dose: 0.4 mg Tramadol HCl (Tramadol Hcl 50 Mg Tablet) 50 - 100 mg PO Q4H PRN PRN Reason: Moderate-Severe pain & Pre PT Stop: 06/22/24 15:16 Last Admin: 05/25/24 08:26 Dose: 100 mg
[2024-05-25] MEDS: amLODIPine BESYLATE 5 MG TAB PO SCH (17:26)
--- NOTE | 2024-05-26 10:59 | Orthopedic Progress Note ---
Date of Service May 26, 2024 Assessment & Plan (1) Myelopathy 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 stenosis of thoracic region: Plan: At this time we will continue physical therapy monitor his YISSEL output hopefully discharge home in the next few days. Admission and Anticipated Discharge Date Admission Date: May 23, 2024 Subjective Patient's back pain is controlled leg symptoms steadily improving. He is tolerating physical therapy. Physical Exam Physical Exam: Patient is currently in bed. Skin strength testing. Results & Data Vital Signs (Past 12 Hours) Vital Signs Temp Pulse Resp BP Pulse Ox O2 Del Method 05/26/24 07:14 36.6 C 60 18 154/73 H 96 Room Air Queries Orthopedic Spine Obesity: Yes
--- NOTE | 2024-05-26 13:14 | Hospitalist Progress Note ---
Date of Service May 26, 2024 Assessment & Plan (1) Myelopathy 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 stenosis of thoracic region: Plan Pt is a 74yoM with PMHx significant for history JEROMY on CPAP, CAD status post CABG, rheumatoid arthritis, mild cognitive impairment who was admitted by Ortho spine surgery for spinal surgery tomorrow. Patient had lumbar decompression/fusion surgery L3-S1 in January 2024. Neurogenic claudication due to lumbar spinal stenosis: Spinal stenosis, thoracic: Lumbar spinal stenosis: Spinal stenosis: s/p urgent decompression and fusion T2-T4 on 05/24 Pain management per ortho Wound management per ortho PT/OT as appropriate DVT prophylaxis per ortho Incentive spirometry Minimal back pain without any radiation and has been getting physical therapy Remains otherwise medically stable and will depend on primary when he can be discharged in a day or 2 Remains medically stable Pain is controlled and has been getting physical therapy Will check labs tomorrow and likely discharge tomorrow as per the primary service Essential hypertension Blood pressure is currently poorly controlled Patient's home med reconciled with Continue home lisinopril Give one time amlodipine 5mg and monitor Blood pressure remains elevated at 181/77 and will continue with amlodipine 5 mg daily Monitor blood pressure Blood pressure seems to be reasonably controlled with current medications GERD (gastroesophageal reflux disease): Continue home omeprazole Rheumatoid arthritis: Stable Continue hydroxychloroquine JEROMY (obstructive sleep apnea): CPAP HS Needs incentive spirometry and close monitoring post op History of CAD (coronary artery disease): Continue aspirin and atorvastatin Code status: Full DVT ppx: per ortho Admission and Anticipated Discharge Date Admission Date: May 23, 2024 Subjective 05/25/2024 Patient was seen and examined in medical floor He is status post T2-T4 decompression and fusion Has been feeling much better without any significant back pain and does not have any numbness to no tingling in the extremities Participating in physical therapy 05/26/2024 The patient was seen and examined in medical floor He has been feeling much better with the back pain and complains some numbness involving the feet Denies any other significant symptoms He has been getting physical therapy and will be discharged home tomorrow by the primary Review of Systems Review of Systems: All systems reviewed and are unremarkable except as noted below Physical Exam Physical Exam: Sitting on a chair without any acute distress Constitutional: well developed, well nourished, + ill appearing and + obese Eyes: PERRL, conjunctivae normal, anicteric sclerae ENMT: external ear and nose normal, oropharynx normal Neck: trachea midline, no thyromegaly Respiratory: no respiratory distress Auscultation: lungs clear to auscultation bilaterally Cardiovascular: Rate/Rhythm: regular rate and regular rhythm; not tachycardic Heart Sounds: normal S1 and normal S2; no murmur Extremities: no edema Gastrointestinal (Abdomen): Inspection/Auscultation: normal bowel sounds; abdomen not distended Percussion/Palpation: abdomen soft; abdomen nontender Neurologic: normal touch/pain/proprioception and moves all extremities; no focal motor deficits Psychiatric: A+Ox3, euthymic affect Lymphatic: no cervical or axillary lymphadenopathy Results & Data Results & Data Vital Signs (Past 12 Hours) Vital Signs Temp Pulse Resp BP Pulse Ox O2 Del Method 05/26/24 07:14 36.6 C 60 18 154/73 H 96 Room Air Medications Administered Current Inpatient Medications Acetaminophen (Acetaminophen 500 Mg Tab) 1,000 mg PO Q8H PRN PRN Reason: MILD Pain Scale 1,2,3 & Pre PT Stop: 06/22/24 15:16 Last Admin: 05/24/24 07:15 Dose: 1,000 mg Acetaminophen (Acetaminophen 500 Mg Tab) 1,000 mg PO Q8H PRN PRN Reason: MILD Pain Scale 1,2,3 & Pre PT Stop: 06/23/24 16:16 Al Hydrox/Mg Hydrox/Simethicone (Aluminum/Magnesium Susp 30 Ml Udc) 30 ml PO Q6H PRN PRN Reason: Dyspepsia Stop: 06/23/24 16:16 Amlodipine Besylate (Amlodipine Besylate 5 Mg Tab) 5 mg PO QAM [facility] Stop: 06/24/24 16:14 Last Admin: 05/26/24 08:02 Dose: 5 mg Bisacodyl (Bisacodyl 10 Mg Supp) 10 mg AR DAILY PRN PRN Reason: Constipation Stop: 06/23/24 16:16 Citalopram Hydrobromide (Citalopram 20 Mg Tab) 20 mg PO DAILY [facility] Stop: 06/23/24 08:59 Last Admin: 05/26/24 08:01 Dose: 20 mg Diphenhydramine HCl (Diphenhydramine Capsule 25 Mg Cap) 25 mg PO Q6H PRN PRN Reason: Allergic Rhinitis/Insomnia Stop: 06/23/24 16:16 Famotidine (Famotidine 20 Mg Tab) 20 mg PO Q12H PRN PRN Reason: Dyspepsia Stop: 06/23/24 16:16 Gabapentin (Gabapentin 600 Mg Tab) 600 mg PO BID [facility] Stop: 06/22/24 20:59 Last Admin: 05/26/24 08:02 Dose: 600 mg Hydralazine HCl (Hydralazine Hcl 20 Mg/Ml Vial) 5 mg IV Q8H PRN PRN Reason: SBP>180 Stop: 06/23/24 12:14 Hydroxyzine HCl (Hydroxyzine Hcl 25 Mg Tab) 25 mg PO Q8H PRN PRN Reason: Anxiety Stop: 06/23/24 16:16 Promethazine HCl (Phenergan) 12.5 mg in 50.5 mls @ 202 mls/hr IV Q6H PRN PRN Reason: Nausea And Vomiting Stop: 06/23/24 16:16 Influenza Virus Vaccine Quadrival (Do Not Administer Flu Vaccine) 1 each N/A PRN PRN PRN Reason: Notification Stop: 06/23/24 16:16 Lisinopril (Lisinopril 40 Mg Tab) 40 mg PO DAILY [facility] Stop: 06/23/24 08:59 Last Admin: 05/26/24 08:02 Dose: 40 mg Lorazepam (Lorazepam 0.5 Mg Tab) 0.5 mg PO Q8H PRN PRN Reason: Sedation/Anxiety Stop: 06/23/24 16:16 Last Admin: 05/24/24 23:47 Dose: 0.5 mg Lorazepam (Lorazepam 2 Mg/1 Ml Vial) 0.5 mg IV Q8H PRN PRN Reason: Sedation/Anxiety Stop: 06/23/24 16:16 Magnesium Hydroxide (Magnesium Hydroxide Susp 30 Ml Udc) 30 ml PO Q24H PRN PRN Reason: Constipation Stop: 06/23/24 16:16 Memantine (Memantine Hcl 10 Mg Tab) 10 mg PO BID [facility] Stop: 06/22/24 20:59 Last Admin: 05/26/24 08:02 Dose: 10 mg Metoclopramide HCl (Metoclopramide Hcl Inj 5 Mg/Ml 2 Ml Vial) 10 mg IV Q6H PRN PRN Reason: Nausea &/or Vomiting Stop: 06/23/24 16:16 Naloxone HCl (Naloxone Hcl 0.4 Mg/1 Ml Vial/Carp) 0.1 mg IV Q5M PRN PRN Reason: Oversedation/Resp depression Stop: 06/23/24 16:16 Ondansetron HCl (Ondansetron Inj 2 Mg/Ml 2 Ml Vial) 4 mg IV Q6H PRN PRN Reason: Nausea &/or Vomiting Stop: 06/23/24 16:16 Ondansetron HCl (Ondansetron 4 Mg Od Tab) 4 mg PO Q6H PRN PRN Reason: Nausea Stop: 06/23/24 16:16 Oxycodone HCl (Oxycodone Hcl Ir 5 Mg Tab (Immediate Release)) 5 - 10 mg PO Q4H PRN PRN Reason: mod to severe pain Stop: 06/06/24 15:16 Last Admin: 05/26/24 12:45 Dose: 10 mg Pantoprazole Sodium (Pantoprazole 40 Mg Tab) 40 mg PO DAILY [facility] Stop: 06/23/24 08:59 Last Admin: 05/26/24 08:02 Dose: 40 mg Pneumococcal Polyvalent Vaccine (Do Not Administer Pneumococcal Vaccine) 1 each N/A PRN PRN PRN Reason: Notification Stop: 06/23/24 16:16 Polyethylene Glycol (Polyethylene (Miralax) 17 Gm Pack) 17 gm PO Q6 KEVIN Stop: 06/24/24 05:59 Last Admin: 05/26/24 11:41 Dose: 17 gm Rosuvastatin Calcium (Rosuvastatin Calcium 20 Mg Tab) 20 mg PO QPM KEVIN Stop: 06/22/24 20:59 Last Admin: 05/25/24 19:27 Dose: 20 mg Senna/Docusate Sodium (Docusate Sodium/Senna 50/8.6mg Tab) 2 tab PO HS KEVIN Stop: 06/23/24 20:59 Last Admin: 05/25/24 19:28 Dose: 2 tab Sodium Biphosphate/Sodium Phosphate (Sod Phosphate/Sod Biphosphate Enema 132 Ml Btl) 132 ml AR ONE PRN PRN Reason: Constipation Stop: 06/23/24 16:16 Tamsulosin HCl (Tamsulosin Hcl 0.4 Mg Cap) 0.4 mg PO QAM KEVIN Stop: 06/24/24 08:59 Last Admin: 12/25/24 08:01 Dose: 0.4 mg Tramadol HCl (Tramadol Hcl 50 Mg Tablet) 50 - 100 mg PO Q4H PRN PRN Reason: Moderate-Severe pain & Pre PT Stop: 06/22/24 15:16 Last Admin: 05/26/24 08:30 Dose: 100 mg
[2024-05-26] MEDS: CYCLOBENZAPRINE HCL 10 MG TAB PO STA (20:14)
[2024-05-27] MEDS: diphenhydrAMINE Capsule 25 MG CAP PO PRN (00:48)
[2024-05-27 08:12] LABS: Basophils # (auto) 0.06 K/uL (0.00-0.20); Basophils % (auto) 0.5 %; Eosinophils # (auto) 0.13 K/uL (0.00-0.50); Eosinophils % (auto) 1.2 %; Hemoglobin 11.5 g/dl (14.0-18.0); Immature Granulocytes # (auto) 0.06 K/uL (0.01-0.20); Immature Granulocytes % (auto) 0.5 %; Lymphocytes # (auto) 2.36 K/uL (1.20-3.40); Lymphocytes % (auto) 21.4 %; Mean Corpuscular Hemoglobin 30.7 pg (25.0-34.0); Mean Corpuscular Hgb Conc 32.9 g/dL (32.0-36.0); Mean Corpuscular Volume 93.3 fL (80.0-100.0); Mean Platelet Volume 10.8 fL (9.4-12.4); Monocytes % (auto) 10.9 %; Neutrophils % (auto) 65.5 %; Platelet Count 226 K/uL (130-400); RDW Coefficient of Variation 14.6 % (11.5-14.5); Red Blood Count 3.75 M/uL (4.70-6.10); White Blood Count 11.01 K/ul (4.8-10.8)
[2024-05-27 08:16] LABS: BUN Creatinine Ratio 21.9 (10-20); Calcium 9.1 mg/dl (8.6-10.3); Creatinine Clr Calc Pharmacy 81.2 ml/min; Potassium 3.8 mmol/L (3.5-5.1)
--- NOTE | 2024-05-27 09:55 | Discharge Summary ---
Date of Service May 27, 2024 Admission HPI Per Admitting Provider This is a 73-year-old male presents with more decline in status. He is having marked difficulty with balance ambulation and bilateral leg weakness. Imaging of the thoracic spine demonstrating severe spinal stenosis with myelopathy. [place] Principal Diagnosis Thoracic spinal stenosis with myelopathy Discharge Data Allergies Allergy/AdvReac Type Severity Reaction Status Date / Time Sulfa (Sulfonamide Allergy Intermediate RASH;HIVES; Verified 02/06/24 15:04 Antibiotics) SWELLING meloxicam [From Mobic] Allergy Unknown CAN'T Verified 02/06/24 15:04 REMEMBER naproxen [From Aleve] Allergy Unknown CAN'T Verified 02/06/24 15:04 REMEMBER Consultations 05/23/24 13:35 Consult Orthopedic Spine Surgery Stat 05/23/24 15:17 Consult Anesthesiology Routine Consult Internal Medicine Routine Procedures Performed Operation Date: 05/24/24 13:05 Actual Procedures p T2-T4 Decompression and Fusion with Application of Bone Morphogenetic Protein, MagnetOS Bone Graft, Spinal Cord Monitoring(Not Applicable) - Andrzej Lo DO Ordered Studies 05/24/24 07:02 [place] thoracic spine 2V Routine Hospital Course (1) Myelopathy 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 stenosis of thoracic region: Patient underwent thoracic decompression fusion tolerated this well was taken to orthopedic for postoperative. Postop he progressed appropriately. Improved his ambulation and function. Pain well-controlled. Strength improving. YISSEL drain decreasing. Subsidy discharged home. Discharge orders instructions from the chart for further review. Total Time Total Time Spent Total Time Spent (In Minutes): 20 minutes Discharge Plan Discharge Items Patient Disposition: Home - Self-Care Reason For Visit: THORACIC STENOSIS WITH MYELOPATHY Discharge Diagnosis: Thoracic spinal stenosis with myelopathy Activity: As commented below Non-emergency contact: Primary Care Provider Call non-emergency contact if: you have any medication questions Follow-up/Referrals: Que Foreman PA-C [Primary Care Provider] - Diet: Regular Addtl Attending Provider Instructions: ACTIVITY RECOMMENDATIONS: SELF CARE INSTRUCTIONS AFTER THORACIC/LUMBAR FUSIONS 1. You may walk to your tolerance. It is good exercise for your legs and back. Expect some back and intermittent leg aches and pains. 2. You may perform "counter-top" level activities (make a sandwich, jerardo with a project, etc.). 3. No bending or lifting of more than 10 pounds or back twisting of any nature (roll like a log when turning in bed). 4. You may ride in a car for 20-30 minutes at a time. No driving until after your first visit with your doctor. 5. Frequent changes of position and restricting sitting to 30 minutes at a time will help limit the amount of back spasms and stiffness you may experience. 6. You may discontinue the use of ambulatory aids (cane, crutches, etc.) once your strength and confidence allow. 7. You may digital photographic printer the shower and let water strike your incision when you arrive home at least once daily. Do not take a tub bath, sit in a hot tub or go into a swimming pool until after your first recheck in the office. 8. You may resume previous diet. SPECIAL CARE INSTRUCTIONS: VERY IMPORTANT TO READ AND REVIEW A. Your surgical incision has been closed with a cosmetic suture under the skin that will dissolve in about 6 weeks. In 14 days, you can use a pair of clean scissors and cut the suture that is left outside of the skin at the ends of your incision. 1. The small skin tapes can be removed 7 days after surgery if they have not fallen off by that point. 2. You may keep the wound open to air as much as possible to promote healing after post-op day number 5 unless told otherwise by your doctor. 3. If you think the wound looks like it is becoming infected (redness or worsening drainage) and/or you are experiencing fever, chill or worsening back pain and muscle spasms, contact the office so that we may evaluate you as soon as possible. B. Complications are uncommon, but please contact us if you have any signs or symptoms of: 1. wound infection (fever higher than 102.5 degrees F, redness, separation of wound, drainage, or increasing pain from the incision) 2. blood clots in legs (pain, swelling, redness and warmth in legs) 3. urinary tract infection (fever higher than 102.5 degrees F, burning upon urination or increased frequency of urination) 4. nerve problems (inability to walk on your toes or heels, numbness, loss of bowel or bladder control) 5. any other symptoms that concern you C. Please call the office at if you have any concerns or questions about your operation or recovery. D. No smoking! Smoking drastically decreases the chance of a solid fusion. E. Do not take any anti-inflammatory medications (Indocin, Advil, Motrin, Aspirin, Naprosyn, etc.) as these may inhibit the chance of a solid fusion. Tylenol is okay to take for pain. MANAGING PAIN AFTER SPINAL SURGERY 1. Narcotic medication is intended for short-term use and will be provided for surgical pain. Surgical pain usually lasts for a period of 4-6 weeks. Narcotic medication includes Percocet, Vicodin, Darvocet, Tylenol #3 or Lortab. 2. Longer-term pain is more appropriately treated with non-narcotic medication such as Tylenol ES. 3. Muscle spasm is not appropriately treated with narcotics. Muscle relaxers such as Soma, Flexeril or Skelaxin can be used along with Tylenol ES. 4. Remember that we all live with some "aches and pains". This is not unusual or uncommon after an injury or as we get older. a. Back pain is expected and may include muscle spasms for 4 to 6 weeks after surgery. The pain should gradually improve. If the pain worsens for no apparent reason, please contact the office. b. Intermittent leg pain may also be experienced and should not be concerned about unless it worsens for no apparent reason. If so, please contact the office. 5. We will provide appropriate medication within the normal guidelines of their prescribed use. We will also be very cautious and aware of potential abuse and extended duration of patients' medication needs. a. Pain medications are for your comfort and to assist with sleep and rest so that the tissue can heal. They are not provided in order to return to normal activity and should not be used through the day. To do so or worsening pain at night can result from ongoing tissue damage and development of tolerance to the prescribed medicine. 6. Please allow 2-3 days to process refills. Prescriptions will not be mailed but must be picked up at the office. FOLLOW UP VISIT: Keep your scheduled follow-up appointment. Any questions, please call the office at . Pending Studies at Discharge: No Stand-Alone Forms: My [employer], Smoking Cessation Medications and DC Order Prescriptions: New tramadol 50 mg tablet 50 mg PO Q6H PRN (Reason: pain, moderate) Qty: 30 0RF oxycodone 5 mg tablet 5 mg PO Q6H PRN (Reason: pain) Qty: 30 0RF Continued omeprazole 20 mg capsule,delayed release(DR/EC) 20 mg PO DAILY krill oil 500 mg capsule 500 mg PO QPM cholecalciferol (vitamin D3) 25 mcg (1,000 unit) tablet 25 mcg PO DAILY rosuvastatin 20 mg tablet 20 mg PO QPM hydroxychloroquine 200 mg tablet 200 mg PO DAILY multivitamin Tablet 1 tab PO QPM aspirin [[facility] Low Dose Aspirin] 81 mg Tablet,Delayed Release (Dr/Ec) 81 mg PO DAILY tamsulosin 0.4 mg capsule 0.4 mg PO QAM Rx Instructions: Take 1 capsule by mouth once daily gabapentin 600 mg tablet 600 mg PO BID citalopram 20 mg tablet 20 mg PO DAILY lisinopril 40 mg tablet 40 mg PO DAILY memantine 10 mg tablet 10 mg PO BID Discharge Orders: Discharge Order (Routine); Ordered 05/27/24 Ordered By: Andrzej Lo Admission Data Admit Date/Time: 05/23/24 13:45 Attending Provider: Andrzej Lo Admit Provider: Andrzej Lo Primary Care Provider: Que Foreman Other Providers: Andrzej Lo; Mike Nielsen; Naomi Carter.
--- NOTE | 2024-05-27 12:44 | Electrocardiogram Report ---
Test Reason : Blood Pressure : */* mmHG Vent. 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
[2024-05-27] MEDS: dexAMETHasone 8 MG in SYRINGE 0 ML IV SCH (14:26)
--- NOTE | 2024-05-27 16:56 | Hospitalist Progress Note ---
Date of Service May 27, 2024 Assessment & Plan (1) Myelopathy 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 stenosis of thoracic region: Plan Pt is a 74yoM with PMHx significant for history JEROMY on CPAP, CAD status post CABG, rheumatoid arthritis, mild cognitive impairment who was admitted by Ortho spine surgery for spinal surgery tomorrow. Patient had lumbar decompression/fusion surgery L3-S1 in January 2024. Neurogenic claudication due to lumbar spinal stenosis: Spinal stenosis, thoracic: Lumbar spinal stenosis: Spinal stenosis: s/p urgent decompression and fusion T2-T4 on 05/24 Pain management per ortho Wound management per ortho PT/OT as appropriate DVT prophylaxis per ortho Incentive spirometry Minimal back pain without any radiation and has been getting physical therapy Remains otherwise medically stable and will depend on primary when he can be discharged in a day or 2 Remains medically stable Pain is controlled and has been getting physical therapy Will check labs tomorrow and likely discharge tomorrow as per the primary service Remains stable regarding spinal procedure and surgery and is about to be discharged from the hospital Acute confusion Noted by the family members prior to discharge He was examined by me and except minimal confusion no other significant symptoms and/or findings were noted Could be secondary to recent surgery and use of medications and narcotics Will get a CT of the head to rule out any bleeding and will give small amount of intravenous fluid Repeat blood counts tomorrow and likely discharge tomorrow if everything is stable Essential hypertension Blood pressure is currently poorly controlled Patient's home med reconciled with Continue home lisinopril Give one time amlodipine 5mg and monitor Blood pressure remains elevated at 181/77 and will continue with amlodipine 5 mg daily Monitor blood pressure Blood pressure seems to be reasonably controlled with current medications GERD (gastroesophageal reflux disease): Continue home omeprazole Rheumatoid arthritis: Stable Continue hydroxychloroquine JEROMY (obstructive sleep apnea): CPAP HS Needs incentive spirometry and close monitoring post op History of CAD (coronary artery disease): Continue aspirin and atorvastatin Code status: Full DVT ppx: per ortho Admission and Anticipated Discharge Date Admission Date: May 23, 2024 Subjective 05/25/2024 Patient was seen and examined in medical floor He is status post T2-T4 decompression and fusion Has been feeling much better without any significant back pain and does not have any numbness to no tingling in the extremities Participating in physical therapy 05/26/2024 The patient was seen and examined in medical floor He has been feeling much better with the back pain and complains some numbness involving the feet Denies any other significant symptoms He has been getting physical therapy and will be discharged home tomorrow by the primary 05/27/2024 The patient was seen and examined in medical floor in the morning and later on in the afternoon in presence of the family members He was about to be discharged from the hospital Family member noticed him to be confused He has some confusion but otherwise no significant findings on examination Review of Systems Review of Systems: All systems reviewed and are unremarkable except as noted below Physical Exam Physical Exam: Sitting on a chair without any acute distress Constitutional: well developed, well nourished, + ill appearing and + obese Eyes: PERRL, conjunctivae normal, anicteric sclerae ENMT: external ear and nose normal, oropharynx normal Neck: trachea midline, no thyromegaly Respiratory: no respiratory distress Auscultation: lungs clear to auscultation bilaterally Cardiovascular: Rate/Rhythm: regular rate and regular rhythm; not tachycardic Heart Sounds: normal S1 and normal S2; no murmur Extremities: no edema Gastrointestinal (Abdomen): Inspection/Auscultation: normal bowel sounds; abdomen not distended Percussion/Palpation: abdomen soft; abdomen nontender Neurologic: normal touch/pain/proprioception and moves all extremities; no focal motor deficits Pleasantly confused but no other neurological deficit on examination Psychiatric: A+Ox3, euthymic affect Lymphatic: no cervical or axillary lymphadenopathy Results & Data Results & Data Vital Signs (Past 12 Hours) Vital Signs Temp Pulse Pulse Resp BP Pulse Ox O2 Del Method 05/27/24 13:51 36.8 C 72 18 138/70 93 Room Air 05/27/24 09:29 69 18 154/77 H 05/27/24 08:56 66 18 188/79 H 95 Room Air 05/27/24 08:00 Room Air 05/27/24 07:32 36.8 C 65 18 148/71 H 92 Room Air Laboratory Results Short CBC 05/27/24 Range/Units 06:57 WBC 11.01 H (4.8-10.8) K/ul Hgb 11.5 L (14.0-18.0) g/dl Hct 35.0 L (42.0-52.0) % Plt Count 226 (130-400) K/uL BMP 05/27/24 06:57 Sodium 137 Potassium 3.8 Chloride 101 Carbon Dioxide 30 BUN 21 Creatinine 0.96 Glucose 91 Calcium 9.1 Medications Administered Current Inpatient Medications Acetaminophen (Acetaminophen 500 Mg Tab) 1,000 mg PO Q8H PRN PRN Reason: MILD Pain Scale 1,2,3 & Pre PT Stop: 06/23/24 16:16 Al Hydrox/Mg Hydrox/Simethicone (Aluminum/Magnesium Susp 30 Ml Udc) 30 ml PO Q6H PRN PRN Reason: Dyspepsia Stop: 06/23/24 16:16 Amlodipine Besylate (Amlodipine Besylate 5 Mg Tab) 5 mg PO QAM [facility] Stop: 06/24/24 16:14 Last Admin: 05/27/24 09:34 Dose: 5 mg Bisacodyl (Bisacodyl 10 Mg Supp) 10 mg LA DAILY PRN PRN Reason: Constipation Stop: 06/23/24 16:16 Citalopram Hydrobromide (Citalopram 20 Mg Tab) 20 mg PO DAILY [facility] Stop: 06/23/24 08:59 Last Admin: 05/27/24 09:34 Dose: 20 mg Diphenhydramine HCl (Diphenhydramine Capsule 25 Mg Cap) 25 mg PO Q6H PRN PRN Reason: Allergic Rhinitis/Insomnia Stop: 06/23/24 16:16 Last Admin: 05/27/24 00:48 Dose: 25 mg Famotidine (Famotidine 20 Mg Tab) 20 mg PO Q12H PRN PRN Reason: Dyspepsia Stop: 06/23/24 16:16 Gabapentin (Gabapentin 600 Mg Tab) 600 mg PO BID [facility] Stop: 06/22/24 20:59 Last Admin: 05/27/24 09:34 Dose: 600 mg Hydralazine HCl (Hydralazine Hcl 20 Mg/Ml Vial) 5 mg IV Q8H PRN PRN Reason: SBP>180 Stop: 06/23/24 12:14 Hydroxyzine HCl (Hydroxyzine Hcl 25 Mg Tab) 25 mg PO Q8H PRN PRN Reason: Anxiety Stop: 06/23/24 16:16 Promethazine HCl (Phenergan) 12.5 mg in 50.5 mls @ 202 mls/hr IV Q6H PRN PRN Reason: Nausea And Vomiting Stop: 06/23/24 16:16 Dexamethasone 8 mg/ Syringe 2 mls @ 1 mls/min IV DAILY [facility] Stop: 06/26/24 12:29 Last Admin: 05/27/24 14:26 Dose: 1 mls/min Sodium Chloride (Nss) 1,000 mls @ 80 mls/hr IV .[id number] [facility] Stop: 05/28/24 05:14 Influenza Virus Vaccine Quadrival (Do Not Administer Flu Vaccine) 1 each N/A PRN PRN PRN Reason: Notification Stop: 06/23/24 16:16 Lisinopril (Lisinopril 40 Mg Tab) 40 mg PO DAILY [facility] Stop: 06/23/24 08:59 Last Admin: 05/27/24 09:34 Dose: 40 mg Lorazepam (Lorazepam 0.5 Mg Tab) 0.5 mg PO Q8H PRN PRN Reason: Sedation/Anxiety Stop: 06/23/24 16:16 Last Admin: 05/24/24 23:47 Dose: 0.5 mg Lorazepam (Lorazepam 2 Mg/1 Ml Vial) 0.5 mg IV Q8H PRN PRN Reason: Sedation/Anxiety Stop: 06/23/24 16:16 Magnesium Hydroxide (Magnesium Hydroxide Susp 30 Ml Udc) 30 ml PO Q24H PRN PRN Reason: Constipation Stop: 06/23/24 16:16 Memantine (Memantine Hcl 10 Mg Tab) 10 mg PO BID [facility] Stop: 06/22/24 20:59 Last Admin: 05/27/24 09:34 Dose: 10 mg Metoclopramide HCl (Metoclopramide Hcl Inj 5 Mg/Ml 2 Ml Vial) 10 mg IV Q6H PRN PRN Reason: Nausea &/or Vomiting Stop: 06/23/24 16:16 Naloxone HCl (Naloxone Hcl 0.4 Mg/1 Ml Vial/Carp) 0.1 mg IV Q5M PRN PRN Reason: Oversedation/Resp depression Stop: 06/23/24 16:16 Ondansetron HCl (Ondansetron Inj 2 Mg/Ml 2 Ml Vial) 4 mg IV Q6H PRN PRN Reason: Nausea &/or Vomiting Stop: 06/23/24 16:16 Ondansetron HCl (Ondansetron 4 Mg Od Tab) 4 mg PO Q6H PRN PRN Reason: Nausea Stop: 06/23/24 16:16 Oxycodone HCl (Oxycodone Hcl Ir 5 Mg Tab (Immediate Release)) 5 - 10 mg PO Q4H PRN PRN Reason: mod to severe pain Stop: 06/06/24 15:16 Last Admin: 05/27/24 09:36 Dose: 10 mg Pantoprazole Sodium (Pantoprazole 40 Mg Tab) 40 mg PO DAILY [facility] Stop: 06/23/24 08:59 Last Admin: 05/27/24 09:35 Dose: 40 mg Pneumococcal Polyvalent Vaccine (Do Not Administer Pneumococcal Vaccine) 1 each N/A PRN PRN PRN Reason: Notification Stop: 06/23/24 16:16 Polyethylene Glycol (Polyethylene (Miralax) 17 Gm Pack) 17 gm PO Q6 [facility] Stop: 06/24/24 05:59 Last Admin: 05/27/24 13:13 Dose: 17 gm Rosuvastatin Calcium (Rosuvastatin Calcium 20 Mg Tab) 20 mg PO QPM [facility] Stop: 06/22/24 20:59 Last Admin: 05/26/24 20:15 Dose: 20 mg Senna/Docusate Sodium (Docusate Sodium/Senna 50/8.6mg Tab) 2 tab PO HS [facility] Stop: 06/23/24 20:59 Last Admin: 05/26/24 20:14 Dose: 2 tab Sodium Biphosphate/Sodium Phosphate (Sod Phosphate/Sod Biphosphate Enema 132 Ml Btl) 132 ml LA ONE PRN PRN Reason: Constipation Stop: 06/23/24 16:16 Tamsulosin HCl (Tamsulosin Hcl 0.4 Mg Cap) 0.4 mg PO QAM [facility] Stop: 06/24/24 08:59 Last Admin: 05/27/24 09:34 Dose: 0.4 mg Tramadol HCl (Tramadol Hcl 50 Mg Tablet) 50 - 100 mg PO Q4H PRN PRN Reason: Moderate-Severe pain & Pre PT Stop: 06/22/24 15:16 Last Admin: 05/26/24 18:29 Dose: 100 mg
--- NOTE | 2024-05-27 17:41 | CT Scan Report ---
EXAM: CT Head Without Intravenous Contrast INDICATION: Evaluate for hemorrhage. TECHNIQUE: Axial computed tomography images of the head/brain without intravenous contrast. Sagittal and/or coronal reformats are provided. Sagittal and coronal reformatted images were created and reviewed. This CT exam was performed using one or more of the following dose reduction techniques: automated exposure control, adjustment of the mA and/or kV according to patient size, and/or use of iterative reconstruction technique. COMPARISON: No relevant prior studies available. FINDINGS: Limitations: None. Brain and extra-axial spaces: There is age appropriate cortical atrophy and chronic ischemic periventricular white matter hypodensity. No acute infarct, hemorrhage or mass noted. 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 Bones/joints: No acute changes. Soft tissues: No significant abnormality noted. Vasculature: There is atherosclerotic calcification in the intracranial right vertebral and bilateral carotid arteries. Sinuses: No layering fluid in the visualized portions of the paranasal sinuses. Mastoid air cells: No mastoid effusion. Orbits: No significant abnormality noted. IMPRESSION: Cerebral atrophy. No acute changes. ACT 112: Negative or not required by law. Electronically signed by Rosangela Ashley 05-27-2024 5:41 PM
[2024-05-27] MEDS: SODIUM CHLORIDE 0.9% 1,000 ML IV SCH (18:25)
[2024-05-27] MEDS: LOPERAMIDE HCL 2 MG CAP PO STA (21:14)
[2024-05-27] MEDS: ACETAMINOPHEN 500 MG TAB PO PRN (22:10)
[2024-05-28 08:08] VITALS: PULSE 67; RESP 18; TEMP 97.9; O2SAT 96
[2024-05-28 09:21] LABS: BUN Creatinine Ratio 26.8 (10-20); Calcium 9.4 mg/dl (8.6-10.3); Creatinine Clr Calc Pharmacy 95.1 ml/min
[2024-05-28 09:22] LABS: Basophils # (auto) 0.01 K/uL (0.00-0.20); Basophils % (auto) 0.1 %; Eosinophils # (auto) 0.05 K/uL (0.00-0.50); Eosinophils % (auto) 0.4 %; Hematocrit (blood only) 37.7 % (42.0-52.0); Hemoglobin 12.5 g/dl (14.0-18.0); Immature Granulocytes # (auto) 0.04 K/uL (0.01-0.20); Immature Granulocytes % (auto) 0.4 %; Lymphocytes # (auto) 0.99 K/uL (1.20-3.40); Lymphocytes % (auto) 8.8 %; Mean Corpuscular Hemoglobin 30.7 pg (25.0-34.0); Mean Corpuscular Hgb Conc 33.2 g/dL (32.0-36.0); Mean Corpuscular Volume 92.6 fL (80.0-100.0); Mean Platelet Volume 10.9 fL (9.4-12.4); Monocytes # (auto) 0.59 K/uL (0.11-0.59); Monocytes % (auto) 5.2 %; Neutrophils # (auto) 9.58 K/uL (1.40-6.50); Neutrophils % (auto) 85.1 %; Platelet Count 258 K/uL (130-400); RDW Standard Deviation 47.4 fL (36.4-46.3); Red Blood Count 4.07 M/uL (4.70-6.10); White Blood Count 11.26 K/ul (4.8-10.8)
[2024-05-28 12:09] VITALS: BP 175/70
[2024-05-28] MEDS: amLODIPine BESYLATE 5 MG TAB PO ONE (14:32)
--- NOTE | 2024-05-28 16:32 | Hospitalist Progress Note ---
Date of Service May 28, 2024 Assessment & Plan (1) Myelopathy 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 stenosis of thoracic region: Plan Pt is a 74yoM with PMHx significant for history JEROMY on CPAP, CAD status post CABG, rheumatoid arthritis, mild cognitive impairment who was admitted by Ortho spine surgery for spinal surgery tomorrow. Patient had lumbar decompression/fusion surgery L3-S1 in January 2024. Neurogenic claudication due to lumbar spinal stenosis: Spinal stenosis, thoracic: Lumbar spinal stenosis: Spinal stenosis: s/p urgent decompression and fusion T2-T4 on 05/24 Post op day#4 EBL#50ml Pain management per ortho Wound management per ortho PT/OT as appropriate DVT prophylaxis per ortho Incentive spirometry Monitor H&H for acute blood loss anemia; Pre-op Hgb: 13.0, hgb 12.5 on discharge Please ensure followup with Ortho Spine after discharge Essential hypertension Blood pressure was initially poorly controlled Patient's home meds reconciled with Continue home lisinopril Also treated with amlodipine 5mg BID while hospitalized PCP followup for continued monitoring and medication adjustments as needed after discharge GERD (gastroesophageal reflux disease): Continue home omeprazole Rheumatoid arthritis: Stable Continue hydroxychloroquine JEROMY (obstructive sleep apnea): CPAP HS Needs incentive spirometry and close monitoring post op History of CAD (coronary artery disease): Continue aspirin and atorvastatin Admission and Anticipated Discharge Date Admission Date: May 23, 2024 Subjective Patient was seen in the a.m. laying in bed. Alert and oriented x 3 Notes that he had an episode of confusion yesterday, states that has never happened before Review of Systems Review of Systems: All systems reviewed & are unremarkable except as noted in Subjective Physical Exam Physical Exam: General: Alert, orientedx3. No acute distress Psych: Appropriate mood and affect Neuro: difficulty with movements in the bed HEENT: NC/AT CV: RRR Resp: Breath sounds clear bilaterally, no increased effort of breathing Abdomen: nontender Extremities: teds on lower extremities bilaterally. Results & Data Results & Data Vital Signs (Past 12 Hours) Vital Signs Temp Pulse Resp BP Pulse Ox O2 Del Method 05/28/24 11:00 181/80 H 05/28/24 08:07 36.6 C 67 18 186/78 H 96 Room Air
== END 2024-05-28 15:12 | disposition home or self-care (01) | DRG 448 ==
LOC: ED 12:53 → 3W 13:45

== ENCOUNTER 2024-05-31 11:44 | Observation (INO) ==
--- NOTE | 2024-05-31 12:00 | Emergency Department Note ---
Impression & Plan Chest pain, History of CAD (coronary artery disease), Hypertensive emergency, Back pain ED Provider Note NAME: VERONICA AUSTIN AGE: 73 SEX: M : 1950 ARRIVES VIA: Walk-In INFORMANT: Patient, ED PROVIDER(S): Julien Colmenares MD CHIEF COMPLAINT: Chest pain, back pain MEDICAL DECISION MAKING: Patient presents due to concern for chest back pain. Thoracic incision site is well-appearing. IV was established and blood work was obtained. Patient with a normal white count hemoglobin 13.6 with a normal platelet count. The patient's kidney function is unremarkable. Total bilirubin 1.2. The patient has had hyperbilirubinemia in the past. This troponin negative. Upon reassessment the patient did have significant improvement in symptoms after morphine and nitro. Patient's blood pressure also did improve. I did speak with the on-call hospitalist service Dr. Weiner and the patient was to be admitted. Patient did have recurrence of chest pain did have additional morphine administered IV. Patient had improvement in his symptoms. EKG does not show any overt signs of STEMI at this time. Discussion w/ other healthcare providers: Dr. Weiner Prior /Outside records reviewed: I reviewed a recent discharge summary from May [address] Lo. Patient reportedly has had difficulty with balance ambulation bilateral lower extremity weakness and did have severe spinal stenosis with myelopathy. Patient did have a T2-T4 decompression and fusion with application of bone morphogenetic protein bone graft spinal cord monitor. Differential diagnosis: Cardiac ischemia, aortic dissection, pulmonary embolism, pneumothorax, pneumonia, pericarditis, myocarditis, GERD, cholecystitis, pancreatitis, musculoskeletal, as well as other pathologies were considered. Diagnostics, as interpreted by me: ECG: Normal sinus rhythm, rate of 66, normal intervals, normal axis Q waves noted inferiorly. Appears to be grossly unchanged from May 27, 2024. Cardiac monitoring: An order was placed for continuous cardiac monitoring. The monitor shows a rate of 67 with sinus rhythm. Patient was placed on pulse oximetry Medical decision rules: None Imaging studies: I informally interpreted the patient's chest x-ray does not show obvious pneumonia or pneumothorax, elevation of right hemidiaphragm noted, with formal report to follow. HPI: Patient presents due to concern for chest pain and back pain. The patient states that he had some of this yesterday but seem to worsen this morning around 430. Patient did have a recent thoracic spine procedure completed by Dr. Lo and was discharged last week. No YISSEL drain. The patient does have prior history of CAD and stent placement does follow with Dr. Douglas in [place]. The patient states he was having pain in his arm between his shoulder blades and does have chest pain with radiation toward the back. No falls or trauma. Patient did take an oxycodone this morning and got worried about this worsening pain as he thought he can take another 1 until 10:00 this evening but did receive another dose at 10:00 this morning. Patient states that it was mild exertional was diaphoretic and clammy. Patient did notice that he had elevated blood pressure. Patient states that he does take blood pressure medication to take it this morning. He denies any increase in salt or processed foods in the diet. No leg swelling or calf pain no history of DVT or PE. Patient states that he did take his morning medications. Patient does describe the chest pain as pressure. It is currently 9.5 out of 10 in severity. Patient denies any fevers or chills. PAST MEDICAL HISTORY: See Below PAST SURGICAL HISTORY: See Below SOCIAL HISTORY: See Below HOME MEDICATIONS: See Below ALLERGIES: See Below VITALS: See Below PHYSICAL EXAMINATION: GENERAL: NAD, non-toxic. EYE EXAM: Normal conjunctiva. PERRL, no anisocoria and EOM's grossly intact w/o pain. OROPHARYNX: Moist mucus membranes, grossly normal dentition. NECK: Trachea midline, no stridor. Supple, no nuchal rigidity, no adenopathy, non-tender. No signs of meningismus. FROM of the neck with good chin to chest and neck extension. LUNGS: Clear to auscultation. Normal chest wall mechanics. HEART: NSR, no MRG. ABDOMEN: Abdomen soft, non-tender, no masses, no rebound or guarding. BACK: No CVA TTP. Mild pain to the upper thoracic spine with midline healing wound. SKIN: No rashes and no bruising. UPPER EXTREMITIES: Upper extremities are grossly normal. LOWER EXTREMITIES: Grossly normal, no edema. Negative Homans' sign bilaterally. NEURO EXAM: A&O x3, cranial nerves II-XII grossly intact, normal speech, moves all 4 extremities. Past Med/Surg History Problem List Back pain (Acute) Hypertensive emergency (Acute) History of CAD (coronary artery disease) (Acute) Chest pain (Acute) Myelopathy 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 stenosis of thoracic region JEROMY (obstructive sleep apnea) History of CAD (coronary artery disease) Lumbar spinal stenosis (Acute) Spinal stenosis, thoracic (Acute) Neurogenic claudication due to lumbar spinal stenosis Spinal stenosis (Acute) Essential hypertension Acute epididymo-orchitis (Acute) Rheumatoid arthritis GERD (gastroesophageal reflux disease) Coronary artery disease Orchitis Kidney stones BPH without urinary obstruction Arthritis Medical History No pertinent family history Heart attack Hyperlipidemia High blood pressure Cardiac disorder Surgical History H/O heart surgery H/O foot surgery History of bladder surgery Social History Smoking Status: Never smoker Tobacco Type: Cigarettes Second Hand Exposure: No; Do You Dip or Chew Tobacco: No; Hx Alcohol Use: No Hx Substance Use: No Preferred Language: Kyrgyz Communication Ability: Effective Stitcher Operator Required: No Beliefs That Will Affect Care: None marital status: Current Living Situation: Spouse Other Information That Helps Us Care for You: No Feels Safe at Home: Yes Safety Concerns: Feels Safe At This Time Assistive Devices: Denture - Upper, Hearing Aid - Bilateral and Walker Allergies Allergies Allergy/AdvReac Type Severity Reaction Status Date / Time Sulfa (Sulfonamide Allergy Intermediate RASH;HIVES; Verified 02/06/24 15:04 Antibiotics) SWELLING meloxicam [From Mobic] Allergy Unknown CAN'T Verified 02/06/24 15:04 REMEMBER naproxen [From Aleve] Allergy Unknown CAN'T Verified 02/06/24 15:04 REMEMBER Home Meds Home Medications Medication Instructions Recorded Confirmed cholecalciferol (vitamin D3) 25 25 mcg PO DAILY 12/08/19 05/31/24 mcg (1,000 unit) tablet hydroxychloroquine 200 mg tablet 200 mg PO DAILY 12/08/19 05/31/24 multivitamin 1 tab PO QPM 12/08/19 05/31/24 rosuvastatin 20 mg tablet 20 mg PO QPM 12/08/19 05/31/24 krill oil 500 mg capsule 500 mg PO QPM 12/06/20 05/31/24 omeprazole 20 mg capsule,delayed 20 mg PO DAILY 12/06/20 05/31/24 release aspirin 81 mg tablet,delayed 81 mg PO DAILY 08/04/21 05/31/24 release (Maya Low Dose Aspirin) citalopram 20 mg tablet 20 mg PO DAILY 01/06/24 05/31/24 gabapentin 600 mg tablet 600 mg PO AMHS 01/06/24 05/31/24 lisinopril 40 mg tablet 40 mg PO DAILY 01/06/24 05/31/24 memantine 10 mg tablet 10 mg PO AMHS 01/06/24 05/31/24 tamsulosin 0.4 mg capsule 0.4 mg PO QAM 05/23/24 05/31/24 Previous Rx's Medication Instructions Recorded oxycodone 5 mg tablet 5 mg PO Q6H PRN pain #30 tabs 05/25/24 tramadol 50 mg tablet 50 mg PO Q6H PRN pain, moderate 05/25/24 #30 tabs Results & Data (ED) Vital Signs Vital Signs - 24 hr 05/31/24 11:45 05/31/24 12:20 05/31/24 12:53 Temperature 36.6 C Temperature Source Skin Pulse Rate 71 62 Pulse Rate [Apical] Respiratory Rate 18 Respiratory Effort / Characteristics Respiratory Depth Blood Pressure 201/98 H Blood Pressure [Right Arm] Blood Pressure Mean 132 Blood Pressure Mean [Right Arm] Pulse Oximetry 98 93 Oxygen Delivery Method Room Air Sepsis Recent Fever Within 48 Hours No Sepsis New/Unexplained Change in Mental Status No Sepsis Action Taken by Nursing No Action Required 05/31/24 12:53 05/31/24 12:53 Temperature Temperature Source Pulse Rate Pulse Rate [Apical] 63 Respiratory Rate 16 Respiratory Effort / Characteristics Non-Labored Spontaneous Respiratory Depth Normal Blood Pressure Blood Pressure [Right Arm] 183/90 H Blood Pressure Mean Blood Pressure Mean [Right Arm] 121 Pulse Oximetry 96 96 Oxygen Delivery Method Room Air Room Air Sepsis Recent Fever Within 48 Hours Sepsis New/Unexplained Change in Mental Status Sepsis Action Taken by Long Term Medications Current Medication List: was personally reviewed by me Laboratory Data Attestation: I reviewed the patient's lab results. 05/31/24 11:53 05/31/24 11:53 Lab Results 12/30/24 12/30/24 Range/Units 11:53 11:59 WBC 10.34 (4.8-10.8) K/ul RBC 4.49 L (4.70-6.10) M/uL Hgb 13.6 L (14.0-18.0) g/dl POC Hgb 14.6 (14.0-18.0) g/dl Hct 40.8 L (42.0-52.0) % POC Hct 43 (42-52) % MCV 90.9 (80.0-100.0) fL MCH 30.3 (25.0-34.0) pg MCHC 33.3 (32.0-36.0) g/dL RDW Std Deviation 47.1 H (36.4-46.3) fL RDW Coeff of Mitesh 14.2 (11.5-14.5) % Plt Count 321 (130-400) K/uL MPV 10.2 (9.4-12.4) fL Immature Gran % (Auto) 0.7 % Neut % (Auto) 82.6 % Lymph % (Auto) 10.6 % [place] % (Auto) 4.4 % Eos % (Auto) 1.1 % Baso % (Auto) 0.6 % Neut # (Auto) 8.55 H (1.40-6.50) K/uL Lymph # (Auto) 1.10 L (1.20-3.40) K/uL [place] # (Auto) 0.45 (0.11-0.59) K/uL Eos # (Auto) 0.11 (0.00-0.50) K/uL Baso # (Auto) 0.06 (0.00-0.20) K/uL Immature Gran # (Auto) 0.07 (0.01-0.20) K/uL PT 10.8 (9.0-12.0) Seconds INR 1.0 (0.9-1.1) APTT 27 (21-31) Seconds PTT Ratio 1.0 POC Sodium 140 (135-144) mmol/L Sodium 140 (136-145) mmol/L POC Potassium 3.6 (3.3-5.0) mmol/L Potassium 3.7 (3.5-5.1) mmol/L POC Chloride 102 (101-112) mmol/L Chloride 103 (98-107) mmol/L Carbon Dioxide 29 (21-32) mmol/L POC Total CO2 26 (24-31) mmol/L Anion Gap 8 (3-11) POC Anion Gap 17.0 (16-25) mmol/L POC BUN 18 (7-18) mg/dl BUN 18 (6-23) mg/dl Creatinine 0.74 (0.6-1.4) mg/dl POC Creatinine 0.8 (0.6-1.3) mg/dl Est Cr Clr Drug Dosing Not Reportable eGFR 96.27 BUN/Creatinine Ratio 24.3 H (10-20) Glucose 149 H (70-99(Fasting)) mg/dl POC Glucose (other) 146 H (70-99) mg/dl Calcium 9.4 (8.6-10.3) mg/dl POC Ioniz Calcium [place]i 1.20 (1.12-1.32) mmol/l Total Bilirubin 1.2 H (0.2-1.0) mg/dl AST 15 (13-39) U/L ALT 21 (7-52) U/L Alkaline Phosphatase 89 (34-104) U/L Troponin I High Sens 16.3 (0-20) pg/ml Total Protein 7.4 (6.0-8.3) gm/dl Albumin 4.1 (3.4-5.0) gm/dl Globulin 3.3 (2.5-4.0) gm/dl Albumin/Globulin Ratio 1.2 (0.9-2) Lipase 17 (11-82) U/L Administered Medications Hydralazine HCl (Hydralazine Hcl 20 Mg/Ml Vial) 10 mg IV Q6 PRN PRN Reason: sbp>170 or dbp>95 Stop: 06/30/24 14:41 Last Admin: 05/31/24 15:09 Dose: 10 mg Documented By: MIGUEL Nitroglycerin (Nitroglycerin Sl 0.4 Mg/Tab Tab) 0.4 mg SL Q5M PRN PRN Reason: Chest Pain Stop: 06/30/24 12:12 Last Admin: 05/31/24 12:18 Dose: 0.4 mg Documented By: MIGUEL Discontinued Medications Morphine Sulfate (Morphine Sulfate 4 Mg/Ml 1 Ml Carp\Vial) 4 mg IV NOW STA Stop: 05/31/24 12:14 Last Admin: 05/31/24 12:19 Dose: 4 mg Documented By: MIGUEL Morphine Sulfate (Morphine Sulfate 4 Mg/Ml 1 Ml Carp\Vial) 4 mg IV NOW STA Stop: 05/31/24 14:19 Last Admin: 05/31/24 14:23 Dose: 4 mg Documented By: MIGUEL Morphine Sulfate (Morphine Sulfate 4 Mg/Ml 1 Ml Carp\Vial) 3 mg IV NOW STA Stop: 05/31/24 15:58 Last Admin: 05/31/24 16:20 Dose: 3 mg Documented By: BERNY Nitroglycerin (Nitroglycerin 2% Ointment 30gm Tube) 0.5 inch EXT NOW STA Stop: 05/31/24 14:43 Last Admin: 05/31/24 15:09 Dose: 0.5 inch Documented By: MIGUEL Imaging Data Radiologist's Impression: Chest X-Ray 05/31/24 12:13 XR chest 1V portable CLINICAL HISTORY: Chest pain, nonspecific COMPARISON STUDY: Chest radiograph May 20, 2024. FINDINGS: Postoperative findings within the thoracic spine, median sternotomy wires and mediastinal surgical clips are noted. There is moderate cardiomegaly without evidence for pulmonary edema. Elevation of the right hemidiaphragm is unchanged. There is no consolidation to suggest pneumonia. There is an old, healed left clavicular fracture. IMPRESSION: No acute cardiopulmonary findings. ACT 112: Negative or not required by law. Electronically signed by: Donaldo Ruiz M.D. 05/31/2024 1:16 PM Discharge Plan Visit Data Chief Complaint: Cardiac Assessment Stated Complaint: CHEST PAIN, SOB, CLAMMY, HIGH BLOOD PRESSURE ED Provider: Julien Colmenares Discharge Problem: Chest pain, History of CAD (coronary artery disease), Hypertensive emergency, Back pain Patient Disposition: Admitted As Inpatient Discharge Instructions Interventions: ED Discharge Assessment Last Done: 05/31/24 16:09 Discharge Problem: Chest pain Qualifiers: Chest pain type: unspecified Qualified Code(s): R07.9 - Chest pain, unspecified Back pain Qualifiers: Back pain location: thoracic back pain Chronicity: acute Back pain laterality: midline Qualified Code(s): M54.6 - Pain in thoracic spine
[2024-05-31 12:11] LABS: Basophils # (auto) 0.06 K/uL (0.00-0.20); Basophils % (auto) 0.6 %; Eosinophils # (auto) 0.11 K/uL (0.00-0.50); Eosinophils % (auto) 1.1 %; Hematocrit (blood only) 40.8 % (42.0-52.0); Hemoglobin 13.6 g/dl (14.0-18.0); Immature Granulocytes # (auto) 0.07 K/uL (0.01-0.20); Immature Granulocytes % (auto) 0.7 %; Lymphocytes % (auto) 10.6 %; Mean Corpuscular Hemoglobin 30.3 pg (25.0-34.0); Mean Corpuscular Hgb Conc 33.3 g/dL (32.0-36.0); Mean Corpuscular Volume 90.9 fL (80.0-100.0); Mean Platelet Volume 10.2 fL (9.4-12.4); Monocytes # (auto) 0.45 K/uL (0.11-0.59); Monocytes % (auto) 4.4 %; Neutrophils # (auto) 8.55 K/uL (1.40-6.50); Neutrophils % (auto) 82.6 %; Platelet Count 321 K/uL (130-400); RDW Coefficient of Variation 14.2 % (11.5-14.5); RDW Standard Deviation 47.1 fL (36.4-46.3); Red Blood Count 4.49 M/uL (4.70-6.10); White Blood Count 10.34 K/ul (4.8-10.8)
[2024-05-31 12:11] LABS: iSTAT Creatinine 0.8 mg/dl (0.6-1.3); iSTAT Hemoglobin 14.6 g/dl (14.0-18.0); iSTAT Ionized Calcium 1.2 mmol/l (1.12-1.32); iSTAT Potassium 3.6 mmol/L (3.3-5.0)
[2024-05-31] MEDS: NITROGLYCERIN SL 0.4 MG/TAB TAB SL PRN (12:18)
[2024-05-31] MEDS: MoRPHine SULFATE 4 MG/ML 1 ML CARP\\VIAL IV STA ×3 (12:19→16:20)
[2024-05-31 12:28] LABS: Alanine Aminotransferase 21 U/L (7-52); Albumin Globulin Ratio 1.2 (0.9-2); Albumin Level 4.1 gm/dl (3.4-5.0); Alkaline Phosphatase 89 U/L (34-104); Anion Gap 8 (3-11); Aspartate Aminotransferase 15 U/L (13-39); BUN Creatinine Ratio 24.3 (10-20); Bilirubin,Total 1.2 mg/dl (0.2-1.0); Blood Urea Nitrogen 18 mg/dl (6-23); Calcium 9.4 mg/dl (8.6-10.3); Carbon Dioxide 29 mmol/L (21-32); Chloride 103 mmol/L (98-107); Globulin 3.3 gm/dl (2.5-4.0); Glucose 149 mg/dl (70-99(Fasting)); Potassium 3.7 mmol/L (3.5-5.1); Sodium 140 mmol/L (136-145); Total Protein 7.4 gm/dl (6.0-8.3)
[2024-05-31 12:34] LABS: Troponin I High Sensitivity 16.3 pg/ml (0-20)
[2024-05-31 12:36] LABS: Partial Thromboplastin Time 27 Seconds (21-31); Prothrombin Time 10.8 Seconds (9.0-12.0)
--- NOTE | 2024-05-31 13:18 | XRay Report ---
XR chest 1V portable CLINICAL HISTORY: Chest pain, nonspecific COMPARISON STUDY: Chest radiograph May 20, 2024. FINDINGS: Postoperative findings within the thoracic spine, median sternotomy wires and mediastinal s urgical clips are noted. There is moderate cardiomegaly without evidence for pulmonary edema. Elevati on of the right hemidiaphragm is unchanged. There is no consolidation to suggest pneumonia. There is an old, healed left clavicular fracture. IMPRESSION: No acute cardiopulmonary findings. ACT 112: Negative or not required by law. Electronically signed by: Donaldo Ruiz M.D. 05/31/2024 1:16 PM
[2024-05-31] MEDS: NITROGLYCERIN 2% OINTMENT 30GM TUBE EXT STA (15:09)
[2024-05-31] MEDS: hydrALAZINE HCL 20 MG/ML VIAL IV PRN (15:09)
--- NOTE | 2024-05-31 15:10 | Electrocardiogram Report ---
Test Reason : Blood Pressure : */* mmHG Vent. Rate : 66 BPM Atrial Rate : 66 BPM P-R Int : 190 ms QRS Dur : 84 ms QT Int : 414 ms P-R-T Axes : 4 -26 50 degrees QTcB Int : 434 ms Normal sinus rhythm Inferior infarct (cited on or before 20-May-2024) Abnormal ECG When compared with ECG of 27-May-2024 07:53, No significant change was found Confirmed by Eldon Jaramillo ([id number]) on 05/31/2024 3:10:24 PM Referred By: REFERRED SELF Confirmed By: Eldon Jaramillo
[2024-05-31] MEDS ORDERED: traMADol HCL 50 MG TABLET PO PRN (16:21)
--- NOTE | 2024-05-31 19:24 | History & Physical Report ---
Date of Service May 31, 2024 Assessment & Plan (1) Accelerated hypertension: Plan: Telemonitoring, monitor and adjust regimen as indicated, added Procardia XL, PRN IV Hydralazine outpatient monitoring and follow up Chest pain sec to above Rec trend troponin, NTG, IV Morphine PRN Optimal BP control Back pain - recent back surgery Analgesics ordered Constipation - bowel regimen Admission and Anticipated Discharge Date Admission Date: May 31, 2024 History of Present Illness Chief Complaint: chest pain and uncontrolled hypertension Primary Care Provider: Que Foreman PA-C Patient is a 73 y/o male presented to ED c/o chest pain and SBP over 200. He underwent spine surgery and experiencing back pain as well. He reports compliance with his med regimen. But BP is uncontrolled. He doesn't check regularly and his notes that it can be as high as 150' systolic. No fever or chills. No palpitations or lightheadedness. He has been taking Oxy for back pain and reports constipation. Allergies Allergy/AdvReac Type Severity Reaction Status Date / Time Sulfa (Sulfonamide Allergy Intermediate RASH;HIVES; Verified 02/06/24 15:04 Antibiotics) SWELLING meloxicam [From Mobic] Allergy Unknown CAN'T Verified 02/06/24 15:04 REMEMBER naproxen [From Aleve] Allergy Unknown CAN'T Verified 02/06/24 15:04 REMEMBER Home Medications Medication Instructions Recorded Confirmed Type cholecalciferol (vitamin D3) 25 25 mcg PO DAILY 12/08/19 05/31/24 History mcg (1,000 unit) tablet hydroxychloroquine 200 mg tablet 200 mg PO DAILY 12/08/19 05/31/24 History multivitamin 1 tab PO QPM 12/08/19 05/31/24 History rosuvastatin 20 mg tablet 20 mg PO QPM 12/08/19 05/31/24 History krill oil 500 mg capsule 500 mg PO QPM 12/06/20 05/31/24 History omeprazole 20 mg capsule,delayed 20 mg PO DAILY 12/06/20 05/31/24 History release aspirin 81 mg tablet,delayed 81 mg PO DAILY 08/04/21 05/31/24 History release (Maya Low Dose Aspirin) citalopram 20 mg tablet 20 mg PO DAILY 01/06/24 05/31/24 History gabapentin 600 mg tablet 600 mg PO AMHS 01/06/24 05/31/24 History lisinopril 40 mg tablet 40 mg PO DAILY 01/06/24 05/31/24 History memantine 10 mg tablet 10 mg PO AMHS 01/06/24 05/31/24 History tamsulosin 0.4 mg capsule 0.4 mg PO QAM 05/23/24 05/31/24 History oxycodone 5 mg tablet 5 mg PO Q6H PRN pain #30 tabs 05/25/24 05/31/24 Rx tramadol 50 mg tablet 50 mg PO Q6H PRN pain, moderate 05/25/24 05/31/24 Rx #30 tabs nifedipine 90 mg tablet,extended 90 mg PO DAILY #30 tabs 06/01/24 Rx release 24 hr (Procardia XL) sennosides 8.6 mg capsule (senna) 17.2 mg (2 x 8.6 mg) PO DAILY PRN 06/01/24 Rx constipation #30 caps Past Med/Surg History Problem List (Updated 05/31/24 @ 19:25 by Dee Weiner MD) Accelerated hypertension Back pain (Acute) Hypertensive emergency (Acute) History of CAD (coronary artery disease) (Acute) Chest pain (Acute) Myelopathy 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 stenosis of thoracic region JEROMY (obstructive sleep apnea) History of CAD (coronary artery disease) Lumbar spinal stenosis (Acute) Spinal stenosis, thoracic (Acute) Neurogenic claudication due to lumbar spinal stenosis Spinal stenosis (Acute) Essential hypertension Acute epididymo-orchitis (Acute) Rheumatoid arthritis GERD (gastroesophageal reflux disease) Coronary artery disease Orchitis Kidney stones BPH without urinary obstruction Arthritis Medical History (Updated 05/31/24 @ 19:25 by Dee Weiner MD) No pertinent family history Heart attack Hyperlipidemia High blood pressure Cardiac disorder Surgical History H/O heart surgery H/O foot surgery History of bladder surgery Social History Smoking Status: Never smoker Tobacco Type: Cigarettes Second Hand Exposure: No; Do You Dip or Chew Tobacco: No; Hx Alcohol Use: No Hx Substance Use: No Preferred Language: Lithuanian Communication Ability: Effective Stiff Leg Operator Required: No Beliefs That Will Affect Care: None marital status: Current Living Situation: Spouse Feels Safe at Home: Yes Assistive Devices: Cane and Walker Review of Systems Eyes: 10 systems reviewed and neg except as li sted in HPI Physical Exam Physical Exam: aao#3, non focal Lungs clear to auscultation Heart RRR PA Soft, NT, ND, BS+ Results & Data Results & Data Vital Signs (Past 12 Hours) Vital Signs Temp Pulse Pulse Resp BP BP Pulse Ox 05/31/24 19:00 74 24 159/79 H 98 05/31/24 16:59 05/31/24 16:59 36.8 C 74 20 174/86 H 98 05/31/24 16:51 72 18 191/90 H 93 05/31/24 15:37 72 16 199/91 H 96 05/31/24 14:15 59 L 24 205/88 H 94 05/31/24 14:00 59 L 21 177/69 H 94 05/31/24 13:53 60 16 148/69 H 94 05/31/24 13:53 94 05/31/24 12:53 96 05/31/24 12:53 63 16 183/90 H 96 05/31/24 12:53 93 05/31/24 12:20 62 05/31/24 11:45 36.6 C 71 18 201/98 H 98 O2 Del Method 05/31/24 19:00 Room Air 05/31/24 16:59 Room Air 05/31/24 16:59 Room Air 05/31/24 16:51 Room Air 05/31/24 15:37 Room Air 05/31/24 14:15 Room Air 05/31/24 14:00 Room Air 05/31/24 13:53 Room Air 05/31/24 13:53 Room Air 05/31/24 12:53 Room Air 05/31/24 12:53 Room Air 05/31/24 12:53 Room Air 05/31/24 12:20 05/31/24 11:45 PG Care Time/CCT Total # of Minutes Spent Total Time Spent with Patient: Total time spent is greater than 50% in coordination of care (as documented) at patient's floor/unit and/or counseling patient: Coding Level of Care Code 23404 INT INP/OBS CARE 3/75MIN Diagnoses Accelerated hypertension I10
[2024-05-31] MEDS: bisacodyL 5 MG TABEC PO ONE (19:40)
[2024-05-31] MEDS: POLYETHYLENE (MIRALAX) 17 GM PACK PO SCH (19:40)
[2024-05-31] MEDS ORDERED: NON-FORMULARY MEDICATION (Krill Oil 500 mg capsule) PO SCH (21:00)
[2024-05-31] MEDS: ROSUVASTATIN CALCIUM 20 MG TAB PO SCH (21:03)
[2024-05-31] MEDS: GABAPENTIN 600 MG TAB PO SCH (21:03)
[2024-05-31] MEDS: MEMANTINE HCL 10 MG TAB PO SCH (21:03)
[2024-05-31] MEDS: MULTIVITAMIN TAB PO SCH (21:03)
[2024-06-01] MEDS: oxyCODONE HCL IR 5 MG TAB (IMMEDIATE RELEASE) PO PRN (00:26)
[2024-06-01 07:46] LABS: BUN Creatinine Ratio 23.8 (10-20); Calcium 9.4 mg/dl (8.6-10.3); Creatinine Clr Calc Pharmacy 96.4 ml/min; Potassium 3.4 mmol/L (3.5-5.1)
[2024-06-01] MEDS: oxyCODONE HCL IR 5 MG TAB (IMMEDIATE RELEASE) PO STA (07:50)
[2024-06-01] MEDS: bisacodyL 5 MG TABEC PO ONE (08:09)
--- NOTE | 2024-06-01 08:51 | XRay Report ---
KUB CLINICAL HISTORY: Abdominal pain. COMPARISON STUDY: CT of the abdomen and pelvis August 04, 2021. KUB January 26, 2024. FINDINGS: Incidental note is made of a left hip arthroplasty and postoperative findings within the luz maria mbosacral spine. The bowel gas pattern is normal. Amount of stool is within normal limits. Bilateral renal calculi measure up to 7 mm. These are similar to prior KUB. There are no ureteral calculi. IMPRESSION: 1. Bilateral nephrolithiasis. 2. No ureteral calculi. 3. No evidence for a bowel obstruction. ACT 112: Negative or not required by law. Electronically signed by: Donaldo Ruiz M.D. 06/01/2024 8:50 AM
[2024-06-01] MEDS: LORazepam 2 MG/1 ML VIAL IV STA (08:53)
[2024-06-01] MEDS: PANTOprazole 40 MG TAB PO SCH (09:28)
[2024-06-01] MEDS: CITALOPRAM 20 MG TAB PO SCH (09:28)
[2024-06-01] MEDS: NIFEdipine EXTENDED REL 30 MG TABCR PO SCH (09:28)
[2024-06-01] MEDS: ASPIRIN 81 MG ECTAB PO SCH (09:28)
[2024-06-01] MEDS: lisinopril 40 MG TAB PO SCH (09:28)
[2024-06-01] MEDS: TAMSULOSIN HCL 0.4 MG CAP PO SCH (09:29)
[2024-06-01] MEDS: HYDROXYCHLOROQUINE SULFATE 200 MG TAB PO SCH (09:29)
[2024-06-01] MEDS: CHOLECALCIFEROL 25 MCG (1000 UNITS) TAB PO SCH (09:29)
[2024-06-01 11:07] VITALS: RESP 19; TEMP 98.6; O2SAT 96
[2024-06-01 12:14] VITALS: BP 156/79
[2024-06-01 16:39] VITALS: PULSE 80
--- NOTE | 2024-06-03 14:29 | Discharge Summary ---
Discharge Summary Date of Service June 03, 2024 Principal Dx & Hospital Course #1 = Principal Diagnosis (1) Accelerated hypertension: Telemonitoring, monitor and adjust regimen as indicated, added Procardia XL, much improved bp control outpatient monitoring and follow up Chest pain sec to above Rec trend troponin, NTG, IV Morphine PRN Optimal BP control Back pain - recent back surgery Analgesics ordered Constipation - bowel regimen Admission HPI Per Admitting Provider Patient is a 73 y/o male presented to ED c/o chest pain and SBP over 200. He underwent spine surgery and experiencing back pain as well. He reports compliance with his med regimen. But BP is uncontrolled. He doesn't check regularly and his notes that it can be as high as 150' systolic. No fever or chills. No palpitations or lightheadedness. He has been taking Oxy for back pain and reports constipation. Discharge Exam aao#3, non focal Lungs clear to auscultation Heart RRR PA Soft, NT, ND, BS+ Discharge Plan Discharge Items Patient Disposition: Home - Self-Care Reason For Visit: CHEST PAIN Discharge Diagnosis: Accelerated Hypertension Condition on Discharge: Good Health Concerns: BP Control Activity: Resume your previous activity Non-emergency contact: Primary Care Provider Call non-emergency contact if: you have any medication questions and your symptoms worsen Follow-up/Referrals: Que Foreman, PASendyC [Primary Care Provider] - Diet: Regular Diet Comment: Low sodium ( 3-4 gm per day / No added salt) Addtl Attending Provider Instructions: Check you BP 2 times daily, maintain a log for 3-5 days and review the number with your primary for further medication adjustment for optimal BP control. Pending Studies at Discharge: No Stand-Alone Forms: My [facility] [place], Smoking Cessation Medications and DC Order Prescriptions: New nifedipine [Procardia XL] 90 mg tablet extended release 24hr 90 mg PO DAILY Qty: 30 1RF senna 8.6 mg capsule 17.2 mg PO DAILY PRN (Reason: constipation) Qty: 30 0RF Continued omeprazole 20 mg capsule,delayed release(DR/EC) 20 mg PO DAILY krill oil 500 mg capsule 500 mg PO QPM cholecalciferol (vitamin D3) 25 mcg (1,000 unit) tablet 25 mcg PO DAILY rosuvastatin 20 mg tablet 20 mg PO QPM hydroxychloroquine 200 mg tablet 200 mg PO DAILY multivitamin Tablet 1 tab PO QPM aspirin [Maya Low Dose Aspirin] 81 mg Tablet,Delayed Release (Dr/Ec) 81 mg PO DAILY tamsulosin 0.4 mg capsule 0.4 mg PO QAM Rx Instructions: Take 1 capsule by mouth once daily tramadol 50 mg tablet 50 mg PO Q6H PRN (Reason: pain, moderate) Qty: 30 0RF oxycodone 5 mg tablet 5 mg PO Q6H PRN (Reason: pain) Qty: 30 0RF gabapentin 600 mg tablet 600 mg PO AMHS citalopram 20 mg tablet 20 mg PO DAILY lisinopril 40 mg tablet 40 mg PO DAILY memantine 10 mg tablet 10 mg PO AMHS Discharge Orders: Discharge Order (Routine); Ordered 06/01/24 Ordered By: Dee Quinn/Other Patient Handouts: Low-Salt Choices, High Blood Pressure Risk Factors, Understanding High Blood Pressure, Medicines for Heart Disease, Your Heart Is at Risk, Identifying Your Heart Risks, Blood Pressure Check Steps, ED Hypertension, Established Admission Data Admit Date/Time: 05/31/24 13:41 Attending Provider: Dee Weiner Admit Provider: Dee eWiner Primary Care Provider: Que Foreman Other Providers: Dee Weiner Other Interventions: Discharge Summary Assessment (RN) Last Done: 06/01/24 16:36 Hospital Stay Data Consultations 05/31/24 13:14 ED Decision to Admit Stat Pending Results Patient Have Any Pending Studies at Discharge: No Discharge Instructions Given to Patient (Per Discharging Provider) Check you BP 2 times daily, maintain a log for 3-5 days and review the number with your primary for further medication adjustment for optimal BP control. Total Time Total Time Spent Total Time Spent (In Minutes): 35 min Coding Level of Care Code 17720 INP/OBS DISCH >30 MIN Diagnoses Accelerated hypertension I10
== END 2024-06-01 17:23 | disposition home or self-care (01) ==
LOC: ED 11:44 → EDINP 11:44 → 2S 16:09

== ENCOUNTER 2024-09-03 05:23 | Inpatient (IN) ==
--- NOTE | 2024-08-04 08:57 | Anesthesiology Consultation ---
Date of Service August 04, 2024 Assessment & Plan (1) Encounter for pre-operative examination: - awaiting surgeon ordered clearance, S PCP and will request most recent cardiology office note Dr. Misael Meyers. - discharge summary 06/03/24 [facility]: "...chest pain and SBP over 200. He underwent spine surgery and experiencing back pain as well. He reports compliance with his med regimen. But BP is uncontrolled...Telemonitoring, monitor and adjust regimen as indicated, added Procardia XL, much improved bp control outpatient monitoring and follow up. Chest pain sec to above. Rec trend troponin, NTG, IV Morphine PRN. Optimal BP control..." - Per milk inspector on 08/03/24: No known infectious disease contacts, current infectious disease symptoms in past 10 days or COVID positive test result in the past 30 days. Chart Review Chart Review: Pending: Refer to Additional Notes / Consult section and Patient NOT seen in Pre Admission Testing History Surgery Operation Date: 08/16/24 13:25 Proposed Procedures p C5-C6 Anterior Cervical Discectomy Fusion, Possible C4-C5 Spinal Cord Monitoring - Andrzej Lo, Height/Weight Height: 5 ft 6 in Weight: 99.79 kg Allergies Allergy/AdvReac Type Severity Reaction Status Date / Time meloxicam [From Mobic] Allergy Unknown CAN'T Verified 08/03/24 14:58 REMEMBER naproxen [From Aleve] Allergy Unknown CAN'T Verified 08/03/24 14:58 REMEMBER Sulfa (Sulfonamide Allergy Unknown RASH;HIVES;SWELLING Verified 08/03/24 14:58 Antibiotics) ( ? location of swelling) Medications Home Medications Medication Instructions Recorded Confirmed Last Taken cholecalciferol (vitamin D3) 25 250 mcg PO DAILY 12/08/19 08/03/24 05/23/24 mcg (1,000 unit) tablet hydroxychloroquine 200 mg tablet 200 mg PO QAM 12/08/19 08/03/24 05/23/24 multivitamin 1 tab PO QPM 12/08/19 08/03/24 05/22/24 rosuvastatin 20 mg tablet 20 mg PO QPM 12/08/19 08/03/24 05/22/24 krill oil 500 mg capsule 500 mg PO QPM 12/06/20 08/03/24 05/22/24 omeprazole 20 mg capsule,delayed 20 mg PO QAM 12/06/20 08/03/24 05/23/24 release aspirin 81 mg tablet,delayed 81 mg PO QAM 08/04/21 08/03/24 05/23/24 release (Maya Low Dose Aspirin) gabapentin 600 mg tablet 600 mg PO BID 01/06/24 08/03/24 05/23/24 lisinopril 40 mg tablet 40 mg PO QAM 01/06/24 08/03/24 05/23/24 memantine 10 mg tablet 10 mg PO BID 01/06/24 08/03/24 05/23/24 tamsulosin 0.4 mg capsule 0.4 mg PO QAM 05/23/24 08/03/24 05/23/24 acetaminophen 500 mg tablet 1,000 mg PO UD PRN Pain 08/03/24 08/03/24 Unknown (Tylenol Extra Strength) duloxetine 20 mg capsule,delayed 10 mg PO QAM 08/03/24 08/03/24 Unknown release indomethacin 25 mg capsule 25 mg PO BID 08/03/24 08/03/24 Unknown nifedipine 90 mg tablet,extended 0 mg PO UD 08/03/24 08/03/24 Unknown release 24 hr (Procardia XL) Past Medical History Medical History (Updated 08/04/24 @ 08:49 by Navya Morris PA-C) Alzheimer disease early BPH (benign prostatic hyperplasia) pt unsure Fatty liver Gallstones no problems with at current. GERD (gastroesophageal reflux disease) High blood pressure History of being hospitalized (05/31/24) overnight stay [facility] due to high blood pressure....all due to anxiety per pt and . History of CAD (coronary artery disease) CABG x 3-2007 History of COVID-19 (2019) + testing at clinic in 2019. no hospitalization. History of fall (12/2023) tripped over transition from carpet to hardwood , tripped over the strip. back injury 2 fractures (sx intervention x2) and torn rotator cuff , right. No sx intervention, hx 2 shots most recent approx apr 2024. History of myocardial infarction (2007) [place] (hard of hearing) HTN (hypertension) Hyperlipidemia Kidney stones dr king 08/09/24 [place] (obstructive sleep apnea) Rheumatoid arthritis Spinal stenosis Torn rotator cuff right Past Surgical History Surgical History H/O foot surgery (2007) artifical joint great toe, right. History of bladder surgery History of cardiac cath (2007) Hx [place]...prior to triple bypass. History of colonoscopy History of coronary artery bypass graft x 3 triple bypass in 2007 for [place]. History of lumbar fusion (01/2024) History of total left hip replacement Personal history of spine surgery (05/2024) mid back / hardware Social History Smoking Status: Never smoker Do You Dip or Chew Tobacco: No Smoking End Date: smoked casual, none since 1973 Hx Alcohol Use: No Alcohol type: beer, wine and hard liquor alcohol intake frequency: holidays/special occasions only Hx Substance Use: No substance use type: does not use Testing Laboratory Results 07/21/24 WBC: 7.8 H/H: 13/41 PLATELETS: 328,000 SODIUM: 137 POTASSIUM: 3.7 CHLORIDE: 107 CO2: 25 BUN: 21 CREATININE: 1 GLUCOSE: 105 PT: 10.4 PTT: 26 INR: 1.0 UA: negative Electrocardiogram Date: 05/31/24 NSR, rate 66 bpm Inferior infarct cited on or before 05/20/24 Chest X-Ray Date: 05/31/24 *1 view* No acute cardiopulmonary findings. Echocardiogram Date: 12/01/23 EF 55-60% Mild cLVH Mild mitral insufficiency Mild tricuspid insufficiency Ascending aorta mildly dilated at 4.0 cm Borderline pulmonary hypertension, estimated RVSP 36-41 mmHg Grade I diastolic dysfunction
[2024-09-03] MEDS: VANCOMYCIN HCL 1,500 MG in SODIUM CHLORIDE 0.9% 500 ML IV SCH (05:46)
[2024-09-03] MEDS: LR 15ML/HR IV SCH (05:46)
[2024-09-03] MEDS: LR 60ML/HR IV SCH (05:47)
[2024-09-03] MEDS: GABAPENTIN 300 MG CAP PO SCH (06:13)
[2024-09-03] MEDS: ACETAMINOPHEN 500 MG TAB PO SCH (06:14)
[2024-09-03] MEDS ORDERED: ROCURONIUM BROMIDE 10 MG/ML 5 ML VIAL IV ONE (06:57)
[2024-09-03] MEDS ORDERED: PROPOFOL IV EMULSION 10 MG/ML 20 ML VIAL IV ONE (06:57)
[2024-09-03] MEDS ORDERED: MIDAZOLAM HCL 1 MG/ML 2ML VIAL ONE (06:57)
[2024-09-03] MEDS ORDERED: LIDOCAINE 2% 2 ML VIAL/AMP(20MG/ML) INFIL ONE (06:57)
[2024-09-03] MEDS ORDERED: SUGAMMADEX SODIUM 200 MG/2 ML VIAL IV ONE (06:57)
[2024-09-03] MEDS ORDERED: DEXAMETHASONE SOD INJ 4 MG/ML VIAL ONE (06:57)
[2024-09-03] MEDS ORDERED: fentaNYL citrate PF 100 MCG/2 ML VIAL ONE ×2 (06:57→08:18)
[2024-09-03] MEDS ORDERED: ONDANSETRON INJ 2 MG/ML 2 ML VIAL ONE (06:57)
[2024-09-03] MEDS ORDERED: SODIUM CHLORIDE 0.9% PF INJ 10 ML VIAL ONE (07:05)
[2024-09-03] MEDS ORDERED: ATROPINE SULFATE 0.1 MG/ML 10ML SYR IV PRN (07:23)
[2024-09-03] MEDS ORDERED: ePHEDrine sulfate 50 MG/ML AMP IV PRN (07:23)
[2024-09-03] MEDS ORDERED: PROMETHAZINE HCL 6.25 MG in SODIUM CHLORIDE 0.9% 50 ML IV PRN (07:23)
--- NOTE | 2024-09-03 07:23 | Anesthesiology Consultation ---
Date of Service September 03, 2024 Assessment & Plan ASA ASA3 Proposed Anesthesia Anesthesia Type: General Risk / Benefits Reviewed With: PT / POA / Parent / Guardian, Accepts Plan and Informed Consent Obtained History Surgery Operation Date: 09/03/24 07:45 Proposed Procedures p C5-C6 Anterior Cervical Discectomy Fusion, Possible C4-C5, Spinal Cord Monitoring - Andrzej Lo, Height/Weight Height: 5 ft 6 in Weight: 102 kg Allergies Allergy/AdvReac Type Severity Reaction Status Date / Time meloxicam [From Mobic] Allergy Unknown CAN'T Verified 09/03/24 05:34 REMEMBER naproxen [From Aleve] Allergy Unknown CAN'T Verified 09/03/24 05:34 REMEMBER Sulfa (Sulfonamide Allergy Unknown RASH;HIVES;SWELLING Verified 09/03/24 05:34 Antibiotics) ( ? location of swelling) Medications Home Medications Medication Instructions Recorded Confirmed Last Taken cholecalciferol (vitamin D3) 25 250 mcg PO DAILY 12/08/19 09/03/24 08/20/24 mcg (1,000 unit) tablet hydroxychloroquine 200 mg tablet 200 mg PO QAM 12/08/19 09/03/24 09/03/24 04:00 multivitamin 1 tab PO QPM 12/08/19 09/03/24 08/20/24 rosuvastatin 20 mg tablet 20 mg PO QPM 12/08/19 09/03/24 09/02/24 19:00 krill oil 500 mg capsule 500 mg PO QPM 12/06/20 09/03/24 08/20/24 omeprazole 20 mg capsule,delayed 20 mg PO QAM 12/06/20 09/03/24 09/03/24 04:00 release aspirin 81 mg tablet,delayed 81 mg PO QAM 08/04/21 09/03/24 08/20/24 release (Maya Low Dose Aspirin) gabapentin 600 mg tablet 600 mg PO BID 01/06/24 09/03/24 09/03/24 04:00 lisinopril 40 mg tablet 40 mg PO QAM 01/06/24 09/03/24 08/20/24 memantine 10 mg tablet 10 mg PO BID 01/06/24 09/03/24 09/03/24 04:00 tamsulosin 0.4 mg capsule 0.4 mg PO QAM 05/23/24 09/03/2409/03/25 04:00 acetaminophen 500 mg tablet 1,000 mg PO UD PRN Pain 08/03/24 09/03/24 Unknown (Tylenol Extra Strength) duloxetine 20 mg capsule,delayed 10 mg PO QAM 08/03/24 09/03/24 08/20/24 release indomethacin 25 mg capsule 25 mg PO BID 08/03/24 09/03/24 09/03/24 04:00 nifedipine 90 mg tablet,extended 0 mg PO UD 08/03/24 09/03/24 09/03/24 04:00 release 24 hr (Procardia XL) tadalafil 5 mg tablet 5 mg PO DAILY #90 tabs 08/09/24 09/03/24 09/02/24 19:00 Active Medications Generic Name Dose Route Start Last Admin Trade Name Freq PRN Reason Stop Dose Admin Acetaminophen 1,000 mg 09/03/24 06:00 09/03/24 06:14 Acetaminophen 500 Mg Tab PO 09/03/24 18:00 1,000 mg PREOP KEVIN Administration Gabapentin 300 mg 09/03/24 06:00 09/03/24 06:13 Gabapentin 300 Mg Cap PO 09/03/24 18:00 300 mg PREOP KEVIN Administration Lactated Ringer's 1,000 mls @ 60 mls/hr 09/03/24 06:00 09/03/24 05:47 Lr IV 09/03/24 22:39 Not Given .[id number] KEVIN Vancomycin HCl 1,500 mg/ 530 mls @ 200 mls/hr 09/03/24 06:00 09/03/24 05:46 Sodium Chloride IV 09/03/24 18:00 200 mls/hr PREOP KEVIN Administration Lactated Ringer's 1,000 mls @ 15 mls/hr 09/03/24 06:00 09/03/24 05:46 Lr IV 09/04/24 05:59 15 mls/hr .Q24H KEVIN Administration NPO Date Last Intake of Fluids: 09/03/24 Time Last Intake of Fluids: 04:00 Date Last Intake of Solids: 09/02/24 Time Last Intake of Solids: 18:00 Past Medical History Medical History History of COVID-19 (2019) + testing at clinic in 2019. no hospitalization. JEROMY (obstructive sleep apnea) GERD (gastroesophageal reflux disease) BPH (benign prostatic hyperplasia) pt unsure Spinal stenosis Torn rotator cuff right Alzheimer disease early History of fall (12/2023) tripped over transition from carpet to hardwood , tripped over the strip. back injury 2 fractures (sx intervention x2) and torn rotator cuff , right. No sx intervention, hx 2 shots most recent approx apr 2024. [place] (hard of hearing) History of CAD (coronary artery disease) CABG x 3-2007 History of being hospitalized (05/31/24) overnight stay [facility] due to high blood pressure....all due to anxiety per pt and . History of myocardial infarction (2007) HTN (hypertension) Rheumatoid arthritis Gallstones no problems with at current. Fatty liver Kidney stones dr king 08/09/24 Hyperlipidemia High blood pressure Exercise / Class Metabolic Activity II 4-5 Yardwork/Stairs/Walk up hill Past Surgical History Surgical History Personal history of spine surgery (05/2024) mid back / hardware History of lumbar fusion (01/2024) History of total left hip replacement History of cardiac cath (2007) Hx [place]...prior to triple bypass. History of coronary artery bypass graft x 3 triple bypass in 2007 for [place]. History of colonoscopy H/O foot surgery (2007) artifical joint great toe, right. History of bladder surgery Past Anesthesia History No Hx of Anesthesia Complications and No Family Hx of Anesthesia Complications History of PONV No Hx of PONV and No Hx of Motion Sickness Social History Smoking Status: Never smoker Do You Dip or Chew Tobacco: No Smoking End Date: smoked casual, none since 1973 Hx Alcohol Use: No Alcohol type: beer, wine and hard liquor alcohol intake frequency: holidays/special occasions only Hx Substance Use: No substance use type: does not use Physical Exam Vital Signs Last Vital Signs Temp 36.8 C 09/03/24 05:29 Pulse 71 09/03/24 05:29 Resp 16 09/03/24 05:29 BP 189/87 H 09/03/24 05:29 Pulse Ox 97 09/03/24 05:29 O2 Del Method Room Air 09/03/24 05:29 Constitutional no acute distress ENMT Mouth: + dentition abnormality and + edentulous Thyromental Distance: > or= 3.5 Finger Breadths Mallampati Class: II Neck normal visual inspection Respiratory normal respiratory effort; no respiratory distress Auscultation: lungs clear to auscultation bilaterally Cardiovascular Rate/Rhythm: regular rate and regular rhythm Heart Sounds: no murmur Musculoskeletal Spine: normal cervical ROM Psychiatric Orientation: alert and oriented x 3 Testing Laboratory Results Blood Type O Positive 09/03/24 05:31 Antibody Screen NEGATIVE 09/03/24 05:31 Electrocardiogram Date: 05/31/24 NSR, rate 66 bpm Inferior infarct cited on or before 05/20/24 Chest X-Ray Date: 05/31/24 *1 view* No acute cardiopulmonary findings. Echocardiogram Date: 12/01/23 EF 55-60% Mild cLVH Mild mitral insufficiency Mild tricuspid insufficiency Ascending aorta mildly dilated at 4.0 cm Borderline pulmonary hypertension, estimated RVSP 36-41 mmHg Grade I diastolic dysfunction Day of Procedure Evaluation. Date of Surgery September 03, 2024 Height/Weight Height: 5 ft 6 in Weight: 102 kg Vital Signs Last Vital Signs Temp 36.8 C 09/03/24 05:29 Pulse 71 09/03/24 05:29 Resp 16 09/03/24 05:29 BP 189/87 H 09/03/24 05:29 Pulse Ox 97 09/03/24 05:29 O2 Del Method Room Air 09/03/24 05:29 Allergies Allergy/AdvReac Type Severity Reaction Status Date / Time meloxicam [From Mobic] Allergy Unknown CAN'T Verified 09/03/24 05:34 REMEMBER naproxen [From Aleve] Allergy Unknown CAN'T Verified 09/03/24 05:34 REMEMBER Sulfa (Sulfonamide Allergy Unknown RASH;HIVES;SWELLING Verified 09/03/24 05:34 Antibiotics) ( ? location of swelling) Medications Home Medications Medication Instructions Recorded Confirmed Last Taken cholecalciferol (vitamin D3) 25 250 mcg PO DAILY 12/08/19 09/03/24 08/20/24 mcg (1,000 unit) tablet hydroxychloroquine 200 mg tablet 200 mg PO QAM 12/08/19 09/03/24 09/03/24 04:00 multivitamin 1 tab PO QPM 12/08/19 09/03/24 08/20/24 rosuvastatin 20 mg tablet 20 mg PO QPM 12/08/19 09/03/24 09/02/24 19:00 krill oil 500 mg capsule 500 mg PO QPM 12/06/20 09/03/24 08/20/24 omeprazole 20 mg capsule,delayed 20 mg PO QAM 12/06/20 09/03/24 09/03/24 04:00 release aspirin 81 mg tablet,delayed 81 mg PO QAM 08/04/21 09/03/24 08/20/24 release (Maya Low Dose Aspirin) gabapentin 600 mg tablet 600 mg PO BID 01/06/24 09/03/24 09/03/24 04:00 lisinopril 40 mg tablet 40 mg PO QAM 01/06/24 09/03/24 08/20/24 memantine 10 mg tablet 10 mg PO BID 01/06/24 09/03/24 09/03/24 04:00 tamsulosin 0.4 mg capsule 0.4 mg PO QAM 05/23/24 09/03/24 09/03/24 04:00 acetaminophen 500 mg tablet 1,000 mg PO UD PRN Pain 08/03/24 09/03/24 Unknown (Tylenol Extra Strength) duloxetine 20 mg capsule,delayed 10 mg PO QAM 08/03/24 09/03/24 08/20/24 release indomethacin 25 mg capsule 25 mg PO BID 08/03/24 09/03/24 09/03/24 04:00 nifedipine 90 mg tablet,extended 0 mg PO UD 08/03/24 09/03/24 09/03/24 04:00 release 24 hr (Procardia XL) tadalafil 5 mg tablet 5 mg PO DAILY #90 tabs 08/09/24 09/03/24 09/02/24 19:00 Active Medications Generic Name Dose Route Start Last Admin Trade Name Freq PRN Reason Stop Dose Admin Acetaminophen 1,000 mg 09/03/24 06:00 09/03/24 06:14 Acetaminophen 500 Mg Tab PO 09/03/24 18:00 1,000 mg PREOP KEVIN Administration Gabapentin 300 mg 09/03/24 06:00 09/03/24 06:13 Gabapentin 300 Mg Cap PO 09/03/24 18:00 300 mg PREOP KEVIN Administration Lactated Ringer's 1,000 mls @ 60 mls/hr 09/03/24 06:00 09/03/24 05:47 Lr IV 09/03/24 22:39 Not Given .[id number] KEVIN Vancomycin HCl 1,500 mg/ 530 mls @ 200 mls/hr 09/03/24 06:00 09/03/24 05:46 Sodium Chloride IV 09/03/24 18:00 200 mls/hr PREOP KEVIN Administration Lactated Ringer's 1,000 mls @ 15 mls/hr 09/03/24 06:00 09/03/24 05:46 Lr IV 09/04/24 05:59 15 mls/hr .Q24H KEVIN Administration Past Anesthesia History No Hx of Anesthesia Complications and No Family Hx of Anesthesia Complications History of PONV No Hx of PONV and No Hx of Motion Sickness NPO Date Last Intake of Fluids: 09/03/24 Time Last Intake of Fluids: 04:00 Date Last Intake of Solids: 09/02/24 Time Last Intake of Solids: 18:00 Home Medications Home Medications Medication Instructions Recorded Confirmed Last Taken cholecalciferol (vitamin D3) 25 250 mcg PO DAILY 12/08/19 09/03/24 08/20/24 mcg (1,000 unit) tablet hydroxychloroquine 200 mg tablet 200 mg PO QAM 12/08/19 09/03/24 09/03/24 04:00 multivitamin 1 tab PO QPM 12/08/19 09/03/24 08/20/24 rosuvastatin 20 mg tablet 20 mg PO QPM 12/08/19 09/03/24 09/02/24 19:00 krill oil 500 mg capsule 500 mg PO QPM 12/06/20 09/03/24 08/20/24 omeprazole 20 mg capsule,delayed 20 mg PO QAM 12/06/20 09/03/24 09/03/24 04:00 release aspirin 81 mg tablet,delayed 81 mg PO QAM 08/04/21 09/03/24 08/20/24 release (Maya Low Dose Aspirin) gabapentin 600 mg tablet 600 mg PO BID 01/06/24 09/03/24 09/03/24 04:00 lisinopril 40 mg tablet 40 mg PO QAM 01/06/24 09/03/24 08/20/24 memantine 10 mg tablet 10 mg PO BID 01/06/24 09/03/24 09/03/24 04:00 tamsulosin 0.4 mg capsule 0.4 mg PO QAM 05/23/24 09/03/24 09/03/24 04:00 acetaminophen 500 mg tablet 1,000 mg PO UD PRN Pain 08/03/24 09/03/24 Unknown (Tylenol Extra Strength) duloxetine 20 mg capsule,delayed 10 mg PO QAM 08/03/24 09/03/24 08/20/24 release indomethacin 25 mg capsule 25 mg PO BID 08/03/24 09/03/24 09/03/24 04:00 nifedipine 90 mg tablet,extended 0 mg PO UD 08/03/24 09/03/24 09/03/24 04:00 release 24 hr (Procardia XL) tadalafil 5 mg tablet 5 mg PO DAILY #90 tabs 08/09/24 09/03/24 09/02/24 19:00 Active Medications Generic Name Dose Route Start Last Admin Trade Name Freq PRN Reason Stop Dose Admin Acetaminophen 1,000 mg 09/03/24 06:00 09/03/24 06:14 Acetaminophen 500 Mg Tab PO 09/03/24 18:00 1,000 mg PREOP KEVIN Administration Gabapentin 300 mg 09/03/24 06:00 09/03/24 06:13 Gabapentin 300 Mg Cap PO 09/03/24 18:00 300 mg PREOP KEVIN Administration Lactated Ringer's 1,000 mls @ 60 mls/hr 09/03/24 06:00 09/03/24 05:47 Lr IV 09/03/24 22:39 Not Given .[id number] KEVIN Vancomycin HCl 1,500 mg/ 530 mls @ 200 mls/hr 09/03/24 06:00 09/03/24 05:46 Sodium Chloride IV 09/03/24 18:00 200 mls/hr PREOP KEVIN Administration Lactated Ringer's 1,000 mls @ 15 mls/hr 09/03/24 06:00 09/03/24 05:46 Lr IV 09/04/24 05:59 15 mls/hr .Q24H KEVIN Administration Exercise / Class Metabolic Activity Metabolic Activity: II 4-5 Yardwork/Stairs/Walk up hill Physical Exam Constitutional: no acute distress Mouth: + dentition abnormality and + edentulous Thyromental Distance: > or= 3.5 Finger Breadths Mallampati Class: II Neck: + visual inspection normal Respiratory: + respiratory effort normal and + clear to auscultation bilaterally; no respiratory distress Cardiovascular: + regular rate and + regular rhythm; no murmur Musculoskeletal: no limited cervical ROM Psychiatric: + alert and + oriented x 3 ASA ASA3 Proposed Anesthesia Proposed Anesthesia: General Risk / Benefits Reviewed With: PT / POA / Parent / Guardian, Accepts Plan and Informed Consent Obtained Additional Comments: Labs and studies reviewed,
--- NOTE | 2024-09-03 07:39 | History & Physical Bridge Note ---
Date of Service September 03, 2024 History & Physical Bridge Note I have examined the patient, reviewed the History & Physical and in the interval since the performance of the History & Physical I have noted the following changes of clinical significance: no changes noted
--- NOTE | 2024-09-03 07:40 | History & Physical Report ---
Date of Service September 03, 2024 Assessment & Plan (1) Myelopathy 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 stenosis of cervical region: Plan: Anterior cervical discectomy and fusion C5-C6 possible C4-C5 History of Present Illness Chief Complaint: Neck and arm pain Primary Care Provider: Que Foreman PA-C This is a 73-year-old male known to me presents with chronic persistent neck and arm symptoms after failing course of nonoperative care is here for surgical invention. Allergies Allergy/AdvReac Type Severity Reaction Status Date / Time meloxicam [From Mobic] Allergy Unknown CAN'T Verified 09/03/24 05:34 REMEMBER naproxen [From Aleve] Allergy Unknown CAN'T Verified 09/03/24 05:34 REMEMBER Sulfa (Sulfonamide Allergy Unknown RASH;HIVES;SWELLING Verified 09/03/24 05:34 Antibiotics) ( ? location of swelling) Home Medications Medication Instructions Recorded Confirmed Type cholecalciferol (vitamin D3) 25 250 mcg PO DAILY 12/08/19 09/03/24 History mcg (1,000 unit) tablet hydroxychloroquine 200 mg tablet 200 mg PO QAM 12/08/19 09/03/24 History multivitamin 1 tab PO QPM 12/08/19 09/03/24 History rosuvastatin 20 mg tablet 20 mg PO QPM 12/08/19 09/03/24 History krill oil 500 mg capsule 500 mg PO QPM 12/06/20 09/03/24 History omeprazole 20 mg capsule,delayed 20 mg PO QAM 12/06/20 09/03/24 History release aspirin 81 mg tablet,delayed 81 mg PO QAM 08/04/21 09/03/24 History release (Maya Low Dose Aspirin) gabapentin 600 mg tablet 600 mg PO BID 01/06/24 09/03/24 History lisinopril 40 mg tablet 40 mg PO QAM 01/06/24 09/03/24 History memantine 10 mg tablet 10 mg PO BID 01/06/24 09/03/24 History tamsulosin 0.4 mg capsule 0.4 mg PO QAM 05/23/24 09/03/24 History acetaminophen 500 mg tablet 1,000 mg PO UD PRN Pain 08/03/24 09/03/24 History (Tylenol Extra Strength) duloxetine 20 mg capsule,delayed 10 mg PO QAM 08/03/24 09/03/24 History release indomethacin 25 mg capsule 25 mg PO BID 08/03/24 09/03/24 History nifedipine 90 mg tablet,extended 0 mg PO UD 08/03/24 09/03/24 History release 24 hr (Procardia XL) tadalafil 5 mg tablet 5 mg PO DAILY #90 tabs 08/09/24 09/03/24 Rx Past Med/Surg History Problem List (Updated 09/03/24 @ 07:40 by Andrzej Lo DO) Myelopathy 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 stenosis of cervical region Erectile dysfunction Back pain (Acute) Myelopathy 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 stenosis of thoracic region Lumbar spinal stenosis (Acute) Neurogenic claudication due to lumbar spinal stenosis Spinal stenosis (Acute) Essential hypertension Rheumatoid arthritis GERD (gastroesophageal reflux disease) Coronary artery disease Kidney stones BPH without urinary obstruction Arthritis Medical History (Updated 09/03/24 @ 07:40 by Andrzej Lo DO) History of COVID-19 (2018) + testing at clinic in 2019. no hospitalization. [place]OM[place] (obstructive sleep apnea) GERD (gastroesophageal reflux disease) BPH (benign prostatic hyperplasia) pt unsure Spinal stenosis Torn rotator cuff right Alzheimer disease early History of fall (12/2023) tripped over transition from carpet to [employer] , tripped over the strip. back injury 2 fractures (sx intervention x2) and torn rotator cuff , right. No sx intervention, hx 2 shots most recent approx apr 2024. [place] (hard of hearing) History of CAD (coronary artery disease) CABG x 3-2007 History of being hospitalized (05/31/24) overnight stay [facility] due to high blood pressure....all due to anxiety per pt and . History of myocardial infarction (2007) HTN (hypertension) Rheumatoid arthritis Gallstones no problems with at current. Fatty liver Kidney stones dr king 08/09/24 Hyperlipidemia High blood pressure Surgical History Personal history of spine surgery (05/2024) mid back / hardware History of lumbar fusion (01/2024) History of total left hip replacement History of cardiac cath (2007) Hx [place]...prior to triple bypass. History of coronary artery bypass graft x 3 triple bypass in 2007 for [place]. History of colonoscopy H/O foot surgery (2007) artifical joint great toe, right. History of bladder surgery Social History Smoking Status: Never smoker Tobacco Type: Cigarettes Smoking End Date: smoked casual, none since 1973; Second Hand Exposure: No; Do You Dip or Chew Tobacco: No; Hx Alcohol Use: No Hx Substance Use: No Preferred Language: Arabic Communication Ability: Effective Communication Ability Comment: pt early alzheimers, helps.see pat comm notes. Child Welfare Social Worker Required: No Beliefs That Will Affect Care: None marital status: Current Living Situation: Spouse Feels Safe at Home: Yes Assistive Devices: CPAP, Denture - Upper, Glasses and Hearing Aid - Bilateral Physical Exam Physical Exam: Patient is alert and oriented Heart regular rhythm Lungs clear Results & Data Results & Data Vital Signs (Past 12 Hours) Vital Signs Temp Pulse Resp BP Pulse Ox O2 Del Method 09/03/24 05:29 36.8 C 71 16 189/87 H 97 Room Air
[2024-09-03] MEDS ORDERED: PHENYLEPHRINE 100MCG/ML 5ML SYR ONE (08:25)
[2024-09-03] MEDS: ceFAZolin 330 MG/ML 1 GM VIAL ONE (08:30)
--- NOTE | 2024-09-03 09:05 | Operative Report ---
Post Operative Report Pre & Post Diagnosis Operation Date: 09/03/24 07:45 Preop diagnosis: Cervical spondylosis with myeloradiculopathy Postop diagnosis: Same I identified the patient and participated in the time-out.: Yes Procedure Operation Date: 09/03/24 07:45 #1 anterior cervical discectomy with bilateral foraminotomies C5-C6. #2 anterior cervical arthrodesis C5-C6. #3 placement of Spira 8 mm cage filled with offset design bone graft C5-C6. #4 application of K2 plate and screws C5- C6. Surgeon Andrzej Lo, DO Medical Records Clerk Regis Iverson Estimated Blood Loss 10 Findings See Below The patient is 5 foot 6 weight 102 kg with a BMI in excess of 36. The patient's body mass did contribute to significant technical difficulty with positioning exposure and the procedure itself adding 50% increased operative time. Specimens None Indications This is a 73-year-old male presents from his diagnosis and here for surgical invention. Description of Procedure Patient was met with identified informed consent obtained. Patient was then taken to the operative suite underwent ablation placed in spine position in the right stable the Lee early head start director. All bony prominences well-padded I suspected to ensure no external pressure . This point the anterior cervical spine was prepped and draped in normal sterile fashion. The assistance of fluoroscopy divide the C5-C6 disc base and a transverse incision was placed on the right anterior aspect of the cervical spine lines region. Blunt dis section with the assistance of bipolar electrocautery performed down to exposing anterior cervical spine at C5-C6. Self-retaining retractors placed. I then performed a complete discectomy of C5-C6 out to the uncovertebral joints bilaterally. [place] distracting pins utilized to assist visualization. Removed all posterior in their fibers and longitudinal ligament bilateral foraminotomies performed. Endplates producing cortical bleeding bone and 8 mm spiral cage filled with os design bone graft tapped in position. Distracting apparatus was removed. All anterior osteophytes. With smooth cortical surface. A K2 M plate and screw was then applied with the assistance of fluoroscopy. The incision was then copiously irrigated explored to ensure no damage to surrounding structures or remaining bleeding. 10 round YISSEL drain inserted. Incision was then closed with 2-0 Vicryl in the fascia and a 4 Monocryl for final skin closure. Steri- Strips sterile dressing placed. Patient waken taken to PACU in stable condition. Please note spinal cord monitoring is last out the procedure no changes noted. Medical record was present at the entire procedure involved the patient sustained complex portion of the surgery and final skin closure. Im ordering 10 grams of Collagen Powder ([facility] A6010 Primary Dressing) and 10 bordered super absorbent ([facility] A6196 Secondary Dressing) to treat an incision wound that was caused by a spine procedure. The incision is approximately 2 cm(W) x 4 cm(L) down to the spinal column and epidural space 2 cm (D) in size and is a full thickness wound showing no signs of infection. Collagen comes in 1 gram packets so 10 packets were ordered. Given the size of the wound, with moderate exudate I chose to order a 10 day supply. The patient will be provided instructions for proper application of the collagen wound kit. The patient will be asked to apply the collagen powder daily and then cover it with sterile dressings dispensed. Collagen was selected as I expect the collagen to attract monocytes and fibroblasts, act as a sacrificial substrate for MMPs, and ultimately proved a matrix for tissue and vessel growth. The collagen will act as a primary dressing in this scenario. It is medically necessary for proper healing of these wounds to improve bioavailability and contact with each wound surface, this is also to help prevent infection of wounds and promote healing ultimately leading to a better healing outcome and limit the risk of infection. I attest to the content of the Intraoperative Record and any orders documented therein. Any exceptions are noted below.
[2024-09-03] MEDS: HYDROmorphone INJ 2 MG/ML SYR/VIAL IV PRN (09:40)
--- NOTE | 2024-09-03 10:07 | Fluoroscopy Report ---
FL cervical 2-3V CLINICAL HISTORY: C5-C6 ACDF COMPARISON STUDY: No previous studies for comparison. Fluoroscopy time: 15 seconds. Number of fluoroscopic images: 2 Ka,r: 3.96 mGy. FINDINGS: Fluoroscopy was provided during C5-C6 anterior discectomy and fusion. Hardware is intact. A linear radiodensity within the operative bed on the initial image is not present on the subsequent i mage. Surgical drain is in place. Endotracheal tube is partially imaged. Thoracic spine fusion is par tially imaged as well. IMPRESSION: Fluoroscopy provided during C5-C6 anterior discectomy and fusion. ACT 112: Negative or not required by law. Electronically signed by: Donaldo Ruiz M.D. 09/03/2024 10:05 AM
[2024-09-03] MEDS ORDERED: NALOXONE HCL 0.4 MG/1 ML VIAL/CARP IV PRN (11:19)
[2024-09-03] MEDS ORDERED: LORazepam 2 MG/1 ML VIAL IV PRN (11:19)
[2024-09-03] MEDS ORDERED: ONDANSETRON INJ 2 MG/ML 2 ML VIAL IV PRN (11:19)
[2024-09-03] MEDS ORDERED: METOCLOPRAMIDE HCL INJ 5 MG/ML 2 ML VIAL IV PRN (11:19)
[2024-09-03] MEDS ORDERED: LORazepam 0.5 MG TAB PO PRN (11:19)
[2024-09-03] MEDS ORDERED: MAGNESIUM HYDROXIDE SUSP 30 ML UDC PO PRN (11:19)
[2024-09-03] MEDS ORDERED: SOD PHOSPHATE/SOD BIPHOSPHATE ENEMA 132 ML BTL PR PRN (11:19)
[2024-09-03] MEDS ORDERED: DO NOT ADMINISTER FLU VACCINE PRN (11:19)
[2024-09-03] MEDS ORDERED: PROMETHAZINE 12.5 MG/50.5 ML BAG IV PRN (11:19)
[2024-09-03] MEDS ORDERED: ACETAMINOPHEN 500 MG TAB PO PRN ×2 (11:19)
[2024-09-03] MEDS ORDERED: hydrOXYzine HCl 25 MG TAB PO PRN (11:19)
[2024-09-03] MEDS ORDERED: RACEPINEPHRINE 2.25% NEBU SOLN 0.5 ML VIAL INH PRN (11:19)
[2024-09-03] MEDS ORDERED: ONDANSETRON 4 MG OD TAB PO PRN (11:19)
[2024-09-03] MEDS ORDERED: DO NOT ADMINISTER PNEUMOCOCCAL VACCINE PRN (11:19)
[2024-09-03] MEDS ORDERED: oxyCODONE HCL IR 5 MG TAB (IMMEDIATE RELEASE) PO PRN (11:19)
[2024-09-03] MEDS ORDERED: diphenhydrAMINE Capsule 25 MG CAP PO PRN (11:19)
[2024-09-03] MEDS ORDERED: bisacodyL 10 MG SUPP PR PRN (11:19)
[2024-09-03] MEDS ORDERED: HYDROmorphone INJ 1 MG/ML SYRINGE IV PRN (11:19)
[2024-09-03] MEDS ORDERED: ACETAMINOPHEN 1,000 MG/100 ML VIAL IV PRN (11:19)
[2024-09-03] MEDS ORDERED: ALUMINUM/MAGNESIUM SUSP 30 ML UDC PO PRN (11:19)
[2024-09-03] MEDS ORDERED: HYDROmorphone INJ 0.5 MG/0.5 ML SYR IV PRN (11:19)
[2024-09-03] MEDS ORDERED: dexAMETHasone 8 MG in SYRINGE 0 ML IV PRN (11:19)
[2024-09-03] MEDS ORDERED: FAMOTIDINE 20 MG TAB PO PRN (11:19)
[2024-09-03] MEDS ORDERED: DexMEDEtomidine HCL IV 100 MCG/ML VIAL IV ONE (12:13)
--- OUTSIDE RECORDS SUMMARY | 2024-09-03 12:20 | External Medical Summary | Summary of Care ---
Author Name Unknown Organization [facility] [address] [address] Phone [phone] Care Team Providers Care [employer] Supervisor Name Role Phone Que Foreman PA-C Primary Care Provide r Reason for Visit * Reason Onset Date Comments Surgery 08/13/2024 Encounter Details Date Type Department Care Team (Late st Contact Info) Description [facility] [address] [facility] [place] [address] Que Foreman PA-C [address] [facility] [place] [address] Surgery Allergies Active Allergy Reactions Criticality Noted Date Comments Latex Rash Low 09/08/2017 Meloxicam Neuro complications (Please comment) 08/05/2016 Naproxen-Esomeprazole Mg Other (Please comment) 02/21/2017 blisters Other reaction(s): Other See Comments blisters Other reaction(s): Other (Please comment) blisters Sulfa Antibiotics Hives 05/24/2020 Sertraline 08/03/2021 Sweating, dizziness, depression documented as of this encounter (statuses as of 08/14/2024) Medications Krill Oil 1000 MG Oral Capsule Take 1 Capsule by mouth at bedtime. Active Aspirin Buf(CaCarb-MgCar b-MgO) 81 MG Oral Tablet Take 81 mg by mouth. Active Cholecalciferol 25 MCG (1000 UT) Oral Tablet Take 1 Tablet by mouth. Active Hydroxychloroqui ne Sulfate 200 MG Oral Tablet (PLAQUENIL) Take 1 Tablet by mouth. Active Multi-Vitamin Oral Tablet Take 1 Tablet by mouth in the morning. Active Omeprazole 20 MG Oral Capsule Delayed Release (PriLOSEC) Take 1 Capsule by mouth. Active Tamsulosin HCl 0.4 MG Oral Capsule (Flomax) Take 1 Capsule by mouth in the morning. Active Sildenafil Citrate 100 MG Oral Tablet 1 Tablet. 3 Active Memantine HCl 10 MG Oral Tablet (Namenda)Indicat ions:Amnestic MCI (mild cognitive impairment with memory loss) Take 1 Tablet by mouth in the morning and 1 Tablet before bedtime. Do not start before August 09, 2023. 180 Tablet 3 4 Active Indomethacin 25 MG Oral Capsule (Indocin) Take 1 Capsule by mouth daily. Active Lisinopril 40 MG Oral TabletIndication s:Hypertension goal BP (blood pressure) < 140/90 Take 1 Tablet by mouth in the morning. 90 Tablet 3 4 Active Gabapentin 600 MG Oral Tablet (Neurontin) Take 1 Tablet by mouth in the morning and 1 Tablet before bedtime. 90 Tablet 5 4 Active Rosuvastatin Calcium 20 MG Oral Tablet (Crestor)Indicat ions:Dyslipidemi a, goal LDL below 70,Hypertension goal BP (blood pressure) < 140/90,Sleep apnea, unspecified type TAKE 1 TABLET BY MOUTH EVERY DAY AT BEDTIME 90 Tablet 3 5 Active DULoxetine HCl 60 MG Oral Capsule Delayed Release Particles (Cymbalta)Indica tions:JN (generalized anxiety disorder),Mild episode of recurrent major depressive disorder (HCC) Take 1 Capsule by mouth in the morning. 90 Capsule 2 5 Active Additional Information Patient not taking.Reported on 08/12/2024 NIFEdipine ER 90 MG Oral Tablet Extended Release 24 Hour (Adalat CC)Indications:H ypertension goal BP (blood pressure) < 140/90 Take 1 Tablet by mouth in the morning. 90 Tablet 3 5 Active documented as of this encounter (statuses as of 08/14/2024) Active Problems Problem Noted Date Diagnosed Date Unspecified dementia, unspec ified severity, without behavioral disturbance, psychotic disturbance, mood disturbance, and anxiety 06/08/2024 Acute pain of left shoulder 12/22/2023 Coronary artery disease invo lving sycuan coronary artery of sycuan heart without angina pectoris 05/24/2020 Overview (05/24/2020): Catheterization was mostly good with a small non stentable blockage of 60% in 1 artery. Multiple thyroid nodules 05/24/2020 Overview (02/24/2023): 02/24/23:He had followed up with Dr. Soto, [...] 2019 novel coronavirus disease (COVID -19) 05/24/2020 Overview (05/24/2020): April 29, 2020 Age-related cataract of left eye 05/24/2020 Overview (05/24/2020): Removed April 20, 2020 Latex allergy 09/08/2017 Chronic pain of left knee 04/28/2017 Congenital postural scoliosis 2014 Herniated lumbar intervertebral disc 2014 Spinal stenosis of lumbar region 2014 Neoplasm of uncertain behavior of skin 2 Sleep apnea 12/27/2011 documented as of this encounter (statuses as of 08/14/2024) Resolved Problems Problem Noted Date Diagnosed Date Resolved Date Unspecified dementia, unspec ified severity, without behavioral disturbance, psychotic disturbance, mood disturbance, and anxiety 06/08/2024 06/08/2024 History of 2019 novel duckworth virus disease (COVID-19) 08/03/2021 02/11/2022 Overview (08/03/2021): April 2020 Dementia without behavioral disturbance 06/13/2021 07/11/2023 Special screening 05/24/2020 05/24/2020 Screening PSA (prostate specific antigen) 05/24/2020 05/24/2020 Memory problem 05/24/2020 02/11/2022 Trigger middle finger of right hand 05/24/2020 02/11/2022 Overview (05/24/2020): Repaired surgically April 26, 2020 documented as of this encounter (statuses as of 08/14/2024) Immunizations Name Administration Dates Next Due COVID-19 mRNA, LNP-s, No Pre serve, 2-Dose Series (Pfizer) 11/08/2021,04/09/2021,08/22/2020,07/27 COVID-19, MRNA-LNP, 24-25, P R, 30MCG/0.3ML, IM, 12YRS AND ABOVE (Pfizer-Comirnaty) 03/26/2024 COVID-19, MRNA-LNP, PF, 50 M CG/0.5 mL, 12 YRS AND ABOVE, IM (MODERNA-Spikevax) [...] Seasonal Influenza, Quadriva lent Hd (Fluzone Hd) 03/26/2024,02/24/2023,02/11/2022,02/27 Seasonal Influenza, Quadriva lent Hd, 65+ Yrs [...] drink = 0.6 oz pur e alcohol) PHQ-2 Answer Date Recorded PHQ Adult Total Score 0 05/04/2024 Hunger Vital Sign Answer Date Recorded Worried About Running Out of Food in the Last Ye ar Not on file 05/04/2024 Within the past 12 months, t he food you bought just didn't last and you didn't have money to get more. Never true 05/04/2024 Childcare Answer Date Recorded Do you feel overwhelmed with taking care of a child, family member or friend? No 05/04/2024 Does your family need help f inding childcare? (Household - for ages 0-17 years) Not on file 05/04/2024 Clothing Answer Date Recorded Have you been unable to get clothing when it was really needed? No 05/04/2024 Is your family able to get c lothes or diapers when needed? (Household - for ages 0-17 years) Not on file 05/04/2024 Personal Safety Answer Date Recorded Do you feel unsafe or have concerns for your saf ety? No 05/04/2024 Do you have concerns for you r family's safety? (Household - for ages 0-17 years) Not on file 05/04/2024 Utilities Answer Date Recorded Do you have trouble paying y our heating, water, or electric bill? No 05/04/2024 Is your family able to pay t he heat, water, or electric bill? (Household - for ages 0-17 years) Not on file 05/04/2024 Does your family have access to good internet? (Household - for ages 0-17 years) Not on file 05/04/2024 Employment Status Answer Date Recorded Are you unemployed or without regular income? No 05/04/2024 Does the household have a re gular source of income? (Household - for ages 0-17 years) Not on file 05/04/2024 Social Connections Answer Date Recorded How often do you feel lonely or isolated from th ose around you? Never 05/04/2024 Financial Resource Strain Answer Date R ecorded Do you have any trouble payi ng for your medications, or do you think you might in the future? No 05/04/2024 Does your family have troubl e paying for medicine? (Household - for ages 0-17 years) Not on file 05/04/2024 Transportation Needs Answer Date Record ed Do you have trouble getting a ride to medical visits or work? (Adult - for ages 18 years and over) Not on file 05/04/2024 Does your family have a hard time getting a ride to doctors visits? (Household - for ages 0-17 years) Not on file 05/04/2024 Has lack of transportation k ept you from medical appointments, meetings, work, or from getting things needed for daily living? Check all that apply. No 05/04/2024 Do you (or your family) have trouble finding or paying for a ride (transportation)? (Household - for ages 0-17 years) Not on file 05/04/2024 Housing Stability Answer Date Recorded Do you currently live in a s helter or have no steady place to sleep at night? No 05/04/2024 Do you think you are at risk of becoming homeless? (Adult - for ages 18 years and over) Not on file 05/04/2024 Does your family worry about paying for your home or becoming homeless? (Household - for ages 0-17 years) Not on file 1 07/05/2023 Are you homeless or worried that you might be in the future? No 05/04/2024 Are you (or your family) bria eless or worried that you might be in the future? (Household - for ages 0-17 years) Not on file Food Insecurity Answer Date Recorded Do you need food for this week? No 05/04/2024 Are you able to get enough f ood for your family? (Household - for ages 0-17 years) Not on file 05/04/2024 Does your family need food t his week? (Household - for ages 0-17 years) Not on file 05/04/2024 Do you always have enough fo od for your family? (Household - for ages 0-17 years) Not on file 05/04/2024 Food Insecurity Answer Date Recorded Worried About Running Out of Food in the Last Ye ar Not on file 05/04/2024 Within the past 12 months, t he food you bought just didn't last and you didn't have money to get more. Never true 05/04/2024 Do you need food for this week? No 05/04/2024 Sex and Gender Information Value Date Recorded Sex Assigned at Male 05/04/2024 4:08 PM EST Legal Sex Male 6:03 AM EST Gender Identity Male 05/04/2024 4:08 PM EST Sexual Orientation Straight 05/04/2024 4: 08 PM EST documented as of this encounter Miscellaneous Notes * Telephone Encounter - Kathy Durand OSA - 08/13/2024 4:57 PM EDT Office note from 08/12 faxed as requested. * Telephone Encounter - Lena Lind OSA - 08/13/2024 12:37 PM EDT Toyb is in stating he needs cleared by Dr Foreman sent to [facility] for his surgery on Friday, without it the surgery will need to be cancelled. They're stating it needs sent JEN. Fax number [phone] Please contact them at : [phone] documented in this encounter Plan of Treatment Upcoming Encounters Date Type Department Care Team (Late st Contact Info) Description 11/23/2024 3:40 PM EDT Office Visit Family Practice [address] [place] [address] Que Foreman PA-C [address] [facility] [place] [address] 01/11/2025 11:20 AM EDT Telemedicine Neurology [facility] [address] [facility] [place] [address] Giacomo James, DO [address], [place] [id number] Cart, Telemed [facility] [address] [facility] [place] [address] 08/26/2025 2:00 PM EDT Office Visit Neurology [facility] [place] [address] [facility] [place] [address] Giacomo James, DO [address], [place] [id number] Health Maintenance Due Date Last Done Comments Cologuard 10/20/1996 Sigmoidoscopy 10/20/1996 Adult Wellness Visit 10/20/2017 Zoster Vaccines (2 of 2) 10/28/2018 09/02/2018, 01/31 Fecal Occult Blood Test 07/15/2020 07/15/2019 COVID-19 Vaccine ( season) 2024 03/26/2024, 03/26/2024, 09/29/2023, Additional history exists Depression Screening 05/04/2025 05/04/2024 GFR 07/21/2025 07/21/2024, 10/31, 10/10/2023, Additional history exists Albumin/Creatinine Ratio 02/25/2026 023, 07/17/2022, 02/11/2022 Colonoscopy 09/29/2029 09/30/2019, 09/30/2019 Colorectal Cancer Screening 09/29/2029 DTap/Tdap Vaccines (3 - Td or Tdap) 11/09/2031 11/08/2021, 08/13/2011 AAA Screening Completed 07/04/2020 Pneumococcal Vaccine: 50+ Years Completed 01/21/2024, 03/22/2019, 04/07/2017, Additional history exists Influenza Vaccine (FLU shot) Completed , 02/24/2023, 02/11/2022, Additional history exists HPV (Gardasil) Vaccine Aged Out No lo nger eligible based on patient's age to complete this topic Hepatitis B Vaccine Aged Out No longe r eligible based on patient's age to complete this topic MENINGOCOCCAL (MENACTRA/MENVEO) Aged Out No longer eligible based on patient's age to complete this topic Meningitis B Vaccine (Bexsero/Trumemba) Aged Out No longer eligible based on patient's age to complete this topic documented as of this encounter Medical Devices Not on filedocumented as of this encounter Care Teams [employer] Supervisor Relationship Specialty Start Date End Date Que Foreman PA-C [facility] [facility] [place] [address] 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
--- OUTSIDE RECORDS SUMMARY | 2024-09-03 12:20 | External Medical Summary | Summary of Care ---
Author Name Unknown Organization [facility] Address [address] [facility] [place] [address] Phone [phone] Care Team Providers Care [facility] Administrator Name Role Phone Que Foreman PA-C Primary Care Provide r Reason for Visit * Reason Comments Return Visit Talk about surgery M onday the 3 series of back surgeries. Encounter Details Date Type Department Care Team (Late st Contact Info) Description 08/12/2024 11:20 AM EDT Office Visit Family Practice [address] [place] [address] Que Foreman PA-C [address] [place] [address] Thoracic spinal stenosis*; S/P fusion of thoracic spine; Osteoarthritis of cervical spine with myelopathy; Amnestic MCI (mild cognitive impairment with memory loss); JN (generalized anxiety disorder); Coronary artery disease involving hopland coronary artery of hopland heart without angina pectoris; Hypertension goal BP (blood pressure) < 140/90 Allergies Active Allergy Reactions Criticality Noted Date Comments Latex Rash Low 09/08/2017 Meloxicam Neuro complications (Please comment) 08/05/2016 Naproxen-Esomeprazole Mg Other (Please comment) 02/21/2017 blisters Other reaction(s): Other See Comments blisters Other reaction(s): Other (Please comment) blisters Sulfa Antibiotics Hives 05/24/2020 Sertraline 08/03/2021 Sweating, dizziness, depression documented as of this encounter (statuses as of 08/12/2024) Medications Krill Oil 1000 MG Oral Capsule Take 1 Capsule by mouth at bedtime. Active Aspirin Buf(CaCarb-MgCa rb-MgO) 81 MG Oral Tablet Take 81 mg by mouth. Active Cholecalciferol 25 MCG (1000 UT) Oral Tablet Take 1 Tablet by mouth. Active Hydroxychloroqu ine Sulfate 200 MG Oral Tablet (PLAQUENIL) Take [...] Active Memantine HCl 10 MG Oral Tablet (Namenda)Indica tions:Amnestic MCI (mild cognitive impairment with memory loss) Take 1 Tablet by mouth in the morning and 1 Tablet before bedtime. Do not start before August 09, 2023. 180 Tablet 3 4 Active Indomethacin 25 MG Oral Capsule (Indocin) Take 1 Capsule by mouth daily. Active Lisinopril 40 MG Oral TabletIndicatio ns:Hypertension goal BP (blood pressure) < 140/90 Take 1 Tablet by mouth in the morning. 90 Tablet 3 4 Active Gabapentin 600 MG Oral Tablet (Neurontin) Take 1 Tablet by mouth in the morning and 1 Tablet before bedtime. 90 Tablet 5 4 Active Rosuvastatin Calcium 20 MG Oral Tablet (Crestor)Indica tions:Dyslipide munira, goal LDL below 70,Hypertension goal BP (blood pressure) < 140/90,Sleep apnea, unspecified type TAKE 1 TABLET BY MOUTH EVERY DAY AT BEDTIME 90 Tablet 3 5 Active DULoxetine HCl 60 MG Oral Capsule Delayed Release Particles (Cymbalta)Indic ations:JN (generalized anxiety disorder),Mild episode of recurrent major depressive disorder (HCC) Take 1 Capsule by mouth in the morning. 90 Capsule 2 5 Active Additional Information Patient not taking.Reported on 08/12/2024 NIFEdipine ER 90 MG Oral Tablet Extended Release 24 Hour (Adalat CC)Indications: Hypertension goal BP (blood pressure) < 140/90 Take 1 Tablet by mouth in the morning. 90 Tablet 3 5 Active NIFEdipine ER 90 MG Oral Tablet Extended Release 24 Hour (Adalat CC) Take 1 Tablet by mouth in the morning. 4 025 Discontin ued(Refil l) documented as of this encounter (statuses as of 08/12/2024) Active Problems Problem Noted Date Diagnosed Date Unspecified dementia, unspec ified severity, without behavioral disturbance, psychotic disturbance, mood disturbance, and anxiety 06/08/2024 Acute pain of left shoulder 12/22/2023 Coronary artery disease invo lving hopland coronary artery of hopland heart without angina pectoris 05/24/2020 Overview (05/24/2020): [...] as of this encounter (statuses as of 08/12/2024) Resolved Problems Problem Noted Date Diagnosed Date [...] as of this encounter (statuses as of 08/12/2024) Immunizations Name Administration Dates Next Due COVID-19 [...] No 05/04/2024 Does the household have a up health systemr source of income? (Household - for ages [...] PM EST documented as of this encounter Last Filed Vital Signs Vital Sign Reading Time Taken Comments Blood Pressure 138/72 08/12/2024 11:15 AM EDT Pulse 73 08/12/2024 11:15 AM EDT Temperature 36.5 °C (97.7 °F) 08/12/2024 1 1:15 AM EDT Respiratory Rate 20 08/12/2024 11:1 5 AM EDT Oxygen Saturation 96% 08/12/2024 11: 15 AM EDT Inhaled Oxygen Concentration - - Weight 103.7 kg (228 lb 9.6 oz) 025 11:15 AM EDT Height 167.6 cm (5' 6") 08/12/2024 11:1 5 AM EDT Body Mass Index 36.9 08/12/2024 11:15 AM EDT documented in this encounter Progress Notes * Que Foreman PA-C - 08/12/2024 11:18 AM EDT Images from the original note were not included. History of Present Illness Toby Christie is a 73 year old male that presents for f/u visit. To review, patient last seen 06/08/2024. He had just underwent T2-T4 decompression and fusion on 05/24/[address] Lo. This was completed at [facility], and he was discharged on05/28/2024. - since this recent back surgery, his low back pain has continued to improve. Left-sided leg weakness which he had prior to surgery has also improved following this surgery. - he last saw Dr. Lo's office was on 07/21/2024. Repeat x-rays that day showed stable postsurgical changes without hardware failure. He has been able to ambulate with a quad cane which is improvement from his walker. Balance improving. 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 He is apparently scheduled for surgery on 08/16/2024? Today, he continues to report progressive improvement in thoracic back pain and leg strength. Stillambulating with quad cane. They are waiting on PT until after working on his cervical spine surgically. Last labs 07/2024 - hgb 13.9; hepatic panel negative. From a dementia standpoint, I sent in Ask-A-Doc to Neurology during last visit in 06/2024 asking ifthey would be okay with switching Celexa to Cymbalta. They were very agreeable to this, so I calledthe patient and made this change. He has since seen Neurology in follow up, last visit 07/09/2024. Reported that Cymbalta did seem to helps anxiety, however he still had the anxiety to some degree. Ne urology increase duloxetine to 60 mg daily. Follow up 6 months. Follows with Cardiology, Dr. Douglas, for history of CABG x3 in 2007. He did have a brief admission at [facility] from 05/31/24 until 06/01/24 due to chest/back pain. He had high blood pressure readings with systolic blood pressure greater than 200 at that time, otherwise the workup was negative for new ischemic disease. I do not have any follow up visits from Dr. Douglas. Pt himself doesn't know when the last time was that he saw Dr. Douglas. Will try to get records. - blood pressure today is borderline but overall stable. Needs refill of nifedipine. - denies recurrence of chest pain, any worsening shortness of breath, lightheadedness, palpitations. Follows with urology, recently started on tadalafil and does feel it has helped his BPH sx's. Patient Active Problem List Diagnosis Coronary artery disease involving hopland coronary artery of hopland heart without angina pectoris Multiple thyroid nodules Hypertension goal BP (blood pressure) < 140/90 Dyslipidemia, goal LDL below 70 Obesity, Class I, BMI 30.0-34.9 (see actual BMI) Gastroesophageal reflux disease with esophagitis without hemorrhage Rheumatoid arthritis involving multiple sites with positive rheumatoid factor (HCC) History of 2019 novel coronavirus disease (COVID-19) Age-related cataract of left eye Congenital postural scoliosis Herniated lumbar intervertebral disc Latex allergy Neoplasm of uncertain behavior of skin Sleep apnea Spinal stenosis of lumbar region Chronic pain of left knee Acute pain of left shoulder Unspecified dementia, unspecified severity, without behavioral disturbance, psychotic disturbance, mood disturbance, and anxiety (HCC) Review of patient's allergies indicates: Allergen Reactions Meloxicam Neuro complications (Please comment) Naproxen-Esomeprazole Mg Other (Please comment) blisters Other reaction(s): Other See Comments blisters Other reaction(s): Other (Please comment) blisters Sulfa Antibiotics Hives Zoloft [Sertraline] Sweating, dizziness, depression Latex Rash Current Outpatient Medications Medication Sig Dispense Refill Krill Oil 1000 MG Oral Capsule Take 1 Capsule by mouth at bedtime. Aspirin Buf(WmJipy-LlUvjt-WwL) 81 MG Oral Tablet Take 81 mg by mouth. Hydroxychloroquine Sulfate 200 MG Oral Tablet (PLAQUENIL) Take 1 Tablet by mouth. Multi-Vitamin Oral Tablet Take 1 Tablet by mouth in the morning. Omeprazole 20 MG Oral Capsule Delayed Release (PriLOSEC) Take 1 Capsule by mouth. Tamsulosin HCl 0.4 MG Oral Capsule (Flomax) Take 1 Capsule by mouth in the morning. Sildenafil Citrate 100 MG Oral Tablet 1 Tablet. Memantine HCl 10 MG Oral Tablet (Namenda) Take 1 Tablet by mouth in the morning and 1 Tablet beforebedtime. Do not start before August 09, 2023. 180 Tablet 3 Indomethacin 25 MG Oral Capsule (Indocin) Take 1 Capsule by mouth daily. Lisinopril 40 MG Oral Tablet Take 1 Tablet by mouth in the morning. 90 Tablet 3 Gabapentin 600 MG Oral Tablet (Neurontin) Take 1 Tablet by mouth in the morning and 1 Tablet beforebedtime. 90 Tablet 5 Rosuvastatin Calcium 20 MG Oral Tablet (Crestor) TAKE 1 TABLET BY MOUTH EVERY DAY AT BEDTIME 90 Tablet 3 NIFEdipine ER 90 MG Oral Tablet Extended Release 24 Hour (Adalat CC) Take 1 Tablet by mouth in the morning. 90 Tablet 3 Cholecalciferol 25 MCG (1000 UT) Oral Tablet Take 1 Tablet by mouth. DULoxetine HCl 60 MG Oral Capsule Delayed Release Particles (Cymbalta) Take 1 Capsule by mouth in the morning. (Patient not taking: Reported on 08/12/2024) 90 Capsule 2 No current facility-administered medications for this visit. Past Medical History: Diagnosis Date Age-related cataract of left eye 05/24/2020 Removed April 20, 2020 Coronary artery disease involving hopland coronary artery of hopland heart without angina pectoris 05/24/2020 Catheterization was [...] Procedure Laterality Date CARPAL TUNNEL SURGERY Right 2019 CORONARY ARTERIES BYPASS, THREE 2007 MD TENDON SHEATH INCISION Left 2019 Dr. Kuhn for trigger finger. TOTAL HIP REPLACEMENT & PROSTHESIS Left 2017 Marisa Family History Problem Relation Name Age of Onset No Known Problems Daughter Heart Disorder Mother Diabetes Mother No Known Problems Father Estranged. No history information Kidney cancer Brother Family Status Relation Status Son Alive Colton Alive Mo Fa Bro Alive Social History Socioeconomic History Marital status: Tobacco Use Smoking status: Former Smokeless tobacco: Never Tobacco comments: in high school Vaping Use Vaping status: Never Used Substance and Sexual Activity Alcohol use: Not Currently Drug use: Not Currently Social Needs Financial Resource Strain: Low Risk (05/04/2024) Financial Resource Strain Do you have any trouble paying for your medications, or do you think you might in the future? (Adult - for ages 18 years and over): No Food Insecurity: Unknown (05/04/2024) Food Insecurity Ran Out of Food in the Last Year: Never true Do you need food for this week? (Adult - for ages 18 years and over): No Transportation Needs: No Transportation Needs (05/04/2024) Transportation Needs Has lack of transportation kept you from medical appointments, meetings, work, or from getting things needed for daily living? Check all that apply. (Adult - for ages 18 years and over): No Social Connections: Socially Integrated (05/04/2024) Social Connections How often do you feel lonely or isolated from those around you? (Adult - for ages 18 years and over): Never Housing Stability: Low Risk (05/04/2024) Housing Stability Do you currently live in a long-term or have no steady place to sleep at night? (Adult - for ages 18 years and over): No Are you homeless or worried that you might be in the future? (Adult - for ages 18 years and over): No Review of Systems Constitutional: Negative. Negative for chills and fever. Respiratory: Negative. Negative for shortness of breath. Cardiovascular: Negative. Negative for chest pain, palpitations and leg swelling. Gastrointestinal: Negative. Negative for abdominal pain, blood in stool, constipation, diarrhea, nausea and vomiting. Genitourinary: Negative. Negative for difficulty urinating and dysuria. Musculoskeletal: Positive for arthralgias, back pain and myalgias. Skin: Negative. Negative for rash. Neurological: Positive for weakness and numbness. Negative for syncope and light-headedness. Psychiatric/Behavioral: Negative. Negative for dysphoric mood. The patient is not nervous/anxious. All other systems reviewed and are negative. Physical Exam BP 138/72 | Pulse 73 | Temp 97.7 °F (36.5 °C) (Tympanic) | Resp 20 | Ht 5' 6" (1.676 m) | Wt 228 lb 9.6 oz (103.7 kg) | SpO2 96% | BMI 36.90 kg/m² | BSA 2.2 m² Physical Exam Vitals and nursing note reviewed. Constitutional: Appearance: Normal appearance. He is obese. Comments: Presents with quad cane Neck: Comments: Lower cervical spine with mild TTP bilat, no deformity to palpation Cardiovascular: Rate and Rhythm: Normal rate and regular rhythm. Pulses: Normal pulses. Heart sounds: Normal heart sounds. No murmur heard. Pulmonary: Effort: Pulmonary effort is normal. Breath sounds: Normal breath sounds. No wheezing, rhonchi or rales. Musculoskeletal: Cervical back: Neck supple. Tenderness present. Comments: +5/5 strength in shoulders, elbows, on car supervisor bilat Well-healing lower cervical to lower thoracic surgical scar without significant erythema, edema, open wounds, rash, drainage Lumbosacral spine with well-healed vertical scar; just mild tenderness to palpation of lumbar paraspinals Skin: General: Skin is warm. Neurological: General: No focal deficit present. Mental Status: He is alert and oriented to person, place, and time. Sensory: Sensory deficit present. Motor: No weakness. Psychiatric: Mood and Affect: Mood normal. Behavior: Behavior normal. Thought Content: Thought content normal. Judgment: Judgment normal. I have reviewed most recent labs BMP results Recent Labs Units 07/21/24 0000 11/12/23 0000 10/10/23 0000 07/11/23 1130 02/25/23 0713 SODIUM - [facility] mmol/L -- -- -- 141 144 POTASSIUM - [facility] 3.7 4.1 -- 4.2 4.3 CHLORIDE - [facility] mmol/L -- -- -- 104 104 CO2 - [facility] mmol/L -- -- -- 25 26 CREATININE - [facility] 1.00 0.90 0.90 0.9 1.0 BUN - [facility] mg/dL -- -- -- 12 17 Lipid panel results Recent Labs Units 02/25/23 0713 CHOLESTEROL - [facility] mg/dL 123 HDL CHOLESTEROL - [facility] mg/dL 34* TRIGLYCERIDES - [facility] mg/dL 135 CBC results Recent Labs Units 07/21/24 0000 11/12/23 0000 10/10/23 0000 07/11/23 1130 02/25/23 0713 WBC K/uL -- -- -- 6.23 9.03 HGB GM/DL 13.9* 15.3 15.2 15.8 14.8 HCT % -- -- -- 47.0 47.1 PLT K/uL -- -- -- 254 281 HbA1c results Recent Labs Units 02/25/23 0713 HEMOGLOBIN A1C - [facility] % 5.5 TSH results Recent Labs Units 11/12/23 0000 07/11/23 1130 02/25/23 0713 TSH - [facility] uIU/mL -- 0.65 0.74 TSH - OUTSIDE LAB MCIU/ML 0.483 -- -- Vitamin D results Recent Labs Units 02/25/23 0713 25-HYDROXY VITAMIN D - [facility] ng/mL 46 Hepatic panel results Recent Labs Units 07/11/23 1130 02/25/23 0713 11/21/22 0854 PROTEIN - [facility] g/dL 6.6 6.5 6.5 BILIRUBIN, TOTAL - [facility] mg/dL 1.4* 1.2 1.1 ALKALINE PHOSPHATASE - [facility] U/L 80 77 66 AST - [facility] U/L 26 18 18 ALT - [facility] U/L 34 23 30 Protein/cr ratio results No results for input(s): "PROCRRATIO" in the last [id number] hours. Assessment and Plan Thoracic spinal stenosis Progressive improvement since surgery. His ambulation has also been improving. He is now ambulatingwith quad cane (previously with walker). He is reportedly being scheduled for surgery in the near future. I have no idea when he was last seen by cardio, but he did have an admission in late 05/2024 due to chest pain/back pain. We will try to obtain last cardiac records. 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 JN (generalized anxiety disorder) Doing better on Cymbalta. Coronary artery disease involving hopland coronary artery of hopland heart without angina pectoris Trying to get cardiac records. Hypertension goal BP (blood pressure) < 140/90 Borderline but overall improved. Continue nifedipine. - NIFEdipine ER 90 MG Oral Tablet Extended Release 24 Hour (Adalat CC); Take 1 Tablet by mouth in the morning. Wrap-Up Follow Up: Return in about 3 months (around 11/12/2024), or if symptoms worsen or fail to improve, for Return with AP. | For: Return with AP Time: I spent a total of 20-29 minutes (exact time 26 mins) on the date of service in preparation, delivery, and documentation of the care provided to Toby Christie excluding any time spent in the performance of separately billed services. documented in this encounter Nursing Notes * Kendra Santacruz CCMA - 08/12/2024 11:10 AM EDT Chief Complaint Patient presents with Return Visit Talk about surgery Friday the 16 08 series of back surgeries. documented in this encounter Miscellaneous Notes * Pt Handout (on AVS) - Que Foreman PA-C - 08/12/2024 11:33 AM EDT Images from the original note were not included. [id number] Understanding Coronary Artery Disease (CAD) Your heart is a muscle. To work right, this muscle needs a steady supply of oxygen. The coronary arteries are blood vessels that carry oxygen-rich blood to the heart muscle. Coronary artery disease (CAD) is when there?s a problem in these blood vessels. The coronary arteries get blocked, resulting in reduced blood supply to the heart muscles. Healthy artery. A healthy coronary artery has no blockages. Blood easily flows through it. Healthy arteries can supply all the oxygen-rich blood your heart muscle needs. Healthy artery. Damaged artery. Some things can damage the lining of an artery. These include smoking, high blood pressure, and high blood sugar. CAD starts when this damage leads to the buildup of plaque along the artery wall. Plaque is made of cholesterol and other fatty deposits. It narrows the arteries that send blood to your heart muscle. It also makes the bush of the arteries stiff. This is called atherosclerosis. Damaged artery. Narrowed artery. As more plaque builds up, an artery has trouble sending blood to your heart musclewhen it's needed the most, such as during exercise. You may not feel any symptoms at rest. The oxygen needed by the heart is not as much as during exertion. Symptoms may occur when the oxygen demand by heart muscles is not met by the blood supply through the narrowed artery. You may feel pressure, tightness, aching, or pain in your chest, jaw, neck, back, or arm. This is called angina. Narrowed artery. Blocked artery. A piece of plaque can break off. This is called ruptured plaque. It can fully blockthe artery. But more often, a blood clot forms on a piece of ruptured plaque. Together these block the narrowed artery. Then blood can't reach the heart muscle supplied by the blocked artery. It causes damage to the heart muscle. You may feel crushing pressure or pain in or around your chest. This is a heart attack (acute myocardial infarction). It?s a medical emergency. Blocked artery. Last Reviewed Date: 2024 00:00:00 © 1780-3127 [employer]. All rights reserved. This information is not intended as a substitute for professional medical care. Always follow your healthcare professional's instructions. documented in this encounter Plan of Treatment Upcoming Encounters Date Type Department Care Team (Late st Contact Info) Description 11/23/2024 3:40 PM EDT [facility] [address] [place] [address] Que Foreman PA-C [address] [facility] [place] [address] 01/11/2025 11:20 AM EDT Telemedicine Neurology [facility] [address] [place] [address] Giacomo James, DO [address] [place] [address] Jayne Douglassed [facility] [address] [facility] [place] [address] 08/26/2025 2:00 PM EDT Office Visit Neurology [facility] [address] [place] [address] Giacomo James, DO [address] [place] [address] Health Maintenance Due Date Last Done Comments [...] as of this encounter Visit Diagnoses Diagnosis Thoracic spinal stenosis- Primary Spinal stenosis of thoracic region S/P fusion of thoracic spine 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
--- OUTSIDE RECORDS SUMMARY | 2024-09-03 12:20 | External Medical Summary | Summary of Care ---
Author Name Unknown Organization [facility] Address [address] [place] [address] Phone [phone] Care Team Providers Care Foreign Language Teacher Name Role Phone Que Foreman PA-C Primary Care Provide r Reason for Visit * Reason Onset Date Comments Medication Refill 08/30/2024 Encounter Details Date Type Department Care Team (Late st Contact Info) Description 08/30/2024 Refill Neurology [facility] [address] [place] [address] Tracie Kennedy, DO [address] [place] [address] Amnestic MCI (mild cognitive impairment with memory loss) Allergies Active Allergy Reactions Criticality Noted Date Comments Latex Rash Low 09/08/2017 Meloxicam Neuro complications (Please comment) 08/05/2016 Naproxen-Esomeprazole Mg Other (Please comment) 02/21/2017 blisters Other reaction(s): Other See Comments blisters Other reaction(s): Other (Please comment) blisters Sulfa Antibiotics Hives 05/24/2020 Sertraline 08/03/2021 Sweating, dizziness, depression documented as of this encounter (statuses as of 09/01/2024) Medications Krill Oil 1000 MG Oral Capsule [...] MG Oral Tablet 1 Tablet. 3 Active Indomethacin 25 MG Oral Capsule (Indocin) [...] the morning. 90 Tablet 3 5 Active Memantine HCl 10 MG Oral Tablet (Namenda)Indica tions:Amnestic MCI (mild cognitive impairment with memory loss) Take 1 Tablet by mouth in the morning and 1 Tablet before bedtime. 180 Tablet 3 5 Active Memantine HCl 10 MG Oral Tablet (Namenda)Indica tions:Amnestic MCI (mild cognitive impairment with memory loss) Take 1 Tablet by mouth in the morning and 1 Tablet before bedtime. Do not start before August 09, 2023. 180 Tablet 3 4 025 Discontin ued(Refil l) documented as of this encounter (statuses as of 09/01/2024) Active Problems Problem Noted Date Diagnosed Date Unspecified dementia, unspec ified severity, without behavioral disturbance, psychotic disturbance, mood disturbance, and anxiety 06/08/2024 Acute pain of left shoulder 12/22/2023 Coronary artery disease invo lving [place] coronary artery of [place] heart without angina pectoris 05/24/2020 Overview (05/24/2020): [...] as of this encounter (statuses as of 09/01/2024) Resolved Problems Problem Noted Date Diagnosed Date [...] as of this encounter (statuses as of 09/01/2024) Immunizations Name Administration Dates Next Due COVID-19 [...] older, IM (Adacel) 08/13/2011 Varicella Zoster Vaccine Fernie lt (Zostavax) 02/16/2013 Zoster Vaccine Recombinant (Shingrix) 09/02/2018 documented [...] No 05/04/2024 Does the household have a [facility] source of income? (Household - for ages [...] encounter Miscellaneous Notes * Telephone Encounter - Tracie Kennedy DO - 09/01/2024 3:56 PM EDTSigned Prescriptions: Disp Refills Memantine HCl 10 MG Oral Tablet (Namenda) 180 Ta*3 Sig: Take 1 Tablet by mouth in the morning and 1 Tablet before bedtime.Authorizing Provider: TRACIE KENNEDY--- documented in this encounter Plan of Treatment Upcoming Encounters Date Type Department Care Team (Late st Contact Info) Description 11/23/2024 3:40 PM EDT Office Visit Family Practice [address], [place] [address] [place] [address] Que Foreman PA-C [address] [place] [address] 01/11/2025 11:20 AM EDT Telemedicine Neurology [facility] [address] [facility] [place] [address] Tracie Kennedy, DO [address] [place] [address] Cart, Telemed [facility] [address] [place] [address] 08/26/2025 2:00 PM EDT Office Visit Neurology [facility] [address] [facility] [place] [address] Tracie Kennedy, DO [address] [place] [address] Health Maintenance Due Date Last Done Comments [...] memory loss) Mild cognitive impairment, so stated documented in this encounter Care Teams Foreign Language Teacher Relationship Specialty Start Date End Date Que Foreman PA-C [facility] [place] [address] PCP - General Physician Bean Snapper 07/11/23 documented as of this encounter
--- NOTE | 2024-09-03 14:23 | Anesthesiology Progress Note ---
Date of Service September 03, 2024 Anesthesia Post Procedure Vital Signs Vital Signs: Temp Pulse Pulse Resp BP BP Pulse Ox 09/03/24 14:20 36.6 C 82 16 172/84 H 95 09/03/24 13:17 36.8 C 80 16 149/80 H 92 09/03/24 12:18 36.5 C 76 18 168/94 H 93 09/03/24 11:49 36.7 C 80 18 166/85 H 96 09/03/24 11:30 79 16 96 09/03/24 11:19 09/03/24 11:19 36.6 C 78 18 178/87 H 95 09/03/24 10:50 77 16 160/98 H 94 09/03/24 10:40 72 16 160/95 H 94 09/03/24 10:30 36.4 C L 75 16 152/94 H 95 09/03/24 10:20 74 16 154/90 H 94 09/03/24 10:10 73 12 158/95 H 95 09/03/24 10:00 72 14 177/89 H 97 09/03/24 09:50 70 12 161/95 H 98 09/03/24 09:40 70 14 195/89 H 98 09/03/24 09:30 70 16 188/94 H 97 09/03/24 09:24 36.0 C L 76 18 195/83 H 94 09/03/24 05:29 36.8 C 71 16 189/87 H 97 O2 Del Method O2 Flow Rate 09/03/24 14:20 Room Air 09/03/24 13:17 Room Air 09/03/24 12:18 Room Air 09/03/24 11:49 Nasal Cannula 2 09/03/24 11:30 Nasal Cannula 2 09/03/24 11:19 Nasal Cannula 2 09/03/24 11:19 Nasal Cannula 2 09/03/24 10:50 Nasal Cannula 3 09/03/24 10:40 Nasal Cannula 3 09/03/24 10:30 Nasal Cannula 3 09/03/24 10:20 Nasal Cannula 3 09/03/24 10:10 Nasal Cannula 3 09/03/24 10:00 Nasal Cannula 3 09/03/24 09:50 Oxymask 6 09/03/24 09:40 Oxymask 6 09/03/24 09:30 Oxymask 6 09/03/24 09:24 Oxymask 6 09/03/24 05:29 Room Air Pain Intensity Bilateral Neck: Pain Intensity: 5 Transfer of Care Handoff Completed per policy Notes Mental Status: alert / awake / arousable and participated in evaluation Nausea / Vomiting: adequately controlled Pain: adequately controlled Airway Patency, RR, SpO2: stable & adequate BP & HR: stable & adequate Hydration State: stable & adequate Anesthetic Complications: no major complications apparent and Pt Satisfied with anesthetic care
--- NOTE | 2024-09-03 15:28 | Consultation ---
Date of Consultation September 03, 2024 Assessment & Plan (1) Myelopathy 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 stenosis of cervical region: (2) Essential hypertension: (3) Rheumatoid arthritis: (4) Coronary artery disease: (5) BPH without urinary obstruction: (6) JEROMY (obstructive sleep apnea): (7) Alzheimer disease: Plan 73 year old male with a past medical history of essential hypertension, CAD, HLD, JEROMY, spinal stenosis, RA, BPH, Alzheimer, GERD admitted for surgery for correction of severe stenosis to C5-C6. Myelopathy 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 stenosis of cervical region: POD#0 s/p anterior cervical discectomy with bilateral foraminotomies C5-C6 with Dr. Lo. Per ortho for pain control, wound care, anticoagulation and activities Monitor H&H (EBL 10ml) pre-operative HgB 13.9 on 07/21/24 continue incentive spirometry, PT/OT when appropriate Chronic Pain: Continue gabapentin and duloxetine per home regimen Coronary Artery Disease: History of Multivessel disease S/P CABG x 3 vessels in 2007. Follows Cardiology Continue ASA per home routine Essential Hypertension: Blood pressure is currently uncontrolled at 172/84 Optimize pain control Gave one time dose of home lisinopril Goal <140/90- Continue lisinopril 40 mg and nifedipine xr 90 mg daily as per home routine Hyperlipidemia: Continue rosuvastatin as per home routine Obstructive Sleep Apnea: CPAP HS Benign Prostatic Hyperplasia: Continue tamsulosin as per home routine Rheumatoid Arthritis: Continue hydroxychloroquine Hold indomethacin in post-op setting Alzheimer Disease: At baseline. Requires frequent redirection Continue memantine as per home routine DVT Ppx:Compression stockings Code status: Full PCP: Que Foreman PA-C Dispo: Admitted to Med/Surg Patient seen in collaboration with Dr. Calles. Please see addendum. Thank you for this consultation.We will follow the patient with you during their hospital stay. You can reach a member of the [facility] Hospitalist Team 23/12 via cartmi. I spent a total of 60 minutes coordinating, documenting and providing care for this patient excluding time spent in the performance of separately billed services or time spent by another provider/QHP. Supervising Physician Co-Signing Physician Notes Pt was seen and examined by myself, Kady Calles MD on the day of service. Care was coordinated with , CLEO/ALTAGRACIA. 73yoM resting comfortably, neck collar in place, son at bedside Follow H/H postop Additional po medication control of BP, per son this has happened each time after his previous surgeries with Dr Lo. Otherwise as above. I spent a total of15 minutes coordinating, documenting, and providing care for this patient excluding time spent in the performance of separately billed services History of Present Illness Attending Physician: Andrzej Lo, History of Present Illness 73 year old male with a past medical history of essential hypertension, CAD, HLD, JEROMY, spinal stenosis, RA, BPH, Alzheimer, GERD admitted for surgery for correction of severe stenosis to C5-C6. He has suffered with chronic neck pain with radicular symptoms, previously managed with conservatively outpatient with PT. Today, the patient had anterior cervical discectomy with bilateral foramen fusion, bone grafting, and screws to C5-C6 region. Per chart review, patient experienced a a severe fall in December 2023 resulting in ambulation difficulties and surgeries (January 2024: lumbar decompression surgery of L4-S1;May 2024: Thoracic decompression with spinal fusion of T2-T4). Post-operatively, patient appears well, pleasant, and sitting up in chair. Reportedly, he is feeling well with no pain and minimal, intermittent numbness to the left hand. He was wearing a C-collar and compression stockings. He denies pain, breathing difficulty, chest pain, weakness, abdominal pain, nausea, vomiting. He reports urinating and flatulence since surgery. No bowel movement yet. History obtained from the patient and external chart review. Allergies Allergy/AdvReac Type Severity Reaction Status Date / Time meloxicam [From Mobic] Allergy Unknown CAN'T Verified 09/03/24 05:34 REMEMBER naproxen [From Aleve] Allergy Unknown CAN'T Verified 09/03/24 05:34 REMEMBER Sulfa (Sulfonamide Allergy Unknown RASH;HIVES;SWELLING Verified 09/03/24 05:34 Antibiotics) ( ? location of swelling) Home Medications Medication Instructions Recorded Confirmed Type cholecalciferol (vitamin D3) 25 250 mcg PO DAILY 12/08/19 09/03/24 History mcg (1,000 unit) tablet hydroxychloroquine 200 mg tablet 200 mg PO QAM 12/08/19 09/03/24 History multivitamin 1 tab PO QPM 12/08/19 09/03/24 History rosuvastatin 20 mg tablet 20 mg PO QPM 12/08/19 09/03/24 History krill oil 500 mg capsule 500 mg PO QPM 12/06/20 09/03/24 History omeprazole 20 mg capsule,delayed 20 mg PO QAM 12/06/20 09/03/24 History release aspirin 81 mg tablet,delayed 81 mg PO QAM 08/04/21 09/03/24 History release (Maya Low Dose Aspirin) gabapentin 600 mg tablet 600 mg PO BID 01/06/24 09/03/24 History lisinopril 40 mg tablet 40 mg PO QAM 01/06/24 09/03/24 History memantine 10 mg tablet 10 mg PO BID 01/06/24 09/03/24 History tamsulosin 0.4 mg capsule 0.4 mg PO QAM 05/23/24 09/03/24 History acetaminophen 500 mg tablet 1,000 mg PO UD PRN Pain 08/03/24 09/03/24 History (Tylenol Extra Strength) duloxetine 20 mg capsule,delayed 10 mg PO QAM 08/03/24 09/03/24 History release nifedipine 90 mg tablet,extended 90 mg PO DAILY 08/03/24 09/03/24 History release 24 hr (Procardia XL) tadalafil 5 mg tablet 5 mg PO DAILY #90 tabs 08/09/24 09/03/24 Rx oxycodone 5 mg tablet 5 mg PO Q6H PRN pain #20 tabs 09/03/24 Rx tramadol 50 mg tablet 50 mg PO Q6H PRN pain, moderate 09/03/24 Rx #30 tabs Patient History Medical History (Updated 09/03/24 @ 07:40 by Andrzej Lo DO) History of COVID-19 (2019) + testing at clinic in 2019. no hospitalization. JEROMY (obstructive sleep apnea) GERD (gastroesophageal reflux disease) BPH (benign prostatic hyperplasia) pt unsure Spinal stenosis Torn rotator cuff right Alzheimer disease early History of fall (12/2023) tripped over transition from carpet to hardwood , tripped over the strip. back injury 2 fractures (sx intervention x2) and torn rotator cuff , right. No sx intervention, hx 2 shots most recent approx apr 2024. [place] (hard of hearing) History of CAD (coronary artery disease) CABG x 3-2007 History of being hospitalized (05/31/24) overnight stay [facility] due to high blood pressure....all due to anxiety per pt and . History of myocardial infarction (2007) HTN (hypertension) Rheumatoid arthritis Gallstones no problems with at current. Fatty liver Kidney stones dr king 08/09/24 Hyperlipidemia High blood pressure Surgical History Personal history of spine surgery (05/2024) mid back / hardware History of lumbar fusion (01/2024) History of total left hip replacement History of cardiac cath (2007) Hx TX...prior to triple bypass. History of coronary artery bypass graft x 3 triple bypass in 2007 for TX. History of colonoscopy H/O foot surgery (2007) artifical joint great toe, right. History of bladder surgery Social History Smoking Status: Never smoker Tobacco Type: Cigarettes Smoking End Date: smoked casual, none since 1973; Second Hand Exposure: No; Do You Dip or Chew Tobacco: No; Hx Alcohol Use: No Hx Substance Use: No Preferred Language: Uzbek Communication Ability: Effective Communication Ability Comment: pt early alzheimers, helps.see pat comm notes. Ms Sql Server Developer Required: No Beliefs That Will Affect Care: None marital status: Current Living Situation: Spouse Feels Safe at Home: Yes Assistive Devices: CPAP, Denture - Upper, Glasses and Hearing Aid - Bilateral Review of Systems Review of Systems: All systems reviewed & are unremarkable except as noted in HPI & below Physical Exam Physical Exam: VITALS: Reviewed. WEIGHT/BMI reviewed. GEN: Healthy appearing, well-developed, NAD. PSYCH: Good Judgment. AOx3. Normal memory, mood, and affect. HEENT -Head: NC/AT; -Eyes: PERRL, EOMI. No discharge or redn ess; -Mouth and throat: MMM. NECK: C-collar intact, anterior neck dressing C/D/I. YISSEL drain visualized- scant- mild sero-sanguinous drainage CV: RRR, no m/r/g. Pulses strong. LUNGS: Clear and equal bilaterally, good air exchange bilaterally, unlabored. ABD: Soft, NT/ND, NBS, no masses or organomegaly. : N/A SKIN: Warm, well perfused. No skin rashes or abnormal lesions. Scattered moles on back MSK: No deformities. Strength 4/5 to uppers and lowers. EXT: No clubbing, cyanosis, or edema. Compression stockings on. NEURO: Normal muscle strength and tone. No focal deficits. Results & Data Vital Signs (Past 12 Hours) Vital Signs Temp Pulse Pulse Resp BP BP Pulse Ox 09/03/24 14:20 36.6 C 82 16 172/84 H 95 09/03/24 13:17 36.8 C 80 16 149/80 H 92 09/03/24 12:18 36.5 C 76 18 168/94 H 93 09/03/24 11:49 36.7 C 80 18 166/85 H 96 09/03/24 11:30 79 16 96 09/03/24 11:19 09/03/24 11:19 36.6 C 78 18 178/87 H 95 09/03/24 10:50 77 16 160/98 H 94 09/03/24 10:40 72 16 160/95 H 94 09/03/24 10:30 36.4 C L 75 16 152/94 H 95 09/03/24 10:20 74 16 154/90 H 94 09/03/24 10:10 73 12 158/95 H 95 09/03/24 10:00 72 14 177/89 H 97 09/03/24 09:50 70 12 161/95 H 98 09/03/24 09:40 70 14 195/89 H 98 09/03/24 09:30 70 16 188/94 H 97 09/03/24 09:24 36.0 C L 76 18 195/83 H 94 09/03/24 05:29 36.8 C 71 16 189/87 H 97 O2 Del Method O2 Flow Rate 09/03/24 14:20 Room Air 09/03/24 13:17 Room Air 09/03/24 12:18 Room Air 09/03/24 11:49 Nasal Cannula 2 09/03/24 11:30 Nasal Cannula 2 09/03/24 11:19 Nasal Cannula 2 09/03/24 11:19 Nasal Cannula 2 09/03/24 10:50 Nasal Cannula 3 09/03/24 10:40 Nasal Cannula 3 09/03/24 10:30 Nasal Cannula 3 09/03/24 10:20 Nasal Cannula 3 09/03/24 10:10 Nasal Cannula 3 09/03/24 10:00 Nasal Cannula 3 09/03/24 09:50 Oxymask 6 09/03/24 09:40 Oxymask 6 09/03/24 09:30 Oxymask 6 09/03/24 09:24 Oxymask 6 09/03/24 05:29 Room Air
[2024-09-03] MEDS: ceFAZolin 2000MG 2,000 MG/15 ML SYR IV SCH (15:32)
[2024-09-03] MEDS ORDERED: hydrALAZINE HCL 20 MG/ML VIAL IV PRN (16:58)
[2024-09-03] MEDS: lisinopril 40 MG TAB PO ONE (17:54)
[2024-09-03] MEDS: traMADol HCL 50 MG TABLET PO PRN (19:07)
[2024-09-03] MEDS: MULTIVITAMIN TAB PO SCH (20:32)
[2024-09-03] MEDS: MEMANTINE HCL 10 MG TAB PO SCH (20:32)
[2024-09-03] MEDS: GABAPENTIN 600 MG TAB PO SCH (20:32)
[2024-09-03] MEDS: ROSUVASTATIN CALCIUM 20 MG TAB PO SCH (20:32)
[2024-09-03] MEDS: DOCUSATE SODIUM/SENNA 50/8.6MG TAB PO SCH (20:32)
[2024-09-04] MEDS: POLYETHYLENE (MIRALAX) 17 GM PACK PO SCH (05:17)
[2024-09-04 05:18] VITALS: RESP 16
[2024-09-04 06:22] LABS: Hematocrit (blood only) 34.4 % (42.0-52.0); Hemoglobin 11.6 g/dl (14.0-18.0); Mean Corpuscular Hemoglobin 31.1 pg (25.0-34.0); Mean Corpuscular Hgb Conc 33.7 g/dL (32.0-36.0); Mean Corpuscular Volume 92.2 fL (80.0-100.0); Mean Platelet Volume 10.1 fL (9.4-12.4); Platelet Count 283 K/uL (130-400); RDW Coefficient of Variation 14.2 % (11.5-14.5); RDW Standard Deviation 48.1 fL (36.4-46.3); Red Blood Count 3.73 M/uL (4.70-6.10); White Blood Count 11.28 K/ul (4.8-10.8)
[2024-09-04 06:36] LABS: BUN Creatinine Ratio 19.6 (10-20); Calcium 8.9 mg/dl (8.6-10.3); Creatinine Clr Calc Pharmacy 81.2 ml/min; Potassium 3.5 mmol/L (3.5-5.1)
[2024-09-04 07:05] VITALS: BP 165/79; TEMP 98.1; O2SAT 97
[2024-09-04 07:19] VITALS: PULSE 69
[2024-09-04] MEDS: NIFEdipine EXTENDED REL 30 MG TABCR PO SCH (07:56)
[2024-09-04] MEDS: HYDROXYCHLOROQUINE SULFATE 200 MG TAB PO SCH (07:56)
[2024-09-04] MEDS: CHOLECALCIFEROL 25 MCG (1000 UNITS) TAB PO SCH (07:56)
[2024-09-04] MEDS: lisinopril 40 MG TAB PO SCH (07:56)
[2024-09-04] MEDS: ASPIRIN 81 MG ECTAB PO SCH (07:56)
[2024-09-04] MEDS: DULoxetine HCL 20 MG CAP PO SCH (07:56)
[2024-09-04] MEDS: TAMSULOSIN HCL 0.4 MG CAP PO SCH (07:57)
[2024-09-04] MEDS: PANTOprazole 40 MG TAB PO SCH (07:57)
--- NOTE | 2024-09-04 08:40 | Discharge Summary ---
Date of Service September 04, 2024 Admission HPI Per Admitting Provider This is a 73-year-old male known to me presents with chronic persistent neck and arm symptoms after failing course of nonoperative care is here for surgical invention. Admission Exam (Per Admitting) Constitutional WD/WN, vitals as above Eyes normal visual wright by confrontation ENMT external ear and nose normal, oropharynx normal Neck normal visual inspection Respiratory normal respiratory effort Cardiovascular Extremities: normal capillary refill Gastrointestinal (Abdomen) Inspection/Auscultation: abdomen normal to inspection Musculoskeletal Spine: + limited cervical ROM and + pain with cervical ROM Extremities: extremities normal to inspection Gait: + antalgic gait Skin no rashes, warm and dry Neurologic normal touch/pain/proprioception and moves all extremities Psychiatric A+Ox3, euthymic affect Eye Contact: good eye contact Discharge Data Consultations 09/03/24 11:19 Consult Hospitalist Routine Procedures Performed Operation Date: 09/03/24 07:45 Actual Procedures p C5-C6 Anterior Cervical Discectomy Fusion, Spinal Cord Monitoring(Not Applicable) - Andrzej Lo DO Hospital Course (1) Myelopathy 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 stenosis of cervical region: Toby is being discharged home on postoperative day 1 status post ACDF C5-6 secondary to cervical myelopathy and spinal stenosis. He feels his balance is improving. Mild dysphagia. YISSEL drain output last shift was 10 cc. He is up and ambulatory around the room. He is voiding without issue. No other complaints. Discharge Instructions ACTIVITY RECOMMENDATIONS: SELF CARE INSTRUCTIONS AFTER CERVICAL FUSIONS 1. No smoking. Smoking drastically decreases the chance of a solid fusion. 2. No bending, lifting more than 5 pounds, or twisting (roll like a log when turning in bed). 3. You may shower 3 days after surgery. Thoroughly dry wound. Do not soak in the tub. 4. Cervical collar: Must be worn at all times including sleeping. You may remove the brace only to bath, eat and if you are sitting in a recliner. 5. Please walk as much as you can for exercise. Gradually increase the distance that you walk as your endurance increases. 6. You may return to previous diet. SPECIAL CARE INSTRUCTIONS: VERY IMPORTANT TO READ AND REVIEW A. Do not take any anti-inflammatory medications (i.e. Indocin, Advil, Aspirin, Naprosyn, Aleve, Motrin, etc.) as these may inhibit the chance of a solid fusion. Tylenol is okay to take. B. Your surgical incision has been closed with a cosmetic suture under the skin that will dissolve in about 6 weeks. In 14 days, you can use a pair of clean scissors and cut the suture that is left outside of the skin at the ends of your incision. C. Complications are uncommon, but please contact us if you have any signs or symptoms of: 1. wound infection (fever higher than 102.5 degrees F, redness, separation of wound, drainage, or increasing pain from the incision) 2. blood clots in legs (pain, swelling, redness and warmth in legs) 3. urinary tract infection (fever higher than 102.5 degrees, burning upon urination or increased frequency of urination) 4. nerve problems (inability to walk on your toes or heels, numbness, loss of bowel or bladder control) 5. any other symptoms that concern you. D. Please call the office at if you have any concerns or questions about your operation or recovery. MANAGING PAIN AFTER SPINAL SURGERY 1. Narcotic medication is intended for short-term use and will be provided for surgical pain. Surgical pain usually lasts for a period of 4-6 weeks. Narcotic medication includes Percocet, Vicodin, Darvocet, Tylenol #3 or Lortab. 2. Longer-term pain is more appropriately treated with non-narcotic medication such as Tylenol ES. 3. Muscle spasm is not appropriately treated with narcotics. Muscle relaxers such as Soma, Flexeril or Skelaxin can be used along with Tylenol ES. 4. Remember that we all live with some "aches and pains". This is not unusual or uncommon after an injury or as we get older. 5. We will provide appropriate medication within the normal guidelines of their prescribed use. We will also be very cautious and aware of potential abuse and extended duration of patients' medication needs. 6. Please allow 2-3 days to process refills. Prescriptions will not be mailed but must be picked up at the office. FOLLOW UP VISIT: Keep your scheduled follow-up appointment. Any questions, please call the office at .
--- NOTE | 2024-09-04 13:30 | Hospitalist Progress Note ---
Date of Service September 04, 2024 Assessment & Plan (1) Myelopathy 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 stenosis of cervical region: (2) Essential hypertension: (3) Rheumatoid arthritis: (4) Coronary artery disease: (5) BPH without urinary obstruction: (6) JEROMY (obstructive sleep apnea): (7) Alzheimer disease: Plan Patient status post cervical spine surgery. Post procedure course has been uneventful. Medically stable for discharge home. Continue prior to admission medications. Thank you for this consultation Admission and Anticipated Discharge Date Admission Date: September 03, 2024 Subjective Patient seen earlier this morning. Pain is controlled. Eager to be discharged. Physical Exam Physical Exam: Constitutional: Alert, nontoxic HEENT: Mucous membranes moist. Neck in brace, surgical bandage clean and dry, drain from anterior neck with serosanguineous fluid Lungs: Clear to auscultation, decreased, no wheezes rales or rhonchi CV: S1-S2, regular Abdomen: Soft, nontender, nondistended Extremities: No significant edema Neuro: No focal deficits Psych: Cooperative, normal mood Results & Data Results & Data Vital Signs (Past 12 Hours) Vital Signs Temp Pulse Resp BP Pulse Ox O2 Del Method 09/04/24 08:00 Room Air 09/04/24 07:18 69 16 97 Room Air 09/04/24 07:04 36.7 C 73 16 165/79 H 97 Room Air 09/04/24 05:17 36.6 C 70 16 166/81 H 94 Room Air 09/04/24 03:00 70 17 93 Room Air 09/04/24 02:59 36.6 C 74 18 150/67 H 96 Room Air Diagnostic Findings Reviewed imaging, laboratory and diagnostic studies. Pertinent findings as below. Hemoglobin 11.6 WBCs 11.2, due to steroids BMP stable
== END 2024-09-04 11:04 | disposition home or self-care (01) | DRG 472 ==
LOC: ASU 05:23 → 3E 09:09